=== PATIENT | male | born 1955 | race Caucasian/White ===

== ENCOUNTER 2016-06-26 20:33 | Emergency (ER) | payer BC ==
[~2016-06-26 20:33] MED LIST: ASPI-232 PO; AUG0.05L6 TOP; CARV25TA2 PO; CITA20TA9 PO; ENOX60IN SQ; FENO48TA9 PO; GLC500 PO; INSDGI SC; NITR0.4S UT; NSNN50; NVLGI SC; OMEG12006 PO; OMEP20CA9 PO; RANI300T2 PO; ROSU20TA PO; VALS320T PO; WARF-284 PO
[2016-06-26 20:35] VITALS: TEMP 36.5; Ht 177.8 cm
[2016-06-26] MEDS ORDERED: PERCOCET HOME PACK PO ONE (21:30)
[2016-06-26] MEDS ORDERED: HYDROmorphone INJ 2 MG/ML SYR/VIAL IM ONE (21:30)
--- NOTE | 2016-06-26 21:34 | EMERGENCY ROOM VISIT NOTE ---
History Report prepared by Patience: Martin Randolph Under the Supervision of: Dr. Robbie Prater D.O. First contact with patient: 21:15 Chief Complaint: BACK PAIN Stated Complaint: POST OP BACK SURGERY 06-21,SEVERE PAIN History of Present Illness The patient is a 61 year old male who presents to the Emergency Room with complaints of worsening severe back pain for the past five days. The patient's states that the patient got lumbar fusion surgery of the L2-L5 vertebrae. The states that the patient's pain is worse than the day after the surgery. The states that the patient has been following his treatment plans , and has been doing everything that he is supposed to be doing. The patient states that pain radiates into his hips and lower back. The states that the patient has been taking oxycodone and Vicodin, and they have not helped the pain. The says that the patient called his surgeon, and they told him to come to the ED for pain relief. Source of History: patient, spouse/significant other Onset: five days ago Position: back (lower) Symptom Intensity: severe Timing: worsening Note: Associated symptoms: hip and groin pain Review of Systems See HPI for pertinent positives & negatives. A total of 10 systems reviewed and were otherwise negative. Past Medical & Surgical Medical Problems: (1) Diabetes (2) Heart disease (3) HTN (hypertension) Surgical Problems: (1) Hx of cholecystectomy (2) Previous back surgery Family History Diabetes mellitus Heart disease Hypertension Social History Smoking Status: Current Every Day Smoker Alcohol Use: none Drug Use: none Marital Status: Housing Status: lives with family Occupation Status: employed Current/Historical Medications Scheduled Aspirin (Aspir-81), 81 MG PO DAILY Carvedilol (Coreg), 25 MG PO BID Citalopram Hydrobromide (Celexa), 20 MG PO DAILY Enoxaparin (Lovenox), 60 MG SQ Q12H Fenofibrate (Tricor), 48 MG PO DAILY Insulin Aspart (Novolog), Unknown Dose SC DAILY Insulin Glargine (Lantus), 60 UNITS SC BID Metformin HCl (Metformin HCl), 1,000 MG PO BID Mometasone Furoate (Nasal) (Nasonex), 2 SPRAY NA QAM Nitroglycerin (Nitrostat), 0.4 MG UT PRN [place]-3 Fatty Acids ([place] 3), 1 CAPSULE PO BID Omeprazole (Prilosec), 20 MG PO BID Ranitidine (Zantac), 300 MG PO HS Rosuvastatin Calcium (Crestor), 20 MG PO DAILY Valsartan (Diovan), 320 MG PO DAILY Warfarin Sodium (Warfarin Sodium), 7.5 MG PO DAILY Scheduled PRN Betamethasone Dipropionate Aug (Diprolene), 1 APPLN TOP BID PRN for unkn Allergies Coded Allergies: Niacin (Verified Adverse Reaction, Unknown, sweats and joint pain, 11/10/15 ) Physical Exam Vital Signs Date Time Temp Pulse Resp B/P Pulse Ox O2 Delivery O2 Flow Rate FiO2 06/26/16 22:00 78 20 155/72 96 06/26/16 20:35 36.5 73 20 117/80 100 Room Air Physical Exam CONSTITUTIONAL/VITAL SIGNS: Reviewed / noted above. GENERAL: Non-toxic in appearance. INTEGUMENTARY: Warm, dry, and [place]. HEAD: Normocephalic. EYES: without scleral icterus or trauma. ENT/OROPHARYNX: clear and moist. LYMPHADENOPATHY/NECK: Is supple without lymphadenopathy or meningismus. RESPIRATORY: Lungs clear and equal. CARDIOVASCULAR: Regular rate and rhythm. GI/ABDOMEN: Soft and nontender. No organomegaly or pulsatile mass. No rebound or guarding. Normal bowel sounds. EXTREMITIES: Warm and well perfused. BACK: Post-surgical wound in the lumbar region with jose intact. No redness, swelling, or discharge. No CVA tenderness. NEUROLOGICAL: Intact without focal deficits. PSYCHIATRIC: normal affect. MUSCULOSKELETAL: Normally developed with good muscle tone. Medical Decision & Procedures Medications Administered Medications (Trade) Dose Ordered Sig/Juan Miguel Route Start Time Stop Time Status Last Admin Dose Admin Hydromorphone HCl (Dilaudid Inj) 2 mg ONE ONCE IM 06/26/16 21:30 06/26/16 21:31 DC 06/26/16 21:35 2 MG Oxycodone/ Acetaminophen (Percocet 5/ 325MG Home Pack) 1 homepack UD ONCE PO 06/26/16 21:30 06/26/16 21:31 DC 06/26/16 21:36 1 HOMEPACK ED Course 2114: Previous medical records were reviewed. The patient was evaluated in room A9. A complete history and physical examination was performed. 2129: Percocet 5/325mg 1 Home Pack PO, Dilaudid Inj 2mg IM 2134: On reevaluation, the patient is feeling better. I discussed the results and findings with the patient. He verbalized agreement of the treatment plan. He was discharged home. Medical Decision Differential considered includes post-surgical process, cauda equina syndrome, conus medullaris, spinal cord compression syndrome, peripheral nerve compression , fractures or subluxations, intra-abdominal pathology such as abdominal aortic aneurysm or kidney stones, muscle strain, transverse myelitis, spinal cord injury. This is a 61-year-old male who presents to the ED with a chief complaint of back pain that radiates down his right leg. The patient is 5 days postop from a lumbar fusion. He had this done at a [facility]. The patient was told to come to the ED for a shot of pain medication to give him some relief. His surgeon feels that he is behind on his medications and the Vicodin that he was prescribed may not be working as well as the oxycodone he was given while he was in the hospital. The patient denies any fevers. He denies any abdominal pains. No nausea vomiting. Exam reveals postsurgical findings of the lumbar region. There is no evidence of infection. His motor and sensory function is intact distally. His vital signs are stable and he is afebrile. The patient was given IM Dilaudid for discomfort and discharged with oxycodone home pack. He is felt to be stable for discharge. He is going to contact his doctor tomorrow for additional pain medication and follow-up. Impression Primary Impression: Lumbar pain Scribe Attestation The scribe's documentation has been prepared under my direction and personally reviewed by me in its entirety. I confirm that the note above accurately reflects all work, treatment, procedures, and medical decision making performed by me. Departure Information Dispostion Home / Self-Care Referrals Steven López M.D. (PCP) Forms HOME CARE DOCUMENTATION FORM, IMPORTANT VISIT INFORMATION Patient Instructions My [facility] Additional Instructions Contact your doctor tomorrow. Return to the nearest emergency department for any concerns.
[2016-06-26 22:00] VITALS: BP 155/72; PULSE 78; O2SAT 96
[2016-06-26] MEDS ORDERED: HYG/25 PO (22:20)
[2016-06-26] MEDS ORDERED: LNX125 PO (22:20)
[2016-06-26] MEDS ORDERED: MAGN400T6 PO (22:20)
[2016-06-26] MEDS ORDERED: LIRA18IN SC (22:20)
[2016-06-26] MEDS ORDERED: MOME1AER5 (22:20)
[2016-06-26] MEDS ORDERED: NVLG SC (22:20)
[2016-06-26] MEDS ORDERED: SALI0.657 NAE (22:20)
[2016-06-26] MEDS ORDERED: WARF10TA4 PO (22:20)
[2016-06-26] MEDS ORDERED: IPRA1AER2 INH (22:20)
[2016-06-26] MEDS ORDERED: INSDGI SC (22:20)
[2016-06-26] MEDS ORDERED: ATOR-26 PO (22:20)
[2016-06-26] MEDS ORDERED: ALPR-411 PO (22:20)
[2016-06-26] MEDS ORDERED: TRMCR515 TOP (22:20)
[2016-06-26] MEDS ORDERED: LACT12CR TOP (22:20)
[2016-07-15] MEDS ORDERED: LRS10 PO (13:44)
[2016-07-15] MEDS ORDERED: RXC5 PO (13:44)
[2016-07-15] MEDS ORDERED: DVN80 PO (13:44)
[2016-08-03] MEDS ORDERED: OXYC1TAB3 PO (16:04)
[2016-09-13] MEDS ORDERED: NICO7DIS7 TD (09:27)
[2016-09-13] MEDS ORDERED: HYG25 PO (09:28)
[2016-10-26] MEDS ORDERED: CYM/30 PO (10:12)
[2016-10-26] MEDS ORDERED: INSU100I23 SC (10:12)
[2016-11-29] MEDS ORDERED: GABA-113 PO (10:25)
[2016-11-29] MEDS ORDERED: NRN300 PEG (10:25)
== END 2016-06-26 22:06 | disposition home or self-care (01) ==
LOC: C.EDB 20:34 → C.EDA 22:06
DX: M54.5 Low back pain (principal); F17.200 Nicotine dependence, unspecified, uncomplicated; E11.9 Type 2 diabetes mellitus without complications; I51.9 Heart disease, unspecified; I10 Essential (primary) hypertension; Z79.82 Long term (current) use of aspirin; Z79.4 Long term (current) use of insulin

== ENCOUNTER 2016-06-30 11:14 | Inpatient (IN) | payer BC ==
[~2016-06-30] VITALS: Ht 180.3 cm; Wt 139.8 kg
[~2016-06-30 11:14] MED LIST changes: +ALPR-411 PO; +ATOR-26 PO; -ENOX60IN SQ; +HYG/25 PO; +IPRA1AER2 INH; +LACT12CR TOP; +LIRA18IN SC; +LNX125 PO; +MAGN400T6 PO; +MOME1AER5; -NSNN50; +NVLG SC; -NVLGI SC; -ROSU20TA PO; +SALI0.657 NAE; +TRMCR515 TOP; +WARF10TA4 PO
[2016-06-30] MEDS ORDERED: SODIUM CHLORIDE 0.9% 1000ML 1,000 ML IV STA ×2 (11:35)
--- NOTE | 2016-06-30 11:42 | EMERGENCY ROOM VISIT NOTE ---
History Report prepared by Patience: Blanca Jones Under the Supervision of: Dr. Joanna Nicole M.D. First contact with patient: 11:25 Chief Complaint: SYNCOPE Stated Complaint: SYNCOPE History of Present Illness The patient is a 61 year old male who presents to the Emergency Room via EMS with complaints of multiple syncopal episodes occurring today. The patient recently had a laminectomy in [place]. He also complains of persistent weakness and increased tiredness today. He took 2 Vicodin today as prescribed. He had about 5 witnessed syncopal episodes today. Each episode lasted for about 5 seconds. He currently complains of a headache, nausea, and back pain. He had severe dizziness when he tried standing up. He also reports a loss of appetite. He has been having watery diarrhea intermittently for the past few days. He denies chest pain, shortness of breath, vomiting, dark/bloody stool, or any other complaints. The patient has a history of diabetes, cardiac stent placement , and A-Fib. Source of History: patient Onset: today Position: other (global) Quality: other (syncopal episodes) Timing: other (about 5 episodes) Associated Symptoms: + back pain, + diarrhea, + headache, + nausea, No SOB, No chest pain, No vomiting Review of Systems See HPI for pertinent positives & negatives. A total of 10 systems reviewed and were otherwise negative. Past Medical & Surgical Medical Problems: (1) LISSETH (acute kidney injury) (2) CAD (coronary artery disease) (3) COPD (chronic obstructive pulmonary disease) (4) Depression (5) Diabetes mellitus type II, uncontrolled (6) Dyslipidemia (7) GERD (gastroesophageal reflux disease) (8) HTN (hypertension) (9) ZULEIKA on CPAP (10) PAF (paroxysmal atrial fibrillation) (11) Tobacco abuse Surgical Problems: (1) Hx of cholecystectomy (2) Previous back surgery (3) Stented coronary artery Family History Diabetes mellitus Heart disease Hypertension Social History Smoking Status: Current Every Day Smoker Alcohol Use: none Drug Use: none Marital Status: Housing Status: lives with family Occupation Status: employed Current/Historical Medications Scheduled Aspirin (Aspir-81), 81 MG PO DAILY Atorvastatin (Lipitor), 80 MG PO DAILY Carvedilol (Coreg), 25 MG PO BID Chlorthalidone (Hygroton), 12.5 MG PO DAILY Citalopram Hydrobromide (Celexa), 20 MG PO HS Digoxin (Digoxin), 0.125 MCG PO DAILY Fenofibrate (Tricor), 48 MG PO DAILY Insulin Aspart (Novolog), 24 UNITS SC TIDM Insulin Glargine (Lantus), 60 UNITS SC BID Ipratropium-Albuterol (Combivent Respimat), 1 PUFFS INH QID Liraglutide (Victoza), 1.8 MG SC DAILY Magnesium Oxide (Mag-Ox), 400 MG PO DAILY Metformin HCl (Metformin HCl), 1,000 MG PO BID Nitroglycerin (Nitrostat), 0.4 MG UT PRN [place]-3 Fatty Acids ([place] 3), 1 CAPSULE PO BID Omeprazole (Prilosec), 20 MG PO BID Ranitidine (Zantac), 300 MG PO HS Valsartan (Diovan), 320 MG PO DAILY Warfarin Sod (Jantoven), 10 MG PO WK Warfarin Sodium (Warfarin Sodium), 7.5 MG PO [id number] Miscellaneous Medications Mometasone Furoate (Inhalation (Asmanex Hfa) Allergies Coded Allergies: Niacin (Verified Adverse Reaction, Unknown, sweats and joint pain, 06/30/16) Physical Exam Vital Signs Date Time Temp Pulse Resp B/P Pulse Ox O2 Delivery O2 Flow Rate FiO2 06/30/16 12:43 77 18 98/75 98 Room Air 06/30/16 12:18 75 16 117/75 96 Room Air 06/30/16 11:46 79 06/30/16 11:35 94 16 79/42 94 Room Air 06/30/16 11:33 95 Room Air 06/30/16 11:27 81 16 94/50 91 Room Air 06/30/16 11:25 36.4 75 16 84/50 95 Room Air 06/30/16 11:21 74 16 66/56 Physical Exam Vital signs reviewed. General: Well-appearing, noted to be markedly hypotensive. HEENT: No scleral icterus, pale conjunctiva, PERRLA, neck supple. Atraumatic. Mucous membranes are dry. Cardiovascular: Regular rate and rhythm, no extra sounds. Pulmonary: Clear to auscultation bilaterally, normal work of breathing. Abdomen: Obese, soft, nontender, nondistended, positive bowel sounds. Rectal: Guaiac negative. Musculoskeletal: Atraumatic, no peripheral edema. Neurologic: Patient awake alert and oriented x 3, full strength in all 4 extremities. Cranial nerves 2 through 12 grossly intact. Skin: Warm, dry, no rash Medical Decision & Procedures ER Provider Diagnostic Interpretation: X-ray results as stated below per interpretation by me and the radiologist: CHEST ONE VIEW PORTABLE CLINICAL HISTORY: syncope dyspnea COMPARISON STUDY: 11/07/2015 FINDINGS: Mild stable cardiomegaly. Lungs are clear. Diaphragms smooth. IMPRESSION: Mild stable cardia megaly. Otherwise negative study Electronically signed by: Satya Mcfarland M.D. 06/30/2016 1:09 PM Dictated Date/Time: 06/30/2016 1:[address] results as stated below per my review and radiologist interpretation: HEAD CT NONCONTRAST CT DOSE: 1441.90 mGycm HISTORY: syncope, coumadin CHI TECHNIQUE: Multiaxial CT images of the head were performed without the use of intravenous contrast. Automated exposure control was utilized for this study. Comparison: None. Findings: The paranasal sinuses and mastoid air cells are clear. The calvarium and skull base are intact. The ventricles and sulci are within normal limits. There is no mass, hematoma, midline shift, or acute infarct. Impression: No acute intracranial abnormality. Electronically signed by: Hua Oreilly M.D. 06/30/2016 12:27 PM Dictated Date/Time: 06/30/2016 12:24 PM Laboratory Results Test 06/30/16 11:25 06/30/16 11:47 06/30/16 11:49 Immature Granulocyte % (Auto) 0.8 % White Blood Count 8.81 K/uL (4.8-10.8) Red Blood Count 3.97 M/uL (4.7-6.1) Hemoglobin 13.0 g/dL (14.0-18.0) Hematocrit 36.9 % (42-52) Mean Corpuscular Volume 92.9 fL (80-100) Mean Corpuscular Hemoglobin 32.7 pg (25-34) Mean Corpuscular Hemoglobin Concent 35.2 g/dl (32-36) Platelet Count 370 K/uL (130-400) Mean Platelet Volume 9.2 fL (7.4-10.4) Neutrophils (%) (Auto) 59.0 % Lymphocytes (%) (Auto) 24.5 % Monocytes (%) (Auto) 8.5 % Eosinophils (%) (Auto) 6.7 % Basophils (%) (Auto) 0.5 % Neutrophils # (Auto) 5.20 K/uL (1.4-6.5) Lymphocytes # (Auto) 2.16 K/uL (1.2-3.4) Monocytes # (Auto) 0.75 K/uL (0.11-0.59) Eosinophils # (Auto) 0.59 K/uL (0-0.5) Basophils # (Auto) 0.04 K/uL (0-0.2) Immature Granulocyte # (Auto) 0.07 K/uL (0.00-0.02) Activated Partial Thromboplast Time 35.9 SECONDS (21.0-31.0) Partial Thromboplastin Ratio 1.4 Total Bilirubin 0.6 mg/dl (0.2-1) Direct Bilirubin 0.2 mg/dl (0-0.2) Aspartate Amino Transf (AST/SGOT) 37 U/L (15-37) Alanine Aminotransferase (ALT/SGPT) 78 U/L (12-78) Alkaline Phosphatase 82 U/L (45-117) Total Creatine Kinase 218 U/L (39-308) Total Protein 6.8 gm/dl (6.4-8.2) Albumin 3.2 gm/dl (3.4-5.0) Lipase 100 U/L (73-393) Digoxin Level 0.7 ng/ml (0.8-2.0) Bedside Troponin I 0.000 ng/ml (0-0.045) Bedside Hemoglobin 11.6 g/dl (14.0-18.0) Bedside Hematocrit 34 % (42-52) Bedside Sodium 137 mEq/L (135-144) Bedside Potassium 3.6 mEq/L (3.3-5.0) Bedside Chloride 98 mEq/L (101-112) Bedside Total CO2 22 mEq/l (24-31) Bedside Blood Urea Nitrogen 44 mg/dl (7-18) Bedside Creatinine 3.1 mg/dl (0.6-1.3) Bedside Glucose (other) 143 mg/dl (70-99) Bedside Ionized Calcium (Randi) 1.00 mmol/l (1.12-1.32) Medications Administered Medications (Trade) Dose Ordered Sig/Juan Miguel Route Start Time Stop Time Status Last Admin Dose Admin Sodium Chloride (Nss 1000ml) 1,000 ml @ 999 mls/hr Q1H1M STAT IV 06/30/16 11:35 06/30/16 12:35 DC 06/30/16 11:35 999 MLS/HR ECG Indication: syncope Rate (beats per minute): 73 Rhythm: atrial fibrillation Findings: T-wave inversion (inferior and lateral ), other (Prolonged QTC 486) Comparison ECG Date: June 08, 2016 Change: Rate has decreased by by 45 beats per minute but otherwise no change when compared to June 08, 2016. ED Course 1125: Past medical records reviewed. The patient was evaluated in room C02B. A complete history and physical examination was performed. 1135: Sodium Chloride 1000 ml @ 200 mls/hr IV, Sodium Chloride 1000 ml @ 999 mls /hr IV 1243: Upon reevaluation, the patient is resting comfortably. I discussed laboratory and radiographic results with him. He verbalized agreement of the treatment plan. I spoke with KELSY Lan of the [facility] Service. The patient will be evaluated for further management and care. Medical Decision Differential diagnosis: Cardiac arrhythmia, dehydration, medication effect, renal failure, ACS, PE This patient was evaluated and appeared to be in no significant distress. IV access was obtained and laboratory work was drawn. The patient was placed on the dressmaker or tailor and found to be markedly hypotensive. He is in a rate controlled atrial fibrillation. EKG reveals T-wave inversions. There is no significant change from previous EKG with the exception that the rate has improved. The patient was aggressively hydrated with normal saline solution for his hypotension into the 60s. Patient did have some improvement. Laboratory work reveals a markedly elevated creatinine. This is likely secondary to a dehydration. The patient's case was discussed with the hospitalist service will evaluate the patient for admission and further management. He and his are aware of the plan and agree. Consults Time Called: 1241 Consulting Physician: [facility] Returned Call: 1245 I spoke with KELSY Lan of the [facility] Service. Impression Primary Impression: Acute renal failure Additional Impressions: Dehydration Syncope Scribe Attestation The scribe's documentation has been prepared under my direction and personally reviewed by me in its entirety. I confirm that the note above accurately reflects all work, treatment, procedures, and medical decision making performed by me. Departure Information Dispostion Being Evaluated By Hospitalist Referrals Steven López M.D. (PCP) Patient Instructions My [facility] Problem Qualifiers Primary Impression: Acute renal failure Acute renal failure type: unspecified Qualified Codes: N17.9 - Acute kidney failure, unspecified Additional Impressions: Syncope Encounter type: initial encounter
[2016-06-30 11:56] LABS: BASO % 0.5 %; BASO ABS # 0.04 K/uL (0-0.2); COMPLETE YES; EOS % 6.7 %; HEMATOCRIT 36.9 % (42-52); IG% 0.8 %; LYMPH % 24.5 %; LYMPH ABS # 2.16 K/uL (1.2-3.4); MEAN CELL VOLUME 92.9 fL (80-100); MEAN CORPUSCULAR HEMOGLOBIN 32.7 pg (25-34); MEAN CORPUSCULAR HGB CONC 35.2 g/dl (32-36); MEAN PLATELET VOLUME 9.2 fL (7.4-10.4); MONO % 8.5 %; PLATELET COUNT 370 K/uL (130-400); RED BLOOD COUNT 3.97 M/uL (4.7-6.1); WHITE BLOOD COUNT 8.81 K/uL (4.8-10.8)
[2016-06-30 12:02] LABS: ISTAT CREATININE 3.1 mg/dl (0.6-1.3); ISTAT HEMOGLOBIN 11.6 g/dl (14.0-18.0)
[2016-06-30 12:07] LABS: INR 2.7 (0.9-1.1); PARTIAL THROMBOPLASTIN RATIO 1.4; PROTHROMBIN TIME (PATIENT) 29.9 SECONDS (9.0-12.0)
[2016-06-30 12:18] LABS: BUN/CREATININE RATIO 16.5 (10-20); CALCIUM 8.3 mg/dl (8.5-10.1); CREATININE 3.2 mg/dl (0.60-1.40); MAGNESIUM 1.9 mg/dl (1.8-2.4); POTASSIUM 3.5 mmol/L (3.5-5.1)
--- NOTE | 2016-06-30 12:29 | DIAGNOSTIC IMAGING REPORT ---
HEAD CT NONCONTRAST CT DOSE: 1441.90 mGycm HISTORY: syncope, coumadin CHI TECHNIQUE: Multiaxial CT images of the head were performed without the use of intravenous contrast. Automated exposure control was utilized for this study. Comparison: None. Findings: The paranasal sinuses and mastoid air cells are clear. The calvarium and skull base are intact. The ventricles and sulci are within normal limits. There is no mass, hematoma, midline shift, or acute infarct. Impression: No acute intracranial abnormality. Electronically signed by: Hua Oreilly M.D. 06/30/2016 12:27 PM Dictated Date/Time: 06/30/2016 12:24 PM
--- NOTE | 2016-06-30 13:12 | DIAGNOSTIC IMAGING REPORT ---
CHEST ONE VIEW PORTABLE CLINICAL HISTORY: syncope dyspnea COMPARISON STUDY: 11/07/2015 FINDINGS: Mild stable cardiomegaly. Lungs are clear. Diaphragms smooth. IMPRESSION: Mild stable cardia megaly. Otherwise negative study Electronically signed by: Satya Mcfarland M.D. 06/30/2016 1:09 PM Dictated Date/Time: 06/30/2016 1:09 PM
[2016-06-30] MEDS ORDERED: ONDANSETRON INJ 2 MG/ML 2 ML VIAL IV PRN (14:15)
[2016-06-30] MEDS ORDERED: NITROGLYCERIN 0.4 MG SL PER TAB CHARGE SL PRN (14:15)
[2016-06-30] MEDS ORDERED: GLUCOSE 40% GEL 15 GM TUBE PO PRN (14:15)
[2016-06-30] MEDS ORDERED: GLUCOSE 10 TABS/TUBE PO PRN (14:15)
[2016-06-30] MEDS ORDERED: GLUCAGON FOR INJ 1 MG VIAL SQ PRN (14:15)
[2016-06-30] MEDS ORDERED: DEXTROSE 50% 50 ML SYR IV PRN (14:15)
[2016-06-30] MEDS ORDERED: PHARMACY GLYCEMIC MGMT CONSULT PRN (15:00)
--- NOTE | 2016-06-30 15:43 | Pharmacy Progress Note ---
Glycemic Control Intl Consult Date of Service Jun 30, 2016. Scope Glycemic Pharmacist consulted by Marbin Cantrell on 06/30/16 for glycemic control and to write orders per [facility] inpatient glycemic control protocol Objective Weight (Kilograms): 130.000 Accuchecks BSG (last 24hrs): Test 06/30/16 11:25 06/30/16 11:49 Random Glucose 147 mg/dl (70-99) Bedside Glucose 157 mg/dl (70-99) Laboratory Data (last 24hrs) Test 06/30/16 11:25 06/30/16 11:49 Anion Gap 11.0 mmol/L 21.0 mmol/L BUN/Creatinine Ratio 16.5 Blood Urea Nitrogen 53 mg/dl Creatinine 3.20 mg/dl Potassium Level 3.5 mmol/L Sodium Level 136 mmol/L White Blood Count 8.81 K/uL Red Blood Count 3.97 M/uL Hemoglobin 13.0 g/dL Hematocrit 36.9 % Mean Corpuscular Volume 92.9 fL Mean Corpuscular Hemoglobin 32.7 pg Mean Corpuscular Hemoglobin Concent 35.2 g/dl Platelet Count 370 K/uL Mean Platelet Volume 9.2 fL Neutrophils (%) (Auto) 59.0 % Lymphocytes (%) (Auto) 24.5 % Monocytes (%) (Auto) 8.5 % Eosinophils (%) (Auto) 6.7 % Basophils (%) (Auto) 0.5 % Neutrophils # (Auto) 5.20 K/uL Lymphocytes # (Auto) 2.16 K/uL Monocytes # (Auto) 0.75 K/uL Eosinophils # (Auto) 0.59 K/uL Basophils # (Auto) 0.04 K/uL Recent Pertinent Medications Outpatient Anti-diabetic Regimen: * Metformin 500mg BIDM, Victoza 1.8mg SQ daily, Novolog 24 units TIDM, Lantus 60 units BID * A1c is outdated. Will order updated A1c to be drawn with tomorrow's AM labs. Risk Factors for Insulin Resistance: * IVF: NS at 125 ml/hr * Recent Surgery: Back surgery in [place] on 06/21. * Diet: AHA/DM2 Assessment & Plan ASSESSMENT: * ADA & AACE recommend a goal blood sugar range 140-180 mg/dl for the majority of critically ill & non-critically ill patients. However, more stringent targets may be selected in individual cases. * 61 yo male admitted with c/o syncope. Pt recently had back surgery ( laminectomy) on 06/21/16 in [place]. * The pt is on a complicated and extensive DM regimen as an outpatient. There is no updated A1c on file to evaluate current control of BSGs. * Pt is maintained on oral antidiabetic agents (Metformin) as an outpatient plus GLP-1 inhibitor (Victoza) * These agents are not recommended for inpatient use d/t drug interactions, changing PO intake, and difficulty titrating for acute hyper/hypoglycemia. ADA recommends re-initiating outpatient agents 1-2 days prior to discharge if/when appropriate if they were held on admission. * Victoza is non-formulary. Will reinitiate as an outpatient. * Will construct an insulin regimen considering home insulin doses as well as weight based dosing. Mr. Angela is on significant insulin doses at home. Inpatient insulin needs often differ compared to home regimens. Decreased PO intake can contribute to diminished insulin needs. * Additionally, pt reporting syncopal episodes. Do not want to provoke hypoglycemia which could exacerbate this issue. PLAN FOR INPATIENT GLYCEMIC CONTROL: * Start Lantus BID per scale * For BSG below 110 mg/dl: 15 units * For BSG 110 mg/dl and above: 35 units * Novolog ACHS * Set correction factor to 20 mg/dl/unit * Set carb ratio to 1 unit per 8 grams CHO consumed * Set goal range to Low 120 mg/dL - High 160 mg/dL * Please note that the plan above was derived based on current level of insulin resistance and hospital stress. These recommendations are appropriate for inpatient admission only. Plan of care upon discharge will need to be reassessed to avoid potential outpatient hypo/hyperglycemia. Thank you.
[2016-06-30 16:09] VITALS: BP 127/82; PULSE 84; TEMP 36.2; O2SAT 96; Ht 180.3 cm; Wt 139.8 kg
[2016-06-30] MEDS: SODIUM CHLORIDE 0.9% 1000ML 1,000 ML IV SCH (16:40)
[2016-06-30] MEDS: WARFARIN SOD 7.5 MG TAB PO SCH (16:40)
--- NOTE | 2016-06-30 16:50 | History and Physical ---
History & Physical Date & Time of Service: Jun 30, 2016 at 14:34 Chief Complaint: Syncope Primary Care Physician: Steven López M.D. History of Present Illness Source: patient This is a 61 y/o male with PMHx of Insulin Dependent DM 2, PAF on Coumadin, CAD s/p stent placement, ZULEIKA on CPAP, COPD with ongoing tobacco use, HTN, Dyslipidemia and other problems as outlined below who presents to the ED c/o multiple episodes of syncope prior to arrival. Pt reports that he had back surgery in [place] 1 week ago (06/21). He was discharged home with Vicodin 7.5mg and was instructed to take 1-2 tabs PO q 4hrs PRN. Initially patient states he was only taking the Vicodin if he needed it and his pain was fairly well-controlled however after about 3 days his pain got progressively worse. He states the pain is 10/10 bilat hip pain and not at his incision site. He was seen in the ED 4 days ago for his worsening back pain, given a dose of Dilaudid and discharged home. Patient spoke with his surgeon in [place] a few days ago and they felt that his pain was normal post-op pain and instructed him to continue the Vicodin. Patient has now been taking the Vicodin scheduled every 4 hours. For the past couple days he has had generalized weakness/fatigue, no appetite, mild nausea and severe lightheadedness/dizziness with sitting and standing. This morning patient sat up in bed and experienced a syncopal episode. states he was unresponsive for 5 seconds. She called EMS and patient had 3 more episodes after EMS arrived. Patient did take 2 Vicodin today. His blood glucose was recorded at 150 by EMS. There was no seizure-like activity. Pt currently reports feeling very tired. Pt denies fever/chills, diaphoresis, chest pain, palpitations, SOB, wheezing, abd pain, vomiting, hematochezia, melena, diarrhea, constipation, bladder issues, LE edema or calf pain. In the ED, patient is hypotensive on arrival which has improved with fluids. HgB 13.0. creat 3.2. INR 2.7. Head CT negative. EKG: rate controlled Afib. Pt is currently stable and will be admitted for further evaluation and treatment. Past Medical/Surgical History Medical Problems: (1) CAD (coronary artery disease) Status: Chronic (2) COPD (chronic obstructive pulmonary disease) Status: Chronic (3) Depression Status: Chronic (4) Diabetes mellitus type II, uncontrolled Status: Chronic (5) Dyslipidemia Status: Chronic (6) GERD (gastroesophageal reflux disease) Status: Chronic (7) HTN (hypertension) Status: Chronic (8) ZULEIKA on CPAP Status: Chronic (9) PAF (paroxysmal atrial fibrillation) Status: Chronic (10) Tobacco abuse Status: Chronic Surgical Problems: (1) Hx of cholecystectomy Status: Resolved (2) Previous back surgery Status: Resolved (3) Stented coronary artery Permanent Comment: stents to RCA and LAD Status: Resolved Family History Diabetes mellitus Heart disease Hypertension Social History Smoking Status: Current Every Day Smoker (1/2 ppd x 42 years) Alcohol Use: occasionally (once monthly) Drug Use: none Marital Status: Occupational Status: employed Immunizations History of Influenza Vaccine: No History of Tetanus Vaccine?: Yes History of Pneumococcal: Yes History of Hepatitis B Vaccine: No Multi-Drug Resistant Organisms History of MDRO: Yes Type of MDRO: MRSA Allergies Coded Allergies: Niacin (Verified Adverse Reaction, Unknown, sweats and joint pain, 06/30/16) Home Medications Scheduled Aspirin (Aspir-81), 81 MG PO DAILY Atorvastatin (Lipitor), 80 MG PO DAILY Carvedilol (Coreg), 25 MG PO BID Chlorthalidone (Hygroton), 12.5 MG PO DAILY Citalopram Hydrobromide (Celexa), 20 MG PO HS Digoxin (Digoxin), 0.125 MCG PO DAILY Fenofibrate (Tricor), 48 MG PO DAILY Insulin Aspart (Novolog), 24 UNITS SC TIDM Insulin Glargine (Lantus), 60 UNITS SC BID Ipratropium-Albuterol (Combivent Respimat), 1 PUFFS INH QID Liraglutide (Victoza), 1.8 MG SC DAILY Magnesium Oxide (Mag-Ox), 400 MG PO DAILY Metformin HCl (Metformin HCl), 1,000 MG PO BID Nitroglycerin (Nitrostat), 0.4 MG UT PRN [place]-3 Fatty Acids ([place] 3), 1 CAPSULE PO BID Omeprazole (Prilosec), 20 MG PO BID Ranitidine (Zantac), 300 MG PO HS Valsartan (Diovan), 320 MG PO DAILY Warfarin Sod (Jantoven), 10 MG PO WK Warfarin Sodium (Warfarin Sodium), 7.5 MG PO [id number] Miscellaneous Medications Mometasone Furoate (Inhalation (Asmanex Hfa) Review of Systems Constitutional: + fatigue, No chills, No fever, No sweats, No weakness Eyes: No worsening of vision ENT: No hearing loss Respiratory: No cough, No shortness of breath Cardiovascular: No chest pain, No claudication, No edema Abdomen: + nausea, No GI bleeding, No constipation, No diarrhea, No pain, No vomiting Musculoskeletal: + joint pain (bilat hip pain), No calf pain, No swelling Genitourinary - Male: No dysuria, No hematuria Neurologic: No weakness Psychiatric: No depression symptoms Endocrine: + fatigue Hematologic / Lymphatic: No abnormal bleeding/bruising Integumentary: No new/changing skin lesions Physical Exam Vital Signs Date Time Temp Pulse Resp B/P Pulse Ox O2 Delivery O2 Flow Rate FiO2 06/30/16 12:43 77 18 98/75 98 Room Air 06/30/16 12:18 75 16 117/75 96 Room Air 06/30/16 11:46 79 06/30/16 11:35 94 16 79/42 94 Room Air 06/30/16 11:33 95 Room Air 06/30/16 11:27 81 16 94/50 91 Room Air 06/30/16 11:25 36.4 75 16 84/50 95 Room Air 06/30/16 11:21 74 16 66/56 General Appearance: WD/WN, no apparent distress, + obese, + pertinent finding ( Pt is laying in bed with at bedside ) Head: normocephalic, atraumatic Eyes: normal inspection ENT: hearing grossly normal Neck: supple Respiratory/Chest: chest non-tender, lungs clear, normal breath sounds, no respiratory distress Cardiovascular: no edema, no murmur, + irregularly irregular Abdomen/GI: normal bowel sounds, non tender, soft Back: + pertinent finding (vertical surgical scar with sutures in place noted to lumbar spine; mild erythema; no drainage noted) Extremities/Musculoskelatal: normal inspection, no calf tenderness, no pedal edema Neurologic/Psych: alert, normal mood/affect, oriented x 3 Skin: normal color, warm/dry Diagnostics Laboratory Results Results Past 24 Hours Test 06/30/16 11:25 06/30/16 11:49 Range/Units White Blood Count 8.81 4.8-10.8 K/uL Red Blood Count 3.97 4.7-6.1 M/uL Hemoglobin 13.0 14.0-18.0 g/dL Hematocrit 36.9 42-52 % Mean Corpuscular Volume 92.9 80-100 fL Mean Corpuscular Hemoglobin 32.7 25-34 pg Mean Corpuscular Hemoglobin Concent 35.2 32-36 g/dl Platelet Count 370 130-400 K/uL Mean Platelet Volume 9.2 7.4-10.4 fL Neutrophils (%) (Auto) 59.0 % Lymphocytes (%) (Auto) 24.5 % Monocytes (%) (Auto) 8.5 % Eosinophils (%) (Auto) 6.7 % Basophils (%) (Auto) 0.5 % Neutrophils # (Auto) 5.20 1.4-6.5 K/uL Lymphocytes # (Auto) 2.16 1.2-3.4 K/uL Monocytes # (Auto) 0.75 0.11-0.59 K/uL Eosinophils # (Auto) 0.59 0-0.5 K/uL Basophils # (Auto) 0.04 0-0.2 K/uL RDW Standard Deviation 45.6 36.4-46.3 fL RDW Coefficient of Variation 13.4 11.5-14.5 % Immature Granulocyte % (Auto) 0.8 % Immature Granulocyte # (Auto) 0.07 0.00-0.02 K/uL Prothrombin Time 29.9 9.0-12.0 SECONDS Prothromb Time International Ratio 2.7 0.9-1.1 Activated Partial Thromboplast Time 35.9 21.0-31.0 SECONDS Partial Thromboplastin Ratio 1.4 Sodium Level 136 136-145 mmol/L Potassium Level 3.5 3.5-5.1 mmol/L Chloride Level 100 98-107 mmol/L Carbon Dioxide Level 25 21-32 mmol/L Anion Gap 11.0 21.0 16-25 mmol/L Blood Urea Nitrogen 53 7-18 mg/dl Creatinine 3.20 0.60-1.40 mg/dl Est Creatinine Clear Calc Drug Dose 33.7 ml/min Estimated GFR () 23.1 Estimated GFR (Non- 20.0 BUN/Creatinine Ratio 16.5 10-20 Random Glucose 147 70-99 mg/dl Calcium Level 8.3 8.5-10.1 mg/dl Magnesium Level 1.9 1.8-2.4 mg/dl Total Bilirubin 0.6 0.2-1 mg/dl Direct Bilirubin 0.2 0-0.2 mg/dl Aspartate Amino Transf (AST/SGOT) 37 15-37 U/L Alanine Aminotransferase (ALT/SGPT) 78 12-78 U/L Alkaline Phosphatase 82 45-117 U/L Total Creatine Kinase 218 39-308 U/L Creatine Kinase MB 4.4 0.5-3.6 ng/ml Creatine Kinase MB Ratio 2.0 0-3.0 Total Protein 6.8 6.4-8.2 gm/dl Albumin 3.2 3.4-5.0 gm/dl Lipase 100 73-393 U/L Digoxin Level 0.7 0.8-2.0 ng/ml Bedside Hemoglobin 11.6 14.0-18.0 g/dl Bedside Hematocrit 34 42-52 % Bedside Sodium 137 135-144 mEq/L Bedside Potassium 3.6 3.3-5.0 mEq/L Bedside Chloride 98 101-112 mEq/L Bedside Total CO2 22 24-31 mEq/l Bedside Blood Urea Nitrogen 44 7-18 mg/dl Bedside Creatinine 3.1 0.6-1.3 mg/dl Bedside Glucose 157 70-99 mg/dl Bedside Glucose (other) 143 70-99 mg/dl Bedside Ionized Calcium (Randi) 1.00 1.12-1.32 mmol/l Diagnostic Radiology CXR IMPRESSION: Mild stable cardiomegaly. Otherwise negative study CT HEAD IMPRESSION: No acute intracranial abnormality. EKG EKG: Afib at 73 bpm with T wave inversion in anterolateral leads; no change when compared to EKG from 06/08/16 Impression Assessment and Plan SYNCOPE; LIKELY MULTIFACTORIAL pt presented with multiple episodes of syncope -admit to telemetry -likely multifactorial due to narcotic pain meds, orthostatic hypotension, pain and possible low blood glucose -pt was hypotensive (60s/50s) on arrival; improved after IVF in the ED; currently 114/70 -CT head is negative -EKG: rate controlled Afib with no acute ischemic change -Initial troponin neg; obtain serial Nathaniel -echo 06/14 EF 65-69% with abnormal diastolic function -carotid US 06/14 <50% stenosis bilat -hold narcotic pain medication -cont gentle IVF -consult neuro, Dr. Foote-appreciate input -monitor HYPOTENSION -60s/50s improved to 114/70 with IVF in ED; h/o HTN on 3 antihypertensive agents -likely secondary to pain medication and dehydration 2* decreased PO intake -hold losartan and chlorthalidone -will continue carvedilol -gentle IV hydration -monitor BILAT HIP PAIN S/P LUMBAR LAMINECTOMY -lumbar laminectomy 06/21 in [place] -obtain bilat hip xray for further evaluation -hold narcotic pain medication -start scheduled Tylenol and Tramadol for pain -PT/OT evals LISSETH -creatinine currently 3.2 (bl=1.0-1.2); likely elevated due to decreased PO intake and diuretics -check urine sodium and creatinine -hold valsartan and chlorthalidone -monitor with prp daily and avoid nephrotoxic agents when able INSULIN-DEPENDENT DM 2 -last A1C 8.7; repeat in AM -hold Metformin, Victoza, Lantus and NovoLog -start Lantus 30 units BID with ISS -monitor BSG AC HS -consult pharmacy for glycemic control CAD -s/p stents to RCA and LAD -nuclear stress test 06/16/16 negative for inducible ischemia -cont ASA, BB and statin -pt currently denies acute anginal sxs PAF -s/p failed ablation -EKG: rate controlled Afib -cont Coumadin, carvedilol and digoxin -monitor INR daily ZULEIKA ON CPAP -initial setup for CPAP HS COPD WITH ONGOING TOBACCO USE -no evidence of acute exacerbation -cont inhalers -pt counseled regarding importance of smoking cessation DYSLIPIDEMIA -cont statin and fenofibrate DVT PROPHYLAXIS -cont Coumadin CODE STATUS -FULL CODE status DISPO Pt seen in collaboration with Dr. Badillo. Please see her addendum for further details. Thanks! -Of note: patient will be followed by Dr. Hauser starting tomorrow AM I have seen and examined the patient and discussed the case with the provider above. I agree with the assessment and plan. Mr. Angela likely had this syncopal event related to a combination of multiple causes including post-op pain that was uncontrolled along with deconditioning, he was on high dose narcotics that he is not used to, he was having fluctuations in his blood sugars and is on not only insulin but also Victoza and metformin putting him at elevated risk for hypoglycemia, dehydration related to poor PO intake and diuretic use. LISSETH on labwork supports the dehydration hypothesis and urine studies are pending. Orthostatic hypotension in triage with improvement in symptoms of lightheadedness (present all morning pre-and post-syncope) with IVF supports this as well. Agree with holding diuretic and ACEI at this time. Preop workup was extensive to include carotid u/s, TTE and stress test. He is asymptomatic, but with chronic EKG changes and known h/o CAD with stent will trend cardiac enzymes. Pt not thought to be in ACS at this time. Agree with IVF hydration and repeat PRP in am. Amirah Badillo, DO Hospitalist Level of Care Telemetry Resuscitation Status FULL RESUSCITATION VTE Prophylaxis VTE Risk Assessment Done? Y/N: Yes Risk Level: High Given or contraindicated: Warfarin (Coumadin)
--- NOTE | 2016-06-30 17:23 | CONSULTATION REPORT ---
DATE OF CONSULTATION: 06/30/2016 REFERRING PHYSICIAN: Dr. Hauser. SUBJECTIVE: Armen is 61 years old, patient of Dr. Steven López and was brought to the Emergency Room today via EMS for multiple syncopal events. The patient had a laminectomy several days ago at [place] and has had generalized weakness and tiredness ever since along with some anorexia. He has been taking low doses of Vicodin and has had lightheaded episodes when standing. He thinks his fluid intake has been less since his appetite has been pretty far down. He had 5 episodes today of about 5 seconds duration syncope during which he apparently felt lightheaded and then passed out and afterwards had a headache, nausea and some back pain. Apparently there was some question of dysarthria of speech and he has had persistent lightheadedness and near syncope when standing up. He has also been having some watery diarrhea intermittently for the last few days, but denied any chest pain, shortness of breath, vomiting, hematemesis or other complaints. He does have a history of diabetes, cardiac stent placement and a periodic atrial fibrillation. He also has some hypertension, has had a cholecystectomy, prior back surgery and a recent laminectomy. MEDICATIONS LIST: Includes aspirin, carvedilol, chlorthalidone, Celexa, digoxin, fenofibrate, insulin, ipratropium, lactic acid, Victoza, magnesium oxide, metformin, nitroglycerin, [place]-3 fatty acids, omeprazole, ranitidine, triamcinolone, valsartan, warfarin. ALLERGIES: He denies any significant drug allergies. FAMILY HISTORY: Positive for heart disease, diabetes and hypertension. PHYSICAL EXAMINATION: VITAL SIGNS: On exam today in the Emergency Room, his blood pressure was 79/42 and the highest recorded pressure was 94/50. Pulse was 81, respirations were 16. GENERAL: He appeared a little pale. HEAD, EYES, EARS, NOSE AND THROAT: Was normal. He was moderately over nourished. LUNGS: Clear. HEART: Had a regular rhythm. No carotid bruits were heard. There was no peripheral edema. NEUROLOGIC: Now after receiving several liters of IV fluids, he is awake, alert, oriented in 3 spheres with clear speech. Normal extraocular movements, normal visual so, normal facial motility and strength. Normal facial sensation. He moves all extremities well. I did not sit him up to see if he could walk. Reflexes are a little hypoactive, but present. Toes are downgoing. No Asuncion's signs are seen. Strength testing is grossly intact. Sensation is normal to gross testing. IMAGING: A CT scan of the head shows no evidence for an infarction. LABORATORY STUDIES: Show a normal white count with a slightly low hemoglobin. Chemistry screen is unremarkable with the exception of BUN of 53, creatinine of 3.2. Random glucose is 147. Magnesium levels are normal. CPK is 218. Coagulation studies reveal an INR of 2.7. DIAGNOSIS: This is clearly hypotension-induced syncope and lightheadedness. I suppose a question has been raised about seizures and stroke, but I see no reason at least question of latter, his INR is therapeutic. There is nothing on CAT scan. His exam is nonfocal. I am going to check an EEG just to close the loop and I will interpret it tomorrow. Dr. Redmond will be on, I am going to ask her to drop by to see if anything has transpired, but after that point assuming the EEG is normal I do not think neurology has much more to offer here. ETHAN
[2016-06-30] MEDS: INSULIN ASPART 100 UNITS/ML 3 ML PEN SC SCH ×2 (17:40→21:50)
[2016-06-30 19:35] VITALS: BP 102/42; PULSE 86; TEMP 36.4; O2SAT 95
[2016-06-30 20:00] VITALS: O2SAT 95
--- NOTE | 2016-06-30 20:55 | DIAGNOSTIC IMAGING REPORT ---
PELVIS AND BILATERAL HIPS 5 VIEWS CLINICAL HISTORY: bilat hip pain COMPARISON STUDY: No previous studies for comparison. FINDINGS: There are postsurgical changes within the lumbar spine. There is a multilevel laminectomy with posterior pedicle screw fusion. No acute fractures are visualized. The joint spaces appear symmetric. There are no erosive or destructive changes. Incidental note is made of vascular calcifications. The joint spaces appear relatively well preserved for age. IMPRESSION: Minimal degenerative changes within the hips. No evidence of fracture. No destructive or erosive changes are visualized Electronically signed by: Valerio Fitch M.D. 06/30/2016 8:53 PM Dictated Date/Time: 06/30/2016 8:52 PM
[2016-06-30] MEDS ORDERED: INSULIN GLARGINE PER UNIT 30 UNITS in SYRINGE 0 ML SC SCH (21:00)
[2016-06-30] MEDS: TRAMADOL HCL 50 MG TAB PO SCH (21:38)
[2016-06-30] MEDS: RANITIDINE HCL 150 MG TAB PO SCH (21:40)
[2016-06-30] MEDS: PANTOprazole SOD 40 MG TAB PO SCH (21:41)
[2016-06-30] MEDS: CITALOPRAM 20 MG TAB PO SCH (21:41)
[2016-06-30] MEDS: CARVEDILOL 25 MG TAB PO SCH (21:42)
[2016-06-30] MEDS: IPRATROPIUM BROMIDE/ALBUTEROL respimat INH INH SCH (21:43)
[2016-06-30] MEDS: INSULIN GLARGINE SOLOSTAR 100 UNITS/ML 3 ML PEN SC SCH (21:50)
[2016-06-30] MEDS ORDERED: ACETAMINOPHEN 500 MG TAB PO SCH (22:00)
[2016-06-30] MEDS: ACETAMINOPHEN 500 MG TAB PO SCH (22:16)
[2016-06-30 23:16] VITALS: PULSE 77; O2SAT 94
[2016-06-30 23:45] VITALS: BP 114/70; PULSE 84; TEMP 36.1; O2SAT 96
[2016-07-01] VITALS (12 sets, daily range): BP systolic 96–142; BP diastolic 54–79; PULSE 71–92; TEMP 36.1–36.5; O2SAT 90–97
[2016-07-01] MEDS ORDERED: NURSING VERBAL MED ORDER ONE (01:15)
[2016-07-01] MEDS ORDERED: MoRPHine SULFATE 2 MG/ML CARP IV STA (01:33)
[2016-07-01] MEDS: SODIUM CHLORIDE 0.9% 1000ML 1,000 ML IV SCH (04:43)
[2016-07-01 06:19] LABS: HEMATOCRIT 33.5 % (42-52); MEAN CELL VOLUME 92.3 fL (80-100); MEAN CORPUSCULAR HEMOGLOBIN 33.1 pg (25-34); MEAN CORPUSCULAR HGB CONC 35.8 g/dl (32-36); MEAN PLATELET VOLUME 8.7 fL (7.4-10.4); PLATELET COUNT 315 K/uL (130-400); RED BLOOD COUNT 3.63 M/uL (4.7-6.1); WHITE BLOOD COUNT 8.77 K/uL (4.8-10.8)
[2016-07-01] MEDS: ACETAMINOPHEN 500 MG TAB PO SCH ×3 (06:19→21:09)
[2016-07-01] MEDS: TRAMADOL HCL 50 MG TAB PO SCH ×3 (06:20→21:09)
[2016-07-01 06:31] LABS: INR 3.4 (0.9-1.1); PROTHROMBIN TIME (PATIENT) 38.8 SECONDS (9.0-12.0)
[2016-07-01 06:43] LABS: ESTIMATED AVERAGE GLUCOSE 177 mg/dl; HA1C FLAG Normal (Normal)
[2016-07-01 06:47] LABS: URINE APPEARANCE CLEAR (CLEAR); URINE BILIRUBIN NEG (NEG); URINE COLOR YELLOW; URINE NITRITE NEG (NEG); URINE PH 5.5 (4.5-7.5); URINE SPECIFIC GRAVITY 1.018 (1.000-1.030); UROBILINOGEN NEG (NEG); ZZUR CULT IF INDIC CLEAN CATCH NO
[2016-07-01 06:59] LABS: CALCIUM 8.2 mg/dl (8.5-10.1); POTASSIUM 3.7 mmol/L (3.5-5.1)
[2016-07-01 07:06] LABS: MANUAL MICROSCOPIC REQUIRED? NO; REVIEW REQ? NO
[2016-07-01] MEDS: ATORVASTATIN 40 MG TAB PO SCH (07:53)
[2016-07-01] MEDS: MAGNESIUM OXIDE 400 MG TAB PO SCH (07:53)
[2016-07-01] MEDS: IPRATROPIUM BROMIDE/ALBUTEROL respimat INH INH SCH ×4 (07:53→21:08)
[2016-07-01] MEDS: PANTOprazole SOD 40 MG TAB PO SCH ×2 (07:54→21:10)
[2016-07-01] MEDS: FENOFIBRATE 48 MG TAB PO SCH (07:54)
[2016-07-01] MEDS: CARVEDILOL 25 MG TAB PO SCH ×2 (07:54→21:11)
[2016-07-01] MEDS: ASPIRIN 81 MG ECTAB PO SCH (07:54)
[2016-07-01] MEDS: INSULIN ASPART 100 UNITS/ML 3 ML PEN SC SCH ×4 (07:57→21:13)
[2016-07-01] MEDS: INSULIN GLARGINE SOLOSTAR 100 UNITS/ML 3 ML PEN SC SCH ×3 (07:58→21:14)
--- NOTE | 2016-07-01 09:34 | Pharmacy Progress Note ---
Glycemic Control: Progress Nt Date of Service Jul 01, 2016. Scope Glycemic Pharmacist consulted by Betty Cantrell PA-C on 06/30/16 for glycemic control and to write orders per [facility] inpatient glycemic control protocol. Objective Accuchecks BSG (last 24hrs): Test 06/30/16 11:25 06/30/16 11:49 06/30/16 16:11 06/30/16 20:04 Random Glucose 147 mg/dl (70-99) Bedside Glucose 157 mg/dl (70-99) 143 mg/dl (70-99) 146 mg/dl (70-99) Test 07/01/16 05:54 07/01/16 07:03 Random Glucose 112 mg/dl (70-99) Bedside Glucose 126 mg/dl (70-99) Laboratory Data (last 24hrs) Test 06/30/16 11:25 06/30/16 11:49 07/01/16 05:54 Anion Gap 11.0 mmol/L 21.0 mmol/L 8.0 mmol/L BUN/Creatinine Ratio 16.5 24.0 Blood Urea Nitrogen 53 mg/dl 48 mg/dl Creatinine 3.20 mg/dl 2.00 mg/dl Potassium Level 3.5 mmol/L 3.7 mmol/L Sodium Level 136 mmol/L 140 mmol/L White Blood Count 8.81 K/uL 8.77 K/uL Red Blood Count 3.97 M/uL Hemoglobin 13.0 g/dL Hematocrit 36.9 % Mean Corpuscular Volume 92.9 fL Mean Corpuscular Hemoglobin 32.7 pg Mean Corpuscular Hemoglobin Concent 35.2 g/dl Platelet Count 370 K/uL Mean Platelet Volume 9.2 fL Neutrophils (%) (Auto) 59.0 % Lymphocytes (%) (Auto) 24.5 % Monocytes (%) (Auto) 8.5 % Eosinophils (%) (Auto) 6.7 % Basophils (%) (Auto) 0.5 % Neutrophils # (Auto) 5.20 K/uL Lymphocytes # (Auto) 2.16 K/uL Monocytes # (Auto) 0.75 K/uL Eosinophils # (Auto) 0.59 K/uL Basophils # (Auto) 0.04 K/uL Hemoglobin A1c 7.8 % HbA1c: Test 07/01/16 05:54 Hemoglobin A1c 7.8 % (4.5-5.6) H Recent Pertinent Medications Outpatient Anti-diabetic Regimen: * Metformin 500mg BIDM, Victoza 1.8mg SQ daily, Novolog 24 units TIDM, Lantus 60 units BID Risk Factors for Insulin Resistance: * IVF: NS at 80 ml/hr * Recent Surgery: Back surgery in [place] on 06/21. * Diet: AHA/DM2 Assessment & Plan ASSESSMENT: 06/30/16 * 61 yo male admitted with c/o syncope. Pt recently had back surgery ( laminectomy) on 06/21/16 in [place]. * The pt is on a complicated and extensive DM regimen as an outpatient. * There is no updated A1c on file to evaluate current control of BSGs. * Pt is maintained on oral antidiabetic agents (Metformin) as an outpatient plus GLP-1 inhibitor (Victoza) * These agents are not recommended for inpatient use d/t drug interactions, changing PO intake, and difficulty titrating for acute hyper/hypoglycemia. ADA recommends re-initiating outpatient agents 1-2 days prior to discharge if/when appropriate if they were held on admission. * Victoza is non-formulary. Will reinitiate as an outpatient. * Will construct an insulin regimen considering home insulin doses as well as weight based dosing. Mr. Angela is on significant insulin doses at home. Inpatient insulin needs often differ compared to home regimens. Decreased PO intake can contribute to diminished insulin needs. * Additionally, pt reporting syncopal episodes. Do not want to provoke hypoglycemia which could exacerbate this issue. * ADA & AACE recommend a goal blood sugar range 140-180 mg/dl for the majority of critically ill & non-critically ill patients. However, more stringent targets may be selected in individual cases. 07/01/16 * A1c 7.8% obtained with labs this AM indicative of good glycemic control ( marked improvement from 2013) * BSGs ranged 146-157 mg/dL with initiation of insulin yesterday * Fasting BSG 126 mg/dL * Continue current regimen as I have no evidence to make any changes at this time PLAN FOR INPATIENT GLYCEMIC CONTROL: * Holding outpatient Metformin and Victoza * Basal insulin with LANTUS 30 units SQ BID, give HALF DOSE (15 units) if BSG < 110 mg/L * Correctional Insulin with NOVOLOG per scale ACHS or Q6hrs while NPO * Goal Range: Low 120 mg/dL - High 160 mg/dL * Correction Factor: 20 mg/dL/unit * Nutritional / Prandial insulin per carb ratio of 1 unit per 8 grams CHO consumed * A1c added to D/C instructions * Please note that the plan above was derived based on current level of insulin resistance and hospital stress. These recommendations are appropriate for inpatient admission only. Plan of care upon discharge will need to be reassessed to avoid potential outpatient hypo/hyperglycemia. Thank you.
--- NOTE | 2016-07-01 12:55 | ELECTROENCEPHALOGRAPH REPORT ---
CLINICAL DIAGNOSIS: Syncope. ELECTROENCEPHALOGRAM DIAGNOSIS: Essentially normal during wakefulness. DESCRIPTION OF TRACING: This EEG was done as a bedside recording and is of excellent technical quality with a few muscle movement artifacts captured by simultaneous video analysis of the patient's movement behavior. Photic stimulation was performed. Hyperventilation was done. Drowsiness and light sleep were not recorded. Under these conditions, there is evidence for normal appearing background rhythm in the alpha range of up to 10 Hz of maximum frequency and 30 microvolts of maximum amplitude. This is maximum posterior head regions bilaterally symmetrical. Polymorphic mid frequency theta activity is seen over all head regions without clear focal or regional predominance. Anterior head region maximum bilaterally symmetrical low voltage fast activity in the beta range is present. Photic stimulation provokes a modest driving response at most flash frequencies without a photomyogenic or photoparoxysmal component. At no time during the waking tracing is there evidence for potentially epileptogenic activity in the form of polyspike or spike wave bursts, focal sharp waves or focal spikes. INTERPRETATION: This EEG is essentially normal during wakefulness without evidence for focal or generalized encephalopathy and without evidence for potentially epileptogenic activity.
--- NOTE | 2016-07-01 13:18 | Neurology Progress Notes ---
Neurology Progress Note Date of Service Jul 01, 2016. Charissa Meyer is a 61 year old male who has a PMH DM 2 on insulin, afib on coumadin, CAD s/p stent placement, sleep apnea on CPAP and COPD with current tobacco use, HTN, DL. He was seen in the ED after multiple episodes of syncope. He had back surgery in [place] on 06/21 and was discharged on vicodin 7.5 mg prn. He was doing well until 3 days after surgery he started having hip and groin pain and was seen in the ED. At that time he was given a dose of dilaudid and discharged. he did contact the surgeon in [place] and he felt this was normal post operative pain. He had generalized weakness and took 2 vicodin he got up in the morning and had a 5 second syncope episode. EMS was called and he had 3 month episodes in the ambulance with no incontinence or biting his tongue. There was no seizure like activity with any of the events. He admits he has not been eating or drinking and he feels he was dehydrated. today he states he is feeling tired but he feels much better than he did when he came in. His back is not hurting but his is still having the hip and groin pain. denies CP, SOB, abdominal pain, N, V, vision changes, bowel or bladder issues. Objective Date Time Temp Pulse Resp B/P Pulse Ox O2 Delivery O2 Flow Rate FiO2 07/01/16 12:00 96 Room Air CPAP 07/01/16 11:34 36.4 71 20 96/54 90 Room Air 07/01/16 08:06 36.4 91 20 123/75 07/01/16 08:00 96 Room Air CPAP 07/01/16 04:00 96 Room Air 07/01/16 04:00 96 Room Air CPAP 07/01/16 02:50 36.2 92 16 103/55 91 Room Air 77 07/01/16 00:01 96 Room Air 06/30/16 23:45 36.1 84 18 114/70 96 Room Air 06/30/16 23:16 77 94 06/30/16 20:00 95 Room Air 06/30/16 19:35 36.4 86 17 102/42 95 Room Air 06/30/16 16:09 36.2 84 24 127/82 96 Room Air 06/30/16 15:30 76 16 114/70 96 06/30/16 15:00 76 15 114/70 96 Room Air Last 24 Hours Test 06/30/16 16:11 06/30/16 17:30 06/30/16 17:43 06/30/16 20:04 Bedside Glucose 143 mg/dl 146 mg/dl Creatine Kinase MB Ratio Creatine Kinase MB 5.2 ng/ml Troponin I < 0.015 ng/ml Test 06/30/16 23:24 07/01/16 00:00 07/01/16 05:54 07/01/16 07:03 Creatine Kinase MB 4.1 ng/ml Creatine Kinase MB Ratio Troponin I < 0.015 ng/ml Urine Color YELLOW Urine Appearance CLEAR Urine pH 5.5 Urine Specific [place] 1.018 Urine Protein NEG Urine Glucose (UA) NEG Urine Ketones NEG Urine Occult Blood NEG Urine Nitrite NEG Urine Bilirubin NEG Urine Urobilinogen NEG Urine Leukocyte Esterase NEG Urine Random Creatinine 180.0 mg/dl Urine Random Sodium 41 mEq/L White Blood Count 8.77 K/uL Red Blood Count 3.63 M/uL Hemoglobin 12.0 g/dL Hematocrit 33.5 % Mean Corpuscular Volume 92.3 fL Mean Corpuscular Hemoglobin 33.1 pg Mean Corpuscular Hemoglobin Concent 35.8 g/dl RDW Standard Deviation 44.9 fL RDW Coefficient of Variation 13.4 % Platelet Count 315 K/uL Mean Platelet Volume 8.7 fL Prothrombin Time 38.8 SECONDS Prothromb Time International Ratio 3.4 Sodium Level 140 mmol/L Potassium Level 3.7 mmol/L Chloride Level 104 mmol/L Carbon Dioxide Level 28 mmol/L Anion Gap 8.0 mmol/L Blood Urea Nitrogen 48 mg/dl Creatinine 2.00 mg/dl Est Creatinine Clear Calc Drug Dose 56.4 ml/min Estimated GFR () 40.8 Estimated GFR (Non- 35.2 BUN/Creatinine Ratio 24.0 Random Glucose 112 mg/dl Estimated Average Glucose 177 mg/dl Hemoglobin A1c 7.8 % Calcium Level 8.2 mg/dl Ionized Calcium 1.06 mmol/l Magnesium Level 2.0 mg/dl Hepatitis C Antibody Screen NEG Bedside Glucose 126 mg/dl Test 07/01/16 10:33 Bedside Glucose 178 mg/dl Imaging: : This EEG is essentially normal during wakefulness without evidence for focal or generalized encephalopathy and without evidence for potentially epileptogenic activity. Exam: Physical Exam: Constitutional: , appearance nourished, healthy and normal Ears, Nose, Mouth and Throat: mucous membranes moist, no injection and skin normal, eyes normal Cardiovascular: irregular Respiratory: clear to auscultation (CTA) and no rales, rhonchi or wheeze Musculoskeletal: no peripheral edema and good distal pulses Skin:lower back mid line incision with mild erythema sutures in place Eyes: extraocular muscles intact (EOMI) and pupils equal, round and reactive to light (PERRL) NEUROLOGIC EXAMINATION: Mental status: Alert and interactive Oriented to full date and location Oriented to person Speech fluent with no evidence of aphasia Cranial Nerves smile eye brow raise symmetric Sensory: no deficit to light touch Coordination: finger to nose without bi pass or tremor Gait/Stance: Posture lying in bed moves easily in bed 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 ACHS SC 06/30/16 16:00 07/30/16 15:59 07/01/16 12:10 8 UNITS Glucose (Glucose 40% Gel) 15-30 GRAMS 15 GRAMS... UD PRN PO 06/30/16 14:15 07/30/16 14:14 Glucose (Glucose Chew Tab) 4-8 Tablets 4 Tabl... UD PRN PO 06/30/16 14:15 07/30/16 14:14 Dextrose (Dextrose 50% 50ML Syringe) 25-50ML OF 50% DW IV FOR... UD PRN IV 06/30/16 14:15 07/30/16 14:14 Glucagon (Glucagon Inj) 1 mg UD PRN SQ 06/30/16 14:15 07/30/16 14:14 Tramadol HCl (Ultram Tab) 50 mg Q8H PO 06/30/16 22:00 07/03/16 21:59 07/01/16 06:20 50 MG Miscellaneous Information (Consult Glycemic Management Pharmacy) 1 ea UD PRN N/A 06/30/16 15:00 07/30/16 14:59 Aspirin (Ecotrin Tab) 81 mg DAILY PO 07/01/16 09:00 07/31/16 08:59 07/01/16 07:54 81 MG Atorvastatin Calcium (Lipitor Tab) 80 mg DAILY PO 07/01/16 09:00 07/31/16 08:59 07/01/16 07:53 80 MG Carvedilol (Coreg Tab) 25 mg BID PO 06/30/16 21:00 07/30/16 20:59 07/01/16 07:54 25 MG Citalopram Hydrobromide (celeXA TAB) 20 mg HS PO 06/30/16 21:00 07/30/16 20:59 06/30/16 21:41 20 MG Digoxin (Lanoxin Tab) 0.125 mg DAILY@1600 PO 07/01/16 16:00 07/31/16 15:59 Fenofibrate (Tricor Tab) 48 mg DAILY PO 07/01/16 09:00 07/31/16 08:59 07/01/16 07:54 48 MG Albuterol/ Ipratropium (Combivent Respimat Inh) 1 puffs QID INH 06/30/16 21:00 07/30/16 20:59 07/01/16 12:10 1 PUFFS Magnesium Oxide (Mag-Ox Tab) 400 mg DAILY PO 07/01/16 09:00 07/31/16 08:59 07/01/16 07:53 400 MG Warfarin Sodium (Coumadin Tab) 7.5 mg SuTuWeThFrSa@1600 PO 06/30/16 16:30 07/30/16 16:29 06/30/16 16:40 7.5 MG Pantoprazole Sodium (Protonix Tab) 40 mg BID PO 06/30/16 21:00 07/30/16 20:59 07/01/16 07:54 40 MG Ranitidine HCl (zANTac TAB) 300 mg HS PO 06/30/16 21:00 07/30/16 20:59 06/30/16 21:40 300 MG Warfarin Sodium (Coumadin Tab) 10 mg Mo@1600 PO 07/04/16 16:00 08/03/16 15:59 Acetaminophen (Tylenol Tab) 1,000 mg Q8 PO 06/30/16 22:00 07/30/16 21:59 07/01/16 06:19 1,000 MG Insulin Glargine (Lantus Solostar Pen) see protocol text BID SC 06/30/16 21:00 07/30/16 20:59 07/01/16 07:58 30 UNIT Impression 61 year old male s/p syncope episode -resolved with IV fluids Plan 1. EEG with no epileptic form waves 2. no confusion or incontinence or biting tongue not likely seizure activity 3. CT with no evidence of bleed 4. INR - 3.4 therapeutic 5. patient does live alone but has neighbors and family near by and his home is on one floor 6. follow up with surgeon as scheduled 7. fall precautions when discharged to home 8. unless symptoms return or change no need for follow up with neurology 9. renal function improving likely discharge tomorrow I have seen and discussed above patient with Dr Madelin Redmond, neurology Pt seen and examined, spell appears syncopal. will sign off. JEFERSON Redmond MD
--- NOTE | 2016-07-01 15:17 | Progress Note ---
Internal Med Progress Note Date of Service: Jul 01, 2016. Provider Documentation: SUBJECTIVE: The patient was seen and examined No more episodes Feels a lot better following admission OBJECTIVE: Vital Signs-as noted below Exam: General-no distress at rest Eyes-normal ENT-normal Neck-supple Lungs-clear to ausucltate bilaterally Heart-Regular,no murmur Abdomen-Benign,no masses Extremities-No edema Neuro-AAOx3 Lab data as noted below. ASSESSMENT & PLAN: SYNCOPE:Secondary to Orthostatic Hypotension Complicated by Dehydration and use of Narcotics -CT head is negative -EKG: rate controlled Afib with no acute ischemic change -echo 06/14 EF 65-69% with abnormal diastolic function -carotid US 06/14 <50% stenosis bilat -Appreciate Neurology input -no neurological symptoms -clinically much better -EEG-negative LISSETH -secondary to dehydration -check urine sodium and creatinine -hold valsartan and chlorthalidone -creatinine is improving HYPOTENSION -60s/50s improved to 114/70 with IVF in ED; h/o HTN on 3 antihypertensive agents -likely secondary to pain medication and dehydration 2* decreased PO intake -hold losartan and chlorthalidone -will continue carvedilol -IV fluid and monitor PRP -will need to restart BP medications on improvement BILAT HIP PAIN S/P LUMBAR LAMINECTOMY -lumbar laminectomy 06/21 in [place] -Narcotic pain medications as nedded -PT/OT evaluation before discharge INSULIN-DEPENDENT DM 2 -last A1C 8.7; repeat in AM -hold Metformin, Victoza, Lantus and NovoLog -On SSI CAD -s/p stents to RCA and LAD -nuclear stress test 06/16/16 negative for inducible ischemia -no acuet symptoms PAF -s/p failed ablation -EKG: rate controlled Afib -cont Coumadin, carvedilol and digoxin -monitor INR daily ZULEIKA ON CPAP -initial setup for CPAP HS COPD WITH ONGOING TOBACCO USE -no evidence of acute exacerbation DYSLIPIDEMIA -cont statin and fenofibrate DVT PROPHYLAXIS -cont Coumadin CODE STATUS -FULL CODE status DISPO Likely discharge tomorrow Vital Signs: Date Time Temp Pulse Resp B/P Pulse Ox O2 Delivery O2 Flow Rate FiO2 07/01/16 12:00 96 Room Air CPAP 07/01/16 11:34 36.4 71 20 96/54 90 Room Air 07/01/16 08:06 36.4 91 20 123/75 4/7/17 08:00 96 Room Air CPAP 07/01/16 04:00 96 Room Air 07/01/16 04:00 96 Room Air CPAP 07/01/16 02:50 36.2 92 16 103/55 91 Room Air 77 07/01/16 00:01 96 Room Air 06/30/16 23:45 36.1 84 18 114/70 96 Room Air 06/30/16 23:16 77 94 06/30/16 20:00 95 Room Air 06/30/16 19:35 36.4 86 17 102/42 95 Room Air 06/30/16 16:09 36.2 84 24 127/82 96 Room Air 06/30/16 15:30 76 16 114/70 96 Lab Results: Results Past 24 Hours Test 06/30/16 16:11 06/30/16 17:30 06/30/16 17:43 06/30/16 20:04 Range/Units Bedside Glucose 143 146 70-99 mg/dl Creatine Kinase MB Ratio 0-3.0 Creatine Kinase MB 5.2 0.5-3.6 ng/ml Troponin I < 0.015 0-0.045 ng/ml Test 06/30/16 23:24 07/01/16 00:00 07/01/16 05:54 07/01/16 07:03 Range/Units Creatine Kinase MB 4.1 0.5-3.6 ng/ml Creatine Kinase MB Ratio 0-3.0 Troponin I < 0.015 0-0.045 ng/ml Urine Color YELLOW Urine Appearance CLEAR CLEAR Urine pH 5.5 4.5-7.5 Urine Specific [place] 1.018 1.000-1.030 Urine Protein NEG NEG Urine Glucose (UA) NEG NEG Urine Ketones NEG NEG Urine Occult Blood NEG NEG Urine Nitrite NEG NEG Urine Bilirubin NEG NEG Urine Urobilinogen NEG NEG Urine Leukocyte Esterase NEG NEG Urine Random Creatinine 180.0 mg/dl Urine Random Sodium 41 mEq/L White Blood Count 8.77 4.8-10.8 K/uL Red Blood Count 3.63 4.7-6.1 M/uL Hemoglobin 12.0 14.0-18.0 g/dL Hematocrit 33.5 42-52 % Mean Corpuscular Volume 92.3 80-100 fL Mean Corpuscular Hemoglobin 33.1 25-34 pg Mean Corpuscular Hemoglobin Concent 35.8 32-36 g/dl RDW Standard Deviation 44.9 36.4-46.3 fL RDW Coefficient of Variation 13.4 11.5-14.5 % Platelet Count 315 130-400 K/uL Mean Platelet Volume 8.7 7.4-10.4 fL Prothrombin Time 38.8 9.0-12.0 SECONDS Prothromb Time International Ratio 3.4 0.9-1.1 Sodium Level 140 136-145 mmol/L Potassium Level 3.7 3.5-5.1 mmol/L Chloride Level 104 98-107 mmol/L Carbon Dioxide Level 28 21-32 mmol/L Anion Gap 8.0 3-11 mmol/L Blood Urea Nitrogen 48 7-18 mg/dl Creatinine 2.00 0.60-1.40 mg/dl Est Creatinine Clear Calc Drug Dose 56.4 ml/min Estimated GFR () 40.8 Estimated GFR (Non- 35.2 BUN/Creatinine Ratio 24.0 10-20 Random Glucose 112 70-99 mg/dl Estimated Average Glucose 177 mg/dl Hemoglobin A1c 7.8 4.5-5.6 % Calcium Level 8.2 8.5-10.1 mg/dl Ionized Calcium 1.06 1.12-1.32 mmol/l Magnesium Level 2.0 1.8-2.4 mg/dl Hepatitis C Antibody Screen NEG NEG Bedside Glucose 126 70-99 mg/dl Test 07/01/16 10:33 Range/Units Bedside Glucose 178 70-99 mg/dl
[2016-07-01] MEDS ORDERED: DIGOXIN 0.125 MG TAB PO SCH (16:00)
[2016-07-01] MEDS: WARFARIN SOD 7.5 MG TAB PO SCH (17:01)
[2016-07-01] MEDS: RANITIDINE HCL 150 MG TAB PO SCH (21:10)
[2016-07-01] MEDS: CITALOPRAM 20 MG TAB PO SCH (21:10)
[2016-07-02] VITALS (9 sets, daily range): BP systolic 119–149; BP diastolic 66–103; PULSE 68–101; TEMP 36.3–37.5; O2SAT 90–97
[2016-07-02] MEDS ORDERED: NURSING VERBAL MED ORDER ONE (05:00)
[2016-07-02] MEDS ORDERED: MoRPHine SULFATE 2 MG/ML CARP IV STA (05:11)
[2016-07-02] MEDS: TRAMADOL HCL 50 MG TAB PO SCH ×2 (05:58→13:45)
[2016-07-02] MEDS: ACETAMINOPHEN 500 MG TAB PO SCH ×2 (05:58→13:45)
[2016-07-02 07:53] LABS: INR 2.5 (0.9-1.1); PROTHROMBIN TIME (PATIENT) 28.2 SECONDS (9.0-12.0)
[2016-07-02] MEDS: PANTOprazole SOD 40 MG TAB PO SCH (08:42)
[2016-07-02] MEDS: CARVEDILOL 25 MG TAB PO SCH (08:42)
[2016-07-02] MEDS: MAGNESIUM OXIDE 400 MG TAB PO SCH (08:42)
[2016-07-02] MEDS: ATORVASTATIN 40 MG TAB PO SCH (08:43)
[2016-07-02] MEDS: IPRATROPIUM BROMIDE/ALBUTEROL respimat INH INH SCH ×2 (08:43→13:45)
[2016-07-02] MEDS: ASPIRIN 81 MG ECTAB PO SCH (08:43)
[2016-07-02] MEDS: FENOFIBRATE 48 MG TAB PO SCH (08:43)
[2016-07-02] MEDS: INSULIN ASPART 100 UNITS/ML 3 ML PEN SC SCH ×2 (08:48→12:08)
[2016-07-02] MEDS: INSULIN GLARGINE SOLOSTAR 100 UNITS/ML 3 ML PEN SC SCH (08:49)
[2016-07-02 09:52] LABS: BUN/CREATININE RATIO 22.6 (10-20); CALCIUM 8.9 mg/dl (8.5-10.1); POTASSIUM 3.4 mmol/L (3.5-5.1)
--- NOTE | 2016-07-02 11:01 | Progress Note ---
Internal Med Progress Note Date of Service: Jul 02, 2016. Provider Documentation: SUBJECTIVE: The patient was seen and examined No more episodes Feels a lot better following admission Denies any symptoms except some back pain Ambulating well OBJECTIVE: Vital Signs-as noted below Exam: General-no distress at rest Eyes-normal ENT-normal Neck-supple Lungs-clear to ausucltate bilaterally Heart-Regular,no murmur Abdomen-Benign,no masses Extremities-No edema Neuro-AAOx3 Lab data as noted below. ASSESSMENT & PLAN: SYNCOPE:Secondary to Orthostatic Hypotension Complicated by Dehydration and use of Narcotics -CT head is negative -EKG: rate controlled Afib with no acute ischemic change -echo 06/14 EF 65-69% with abnormal diastolic function -carotid US 06/14 <50% stenosis bilat -Appreciate Neurology input -no neurological symptoms -clinically much better -EEG-negative -Stable to be discharged LISSETH -secondary to dehydration -check urine sodium and creatinine -hold valsartan and chlorthalidone -creatinine is improving-resolved HYPOTENSION -60s/50s improved to 114/70 with IVF in ED; h/o HTN on 3 antihypertensive agents -likely secondary to pain medication and dehydration 2* decreased PO intake -hold losartan and chlorthalidone -will continue carvedilol -IV fluid and monitor PRP -will need to restart BP medications on improvement -No more episodes -Restart usual medications BILAT HIP PAIN S/P LUMBAR LAMINECTOMY -lumbar laminectomy 06/21 in [place] -Narcotic pain medications as nedded -PT/OT evaluation before discharge -Discharge home -continue prior instructions INSULIN-DEPENDENT DM 2 -last A1C 8.7; repeat in AM -hold Metformin, Victoza, Lantus and NovoLog -On SSI CAD -s/p stents to RCA and LAD -nuclear stress test 06/16/16 negative for inducible ischemia -no acute symptoms PAF -s/p failed ablation -EKG: rate controlled Afib -cont Coumadin, carvedilol and digoxin -monitor INR daily ZULEIKA ON CPAP -initial setup for CPAP HS COPD WITH ONGOING TOBACCO USE -no evidence of acute exacerbation DYSLIPIDEMIA -cont statin and fenofibrate DVT PROPHYLAXIS -cont Coumadin CODE STATUS -FULL CODE status DISPO Discharge home today Vital Signs: Date Time Temp Pulse Resp B/P Pulse Ox O2 Delivery O2 Flow Rate FiO2 07/02/16 08:00 96 Room Air CPAP 07/02/16 07:41 37.5 101 20 149/103 97 Room Air 07/02/16 04:37 96 Room Air CPAP 07/02/16 04:00 36.8 84 20 132/71 93 CPAP 07/02/16 00:34 96 Room Air CPAP 07/02/16 00:00 36.6 68 20 125/66 93 CPAP 07/01/16 22:57 86 96 07/01/16 20:03 96 Room Air CPAP 07/01/16 19:35 36.5 83 20 117/79 97 Room Air 07/01/16 17:02 90 07/01/16 16:32 96 Room Air CPAP 07/01/16 15:39 36.1 80 18 142/69 97 Room Air 07/01/16 12:00 96 Room Air CPAP 07/01/16 11:34 36.4 71 20 96/54 90 Room Air Lab Results: Results Past 24 Hours Test 07/01/16 15:50 07/01/16 19:56 07/02/16 06:29 07/02/16 06:46 Range/Units Bedside Glucose 155 167 148 70-99 mg/dl Prothrombin Time 28.2 9.0-12.0 SECONDS Prothromb Time International Ratio 2.5 0.9-1.1 Sodium Level 139 136-145 mmol/L Potassium Level 3.4 3.5-5.1 mmol/L Chloride Level 104 98-107 mmol/L Carbon Dioxide Level 28 21-32 mmol/L Anion Gap 7.0 3-11 mmol/L Blood Urea Nitrogen 23 7-18 mg/dl Creatinine 1.00 0.60-1.40 mg/dl Est Creatinine Clear Calc Drug Dose 112.3 ml/min Estimated GFR () 94.4 Estimated GFR (Non- 81.4 BUN/Creatinine Ratio 22.6 10-20 Random Glucose 136 70-99 mg/dl Calcium Level 8.9 8.5-10.1 mg/dl
[2016-07-02] MEDS ORDERED: POTASSIUM CHLORIDE 10 MEQ TABCR PO ONE (11:15)
--- NOTE | 2016-07-02 13:16 | Discharge Instructions ---
Discharge Instructions Date of Service Jul 02, 2016. Admission Reason for Admission: Joao, Syncope Discharge Discharge Diagnosis / Problem: Syncope due to Orthostatic Hypotension,Acute Renal failure-normalized Discharge Goals Goal(s): Prevent Disease Progression Activity Recommendations Activity Limitations: resume your previous activity . Instructions / Follow-Up Instructions / Follow-Up Will call with appointment.Please keep regular appointment with the [facility] Current Hospital Diet Patient's current hospital diet: Diabetes Type 2 Diet, AHA Diet (Heart Healthy) Discharge Diet Recommended Diet: Diabetes Type 2 Diet Pending Studies Studies pending at discharge: no Laboratory Results Hemoglobin A1c Test 07/01/16 05:54 Range/Units Estimated Average Glucose 177 mg/dl Hemoglobin A1c 7.8 H 4.5-5.6 % Medical Emergencies . Who to Call and When: Medical Emergencies: If at any time you feel your situation is an emergency, please call 911 immediately. . Non-Emergent Contact Non-Emergency issues call your: Primary Care Provider . Past History Medical & Surgical History: (1) Dehydration (2) Acute renal failure (3) Syncope (4) Diabetes mellitus type II, uncontrolled (5) CAD (coronary artery disease) (6) PAF (paroxysmal atrial fibrillation) (7) Previous back surgery (8) Hx of cholecystectomy (9) Stented coronary artery . "Provider Documentation" section prepared by Bradford Hauser. VTE Core Measure Inpt VTE Proph given/why not?: Warfarin (Coumadin)
--- NOTE | 2016-07-02 17:47 | Discharge Summary ---
Discharge Summary Date of Service Jul 02, 2016. Discharge Summary Admission Date: Jun 30, 2016 at 14:16 Discharge Date: Jul 02, 2016 Discharge Disposition: Home Principal Diagnosis: Syncope due to Orthostatic Hypotension,Acute Renal failure-normalized Secondary Diagnoses/Problems: Please see H&P and Hospital Progress note Consultations: Neurology Medication Reconciliation Continued Medications: Aspirin (Aspir-81) 81 Mg Tab 81 MG PO DAILY Atorvastatin (Lipitor) 80 Mg Tab 80 MG PO DAILY, TAB Carvedilol (Coreg) 25 Mg Tab 25 MG PO BID, TAB Chlorthalidone (Hygroton) 25 Mg Tab 12.5 MG PO DAILY Citalopram Hydrobromide (Celexa) 20 Mg Tab 20 MG PO HS Digoxin (Digoxin) 0.125 Mg Tab 0.125 MCG PO DAILY Fenofibrate (Tricor) 48 Mg Tab 48 MG PO DAILY, TAB Insulin Aspart (Novolog) 100 Units/Ml Inj 24 UNITS SC TIDM Insulin Glargine (Lantus) 100 Unit/Ml Inj 60 UNITS SC BID Ipratropium-Albuterol (Combivent Respimat) 1 Aer Aer 1 PUFFS INH QID Liraglutide (Victoza) 18 Mg/3 Ml Inj 1.8 MG SC DAILY Magnesium Oxide (Mag-Ox) 400 Mg Tab 400 MG PO DAILY, TAB Metformin HCl (Metformin HCl) 500 Mg Tab 1000 MG PO BID Mometasone Furoate (Inhalation (Asmanex Hfa) 200 Mcg/Act Aer Nitroglycerin (Nitrostat) 0.4 Mg Sub 0.4 MG UT PRN, BTL [place]-3 Fatty Acids ([place] 3) 1 Cap Cap 1 CAPSULE PO BID Omeprazole (Prilosec) 20 Mg Cap 20 MG PO BID, CAP Ranitidine (Zantac) 300 Mg Tab 300 MG PO HS, TAB Valsartan (Diovan) 320 Mg Tab 320 MG PO DAILY, TAB Warfarin Sod (Jantoven) 10 Mg Tab 10 MG PO WK MONDAY Warfarin Sodium (Warfarin Sodium) 7.5 Mg Tab 7.5 MG PO 6XWK EVERYDAY EXCEPT MONDAY Admission Information HPI (per Admitting provider): This is a 61 y/o male with PMHx of Insulin Dependent DM 2, PAF on Coumadin, CAD s/p stent placement, ZULEIKA on CPAP, COPD with ongoing tobacco use, HTN, Dyslipidemia and other problems as outlined below who presents to the ED c/o multiple episodes of syncope prior to arrival. Pt reports that he had back surgery in [place] 1 week ago (06/21). He was discharged home with Vicodin 7.5mg and was instructed to take 1-2 tabs PO q 4hrs PRN. Initially patient states he was only taking the Vicodin if he needed it and his pain was fairly well-controlled however after about 3 days his pain got progressively worse. He states the pain is 10/10 bilat hip pain and not at his incision site. He was seen in the ED 4 days ago for his worsening back pain, given a dose of Dilaudid and discharged home. Patient spoke with his surgeon in [place] a few days ago and they felt that his pain was normal post-op pain and instructed him to continue the Vicodin. Patient has now been taking the Vicodin scheduled every 4 hours. For the past couple days he has had generalized weakness/fatigue, no appetite, mild nausea and severe lightheadedness/dizziness with sitting and standing. This morning patient sat up in bed and experienced a syncopal episode. states he was unresponsive for 5 seconds. She called EMS and patient had 3 more episodes after EMS arrived. Patient did take 2 Vicodin today. His blood glucose was recorded at 150 by EMS. There was no seizure-like activity. Pt currently reports feeling very tired. Pt denies fever/chills, diaphoresis, chest pain, palpitations, SOB, wheezing, abd pain, vomiting, hematochezia, melena, diarrhea, constipation, bladder issues, LE edema or calf pain. In the ED, patient is hypotensive on arrival which has improved with fluids. HgB 13.0. creat 3.2. INR 2.7. Head CT negative. EKG: rate controlled Afib. Pt is currently stable and will be admitted for further evaluation and treatment. Past Medical/Surgical History Medical Problems: (1) CAD (coronary artery disease) Status: Chronic (2) COPD (chronic obstructive pulmonary disease) Status: Chronic (3) Depression Status: Chronic (4) Diabetes mellitus type II, uncontrolled Status: Chronic (5) Dyslipidemia Status: Chronic (6) GERD (gastroesophageal reflux disease) Status: Chronic (7) HTN (hypertension) Status: Chronic (8) ZULEIKA on CPAP Status: Chronic (9) PAF (paroxysmal atrial fibrillation) Status: Chronic (10) Tobacco abuse Status: Chronic Surgical Problems: (1) Hx of cholecystectomy Status: Resolved (2) Previous back surgery Status: Resolved (3) Stented coronary artery Permanent Comment: stents to RCA and LAD Status: Resolved Family History Diabetes mellitus Heart disease Hypertension Social History Smoking Status: Current Every Day Smoker (1/2 ppd x 42 years) Alcohol Use: occasionally (once monthly) Drug Use: none Marital Status: Occupational Status: employed Immunizations History of Influenza Vaccine: No History of Tetanus Vaccine?: Yes History of Pneumococcal: Yes History of Hepatitis B Vaccine: No Multi-Drug Resistant Organisms History of MDRO: Yes Type of MDRO: MRSA Allergies Coded Allergies: Niacin (Verified Adverse Reaction, Unknown, sweats and joint pain, 06/30/16) Home Medications Scheduled Aspirin (Aspir-81), 81 MG PO DAILY Atorvastatin (Lipitor), 80 MG PO DAILY Carvedilol (Coreg), 25 MG PO BID Chlorthalidone (Hygroton), 12.5 MG PO DAILY Citalopram Hydrobromide (Celexa), 20 MG PO HS Digoxin (Digoxin), 0.125 MCG PO DAILY Fenofibrate (Tricor), 48 MG PO DAILY Insulin Aspart (Novolog), 24 UNITS SC TIDM Insulin Glargine (Lantus), 60 UNITS SC BID Ipratropium-Albuterol (Combivent Respimat), 1 PUFFS INH QID Liraglutide (Victoza), 1.8 MG SC DAILY Magnesium Oxide (Mag-Ox), 400 MG PO DAILY Metformin HCl (Metformin HCl), 1,000 MG PO BID Nitroglycerin (Nitrostat), 0.4 MG UT PRN [place]-3 Fatty Acids ([place] 3), 1 CAPSULE PO BID Omeprazole (Prilosec), 20 MG PO BID Ranitidine (Zantac), 300 MG PO HS Valsartan (Diovan), 320 MG PO DAILY Warfarin Sod (Jantoven), 10 MG PO WK Warfarin Sodium (Warfarin Sodium), 7.5 MG PO 6XWK Miscellaneous Medications Mometasone Furoate (Inhalation (Asmanex Hfa) Review of Systems Constitutional: + fatigue, No chills, No fever, No sweats, No weakness Eyes: No worsening of vision ENT: No hearing loss Respiratory: No cough, No shortness of breath Cardiovascular: No chest pain, No claudication, No edema Abdomen: + nausea, No GI bleeding, No constipation, No diarrhea, No pain, No vomiting Musculoskeletal: + joint pain (bilat hip pain), No calf pain, No swelling Genitourinary - Male: No dysuria, No hematuria Neurologic: No weakness Psychiatric: No depression symptoms Endocrine: + fatigue Hematologic / Lymphatic: No abnormal bleeding/bruising Integumentary: No new/changing skin lesions Physical Ex - H&P Physical Exam Vital Signs Date Time Temp Pulse Resp B/P Pulse Ox O2 Delivery O2 Flow Rate FiO2 06/30/16 12:43 77 18 98/75 98 Room Air 06/30/16 12:18 75 16 117/75 96 Room Air 06/30/16 11:46 79 06/30/16 11:35 94 16 79/42 94 Room Air 06/30/16 11:33 95 Room Air 06/30/16 11:27 81 16 94/50 91 Room Air 06/30/16 11:25 36.4 75 16 84/50 95 Room Air 06/30/16 11:21 74 16 66/56 General Appearance: WD/WN, no apparent distress, + obese, + pertinent finding ( Pt is laying in bed with at bedside ) Head: normocephalic, atraumatic Eyes: normal inspection ENT: hearing grossly normal Neck: supple Respiratory/Chest: chest non-tender, lungs clear, normal breath sounds, no respiratory distress Cardiovascular: no edema, no murmur, + irregularly irregular Abdomen/GI: normal bowel sounds, non tender, soft Back: + pertinent finding (vertical surgical scar with sutures in place noted to lumbar spine; mild erythema; no drainage noted) Extremities/Musculoskelatal: normal inspection, no calf tenderness, no pedal edema Neurologic/Psych: alert, normal mood/affect, oriented x 3 Skin: normal color, warm/dry Diagnostics - H&P Diagnostics Laboratory Results Results Past 24 Hours Test 06/30/16 11:25 06/30/16 11:49 Range/Units White Blood Count 8.81 4.8-10.8 K/uL Red Blood Count 3.97 4.7-6.1 M/uL Hemoglobin 13.0 14.0-18.0 g/dL Hematocrit 36.9 42-52 % Mean Corpuscular Volume 92.9 80-100 fL Mean Corpuscular Hemoglobin 32.7 25-34 pg Mean Corpuscular Hemoglobin Concent 35.2 32-36 g/dl Platelet Count 370 130-400 K/uL Mean Platelet Volume 9.2 7.4-10.4 fL Neutrophils (%) (Auto) 59.0 % Lymphocytes (%) (Auto) 24.5 % Monocytes (%) (Auto) 8.5 % Eosinophils (%) (Auto) 6.7 % Basophils (%) (Auto) 0.5 % Neutrophils # (Auto) 5.20 1.4-6.5 K/uL Lymphocytes # (Auto) 2.16 1.2-3.4 K/uL Monocytes # (Auto) 0.75 0.11-0.59 K/uL Eosinophils # (Auto) 0.59 0-0.5 K/uL Basophils # (Auto) 0.04 0-0.2 K/uL RDW Standard Deviation 45.6 36.4-46.3 fL RDW Coefficient of Variation 13.4 11.5-14.5 % Immature Granulocyte % (Auto) 0.8 % Immature Granulocyte # (Auto) 0.07 0.00-0.02 K/uL Prothrombin Time 29.9 9.0-12.0 SECONDS Prothromb Time International Ratio 2.7 0.9-1.1 Activated Partial Thromboplast Time 35.9 21.0-31.0 SECONDS Partial Thromboplastin Ratio 1.4 Sodium Level 136 136-145 mmol/L Potassium Level 3.5 3.5-5.1 mmol/L Chloride Level 100 98-107 mmol/L Carbon Dioxide Level 25 21-32 mmol/L Anion Gap 11.0 21.0 16-25 mmol/L Blood Urea Nitrogen 53 7-18 mg/dl Creatinine 3.20 0.60-1.40 mg/dl Est Creatinine Clear Calc Drug Dose 33.7 ml/min Estimated GFR () 23.1 Estimated GFR (Non- 20.0 BUN/Creatinine Ratio 16.5 10-20 Random Glucose 147 70-99 mg/dl Calcium Level 8.3 8.5-10.1 mg/dl Magnesium Level 1.9 1.8-2.4 mg/dl Total Bilirubin 0.6 0.2-1 mg/dl Direct Bilirubin 0.2 0-0.2 mg/dl Aspartate Amino Transf (AST/SGOT) 37 15-37 U/L Alanine Aminotransferase (ALT/SGPT) 78 12-78 U/L Alkaline Phosphatase 82 45-117 U/L Total Creatine Kinase 218 39-308 U/L Creatine Kinase MB 4.4 0.5-3.6 ng/ml Creatine Kinase MB Ratio 2.0 0-3.0 Total Protein 6.8 6.4-8.2 gm/dl Albumin 3.2 3.4-5.0 gm/dl Lipase 100 73-393 U/L Digoxin Level 0.7 0.8-2.0 ng/ml Bedside Hemoglobin 11.6 14.0-18.0 g/dl Bedside Hematocrit 34 42-52 % Bedside Sodium 137 135-144 mEq/L Bedside Potassium 3.6 3.3-5.0 mEq/L Bedside Chloride 98 101-112 mEq/L Bedside Total CO2 22 24-31 mEq/l Bedside Blood Urea Nitrogen 44 7-18 mg/dl Bedside Creatinine 3.1 0.6-1.3 mg/dl Bedside Glucose 157 70-99 mg/dl Bedside Glucose (other) 143 70-99 mg/dl Bedside Ionized Calcium (Randi) 1.00 1.12-1.32 mmol/l Diagnostic Radiology CXR IMPRESSION: Mild stable cardiomegaly. Otherwise negative study CT HEAD IMPRESSION: No acute intracranial abnormality. EKG EKG: Afib at 73 bpm with T wave inversion in anterolateral leads; no change when compared to EKG from 06/08/16 Impression - H&P Impression Assessment and Plan SYNCOPE; LIKELY MULTIFACTORIAL pt presented with multiple episodes of syncope -admit to telemetry -likely multifactorial due to narcotic pain meds, orthostatic hypotension, pain and possible low blood glucose -pt was hypotensive (60s/50s) on arrival; improved after IVF in the ED; currently 114/70 -CT head is negative -EKG: rate controlled Afib with no acute ischemic change -Initial troponin neg; obtain serial Nathaniel -echo 06/14 EF 65-69% with abnormal diastolic function -carotid US 06/14 <50% stenosis bilat -hold narcotic pain medication -cont gentle IVF -consult neuro, Dr. Foote-appreciate input -monitor HYPOTENSION -60s/50s improved to 114/70 with IVF in ED; h/o HTN on 3 antihypertensive agents -likely secondary to pain medication and dehydration 2* decreased PO intake -hold losartan and chlorthalidone -will continue carvedilol -gentle IV hydration -monitor BILAT HIP PAIN S/P LUMBAR LAMINECTOMY -lumbar laminectomy 06/21 in [place] -obtain bilat hip xray for further evaluation -hold narcotic pain medication -start scheduled Tylenol and Tramadol for pain -PT/OT evals LISSETH -creatinine currently 3.2 (bl=1.0-1.2); likely elevated due to decreased PO intake and diuretics -check urine sodium and creatinine -hold valsartan and chlorthalidone -monitor with prp daily and avoid nephrotoxic agents when able INSULIN-DEPENDENT DM 2 -last A1C 8.7; repeat in AM -hold Metformin, Victoza, Lantus and NovoLog -start Lantus 30 units BID with ISS -monitor BSG AC HS -consult pharmacy for glycemic control CAD -s/p stents to RCA and LAD -nuclear stress test 06/16/16 negative for inducible ischemia -cont ASA, BB and statin -pt currently denies acute anginal sxs PAF -s/p failed ablation -EKG: rate controlled Afib -cont Coumadin, carvedilol and digoxin -monitor INR daily ZULEIKA ON CPAP -initial setup for CPAP HS COPD WITH ONGOING TOBACCO USE -no evidence of acute exacerbation -cont inhalers -pt counseled regarding importance of smoking cessation DYSLIPIDEMIA -cont statin and fenofibrate DVT PROPHYLAXIS -cont Coumadin CODE STATUS -FULL CODE status DISPO Pt seen in collaboration with Dr. Badillo. Please see her addendum for further details. Thanks! -Of note: patient will be followed by Dr. Hauser starting tomorrow AM I have seen and examined the patient and discussed the case with the provider above. I agree with the assessment and plan. Mr. Angela likely had this syncopal event related to a combination of multiple causes including post-op pain that was uncontrolled along with deconditioning, he was on high dose narcotics that he is not used to, he was having fluctuations in his blood sugars and is on not only insulin but also Victoza and metformin putting him at elevated risk for hypoglycemia, dehydration related to poor PO intake and diuretic use. LISSETH on labwork supports the dehydration hypothesis and urine studies are pending. Orthostatic hypotension in triage with improvement in symptoms of lightheadedness (present all morning pre-and post-syncope) with IVF supports this as well. Agree with holding diuretic and ACEI at this time. Preop workup was extensive to include carotid u/s, TTE and stress test. He is asymptomatic, but with chronic EKG changes and known h/o CAD with stent will trend cardiac enzymes. Pt not thought to be in ACS at this time. Agree with IVF hydration and repeat PRP in am. Amirah Badillo, DO Hospitalist Level of Care Telemetry Resuscitation Status FULL RESUSCITATION VTE Prophylaxis VTE Risk Assessment Done? Y/N: Yes Risk Level: High Given or contraindicated: Warfarin (Coumadin) Physical Exam (per Admitting): General Appearance: WD/WN, no apparent distress, + obese, + pertinent finding (Pt is laying in bed with at bedside ) Head: normocephalic, atraumatic Eyes: normal inspection ENT: hearing grossly normal Neck: supple Respiratory/Chest: chest non-tender, lungs clear, normal breath sounds, no respiratory distress Cardiovascular: no edema, no murmur, + irregularly irregular Abdomen/GI: normal bowel sounds, non tender, soft Back: + pertinent finding (vertical surgical scar with sutures in place noted to lumbar spine; mild erythema; no drainage noted) Extremities/Musculoskelatal: normal inspection, no calf tenderness, no pedal edema Neurologic/Psych: alert, normal mood/affect, oriented x 3 Skin: normal color, warm/dry Hospital Course SYNCOPE:Secondary to Orthostatic Hypotension Complicated by Dehydration and use of Narcotics -CT head is negative -EKG: rate controlled Afib with no acute ischemic change -echo 06/14 EF 65-69% with abnormal diastolic function -carotid US 06/14 <50% stenosis bilat -Appreciate Neurology input -no neurological symptoms -clinically much better -EEG-negative -Stable to be discharged LISSETH -secondary to dehydration -check urine sodium and creatinine -hold valsartan and chlorthalidone -creatinine is improving-resolved HYPOTENSION -60s/50s improved to 114/70 with IVF in ED; h/o HTN on 3 antihypertensive agents -likely secondary to pain medication and dehydration 2* decreased PO intake -hold losartan and chlorthalidone -will continue carvedilol -IV fluid and monitor PRP -will need to restart BP medications on improvement -No more episodes -Restart usual medications BILAT HIP PAIN S/P LUMBAR LAMINECTOMY -lumbar laminectomy 06/21 in [place] -Narcotic pain medications as nedded -PT/OT evaluation before discharge -Discharge home -continue prior instructions INSULIN-DEPENDENT DM 2 -last A1C 8.7; repeat in AM -hold Metformin, Victoza, Lantus and NovoLog -On SSI CAD -s/p stents to RCA and LAD -nuclear stress test 06/16/16 negative for inducible ischemia -no acute symptoms PAF -s/p failed ablation -EKG: rate controlled Afib -cont Coumadin, carvedilol and digoxin -monitor INR daily ZULEIKA ON CPAP -initial setup for CPAP HS COPD WITH ONGOING TOBACCO USE -no evidence of acute exacerbation DYSLIPIDEMIA -cont statin and fenofibrate DVT PROPHYLAXIS -cont Coumadin CODE STATUS -FULL CODE status DISPO Discharge home today Total time spent on discharge = 35 minutes This includes examination of the patient, discharge planning, medication reconciliation, and communication with other providers. Discharge Instructions Date of Service Jul 02, 2016. Admission Reason for Admission: Lisseth, Syncope Discharge Discharge Diagnosis / Problem: Syncope due to Orthostatic Hypotension,Acute Renal failure-normalized Discharge Goals Goal(s): Prevent Disease Progression Activity Recommendations Activity Limitations: resume your previous activity . Instructions / Follow-Up Instructions / Follow-Up Will call with appointment.Please keep regular appointment with the [facility] Current Hospital Diet Patient's current hospital diet: Diabetes Type 2 Diet, AHA Diet (Heart Healthy) Discharge Diet Recommended Diet: Diabetes Type 2 Diet Pending Studies Studies pending at discharge: no Laboratory Results Hemoglobin A1c Test 07/01/16 05:54 Range/Units Estimated Average Glucose 177 mg/dl Hemoglobin A1c 7.8 H 4.5-5.6 % Medical Emergencies . Who to Call and When: Medical Emergencies: If at any time you feel your situation is an emergency, please call 911 immediately. . Non-Emergent Contact Non-Emergency issues call your: Primary Care Provider . Past History Medical & Surgical History: (1) Dehydration (2) Acute renal failure (3) Syncope (4) Diabetes mellitus type II, uncontrolled (5) CAD (coronary artery disease) (6) PAF (paroxysmal atrial fibrillation) (7) Previous back surgery (8) Hx of cholecystectomy (9) Stented coronary artery . "Provider Documentation" section prepared by Bradford Hauser. VTE Core Measure Inpt VTE Proph given/why not?: Warfarin (Coumadin) <Electronically signed by Bradford Hauser M.D.> Additional Copies To Steven López M.D.
[2016-07-04] MEDS ORDERED: WARFARIN SOD 10 MG TAB PO SCH (16:00)
[2016-08-03] MEDS ORDERED: OXYC1TAB3 PO (16:04)
[2016-10-26] MEDS ORDERED: CYM/30 PO (10:12)
[2016-10-26] MEDS ORDERED: INSU100I23 SC (10:12)
[2016-11-29] MEDS ORDERED: GABA-113 PO (10:25)
[2016-11-29] MEDS ORDERED: NRN300 PEG (10:25)
== END 2016-07-02 13:55 | disposition home or self-care (01) | DRG 312 ==
LOC: ENRESERVDT → ENRESERVTM → EDBD 11:14 → C.EDC 11:15 → C.2E 14:16
PROVIDERS: ADMIT Hospitalist; ATTEND Internal Medicine
DX: I95.1 Orthostatic hypotension (principal); N17.9 Acute kidney failure, unspecified; I48.0 Paroxysmal atrial fibrillation; I25.10 Atherosclerotic heart disease of native coronary artery without angina pectoris; J44.9 Chronic obstructive pulmonary disease, unspecified; F17.210 Nicotine dependence, cigarettes, uncomplicated; E86.0 Dehydration; E78.5 Hyperlipidemia, unspecified; G47.33 Obstructive sleep apnea (adult) (pediatric); E11.9 Type 2 diabetes mellitus without complications; I10 Essential (primary) hypertension; K21.9 Gastro-esophageal reflux disease without esophagitis; T40.605A Adverse effect of unspecified narcotics, initial encounter; M25.552 Pain in left hip; M25.551 Pain in right hip; F32.9 Major depressive disorder, single episode, unspecified; Z79.82 Long term (current) use of aspirin; Z95.5 Presence of coronary angioplasty implant and graft; Z98.1 Arthrodesis status; Z99.81 Dependence on supplemental oxygen; Z79.899 Other long term (current) drug therapy; Z79.84 Long term (current) use of oral hypoglycemic drugs; Z79.4 Long term (current) use of insulin; Z79.01 Long term (current) use of anticoagulants; Z79.51 Long term (current) use of inhaled steroids

== ENCOUNTER 2016-07-11 11:55 | Inpatient (IN) | payer BC ==
[~2016-07-11] VITALS: Ht 180.3 cm; Wt 139.6 kg
[~2016-07-11 11:55] MED LIST changes: -ALPR-411 PO; -AUG0.05L6 TOP; -LACT12CR TOP; -SALI0.657 NAE; -TRMCR515 TOP
[2016-07-11] MEDS ORDERED: SODIUM CHLORIDE 0.9% 1000ML 1,000 ML IV ONE ×2 (12:15→14:00)
[2016-07-11 12:33] LABS: HEMATOCRIT 35.7 % (42-52); MEAN CELL VOLUME 94.7 fL (80-100); MEAN CORPUSCULAR HEMOGLOBIN 33.7 pg (25-34); MEAN CORPUSCULAR HGB CONC 35.6 g/dl (32-36); MEAN PLATELET VOLUME 8.8 fL (7.4-10.4); PLATELET COUNT 346 K/uL (130-400); RED BLOOD COUNT 3.77 M/uL (4.7-6.1); WHITE BLOOD COUNT 6.99 K/uL (4.8-10.8)
--- NOTE | 2016-07-11 12:33 | EMERGENCY ROOM VISIT NOTE ---
History Report prepared by Patience: Olga Barragan Under the Supervision of: Dr. Chris Tavarez M.D. First contact with patient: 12:06 Stated Complaint: DIZZY, HEADACHE History of Present Illness The patient is a 61 year old male who presents to the Emergency Room via ambulance with complaints of worsening lightheadedness over the past couple of weeks. The patient states that any time he tries to stand up, he feels like he is going to pass out. This past weekend, he had a syncopal episode. He has had some left knee and left foot pain since then. En route to the emergency room, the patient was hypotensive. He states that his blood pressure has been fairly low since he has a lumbar fusion in [place] on June 21 of this year. Prior to the surgery, he did not have a history of hypotension. The patient was in the emergency room on June 26 for back pain and was hospitalized on June 30 after having multiple syncopal episodes. The patient has followed with Dr. López, his PCP, since his surgery. He is supposedly being worked up for his low blood pressure. The patient followed with his surgeon last and had a syncopal episode while he was having x-rays. Otherwise, his surgeon felt that the patient and his surgery site was looking well. Currently, the patient complains of back pain. He is on Oxycodone and diazepam for his back pain and most recently took a dose this morning. He takes 1-2 tablets of each medication every 6-8 hours. His daughter notes that he has not been eating or drinking well , although the patient states he has been keeping up with fluids. His daughter states that he has been acting drowsy and "out of it" since yesterday. He has been falling in and out of sleep. The patient does not have a history of anemia. Denies headache or other complaints. Source of History: patient, family (daughter) Onset: a couple weeks ago Position: other (global) Quality: other (lightheadedness) Timing: other (persistent) Modifying Factors (Worsening): exertion Associated Symptoms: + back pain, No headache Review of Systems All systems have been listed, reviewed, and are negative other than those previously mentioned. Please see Additional Medical History Sheet. Past Medical & Surgical Medical Problems: (1) LISSETH (acute kidney injury) (2) CAD (coronary artery disease) (3) COPD (chronic obstructive pulmonary disease) (4) Depression (5) Diabetes mellitus type II, uncontrolled (6) Dyslipidemia (7) GERD (gastroesophageal reflux disease) (8) HTN (hypertension) (9) ZULEIKA on CPAP (10) PAF (paroxysmal atrial fibrillation) (11) Tobacco abuse Surgical Problems: (1) Hx of cholecystectomy (2) Previous back surgery (3) Stented coronary artery Family History Diabetes mellitus Heart disease Hypertension Social History Smoking Status: Current Every Day Smoker Alcohol Use: none Drug Use: none Marital Status: Housing Status: lives with family Occupation Status: employed Current/Historical Medications Scheduled Aspirin (Aspir-81), 81 MG PO DAILY Atorvastatin (Lipitor), 80 MG PO DAILY Carvedilol (Coreg), 25 MG PO BID Chlorthalidone (Hygroton), 12.5 MG PO DAILY Citalopram Hydrobromide (Celexa), 20 MG PO HS Diazepam (Diazepam), 5 MG PO Q8H Digoxin (Digoxin), 0.125 MCG PO DAILY Fenofibrate (Tricor), 48 MG PO DAILY Insulin Aspart (Novolog), 24 UNITS SC TIDM Insulin Glargine (Lantus), 60 UNITS SC BID Ipratropium-Albuterol (Combivent Respimat), 1 PUFFS INH DAILY Liraglutide (Victoza), 1.8 MG SC DAILY Magnesium Oxide (Mag-Ox), 400 MG PO DAILY Metformin HCl (Metformin HCl), 1,000 MG PO BID Nitroglycerin (Nitrostat), 0.4 MG UT PRN [place]-3 Fatty Acids ([place] 3), 1 CAPSULE PO BID Omeprazole (Prilosec), 20 MG PO BID Ranitidine (Zantac), 300 MG PO HS Valsartan (Diovan), 320 MG PO DAILY Warfarin Sod (Jantoven), 10 MG PO WK Warfarin Sodium (Warfarin Sodium), 7.5 MG PO 6XWK Scheduled PRN Oxycodone Hcl (Oxycodone Hcl), 7.5 MG PO Q6H PRN for Pain Miscellaneous Medications Mometasone Furoate (Inhalation (Asmanex Hfa) Allergies Coded Allergies: Niacin (Verified Adverse Reaction, Unknown, sweats and joint pain, 07/11/16 ) Physical Exam Vital Signs Date Time Temp Pulse Resp B/P Pulse Ox O2 Delivery O2 Flow Rate FiO2 07/11/16 14:36 81 18 97/51 95 Room Air 07/11/16 14:35 79 144/68 84 79/52 07/11/16 13:53 84 20 103/80 97 Nasal Cannula 2.0 07/11/16 13:09 78 18 129/70 97 Nasal Cannula 2.0 07/11/16 12:56 79 18 92/53 96 Nasal Cannula 2.0 07/11/16 12:19 81 07/11/16 12:18 85 18 106/66 95 Nasal Cannula 2.0 07/11/16 12:17 96 Nasal Cannula 2.0 07/11/16 12:16 95 Room Air 07/11/16 12:10 36.7 84 18 81/51 97 Room Air 89/51 Physical Exam GENERAL: Patient awake but groggy, oriented x 3. Patient follows commands. Patient does not appear toxic. Patient is well-nourished but appears slightly pale and dry. SKIN: No erythema, cyanosis. Some plaques on left lower back. HEENT: Normal head, pupils equal, reactive to light and accommodation. LUNGS: Some wheezes in all so to auscultation. No rales, no rhonchi. HEART: Irregularly irregular. No murmurs. ABDOMEN: Obese, soft, nontender. BACK: Healing incision over the lumbar spine. No signs of hematoma or seroma. EXTREMITIES: No signs of trauma. No pedal or pretibial edema. No calf or thigh tenderness. Slight tenderness in the left knee but has full range of motion. NEUROLOGIC: Cranial nerves II-XII within normal limits. No gross motor sensory function deficits. Medical Decision & Procedures ER Provider Diagnostic Interpretation: Radiology results as stated below per my review and radiologist interpretation: SINGLE VIEW CHEST CLINICAL HISTORY: Dizziness. Lightheaded. FINDINGS: 2 AP, portable, upright chest radiographs are compared to study dated 06/30/2016 and correlated with chest CT dated 01/06/2015. The examination is degraded by portable technique, large body habitus, and patient rotation. The heart is mildly enlarged. The pulmonary vasculature is noncongested. Bibasilar atelectasis is observed. No airspace consolidation or large pleural effusion is identified. No pneumothorax is seen. The bony thorax is grossly intact. IMPRESSION: Mild cardiac enlargement with no acute cardiopulmonary abnormality. Electronically signed by: Garland Rodarte M.D. 07/11/2016 1:06 PM Dictated Date/Time: 07/11/2016 1:04 PM Laboratory Results 07/11/16 12:00 07/11/16 12:00 Test 07/11/16 12:00 07/11/16 14:18 Red Blood Count 3.77 M/uL (4.7-6.1) Mean Corpuscular Volume 94.7 fL (80-100) Mean Corpuscular Hemoglobin 33.7 pg (25-34) Mean Corpuscular Hemoglobin Concent 35.6 g/dl (32-36) RDW Standard Deviation 47.3 fL (36.4-46.3) RDW Coefficient of Variation 13.7 % (11.5-14.5) Mean Platelet Volume 8.8 fL (7.4-10.4) Prothrombin Time 55.7 SECONDS (9.0-12.0) Prothromb Time International Ratio 4.9 (0.9-1.1) Activated Partial Thromboplast Time 43.7 SECONDS (21.0-31.0) Partial Thromboplastin Ratio 1.7 Anion Gap 8.0 mmol/L (3-11) Est Creatinine Clear Calc Drug Dose 59.7 ml/min Estimated GFR () 43.4 Estimated GFR (Non- 37.5 BUN/Creatinine Ratio 20.1 (10-20) Calcium Level 8.8 mg/dl (8.5-10.1) Total Bilirubin 0.4 mg/dl (0.2-1) Aspartate Amino Transf (AST/SGOT) 26 U/L (15-37) Alanine Aminotransferase (ALT/SGPT) 38 U/L (12-78) Alkaline Phosphatase 89 U/L (45-117) Troponin I < 0.015 ng/ml (0-0.045) Total Protein 6.8 gm/dl (6.4-8.2) Albumin 3.3 gm/dl (3.4-5.0) Globulin 3.5 gm/dl (2.5-4.0) Albumin/Globulin Ratio 0.9 (0.9-2) Urine Color YELLOW Urine Appearance CLEAR (CLEAR) Urine pH 5.5 (4.5-7.5) Urine Specific [place] 1.023 (1.000-1.030) Urine Protein NEG (NEG) Urine Glucose (UA) TRACE (NEG) Urine Ketones TRACE (NEG) Urine Occult Blood NEG (NEG) Urine Nitrite NEG (NEG) Urine Bilirubin NEG (NEG) Urine Urobilinogen NEG (NEG) Urine Leukocyte Esterase NEG (NEG) Laboratory results as stated above per my review. Medications Administered Medications (Trade) Dose Ordered Sig/Juan Miguel Route Start Time Stop Time Status Last Admin Dose Admin Sodium Chloride 1,000 ml @ 1,000 mls/hr Q1H ONCE IV 07/11/16 12:15 07/11/16 13:14 DC 07/11/16 12:28 1,000 MLS/HR Sodium Chloride (Nss 1000ml) 1,000 ml @ 1,000 mls/hr Q1H ONCE IV 07/11/16 14:00 07/11/16 14:59 07/11/16 13:53 1,000 MLS/HR ECG Indication: other (lightheadedness) Rate (beats per minute): 79 Rhythm: atrial fibrillation Findings: nonspecific-ST abn, ST depression (Lateral, anterior) Comparison ECG Date: 06/30/16 Change: no significant change ED Course 1208: Past medical records reviewed. The patient was evaluated in room A2. A complete history and physical examination was performed. 1215: Ordered NSS 1000 ml @ 1000 mls/hr IV. 1400: Ordered NSS 1000 ml @ 1000 mls/hr IV. 1424: I reassessed the patient. He was starting to wake up. Medical Decision Nurses notes reviewed. Medical history sheet reviewed. Differential diagnosis includes but is not limited to: hypotension, dehydration, renal failure, metabolic disorder, medication reaction, anemia. Patient was recently in our hospital with similar symptoms felt to be related to dehydration. The patient is also somewhat lethargic which I believe is related to his increased dose of narcotic and addition of diazepam. The patient was given IV fluids here with improvement of his blood pressure. The patient remains somewhat lethargic. Blood work and imaging were evaluated. I discussed care with the patient, his friend and daughter. Despite some improvement in his blood pressure the patient remained orthostatic and was dizzy when he sat up. We could not have the patient stand up because he was so symptomatic. I discussed care with the hospitalist. The patient will require further evaluation in the hospital with more IV hydration. I believe his hypertension is all due to dehydration plus pain medication in conjunction with diazepam. The patient's INR is also elevated. Consults Time Called: 1448 Consulting Physician: Gerard Balderrama MD Returned Call: [phone] Will evaluate patient in ED Impression Primary Impression: Hypotension Additional Impressions: Dehydration Medication reaction Scribe Attestation The scribe's documentation has been prepared under my direction and personally reviewed by me in its entirety. I confirm that the note above accurately reflects all work, treatment, procedures, and medical decision making performed by me. Departure Information Referrals Steven López M.D. (PCP) Problem Qualifiers
[2016-07-11 12:48] LABS: INR 4.9 (0.9-1.1); PARTIAL THROMBOPLASTIN RATIO 1.7; PROTHROMBIN TIME (PATIENT) 55.7 SECONDS (9.0-12.0)
[2016-07-11 12:50] LABS: ALT/SGPT 38 U/L (12-78); AST/SGOT 26 U/L (15-37); BLOOD UREA NITROGEN 38 mg/dl (7-18); BUN/CREATININE RATIO 20.1 (10-20); CALCIUM 8.8 mg/dl (8.5-10.1); CARBON DIOXIDE 28 mmol/L (21-32); CHLORIDE 106 mmol/L (98-107); GLUCOSE 126 mg/dl (70-99); POTASSIUM 3.6 mmol/L (3.5-5.1); SODIUM 142 mmol/L (136-145)
[2016-07-11 12:55] LABS: ALB/GLOB RATIO 0.9 (0.9-2); ALKALINE PHOSPHATASE 89 U/L (45-117)
[2016-07-11] MEDS ORDERED: RXCS PO (13:04)
[2016-07-11] MEDS ORDERED: VLM5CL PO (13:06)
--- NOTE | 2016-07-11 13:08 | DIAGNOSTIC IMAGING REPORT ---
SINGLE VIEW CHEST CLINICAL HISTORY: Dizziness. Lightheaded. FINDINGS: 2 AP, portable, upright chest radiographs are compared to study dated 06/30/2016 and correlated with chest CT dated 01/06/2015. The examination is degraded by portable technique, large body habitus, and patient rotation. The heart is mildly enlarged. The pulmonary vasculature is noncongested. Bibasilar atelectasis is observed. No airspace consolidation or large pleural effusion is identified. No pneumothorax is seen. The bony thorax is grossly intact. IMPRESSION: Mild cardiac enlargement with no acute cardiopulmonary abnormality. Electronically signed by: Garland Rodarte M.D. 07/11/2016 1:06 PM Dictated Date/Time: 07/11/2016 1:04 PM
[2016-07-11] MEDS ORDERED: OXY/15 PO (13:11)
[2016-07-11 14:39] LABS: MANUAL MICROSCOPIC REQUIRED? NO; REVIEW REQ? NO; URINE APPEARANCE CLEAR (CLEAR); URINE BILIRUBIN NEG (NEG); URINE COLOR YELLOW; URINE NITRITE NEG (NEG); URINE PH 5.5 (4.5-7.5); URINE SPECIFIC GRAVITY 1.023 (1.000-1.030); UROBILINOGEN NEG (NEG); ZZUR CULT IF INDIC CLEAN CATCH NO
--- NOTE | 2016-07-11 15:41 | History and Physical ---
History & Physical Date & Time of Service: Jul 11, 2016 at 15:41 . Chief Complaint: weak, lightheaded . Primary Care Physician: Steven López MD . History of Present Illness Source: patient, family, clinic records, hospital records 61 [address]O male followed by Dr[address] López. History of ischemic heart disease, chronic AF, hypertension, sleep apnea, DM, and other problems as noted. Chronic low back pain. Lumbar surgery performed in [place] a few weeks ago. Experiencing severe postop back pain. Taking oxycodone and diazepam for pain control. Has been very somnolent. PO intake has been poor. Has lost 30 lbs since his surgery. Hospitalized 06/30/16 - 07/02/16 with syncope, dehydration, acute kidney injury. Symptoms improved with dehydration. Discharged to home. Progressive weakness since returning home. Had a syncopal episode 2 days prior to admission without associated cardiac or neuro symptoms. Came to ED today because of worsening weakness and lightheadedness. . Past Medical/Surgical History Chronic and Resolved Medical Problems: (1) CAD (coronary artery disease) Status: Chronic (2) COPD (chronic obstructive pulmonary disease) Status: Chronic (3) Depression Status: Chronic (4) Diabetes mellitus type II, uncontrolled Status: Chronic (5) Dyslipidemia Status: Chronic (6) GERD (gastroesophageal reflux disease) Status: Chronic (7) HTN (hypertension) Status: Chronic (8) ZULEIKA on CPAP Status: Chronic (9) PAF (paroxysmal atrial fibrillation) Status: Chronic (10) Tobacco abuse Status: Chronic Surgical Problems: (1) Hx of cholecystectomy (2) Previous back surgery (3) Stented coronary artery Permanent Comment: stents to RCA and LAD . Family History Diabetes mellitus Heart disease Hypertension Social History Smoking Status: Current Every Day Smoker Alcohol Use: none Drug Use: none Marital Status: Occupational Status: employed Immunizations History of Influenza Vaccine: Yes History of Tetanus Vaccine?: Yes History of Pneumococcal: Yes History of Hepatitis B Vaccine: No Multi-Drug Resistant Organisms History of MDRO: Yes Type of MDRO: MRSA Allergies Coded Allergies: Niacin (Verified Adverse Reaction, Unknown, sweats and joint pain, 07/11/16 ) Home Medications Scheduled Aspirin (Aspir-81), 81 MG PO DAILY Atorvastatin (Lipitor), 80 MG PO DAILY Carvedilol (Coreg), 25 MG PO BID Chlorthalidone (Hygroton), 12.5 MG PO DAILY Citalopram Hydrobromide (Celexa), 20 MG PO HS Diazepam (Diazepam), 5 MG PO Q8H Digoxin (Digoxin), 0.125 MCG PO DAILY Fenofibrate (Tricor), 48 MG PO DAILY Insulin Aspart (Novolog), 24 UNITS SC TIDM Insulin Glargine (Lantus), 60 UNITS SC BID Liraglutide (Victoza), 1.8 MG SC DAILY Magnesium Oxide (Mag-Ox), 400 MG PO DAILY Metformin HCl (Metformin HCl), 1,000 MG PO BID Nitroglycerin (Nitrostat), 0.4 MG UT PRN [place]-3 Fatty Acids ([place] 3), 1 CAPSULE PO BID Omeprazole (Prilosec), 20 MG PO BID Ranitidine (Zantac), 300 MG PO HS Valsartan (Diovan), 320 MG PO DAILY Warfarin Sod (Jantoven), 10 MG PO WK Warfarin Sodium (Warfarin Sodium), 7.5 MG PO 6XWK Scheduled PRN Oxycodone/Acetaminophen 7.5MG/325MG (Oxycodone/Acetaminophen 7.5MG/325MG), 1 TAB PO TID PRN for Pain Review of Systems Constitutional: + weight loss, No chills, No fever Eyes: No diplopia, No worsening of vision ENT: No nasal symptoms, No sore throat Respiratory: + dyspnea on exertion (chronic), No cough (mild, nonproductive) Cardiovascular: + edema, + palpitations (occasional), No chest pain Abdomen: No GI bleeding, No diarrhea, No nausea, No pain, No vomiting Musculoskeletal: + joint pain (back, left knee) Genitourinary - Male: No dysuria, No hematuria Neurologic: + problem reported (mild headaches), + weakness Endocrine: + fatigue, No excessive thirst, No excessive urination Hematologic / Lymphatic: + abnormal bleeding/bruising (bruises easily) Integumentary: + itch, + new/changing skin lesions, + rash Physical Exam Vital Signs Date Time Temp Pulse Resp B/P Pulse Ox O2 Delivery O2 Flow Rate FiO2 07/11/16 15:32 77 18 104/58 94 Room Air 07/11/16 15:16 80 18 98/55 94 Room Air 07/11/16 14:36 81 18 97/51 95 Room Air 07/11/16 14:35 79 144/68 84 79/52 07/11/16 13:53 84 20 103/80 97 Nasal Cannula 2.0 07/11/16 13:09 78 18 129/70 97 Nasal Cannula 2.0 07/11/16 12:56 79 18 92/53 96 Nasal Cannula 2.0 07/11/16 12:19 81 07/11/16 12:18 85 18 106/66 95 Nasal Cannula 2.0 07/11/16 12:17 96 Nasal Cannula 2.0 07/11/16 12:16 95 Room Air 07/11/16 12:10 36.7 84 18 81/51 97 Room Air 89/51 General Appearance: WD/WN, no apparent distress, + obese Head: normocephalic, atraumatic Eyes: normal inspection, PERRL, EOMI, sclerae normal ENT: hearing grossly normal, + pertinent finding (edentulous; upper dentures; oral mucosa dry) Neck: supple, no adenopathy, thyroid normal, no JVD, trachea midline Respiratory/Chest: lungs clear, normal breath sounds, no respiratory distress, no accessory muscle use Cardiovascular: no gallop, no murmur, + irregularly irregular, + pertinent finding (no JVD; 1+ pretibial edema) Abdomen/GI: normal bowel sounds, non tender, soft, no organomegaly Back: + pertinent finding (lumbar incision without erythema or drainage) Extremities/Musculoskelatal: + pertinent finding (1+ pretibial edema; chronic venous stasis changes; no calf tenderness) Neurologic/Psych: + pertinent finding (somnolent, dozing off during interview) Skin: warm/dry Lymphatic: + pertinent finding (no cervical adenopathy) Diagnostics Laboratory Results Results Past 24 Hours Test 07/11/16 12:00 07/11/16 14:18 Range/Units White Blood Count 6.99 4.8-10.8 K/uL Red Blood Count 3.77 4.7-6.1 M/uL Hemoglobin 12.7 14.0-18.0 g/dL Hematocrit 35.7 42-52 % Mean Corpuscular Volume 94.7 80-100 fL Mean Corpuscular Hemoglobin 33.7 25-34 pg Mean Corpuscular Hemoglobin Concent 35.6 32-36 g/dl RDW Standard Deviation 47.3 36.4-46.3 fL RDW Coefficient of Variation 13.7 11.5-14.5 % Platelet Count 346 130-400 K/uL Mean Platelet Volume 8.8 7.4-10.4 fL Prothrombin Time 55.7 9.0-12.0 SECONDS Prothromb Time International Ratio 4.9 0.9-1.1 Activated Partial Thromboplast Time 43.7 21.0-31.0 SECONDS Partial Thromboplastin Ratio 1.7 Sodium Level 142 136-145 mmol/L Potassium Level 3.6 3.5-5.1 mmol/L Chloride Level 106 98-107 mmol/L Carbon Dioxide Level 28 21-32 mmol/L Anion Gap 8.0 3-11 mmol/L Blood Urea Nitrogen 38 7-18 mg/dl Creatinine 1.90 0.60-1.40 mg/dl Est Creatinine Clear Calc Drug Dose 59.7 ml/min Estimated GFR () 43.4 Estimated GFR (Non- 37.5 BUN/Creatinine Ratio 20.1 10-20 Random Glucose 126 70-99 mg/dl Calcium Level 8.8 8.5-10.1 mg/dl Total Bilirubin 0.4 0.2-1 mg/dl Aspartate Amino Transf (AST/SGOT) 26 15-37 U/L Alanine Aminotransferase (ALT/SGPT) 38 12-78 U/L Alkaline Phosphatase 89 45-117 U/L Troponin I < 0.015 0-0.045 ng/ml Total Protein 6.8 6.4-8.2 gm/dl Albumin 3.3 3.4-5.0 gm/dl Globulin 3.5 2.5-4.0 gm/dl Albumin/Globulin Ratio 0.9 0.9-2 Urine Color YELLOW Urine Appearance CLEAR CLEAR Urine pH 5.5 4.5-7.5 Urine Specific [place] 1.023 1.000-1.030 Urine Protein NEG NEG Urine Glucose (UA) TRACE NEG Urine Ketones TRACE NEG Urine Occult Blood NEG NEG Urine Nitrite NEG NEG Urine Bilirubin NEG NEG Urine Urobilinogen NEG NEG Urine Leukocyte Esterase NEG NEG Diagnostic Radiology SINGLE VIEW CHEST CLINICAL HISTORY: Dizziness. Lightheaded. FINDINGS: 2 AP, portable, upright chest radiographs are compared to study dated 06/30/2016 and correlated with chest CT dated 01/06/2015. The examination is degraded by portable technique, large body habitus, and patient rotation. The heart is mildly enlarged. The pulmonary vasculature is noncongested. Bibasilar atelectasis is observed. No airspace consolidation or large pleural effusion is identified. No pneumothorax is seen. The bony thorax is grossly intact. IMPRESSION: Mild cardiac enlargement with no acute cardiopulmonary abnormality. Electronically signed by: Garland Rodarte M.D. 07/11/2016 1:06 PM Dictated Date/Time: 07/11/2016 1:04 PM EKG EKG performed at 12:03 reviewed and demonstrated AF at 80 / minute, possible age -indeterminate inferior infarct, possible age-indeterminate anterior infarct, anterorlateral ST depression and T-wave changes, inferior T-wave changes. Compared to tracing on 06/30/16, no significant changes. . Impression Assessment and Plan SYNCOPE / ORTHOSTATIC HYPOTENSION Syncope at home. Ongoing weakness / orthostasis in ED after IV fluids. Syncope most likely due to orthostatic hypotension due to volume depletion. Continue IV fluids. Monitor for arrhythmias. ACUTE KIDNEY INJURY Serum creatinine 1.9 compared to baseline of 1.0. LISSETH probably secondary to volume depletion. Hold chlorthalidone. IV fluids. Follow. BACK PAIN Chronic lumbar pain. Status post recent lumbar decompression / fusion in [place]. Ongoing pain postoperatively. Ongoing pain, but somnolent, with oxycodone and diazepam. [place] Prescription Drug Monitoring database reviewed. Check x-rays lumbar spine. Try tramadol. Only use oxycodone for severe pain. Stop diazepam because of excess sedation. Consult Pain Management. PT eval once orthostasis improved. CORONARY ARTERY DISEASE Denies anginal symptoms. Continue aspirin, carvedilol, statin. CHRONIC ATRIAL FIB Rate controlled. Continue carvedilol and digoxin. Check dig level. Continue warfarin. INR elevated- probably due to decrease oral intake. Follow INR and titrate. SLEEP APNEA Continue CPAP. HYPERTENSION Hold chlorthalidone due to orthostasis and LISSETH. Continue carvedilol. Decrease valsartan to 160 mg daily until hemodynamics and orthostatic symptoms improve. GERD Continue PPI + ranitidine. DM TYPE 2 Blood sugars fluctuating at home. Check Hgb A1C. Lantus + NovoLog per protocol. VTE PROPHYLAXIS Continue warfarin. RESUSCITATION STATUS Discussed with patient. He has a living will. He would like resuscitation attempted in the event of a cardiopulmonary arrest if there is a reasonable chance of a meaningful recovery, but does not want prolonged extraordinary measures if prognosis is poor. Therefore, code status = "Level 1" (full resuscitation). DISPOSITION Admit to Telemetry Unit. Discharge disposition to be determined- may benefit from inpatient rehab. Family Medicine follow-up with Dr. López. . VTE Prophylaxis VTE Risk Assessment Done? Y/N: Yes Risk Level: Moderate Given or contraindicated: Warfarin (Coumadin)
[2016-07-11] MEDS ORDERED: ACETAMINOPHEN 325 MG TAB PO PRN (15:45)
[2016-07-11 16:26] VITALS: BP 115/65; PULSE 85; TEMP 36.7; O2SAT 94; Ht 180.3 cm; Wt 139.6 kg
[2016-07-11] MEDS ORDERED: IV FLUIDS COMPLETED PRN (16:30)
[2016-07-11] MEDS ORDERED: LIRA18IN INJ (16:31)
[2016-07-11] MEDS ORDERED: OXYC7.5T66 PO (16:41)
[2016-07-11] MEDS ORDERED: ACETAMINOPHEN 500 MG TAB PO PRN (16:45)
[2016-07-11] MEDS ORDERED: NITROGLYCERIN 0.4 MG SL PER TAB CHARGE UT SCH (16:45)
[2016-07-11] MEDS ORDERED: TRAMADOL HCL 50 MG TAB PO PRN (16:45)
[2016-07-11] MEDS ORDERED: GLUCOSE 40% GEL 15 GM TUBE PO PRN (17:00)
[2016-07-11] MEDS ORDERED: GLUCAGON FOR INJ 1 MG VIAL SQ PRN (17:00)
[2016-07-11] MEDS ORDERED: DEXTROSE 50% 50 ML SYR IV PRN (17:00)
[2016-07-11] MEDS ORDERED: GLUCOSE 10 TABS/TUBE PO PRN (17:00)
[2016-07-11] MEDS: LACTATED RINGER'S 1000ML 1,000 ML IV SCH ×2 (17:43→23:19)
[2016-07-11] MEDS ORDERED: INSULIN ASPART 100 UNITS/ML 3 ML PEN SC SCH (18:00)
[2016-07-11] MEDS: INSULIN ASPART 100 UNITS/ML 3 ML PEN SC SCH ×2 (18:23→20:26)
[2016-07-11 19:18] VITALS: BP 113/61; PULSE 84; TEMP 36.4; O2SAT 91
[2016-07-11 20:00] VITALS: O2SAT 91
[2016-07-11] MEDS: INSULIN GLARGINE SC SCH (20:26)
[2016-07-11] MEDS: CITALOPRAM 20 MG TAB PO SCH (20:27)
[2016-07-11] MEDS: PANTOprazole SOD 40 MG TAB PO SCH (20:28)
[2016-07-11] MEDS: CARVEDILOL 25 MG TAB PO SCH (20:28)
[2016-07-11] MEDS: RANITIDINE HCL 150 MG TAB PO SCH (20:29)
[2016-07-11 22:23] VITALS: PULSE 103; O2SAT 93
[2016-07-11 23:05] VITALS: BP 140/88; PULSE 84; TEMP 36.4; O2SAT 98
[2016-07-11 23:59] VITALS: O2SAT 98
[2016-07-12] VITALS (10 sets, daily range): BP systolic 129–178; BP diastolic 68–105; PULSE 88–94; TEMP 36.5–36.9; O2SAT 93–98
[2016-07-12] MEDS: OXYCODONE HCL IR 5 MG TAB (IMMEDIATE RELEASE) PO PRN ×3 (02:11→16:48)
[2016-07-12] MEDS: LACTATED RINGER'S 1000ML 1,000 ML IV SCH ×3 (05:31→20:07)
[2016-07-12 06:08] LABS: INR 4.7 (0.9-1.1); PROTHROMBIN TIME (PATIENT) 53.9 SECONDS (9.0-12.0)
[2016-07-12 06:23] LABS: BUN/CREATININE RATIO 23.2 (10-20); CALCIUM 8.5 mg/dl (8.5-10.1); POTASSIUM 3.7 mmol/L (3.5-5.1)
--- NOTE | 2016-07-12 08:02 | DIAGNOSTIC IMAGING REPORT ---
LEFT KNEE 3 VIEWS HISTORY: Left knee pain COMPARISON: None. FINDINGS: There is no fracture or dislocation. Small knee effusion. Mild vascular calcifications. Mild tricompartmental osteoarthritis demonstrated by cartilage space narrowing and marginal osteophytes. No radiopaque foreign bodies. IMPRESSION: 1. No fractures. 2. Small knee effusion. 3. Mild tricompartmental osteoarthritis. Electronically signed by: Hua Oreilly M.D. 07/12/2016 8:00 AM Dictated Date/Time: 07/12/2016 7:59 AM
--- NOTE | 2016-07-12 08:03 | DIAGNOSTIC IMAGING REPORT ---
LUMBAR SPINE 2 OR 3 VIEWS CLINICAL HISTORY: postop back pain pain COMPARISON STUDY: None FINDINGS: Findings residual of posterior laminectomy and fusion from L2 through S1 moderate degenerative disc changes noted throughout. Alignment is anatomic. IMPRESSION: Extensive postoperative changes of the lumbar spine consistent with laminectomy and fusion from L2 through S1. Alignment is anatomic. Moderate degenerative disc changes throughout. Electronically signed by: Satya Mcfarland M.D. 07/12/2016 8:00 AM Dictated Date/Time: 07/12/2016 7:59 AM
[2016-07-12 08:11] LABS: ESTIMATED AVERAGE GLUCOSE 163 mg/dl; HA1C FLAG Normal (Normal)
[2016-07-12] MEDS: MAGNESIUM OXIDE 400 MG TAB PO SCH (08:18)
[2016-07-12] MEDS: FENOFIBRATE 48 MG TAB PO SCH (08:18)
[2016-07-12] MEDS: VALSARTAN 80 MG TAB PO SCH (08:18)
[2016-07-12] MEDS: ATORVASTATIN 40 MG TAB PO SCH (08:18)
[2016-07-12] MEDS: CARVEDILOL 25 MG TAB PO SCH ×2 (08:19→20:00)
[2016-07-12] MEDS: PANTOprazole SOD 40 MG TAB PO SCH ×2 (08:19→20:00)
[2016-07-12] MEDS: ASPIRIN 81 MG ECTAB PO SCH (08:20)
[2016-07-12] MEDS: INSULIN ASPART 100 UNITS/ML 3 ML PEN SC SCH ×4 (08:22→20:01)
[2016-07-12] MEDS: INSULIN GLARGINE SC SCH ×2 (08:25→20:04)
--- NOTE | 2016-07-12 11:51 | CONSULTATION REPORT ---
DATE OF CONSULTATION: 07/12/2016 DATE OF CONSULTATION: 07/12/2016. Plan of care discussed with Dr. Teixeira. CHIEF COMPLAINT: Low back pain 3 weeks status post laminectomy and fusion. HISTORY OF PRESENT ILLNESS: Mr. Angela is a 61-year-old white male who was admitted secondary to weakness and lightheadedness complaints with reported syncopal episodes. The patient also has ongoing complaints of low back pain which are chronic in duration. He underwent lumbar spine surgery with a laminectomy and fusion performed approximately 3 weeks ago in the [facility]. He indicates he has increase in the axial low back pain since the time of the surgical intervention. He indicates the pain is predominantly axial with minimal radiation into the gluteal and hip locations. He denies true radicular pattern to his pain. His pain is similar in location and characteristic as it was prior to the surgery with slight increase in severity. The patient was utilizing oxycodone in the outpatient setting with minimal relief. His symptoms are exacerbated with movement such as positional change, standing and ambulating. He denies any bowel or bladder incontinence. He denies fevers, chills or sweats. The patient did have a fall related to syncopal episode immediately prior to admission. X-ray studies completed at this time failed to reveal hardware abnormality. He denies discharge from the incisional site. He continues to struggle with weakness and lightheadedness complaints. He has no further constitutional complaints at this time. PAST MEDICAL HISTORY: 1. CAD. 2. COPD. 3. Depressive disorder. 4. Diabetes mellitus -- type 2. 5. Dyslipidemia. 6. GERD. 7. Hypertension. 8. Obstructive sleep apnea on CPAP. 9. Paroxysmal atrial fibrillation. 10. Tobacco abuse. 11. Chronic anticoagulation therapy with Coumadin. PAST SURGICAL HISTORY: 1. Cholecystectomy. 2. Lumbar spine surgery in May 2016. 3. Coronary stent placement RCA and LAD. SOCIAL HISTORY: The patient is , currently residing with his spouse. The patient smokes 1 pack daily of chronic duration. He denies alcohol or illicit drug use. FAMILY HISTORY: 1. Diabetes mellitus. 2. CAD. 3. Hypertension. ALLERGIES: NIACIN. CURRENT MEDICATIONS: Reviewed in the EMR -- refer for current list. REVIEW OF SYSTEMS: The patient denies complaints related to cardiac, pulmonary, GI, , endocrine, neurologic, hepatic, renal, ENT, dermatologic, musculoskeletal other than described above in the HPI. PHYSICAL EXAMINATION: VITAL SIGNS: Temperature 36.8 degrees Celsius, pulse 94, respirations 20, BP 129/69, pulse oximetry 95 on room air. GENERAL: Mr. Angela was actually standing upon entering the room accompanied by occupational therapy. He was examined in the sitting position. Speech and thought process was appropriate. His mood and affect was appropriate. His cognition was intact. BACK AND SPINE: Complete loss of lumbar lordosis. He has a midline surgical incision. The incision is poorly approximated in the superior aspect with an approximate 1 cm by approximated 0.5-1 cm depth wound appreciated upon visual inspection. He has no active discharge. He appears to have some generalized edema in the right paravertebral location associated with the incisional site which is nontender to direct palpation. There is no fluctuance appreciated. He is generally tender over the lumbosacral region to palpation which is nonfocal. He has limited range of motion in all planes with increased discomfort complaint. LOWER EXTREMITIES: SLR increases axial low back pain without a radicular component bilaterally. Strength testing was 4+/5 throughout with increased low back pain complaint during resisted motions. Around the incisional site there is no obvious erythema. The patient has 1+ and pretibial edema in the ankle and pretibial location. Sensation was reportedly intact without notable deficits to sharp and dull. NEUROLOGIC: Cranial nerves grossly intact. Ambulatory function was not witnessed. IMAGING: Lumbar spine x-ray dated 07/12/2016 revealed extensive postoperative changes of the lumbar spine consistent with a laminectomy and fusion from L2 through S1. Alignment is anatomic. Moderate degenerative disc changes throughout. ASSESSMENT: 1. Chronic low back pain 3 weeks status post L2 through S1 laminectomy and fusion performed at [place], [place]. 2. History of syncope/orthostatic hypotension with reported fall. 3. Coronary artery disease. 4. Atrial fibrillation on chronic anticoagulation therapy with Coumadin. 5. Hypertension. TREATMENT AND RECOMMENDATIONS: 1. Will add Baclofen 10 mg b.i.d. 2. The patient may continue with OxyIR 5 mg q. 6 hours to assess efficacy. We discussed appropriate utilization as well as use prior to occupational/ physical therapy interventions. 3. Will request MRI of the lumbar spine with and without contrast in the postsurgical setting with increased axial low back pain complaints status post a fall and some apparent edema in the right paravertebral location associated with the incisional site. 4. Further treatment recommendations will be made pending review of the imaging study and utilization pattern of oxycodone over the next 24 hours. 5. Will continue to follow during hospitalization. Thank you for the consultation. ETHAN
--- NOTE | 2016-07-12 12:47 | Progress Note ---
Internal Med Progress Note Date of Service: Jul 12, 2016. Provider Documentation: SUBJECTIVE: The patient was seen and examined Admitted with syncope-no more episodes Generally weak Minimal back pain OBJECTIVE: Vital Signs-as noted below Exam: General-no distress at rest Eyes-normal ENT-normal Neck-supple Lungs-clear to ausucltate bilaterally Heart-Regular,no murmur Abdomen-benign,no masses,bowel sound present Extremities-No edema Neuro-AAOx3 Lab data as noted below. ASSESSMENT & PLAN: Recurrent Syncope Likely secondary to orthostatic Hypotension Recent admission with the same symptoms with negative extensive W/U and Neuro evaluation Ongoing weakness / orthostasis in ED after IV fluids. No Arrhythmia Check Orthostasis ACUTE KIDNEY INJURY Serum creatinine 1.9 compared to baseline of 1.0. LISSETH probably secondary to volume depletion. Hold chlorthalidone. IV fluids. Renal function is normalized BACK PAIN Chronic lumbar pain. Status post recent lumbar decompression / fusion in [place].:Evaluated by his Orthopedic surgeon on last Monday Ongoing pain postoperatively. Ongoing pain, but somnolent, with oxycodone and diazepam. [place] Prescription Drug Monitoring database reviewed. Pain therapy input appreciated MRI of the Lumbar spine ordered CORONARY ARTERY DISEASE Denies anginal symptoms. Continue aspirin, carvedilol, statin. CHRONIC ATRIAL FIB Rate controlled. Continue carvedilol and digoxin. Dig Level -pending Continue warfarin. INR elevated- probably due to decrease oral intake. Follow INR and titrate. SLEEP APNEA Continue CPAP. HYPERTENSION Hold chlorthalidone due to orthostasis and LISSETH. Continue carvedilol. Decrease valsartan to 160 mg daily until hemodynamics and orthostatic symptoms improve. GERD Continue PPI + ranitidine. DM TYPE 2 Blood sugars fluctuating at home. Check Hgb A1C. Lantus + NovoLog per protocol. VTE PROPHYLAXIS Continue warfarin. RESUSCITATION STATUS Full DISPOSITION Admit to Telemetry Unit. Discharge disposition to be determined- may benefit from inpatient rehab. Family Medicine follow-up with Dr. López. PT/OT -likely to need short term rehab Vital Signs: Date Time Temp Pulse Resp B/P Pulse Ox O2 Delivery O2 Flow Rate FiO2 07/12/16 07:52 36.8 94 20 129/69 95 07/12/16 04:00 98 Nasal Cannula 2.0 CPAP 07/12/16 03:25 36.5 90 18 136/68 94 CPAP 2.0 07/11/16 23:59 98 Nasal Cannula 2.0 CPAP 07/11/16 23:05 36.4 84 18 140/88 98 2.0 07/11/16 22:23 103 93 2.0 07/11/16 20:00 91 Room Air 07/11/16 19:18 36.4 84 16 113/61 91 Room Air 07/11/16 16:26 36.7 85 16 115/65 94 Room Air 07/11/16 16:22 85 16 115/65 94 Room Air 07/11/16 15:47 65 18 102/62 95 Room Air 07/11/16 15:32 77 18 104/58 94 Room Air 07/11/16 15:16 80 18 98/55 94 Room Air 07/11/16 14:36 81 18 97/51 95 Room Air 07/11/16 14:35 79 144/68 84 79/52 07/11/16 13:53 84 20 103/80 97 Nasal Cannula 2.0 07/11/16 13:09 78 18 129/70 97 Nasal Cannula 2.0 07/11/16 12:56 79 18 92/53 96 Nasal Cannula 2.0 Lab Results: Results Past 24 Hours Test 07/11/16 14:18 07/11/16 20:23 07/12/16 05:30 07/12/16 06:43 Range/Units Urine Color YELLOW Urine Appearance CLEAR CLEAR Urine pH 5.5 4.5-7.5 Urine Specific [place] 1.023 1.000-1.030 Urine Protein NEG NEG Urine Glucose (UA) TRACE NEG Urine Ketones TRACE NEG Urine Occult Blood NEG NEG Urine Nitrite NEG NEG Urine Bilirubin NEG NEG Urine Urobilinogen NEG NEG Urine Leukocyte Esterase NEG NEG Bedside Glucose 93 107 70-99 mg/dl Prothrombin Time 53.9 9.0-12.0 SECONDS Prothromb Time International Ratio 4.7 0.9-1.1 Sodium Level 140 136-145 mmol/L Potassium Level 3.7 3.5-5.1 mmol/L Chloride Level 105 98-107 mmol/L Carbon Dioxide Level 28 21-32 mmol/L Anion Gap 7.0 3-11 mmol/L Blood Urea Nitrogen 23 7-18 mg/dl Creatinine 1.00 0.60-1.40 mg/dl Est Creatinine Clear Calc Drug Dose 113.7 ml/min Estimated GFR () 94.4 Estimated GFR (Non- 81.4 BUN/Creatinine Ratio 23.2 10-20 Random Glucose 109 70-99 mg/dl Estimated Average Glucose 163 mg/dl Hemoglobin A1c 7.3 4.5-5.6 % Calcium Level 8.5 8.5-10.1 mg/dl Test 07/12/16 11:31 07/12/16 12:11 Range/Units Bedside Glucose 159 70-99 mg/dl
[2016-07-12] MEDS ORDERED: LORAZEPAM 2 MG/ML 1 ML VIAL IV SCH (15:00)
[2016-07-12] MEDS ORDERED: DIGOXIN 0.125 MG TAB PO SCH (16:00)
[2016-07-12] MEDS ORDERED: GADAVIST IV PRN (16:00)
--- NOTE | 2016-07-12 16:28 | DIAGNOSTIC IMAGING REPORT ---
MRI LUMBAR SPINE COMBINATION CLINICAL HISTORY: Back pain status post laminectomy and fusion. TECHNIQUE: Sagittal and axial T1, T2 and STIR images were obtained. Imaging was performed before and after the administration of 14 cc of intravenous Gadavist COMPARISON STUDY: Conventional radiographic study dated 07/12/2016 OBSERVATIONS: The vertebral bodies and posterior elements appear intact. There is no abnormal bony signal present to suggest a marrow replacement process. There are postsurgical changes of an L2-S1 spinal fusion. There is artifact from the metallic rods and pedicle screws.. L1-2: No disc protrusions or extrusions. No evidence of spinal canal or neural foraminal compromise. L2-3: There is a circumferential disc bulge. There is a posterior laminectomy defect. There is fluid lateral to the right facet joint likely postsurgical. L3-4: There are postlaminectomy changes present. There is a posterior and right posterior lateral fluid collection likely postsurgical. L4-5: There are postlaminectomy changes. There is a posterior fluid collection likely postsurgical. L5-S1: There are postlaminectomy changes. There is a posterior fluid collection likely postsurgical The conus medullaris and cauda equina appear normal. There are no pathologically enhancing masses. IMPRESSION: 1. Difficult study to interpret secondary to artifact from posterior spinal fusion 3. Large posterior fluid collection abutting the thecal sac and surrounding the right facet joints. This is likely postsurgical. It is not possible on the basis of this study to determine whether this is infected 3. Posterior superficial fluid collection, also likely postsurgical Electronically signed by: Valerio Fitch M.D. 07/12/2016 4:26 PM Dictated Date/Time: 07/12/2016 4:19 PM
[2016-07-12] MEDS: DIGOXIN 0.125 MG TAB PO SCH (16:49)
[2016-07-12] MEDS: WARFARIN SOD 5 MG TAB PO SCH (16:50)
[2016-07-12] MEDS: CITALOPRAM 20 MG TAB PO SCH (19:59)
[2016-07-12] MEDS: BACLOFEN 10 MG TAB PO SCH (20:00)
[2016-07-12] MEDS: RANITIDINE HCL 150 MG TAB PO SCH (20:01)
[2016-07-13] VITALS (11 sets, daily range): BP systolic 109–178; BP diastolic 68–101; PULSE 84–96; TEMP 36.3–37.1; O2SAT 91–98
[2016-07-13] MEDS: LACTATED RINGER'S 1000ML 1,000 ML IV SCH ×4 (01:55→22:20)
[2016-07-13] MEDS: INSULIN ASPART 100 UNITS/ML 3 ML PEN SC SCH ×4 (07:00→21:00)
[2016-07-13] MEDS: MAGNESIUM OXIDE 400 MG TAB PO SCH (07:23)
[2016-07-13] MEDS: ATORVASTATIN 40 MG TAB PO SCH (07:23)
[2016-07-13] MEDS: ASPIRIN 81 MG ECTAB PO SCH (07:23)
[2016-07-13] MEDS: CARVEDILOL 25 MG TAB PO SCH ×2 (07:24→20:55)
[2016-07-13] MEDS: BACLOFEN 10 MG TAB PO SCH (07:25)
[2016-07-13] MEDS: PANTOprazole SOD 40 MG TAB PO SCH ×2 (07:25→20:54)
[2016-07-13] MEDS: VALSARTAN 80 MG TAB PO SCH (07:25)
[2016-07-13] MEDS: FENOFIBRATE 48 MG TAB PO SCH (07:25)
--- NOTE | 2016-07-13 08:25 | Pain Management Progress Note ---
Pain Management Progress Note Date of Service Jul 13, 2016. Objective Vital Signs: Last Vital Signs Documentation Date Time Temp Pulse Resp B/P Pulse Ox O2 Delivery O2 Flow Rate FiO2 07/13/16 04:00 98 Room Air 07/13/16 03:27 36.6 96 22 143/84 07/12/16 22:05 2.0 Imaging: IMPRESSION: 1. Difficult study to interpret secondary to artifact from posterior spinal fusion 3. Large posterior fluid collection abutting the thecal sac and surrounding the right facet joints. This is likely postsurgical. It is not possible on the basis of this study to determine whether this is infected 3. Posterior superficial fluid collection, also likely postsurgical Electronically signed by: Valerio Fitch M.D. 07/12/2016 4:26 PM Laboratory (Last CBC): 07/11/16 12:00 Assessment 1. [] 2. [] 3. [] 4. [] 5. [] Recommendations 1. [] 2. [] 3. [] 4. [] 5. [] Dragon Voice Recognition This chart was completed in part utilizing [employer] Voice Recognition Software. Random word insertions, pronoun errors, and incomplete sentences are an occasional consequence of this system due to software limitations and ambient noise. Any questions or concerns about the content, text or information contained within the body of this dictation should be directly addressed to the provider for clarification.
[2016-07-13] MEDS: INSULIN GLARGINE SC SCH ×2 (08:33→21:01)
--- NOTE | 2016-07-13 08:34 | Pain Management Consultation ---
Pain Management Consultation Date of Consultation Jul 13, 2016. Reason for Consultation Assistance with pain management. History Armen Angela is a 61 -year-old male who is admitted to [facility] with complaints of []. He recently underwent [] at [] Pain is located in [] and radiates to []. Symptoms are characterized as []. Symptoms have been present for []. Activities that exacerbate patient's symptoms include []. Activities that alleviate patient's symptoms include []. Symptoms are rated as []/10 on visual analog scale when severe and []/10 when minimal. Current treatments include []. Previous treatments include diazepam 5 mg and oxycodone 7.5/325 mg with [] efficacy. Previous evaluations include []. Reports [] neurological symptoms associated with the symptoms consisting of []. [] denies any bowel bladder incontinence, saddle anesthesia, numbness, weakness or any other neurological symptoms. Comorbid medical conditions include []. Social / Work History Alcohol Use: none Marital Status: Occupation: employed Allergies Coded Allergies: Niacin (Verified Adverse Reaction, Unknown, sweats and joint pain, 07/11/16 ) Medications Current Inpatient Medications Medications (Trade) Dose Ordered Sig/Juan Miguel Route Start Time Stop Time Status Last Admin Dose Admin Acetaminophen (Tylenol Tab) 650 mg Q4H PRN PO 07/11/16 15:45 08/10/16 15:44 Miscellaneous (Iv Fluids Completed) 1 ea PRN PRN N/A 07/11/16 16:30 07/11/17 16:29 Aspirin (Ecotrin Tab) 81 mg DAILY PO 07/12/16 09:00 08/11/16 08:59 07/12/16 08:20 81 MG Atorvastatin Calcium (Lipitor Tab) 80 mg DAILY PO 07/12/16 09:00 08/11/16 08:59 07/12/16 08:18 80 MG Carvedilol (Coreg Tab) 25 mg BID PO 07/11/16 21:00 08/10/16 20:59 07/12/16 20:00 25 MG Citalopram Hydrobromide (celeXA TAB) 20 mg HS PO 07/11/16 21:00 08/10/16 20:59 07/12/16 19:59 20 MG Fenofibrate (Tricor Tab) 48 mg DAILY PO 07/12/16 09:00 08/11/16 08:59 07/12/16 08:18 48 MG Insulin Glargine (Lantus Vial) 60 unit BID SC 07/11/16 21:00 08/10/16 20:59 07/12/16 20:04 60 UNIT Magnesium Oxide (Mag-Ox Tab) 400 mg DAILY PO 07/12/16 09:00 08/11/16 08:59 07/12/16 08:18 400 MG Nitroglycerin (Nitrostat Tab) 0.4 mg PRN UT 07/11/16 16:45 08/10/16 16:44 Pantoprazole Sodium (Protonix Tab) 40 mg BID PO 07/11/16 21:00 08/10/16 20:59 07/12/16 20:00 40 MG Ranitidine HCl (zANTac TAB) 300 mg HS PO 07/11/16 21:00 08/10/16 20:59 07/12/16 20:01 300 MG Tramadol HCl (Ultram Tab) 50 mg Q6H PRN PO 07/11/16 16:45 08/10/16 16:44 Oxycodone HCl (Roxicodone Immediate Rel Tab) 5 mg Q6H PRN PO 07/11/16 16:45 07/25/16 16:44 07/12/16 16:48 5 MG Acetaminophen 1000 mg 1,000 mg Q6H PRN PO 07/11/16 16:45 08/10/16 16:44 Lactated Ringer's (Lr 1000ml) 1,000 ml @ 150 mls/hr Q6H40M IV 07/11/16 17:00 08/10/16 16:59 07/13/16 01:55 150 MLS/HR Glucose (Glucose 40% Gel) 15-30 GRAMS 15 GRAMS... UD PRN PO 07/11/16 17:00 08/10/16 16:59 Glucose (Glucose Chew Tab) 4-8 Tablets 4 Tabl... UD PRN PO 07/11/16 17:00 08/10/16 16:59 Dextrose (Dextrose 50% 50ML Syringe) 25-50ML OF 50% DW IV FOR... UD PRN IV 07/11/16 17:00 08/10/16 16:59 Glucagon (Glucagon Inj) 1 mg UD PRN SQ 07/11/16 17:00 08/10/16 16:59 Insulin Aspart (novoLOG ASPART) ACHS SC 07/11/16 18:04 08/10/16 18:03 07/12/16 16:54 6 UNITS Valsartan (Diovan Tab) 160 mg QAM PO 07/12/16 09:00 08/11/16 08:59 07/12/16 08:18 160 MG Warfarin Sodium (Coumadin Tab) 5 mg DAILY@16 PO 07/12/16 16:00 08/11/16 15:59 07/12/16 16:50 5 MG Baclofen (Lioresal Tab) 10 mg BID PO 07/12/16 21:00 08/11/16 20:59 07/12/16 20:00 10 MG Digoxin (Lanoxin Tab) 0.125 mg DAILY@1600 PO 07/12/16 16:00 08/11/16 15:59 07/12/16 16:49 0.125 MG Gadobutrol (Gadavist) 14 mmol UD PRN IV 07/12/16 16:00 07/16/16 15:59 Physical Exam Height & Weight: Height 5 feet, 11.00 inches. Weight 139.700 (Kilograms) 307 (Pounds) Last Vital Signs Documentation Date Time Temp Pulse Resp B/P Pulse Ox O2 Delivery O2 Flow Rate FiO2 07/13/16 04:00 98 Room Air 07/13/16 03:27 36.6 96 22 143/84 07/12/16 22:05 2.0 Laboratory / Imaging Results Laboratory Results (Last CBC): 07/11/16 12:00 Imaging: MRI form current admission: IMPRESSION: 1. Difficult study to interpret secondary to artifact from posterior spinal fusion 3. Large posterior fluid collection abutting the thecal sac and surrounding the right facet joints. This is likely postsurgical. It is not possible on the basis of this study to determine whether this is infected 3. Posterior superficial fluid collection, also likely postsurgical Electronically signed by: Valerio Fitch M.D. 07/12/2016 4:26 PM Lumbar spine x-ray: IMPRESSION: Extensive postoperative changes of the lumbar spine consistent with laminectomy and fusion from L2 through S1. Alignment is anatomic. Moderate degenerative disc changes throughout. [place] Drug Monitoring Program Search Results: no issues identified Opioid Risk Assessment Risk assessment performed Assessment 1. [] 2. [] 3. [] 4. [] 5. [] Recommendations 1. Recommend continued evaluation for any other etiology for post operative lumbar spine pain including early discitis. Will defer the work-up to the hospitalist team. 2. [] 3. [] 4. [] 5. [] Dragon Voice Recognition This chart was completed in part utilizing [employer] Voice Recognition Software. Random word insertions, pronoun errors, and incomplete sentences are an occasional consequence of this system due to software limitations and ambient noise. Any questions or concerns about the content, text or information contained within the body of this dictation should be directly addressed to the provider for clarification.
--- NOTE | 2016-07-13 10:50 | Pain Management Progress Note ---
Pain Management Progress Note Date of Service Jul 13, 2016. Subjective Mr. Armen Angela reports improved pain relief today. He reports minimal back pain and has been sitting upright in bed with "tolerable" pain. Nursing staff reports patient appears to be more sedated this morning and "less motivated" to be active attribute his sedation to the lorazepam he received yesterday for his MRI. Denies any sapsme. This morning he reports that overall his radicular pain is improved significantly after the surgery. He experiences left leg "giving out" since the surgery. Denies any bowel and bladder changes, new sensory/motor changes as well as fever, chills or constitutional symptoms. He has been exposed to opioids in the past and has undergone 3 previous spine surgeries. Reports no side effects to his current analgesic regimen. Objective Vital Signs: Last Vital Signs Documentation Date Time Temp Pulse Resp B/P Pulse Ox O2 Delivery O2 Flow Rate FiO2 07/13/16 08:20 37.1 86 18 160/96 91 Room Air 119/101 132/81 07/12/16 22:05 2.0 Physical Exam: Mr. Angela appears groggy but responds appropriately. He is oriented to time, place and person, He is sitting at the edge of the bed without pain or discomfort. He appears morbidly obese. Inspection of the lumbar spine demonstrates a healing surgical scar without drainage or redness. Superior edge of the wound is open by approximately 1 cm. Ther is loss of lumbar lordosis with limited ROM. There is minimal pain to palpation in the paraspinous muscles. Neurologically, He has negative SLR. He has intact sensation and motor strength. No pathologic reflexes noted. Imaging: MRI: IMPRESSION: 1. Difficult study to interpret secondary to artifact from posterior spinal fusion 3. Large posterior fluid collection abutting the thecal sac and surrounding the right facet joints. This is likely postsurgical. It is not possible on the basis of this study to determine whether this is infected 3. Posterior superficial fluid collection, also likely postsurgical Electronically signed by: Valerio Fitch M.D. 07/12/2016 4:26 PM Laboratory (Last CBC): 07/11/16 12:00 [place] Drug Monitoring Program Search Results: patient reviewed within database, no issues identified Assessment 1. Status post lumbar spine surgery for lumbar post laminectomy syndrome with improved radicular symptoms. 2. Persistent lumbar spine pain with MRI demonstrating fluid collection. 3. Near syncope and cognitive dysfunction. Possibly related to multiple medications including diazepam, lorazepam, as well as baclofen. Recommendations 1. Recommend continuing oxycodone for pain as prescribed. 2. Recommend discontinuing baclofen as a scheduled medication and use it on prn basis only. Reduced dose and increase the frequency of use. 3. Recommend discontinuation of tramadol. 4. Recommend continued evaluation to rule out infectious etiology for persistent back pain or formation of an abscess at the fluid collection site seen on the MRI. We will defer this evaluation to the primary hospitalist team. [employer] Voice Recognition This chart was completed in part utilizing [employer] Voice Recognition Software. Random word insertions, pronoun errors, and incomplete sentences are an occasional consequence of this system due to software limitations and ambient noise. Any questions or concerns about the content, text or information contained within the body of this dictation should be directly addressed to the provider for clarification.
--- NOTE | 2016-07-13 11:18 | Progress Note ---
Internal Med Progress Note Date of Service: Jul 13, 2016. Provider Documentation: SUBJECTIVE: The patient was seen and examined Admitted with syncope-no more episodes Generally weak and lethargic Minimal to no back pain OBJECTIVE: Vital Signs-as noted below Exam: General-no distress at rest Eyes-normal ENT-normal Neck-supple Lungs-clear to ausucltate bilaterally Heart-Regular,no murmur Abdomen-benign,no masses,bowel sound present Extremities-No edema Neuro-AAOx3 Generally weak and lethargic Lab data as noted below. ASSESSMENT & PLAN: Recurrent Syncope Likely secondary to orthostatic Hypotension complicated by use of narcotics , Benzo and Antispasmodics Recent admission with the same symptoms with negative extensive W/U and Neuro evaluation Ongoing weakness / orthostasis in ED after IV fluids. No Arrhythmia Check Orthostasis-has orthostasis Take precaution to avoid fall ACUTE KIDNEY INJURY Serum creatinine 1.9 compared to baseline of 1.0. LISSETH probably secondary to volume depletion. Hold chlorthalidone. IV fluids. Renal function is normalized BACK PAIN Chronic lumbar pain. Status post recent lumbar decompression / fusion in [place].:Evaluated by his Orthopedic surgeon on last Monday Ongoing pain postoperatively. Ongoing pain, but somnolent, with oxycodone and diazepam. [place] Prescription Drug Monitoring database reviewed. Pain therapy input appreciated MRI of the Lumbar spine ordered-has postsurgical fluid collection CORONARY ARTERY DISEASE Denies anginal symptoms. Continue aspirin, carvedilol, statin. CHRONIC ATRIAL FIB Rate controlled. Continue carvedilol and digoxin. Dig Level -pending Continue warfarin. INR elevated- probably due to decrease oral intake. Follow INR and titrate. SLEEP APNEA Continue CPAP. HYPERTENSION Hold chlorthalidone due to orthostasis and LISSETH. Continue carvedilol. Decrease valsartan to 160 mg daily until hemodynamics and orthostatic symptoms improve. GERD Continue PPI + ranitidine. DM TYPE 2 Blood sugars fluctuating at home. Check Hgb A1C. Lantus + NovoLog per protocol. VTE PROPHYLAXIS Continue warfarin. RESUSCITATION STATUS Full DISPOSITION Admit to Telemetry Unit. Discharge disposition to be determined- may benefit from inpatient rehab. Family Medicine follow-up with Dr. López. PT/OT -likely to need short term rehab Vital Signs: Date Time Temp Pulse Resp B/P Pulse Ox O2 Delivery O2 Flow Rate FiO2 07/13/16 08:20 37.1 86 18 160/96 91 Room Air 119/101 132/81 07/13/16 04:00 98 Room Air 07/13/16 03:27 36.6 96 22 143/84 92 Room Air 07/13/16 00:15 36.7 85 18 178/80 91 Room Air 07/13/16 00:01 98 Room Air 07/12/16 22:05 94 94 2.0 07/12/16 20:09 36.9 93 18 176/95 93 Room Air 178/105 156/97 07/12/16 20:00 98 Room Air 07/12/16 16:49 88 07/12/16 16:00 98 Room Air CPAP 07/12/16 15:16 36.7 88 20 173/72 93 Room Air 07/12/16 12:00 98 Room Air CPAP Lab Results: Results Past 24 Hours Test 07/12/16 11:31 07/12/16 12:11 07/12/16 13:14 07/12/16 16:49 Range/Units Bedside Glucose 159 198 144 70-99 mg/dl Digoxin Level 0.5 0.8-2.0 ng/ml Test 07/12/16 19:54 07/13/16 06:54 Range/Units Bedside Glucose 129 110 70-99 mg/dl
[2016-07-13] MEDS: DIGOXIN 0.125 MG TAB PO SCH (18:08)
[2016-07-13] MEDS: WARFARIN SOD 5 MG TAB PO SCH (19:03)
[2016-07-13] MEDS: OXYCODONE HCL IR 5 MG TAB (IMMEDIATE RELEASE) PO PRN (20:53)
[2016-07-13] MEDS: RANITIDINE HCL 150 MG TAB PO SCH (20:54)
[2016-07-13] MEDS: CITALOPRAM 20 MG TAB PO SCH (20:55)
[2016-07-14] MEDS: LACTATED RINGER'S 1000ML 1,000 ML IV SCH ×3 (01:06→15:26)
[2016-07-14 04:02] VITALS: BP 155/86; PULSE 83; TEMP 37.3; O2SAT 92
[2016-07-14 06:13] LABS: INR 2.5 (0.9-1.1); PROTHROMBIN TIME (PATIENT) 27.3 SECONDS (9.0-12.0)
[2016-07-14] MEDS: OXYCODONE HCL IR 5 MG TAB (IMMEDIATE RELEASE) PO PRN ×2 (06:29→15:24)
[2016-07-14] MEDS: ASPIRIN 81 MG ECTAB PO SCH (07:56)
[2016-07-14] MEDS: ATORVASTATIN 40 MG TAB PO SCH (07:56)
[2016-07-14] MEDS: BACLOFEN 10 MG TAB PO PRN (07:57)
[2016-07-14] MEDS: MAGNESIUM OXIDE 400 MG TAB PO SCH (07:58)
[2016-07-14] MEDS: FENOFIBRATE 48 MG TAB PO SCH (07:59)
[2016-07-14] MEDS: VALSARTAN 80 MG TAB PO SCH (07:59)
[2016-07-14] MEDS: PANTOprazole SOD 40 MG TAB PO SCH ×2 (08:01→21:18)
[2016-07-14] MEDS: CARVEDILOL 25 MG TAB PO SCH ×2 (08:01→21:17)
[2016-07-14] MEDS: INSULIN GLARGINE SC SCH ×2 (08:07→21:25)
[2016-07-14] MEDS: INSULIN ASPART 100 UNITS/ML 3 ML PEN SC SCH ×4 (08:07→21:22)
[2016-07-14 08:18] VITALS: BP_SYST 135; BP_SYST 160; BP_SYST 162; BP_DIAS 87; BP_DIAS 93; BP_DIAS 96; PULSE 105; PULSE 82; TEMP 36.6; O2SAT 93
--- NOTE | 2016-07-14 12:04 | Progress Note ---
Internal Med Progress Note Date of Service: Jul 14, 2016. Provider Documentation: SUBJECTIVE: The patient was seen and examined Admitted with syncope-no more episodes Remains Generally weak and lethargic Minimal pain at rest OBJECTIVE: Vital Signs-as noted below Exam: General-no distress at rest Eyes-normal ENT-normal Neck-supple Lungs-clear to ausucltate bilaterally Heart-Regular,no murmur Abdomen-benign,no masses,bowel sound present Extremities-No edema Neuro-AAOx3 Generally weak and lethargic Lab data as noted below. ASSESSMENT & PLAN: Recurrent Syncope Likely secondary to orthostatic Hypotension complicated by use of narcotics , Benzo and Antispasmodics Recent admission with the same symptoms with negative extensive W/U and Neuro evaluation Ongoing weakness / orthostasis in ED after IV fluids. No Arrhythmia Check Orthostasis-has orthostasis Take precaution to avoid fall Will need Rehab ACUTE KIDNEY INJURY Serum creatinine 1.9 compared to baseline of 1.0. LISSETH probably secondary to volume depletion. Hold chlorthalidone. IV fluids. Renal function is normalized BACK PAIN Chronic lumbar pain. Status post recent lumbar decompression / fusion in [place].:Evaluated by his Orthopedic surgeon on last Monday Ongoing pain postoperatively. Ongoing pain, but somnolent, with oxycodone and diazepam. [place] Prescription Drug Monitoring [place] reviewed. Pain therapy input appreciated MRI of the Lumbar spine ordered-has postsurgical fluid collection CORONARY ARTERY DISEASE Denies anginal symptoms. Continue aspirin, carvedilol, statin. CHRONIC ATRIAL FIB Rate controlled. Continue carvedilol and digoxin. Dig Level -0.5 Follow INR and titrate INR 2.5 today . SLEEP APNEA Continue CPAP. HYPERTENSION Hold chlorthalidone due to orthostasis and LISSETH. Continue carvedilol. Decrease valsartan to 160 mg daily until hemodynamics and orthostatic symptoms improve. GERD Continue PPI + ranitidine. DM TYPE 2 Blood sugars fluctuating at home. Check Hgb A1C. Lantus + NovoLog per protocol. VTE PROPHYLAXIS Continue warfarin. RESUSCITATION STATUS Full DISPOSITION Admit to Telemetry Unit. Discharge disposition to be determined- may benefit from inpatient rehab. Family Medicine follow-up with Dr. López. PT/OT -likely to need short term rehab Will need to go to Rehab Vital Signs: Date Time Temp Pulse Resp B/P Pulse Ox O2 Delivery O2 Flow Rate FiO2 07/14/16 08:18 36.6 82 22 162/93 93 Room Air 105 135/96 160/87 07/14/16 07:40 Room Air CPAP 07/14/16 04:02 37.3 83 18 155/86 92 Room Air 07/14/16 04:00 CPAP 07/13/16 23:59 37.1 84 18 129/68 96 BiPAP 07/13/16 23:59 BiPAP 07/13/16 22:37 86 93 2.0 07/13/16 20:00 CPAP 07/13/16 19:58 BiPAP 07/13/16 19:30 36.6 95 20 134/89 92 Room Air 136/94 128/84 07/13/16 18:08 89 07/13/16 16:37 37.0 86 18 153/83 94 Room Air 07/13/16 16:15 Room Air CPAP 07/13/16 12:17 36.7 94 22 163/94 93 Room Air 07/13/16 12:00 Room Air CPAP Lab Results: Results Past 24 Hours Test 07/13/16 16:03 07/13/16 20:15 07/14/16 05:39 07/14/16 06:52 Range/Units Bedside Glucose 120 171 97 70-99 mg/dl Prothrombin Time 27.3 9.0-12.0 SECONDS Prothromb Time International Ratio 2.5 0.9-1.1 Test 07/14/16 11:08 Range/Units Bedside Glucose 130 70-99 mg/dl
[2016-07-14 12:14] VITALS: BP 148/145; PULSE 81; TEMP 36.4; O2SAT 12
[2016-07-14 13:15] LABS: HEMATOCRIT 32.8 % (42-52); MEAN CORPUSCULAR HEMOGLOBIN 32.4 pg (25-34); MEAN CORPUSCULAR HGB CONC 34.5 g/dl (32-36); MEAN PLATELET VOLUME 8.3 fL (7.4-10.4); PLATELET COUNT 253 K/uL (130-400); RED BLOOD COUNT 3.49 M/uL (4.7-6.1); WHITE BLOOD COUNT 7.71 K/uL (4.8-10.8)
[2016-07-14 13:57] LABS: CALCIUM 9.4 mg/dl (8.5-10.1)
[2016-07-14 14:06] LABS: CREATININE 0.98 mg/dl (0.60-1.40); MAGNESIUM 1.4 mg/dl (1.8-2.4); POTASSIUM 3.3 mmol/L (3.5-5.1)
[2016-07-14 15:12] VITALS: BP 161/98; PULSE 94; TEMP 36.6; O2SAT 92
[2016-07-14] MEDS: WARFARIN SOD 5 MG TAB PO SCH (16:00)
[2016-07-14] MEDS: DIGOXIN 0.125 MG TAB PO SCH (16:00)
[2016-07-14 19:46] VITALS: BP_SYST 133; BP_SYST 162; BP_SYST 169; BP_DIAS 110; BP_DIAS 77; BP_DIAS 91; PULSE 100; PULSE 81; PULSE 99; TEMP 36.6; O2SAT 92
[2016-07-14] MEDS ORDERED: NURSING VERBAL MED ORDER ONE (20:30)
[2016-07-14] MEDS: CITALOPRAM 20 MG TAB PO SCH (21:18)
[2016-07-14] MEDS: RANITIDINE HCL 150 MG TAB PO SCH (21:18)
[2016-07-14 23:51] VITALS: BP 150/86; PULSE 78; TEMP 37.3; O2SAT 94
[2016-07-15] MEDS: OXYCODONE HCL IR 5 MG TAB (IMMEDIATE RELEASE) PO PRN ×2 (00:40→09:26)
[2016-07-15] MEDS: BACLOFEN 10 MG TAB PO PRN ×2 (02:53→08:49)
[2016-07-15 04:10] VITALS: BP 158/72; PULSE 85; TEMP 36.7; O2SAT 92
[2016-07-15 06:05] LABS: INR 2.6 (0.9-1.1); PROTHROMBIN TIME (PATIENT) 28.9 SECONDS (9.0-12.0)
[2016-07-15] MEDS: ASPIRIN 81 MG ECTAB PO SCH (07:37)
[2016-07-15] MEDS: PANTOprazole SOD 40 MG TAB PO SCH (07:37)
[2016-07-15] MEDS: ATORVASTATIN 40 MG TAB PO SCH (07:37)
[2016-07-15] MEDS: MAGNESIUM OXIDE 400 MG TAB PO SCH (07:38)
[2016-07-15] MEDS: FENOFIBRATE 48 MG TAB PO SCH (07:38)
[2016-07-15] MEDS: VALSARTAN 80 MG TAB PO SCH (07:39)
[2016-07-15] MEDS: CARVEDILOL 25 MG TAB PO SCH (07:39)
[2016-07-15] MEDS: INSULIN ASPART 100 UNITS/ML 3 ML PEN SC SCH ×2 (07:51→12:12)
[2016-07-15 08:14] VITALS: BP_SYST 134; BP_SYST 137; BP_SYST 142; BP_DIAS 101; BP_DIAS 97; PULSE 101; PULSE 91; PULSE 92; TEMP 36.7; O2SAT 92
[2016-07-15] MEDS: INSULIN GLARGINE SC SCH (08:50)
[2016-07-15] MEDS ORDERED: POTASSIUM CHLORIDE 20 MEQ TABCR PO ONE (09:30)
--- NOTE | 2016-07-15 11:40 | Progress Note ---
Internal Med Progress Note Date of Service: Jul 15, 2016. Provider Documentation: SUBJECTIVE: The patient was seen and examined Admitted with syncope-no more episodes Remains Generally weak and lethargic Continues to have back pain Awaiting Ortho Evaluation OBJECTIVE: Vital Signs-as noted below Exam: General-no distress at rest Eyes-normal ENT-normal Neck-supple Lungs-clear to ausucltate bilaterally Heart-Regular,no murmur Abdomen-benign,no masses,bowel sound present Extremities-No edema Minimal localized tenderness along the surgery site Neuro-AAOx3 Generally weak and lethargic Lab data as noted below. ASSESSMENT & PLAN: Recurrent Syncope Likely secondary to orthostatic Hypotension complicated by use of narcotics , Benzo and Antispasmodics Recent admission with the same symptoms with negative extensive W/U and Neuro evaluation Ongoing weakness / orthostasis in ED after IV fluids. No Arrhythmia Check Orthostasis-has orthostasis Take precaution to avoid fall Accepted at Rehab ACUTE KIDNEY INJURY Serum creatinine 1.9 compared to baseline of 1.0. LISSETH probably secondary to volume depletion. Hold chlorthalidone. IV fluids. Renal function is normalized BACK PAIN-ongoing Chronic lumbar pain. Status post recent lumbar decompression / fusion in [place]Evaluated by his Orthopedic surgeon on last Monday Ongoing pain postoperatively. Ongoing pain, but somnolent, with oxycodone and diazepam. [place] Prescription Drug Monitoring database reviewed. Pain therapy input appreciated MRI of the Lumbar spine ordered-has postsurgical fluid collection Ortho Consulted -awaiting input and recommendation In cleared can go to [facility] today CORONARY ARTERY DISEASE Denies anginal symptoms. Continue aspirin, carvedilol, statin. CHRONIC ATRIAL FIB Rate controlled. Continue carvedilol and digoxin. Dig Level -0.5 Follow INR and titrate INR 2.5 today-therapeutic . SLEEP APNEA Continue CPAP. HYPERTENSION Hold chlorthalidone due to orthostasis and LISSETH. Continue carvedilol. Decrease valsartan to 160 mg daily until hemodynamics and orthostatic symptoms improve. GERD Continue PPI + ranitidine. DM TYPE 2 Blood sugars fluctuating at home. Check Hgb A1C. Lantus + NovoLog per protocol. VTE PROPHYLAXIS Continue warfarin. RESUSCITATION STATUS Full DISPOSITION Admit to Telemetry Unit. Discharge disposition to be determined- may benefit from inpatient rehab. Family Medicine follow-up with Dr. López. PT/OT -likely to need short term rehab Will need to go to Rehab-likely discharge today Vital Signs: Date Time Temp Pulse Resp B/P Pulse Ox O2 Delivery O2 Flow Rate FiO2 07/15/16 08:14 36.7 91 22 142/97 92 Room Air 92 137/101 101 134/97 07/15/16 07:40 Room Air CPAP 07/15/16 04:10 36.7 85 18 158/72 92 Room Air 07/15/16 04:00 Room Air 07/15/16 00:00 Room Air 07/14/16 23:51 37.3 78 18 150/86 94 Room Air 07/14/16 20:00 CPAP 07/14/16 19:46 36.6 81 19 162/110 92 Room Air 99 169/91 100 133/77 07/14/16 16:00 Room Air 07/14/16 16:00 94 07/14/16 15:12 36.6 94 20 161/98 92 Room Air 07/14/16 12:14 36.4 81 20 148/145 12 Room Air 07/14/16 12:00 Room Air CPAP Lab Results: Results Past 24 Hours Test 07/14/16 13:03 07/14/16 16:13 07/14/16 20:25 07/15/16 05:30 Range/Units White Blood Count 7.71 4.8-10.8 K/uL Red Blood Count 3.49 4.7-6.1 M/uL Hemoglobin 11.3 14.0-18.0 g/dL Hematocrit 32.8 42-52 % Mean Corpuscular Volume 94.0 80-100 fL Mean Corpuscular Hemoglobin 32.4 25-34 pg Mean Corpuscular Hemoglobin Concent 34.5 32-36 g/dl RDW Standard Deviation 45.5 36.4-46.3 fL RDW Coefficient of Variation 13.2 11.5-14.5 % Platelet Count 253 130-400 K/uL Mean Platelet Volume 8.3 7.4-10.4 fL Sodium Level 139 136-145 mmol/L Potassium Level 3.3 3.5-5.1 mmol/L Chloride Level 102 98-107 mmol/L Carbon Dioxide Level 28 21-32 mmol/L Anion Gap 9.0 3-11 mmol/L Blood Urea Nitrogen 10 7-18 mg/dl Creatinine 0.98 0.60-1.40 mg/dl Est Creatinine Clear Calc Drug Dose 114.9 ml/min Estimated GFR () 96.7 Estimated GFR (Non- 83.5 BUN/Creatinine Ratio 10.0 10-20 Random Glucose 164 70-99 mg/dl Calcium Level 9.4 8.5-10.1 mg/dl Magnesium Level 1.4 1.8-2.4 mg/dl Bedside Glucose 132 180 70-99 mg/dl Prothrombin Time 28.9 9.0-12.0 SECONDS Prothromb Time International Ratio 2.6 0.9-1.1 Test 07/15/16 06:43 Range/Units Bedside Glucose 97 70-99 mg/dl
[2016-07-15 12:06] VITALS: BP 106/79; PULSE 101; TEMP 36.7; O2SAT 92
--- NOTE | 2016-07-15 12:49 | CONSULTATION REPORT ---
DATE OF CONSULTATION: 07/15/2016 ORTHOPEDIC SPINE CONSULTATION CHIEF COMPLAINT: Syncope during admission and secondarily lower back pain. HISTORY OF PRESENT ILLNESS: Mr. Angela is a pleasant 61-year-old male who has had a history of ongoing issues with his back. Over the past 20 years, he has had over 4 back surgeries. His most recent being July 22. This was done in [place] by Dr. Nunn. He had done well after the surgery had a drain placed and was removed prior to discharge. His first week, he did okay, then he started having increase in pain during the second week. He started taking more of his pain medications; he is on a combination of oxycodone, benzodiazepines and baclofen. He had a syncopal episode which brought him to the hospital. He was evaluated and had x-rays and an MRI done of his back. He now feels much better, at this point, he still has some back soreness but nothing radiating down the legs. He is able to stand and walk on his own at this point. We were asked to see the patient due to findings noted on his MRI. He did have his post-op visit with the surgeon and everything looked good about a week ago. He denies any current numbness, tingling or paresthesias. Denies any fevers or chills. PAST MEDICAL AND SURGICAL HISTORY: Significant for coronary artery disease, COPD, depression, diabetes, dyslipidemia, GERD, hypertension, obstructive sleep apnea, paroxysmal atrial fibrillation, tobacco use. He has had previous cholecystectomy, 4 back surgeries and stents placed in the coronary arteries. FAMILY HISTORY: Significant for diabetes, heart disease and hypertension. SOCIAL HISTORY: The patient is an everyday smoker. Denies alcohol or illicit drug use. He is and is employed. ALLERGIES: HE HAS ALLERGIES TO NIACIN. MEDICATIONS: Aspirin, Lipitor, Coreg, Hygro[place], Celexa, diazepam, digoxin, Tricor, NovoLog, Lantus, Victoza, magnesium oxide, metformin, Nitrostat, Prilosec, Zantac, Diovan and Coumadin. REVIEW OF SYSTEMS: Gone over in detail with the patient is negative except for what is in the HPI. PHYSICAL EXAMINATION: VITAL SIGNS: He has been afebrile, T-max was 37.3, pulse ranges from 85-101, pressure is 158/72 and is 92% on room air. ABDOMEN: Soft and nontender. EXTREMITIES: Calves are supple and nontender. There are brawny edema changes in his lower extremities. His incision is healing nicely with no erythema or drainage. There are 2 or 3 areas in the superior portion of this incision have some scabbing. He is nontender to palpation in this area. Lower extremity motor exam reveals no focal atrophy. Strength and sensation both intact. GENERAL: Gait was not observed patient is alert and oriented and speaks easily during conversation and does not appear to be in any distress. RADIOGRAPHIC IMAGES: MRI of the lumbar spine is available for review. This reveals hardware in place from L2 to sacrum. From L4 down towards the tailbone, there is a dorsal collection of fluid, likely a seroma. It does not compress the thecal sac. There is also some tissue in the subcutaneous region as well. There is no evidence of fracture, hardware failure or ongoing neurologic compression. Also plain views of the lumbar spine were performed revealing hardware intact from L2 to sacrum, the hardware is in appropriate position. There is no evidence of hardware failure. There is fusion material in the lateral gutters. ASSESSMENT: The patient has a postoperative seroma, noncompressive and no shoaib evidence of infection. PLAN: At this point, does not appear that he is infected, this appears to be a typical postoperative seroma and given his history of 4 back surgeries, is likely present due to one of the scar tissue that was present prior to the case. His pain levels are coming down, if it was infected expect his pain levels to be increasing and expect more in the way of radicular complaints. I believe at this point, continued observation is warranted. There is no need to aspirate this area or to wash it out at this point as his pain is improving. However, if he starts becoming more febrile or showing any signs of infection, sepsis or radicular complaints that would be considered. We will continue his medical management of pain and he will follow up with his regular surgeon on their schedule.
[2016-07-15] MEDS ORDERED: RXC5 PO (13:44)
[2016-07-15] MEDS ORDERED: DVN80 PO (13:44)
[2016-07-15] MEDS ORDERED: LRS10 PO (13:44)
--- NOTE | 2016-07-15 13:47 | Discharge Instructions ---
Discharge Instructions Date of Service Jul 15, 2016. Admission Reason for Admission: Atrial Fibrillation, Syncope Discharge Discharge Diagnosis / Problem: Recurrent Syncope,Back pain s/p Lumbar back surgery Discharge Goals Goal(s): Prevent Disease Progression Activity Recommendations Activity Level: Assistance Required Therapies: Physical Therapy, Occupational Therapy . Additional Information Patient informed of condition: Yes Advance Directives: No DNR: No Level of Care: Skilled Communicable Disease: No Prognosis: Stable Tyson Catheter: No Instructions / Follow-Up Instructions / Follow-Up Please make an appointment with your PCP in 1 week.Keep follow up with Coagulation clinic Current Hospital Diet Patient's current hospital diet: Diabetes Type 2 Diet, AHA Diet (Heart Healthy) Discharge Diet Recommended Diet: AHA Diet (Heart Healthy), Diabetes Type 2 Diet Pending Studies Studies pending at discharge: no Laboratory Results Hemoglobin A1c Test 07/12/16 05:30 Range/Units Estimated Average Glucose 163 mg/dl Hemoglobin A1c 7.3 H 4.5-5.6 % Medical Emergencies . Who to Call and When: Medical Emergencies: If at any time you feel your situation is an emergency, please call 911 immediately. . Non-Emergent Contact Non-Emergency issues call your: Primary Care Provider . Past History Medical & Surgical History: (1) LISSETH (acute kidney injury) (2) HTN (hypertension) (3) COPD (chronic obstructive pulmonary disease) (4) Hypotension (5) Medication reaction (6) ZULEIKA on CPAP (7) PAF (paroxysmal atrial fibrillation) (8) Syncopal episodes . "Provider Documentation" section prepared by Bradford Hauser. . Core Measure Problem Core Measures: None
[2016-07-15 13:54] VITALS: BP 106/79; PULSE 101; TEMP 36.7; O2SAT 92
--- NOTE | 2016-07-15 15:57 | Discharge Summary ---
Discharge Summary Date of Service Jul 15, 2016. Discharge Summary Admission Date: Jul 11, 2016 at 16:00 Discharge Date: Jul 15, 2016 Discharge Disposition: longterm facility Principal Diagnosis: Recurrent Syncope,Back pain s/p Lumbar back surgery Secondary Diagnoses/Problems: Please see H&P and Hospital Progress note Consultations: Pain therapist and Ortho Medication Reconciliation New Medications: Baclofen (Baclofen) 10 Mg Tab 5 MG PO TID PRN for spasms for 30 Days, #45 TAB Oxycodone HCl (Oxycodone HCl) 5 Mg Tab 5 MG PO Q6H PRN for pain 9-10/10 for 10 Days, #40 TAB Valsartan (Diovan) 80 Mg Tab 160 MG PO QAM for 30 Days, #60 TAB Continued Medications: Aspirin (Aspir-81) 81 Mg Tab 81 MG PO DAILY Atorvastatin (Lipitor) 80 Mg Tab 80 MG PO DAILY, TAB Carvedilol (Coreg) 25 Mg Tab 25 MG PO BID, TAB Citalopram Hydrobromide (Celexa) 20 Mg Tab 20 MG PO HS Digoxin (Digoxin) 0.125 Mg Tab 0.125 MG PO DAILY Fenofibrate (Tricor) 48 Mg Tab 48 MG PO DAILY, TAB Insulin Aspart (Novolog) 100 Units/Ml Inj 24 UNITS SC TIDM Insulin Glargine (Lantus) 100 Unit/Ml Inj 60 UNITS SC BID Liraglutide (Victoza) 18 Mg/3 Ml Inj 1.8 MG SC DAILY Magnesium Oxide (Mag-Ox) 400 Mg Tab 400 MG PO DAILY, TAB Metformin HCl (Metformin HCl) 500 Mg Tab 1000 MG PO BID Nitroglycerin (Nitrostat) 0.4 Mg Sub 0.4 MG UT PRN, BTL Pratts-3 Fatty Acids (Pratts 3) 1 Cap Cap 1 CAPSULE PO BID Omeprazole (Prilosec) 20 Mg Cap 20 MG PO BID, CAP Ranitidine (Zantac) 300 Mg Tab 300 MG PO HS, TAB Warfarin Sod (Jantoven) 10 Mg Tab 10 MG PO WK MONDAY Warfarin Sodium (Warfarin Sodium) 7.5 Mg Tab 7.5 MG PO 6XWK EVERYDAY EXCEPT MONDAY Discontinued Medications: Chlorthalidone (Hygroton) 25 Mg Tab 12.5 MG PO DAILY Diazepam (Diazepam) 5 Mg Tab 5 MG PO Q8H, #60 Oxycodone/Acetaminophen 7.5MG/325MG (Oxycodone/Acetaminophen 7.5MG/325MG) 1 Tab Tab 1 TAB PO TID PRN for Pain, TAB Valsartan (Diovan) 320 Mg Tab 320 MG PO DAILY, TAB Admission Information HPI (per Admitting provider): 61 YO male followed by Dr. López. History of ischemic heart disease, chronic AF, hypertension, sleep apnea, DM, and other problems as noted. Chronic low back pain. Lumbar surgery performed in [place] a few weeks ago. Experiencing severe postop back pain. Taking oxycodone and diazepam for pain control. Has been very somnolent. PO intake has been poor. Has lost 30 lbs since his surgery. Hospitalized 06/30/16 - 07/02/16 with syncope, dehydration, acute kidney injury. Symptoms improved with dehydration. Discharged to home. Progressive weakness since returning home. Had a syncopal episode 2 days prior to admission without associated cardiac or neuro symptoms. Came to ED today because of worsening weakness and lightheadedness. Past Medical/Surgical History Chronic and Resolved Medical Problems: (1) CAD (coronary artery disease) Status: Chronic (2) COPD (chronic obstructive pulmonary disease) Status: Chronic (3) Depression Status: Chronic (4) Diabetes mellitus type II, uncontrolled Status: Chronic (5) Dyslipidemia Status: Chronic (6) GERD (gastroesophageal reflux disease) Status: Chronic (7) HTN (hypertension) Status: Chronic (8) ZULEIKA on CPAP Status: Chronic (9) PAF (paroxysmal atrial fibrillation) Status: Chronic (10) Tobacco abuse Status: Chronic Surgical Problems: (1) Hx of cholecystectomy (2) Previous back surgery (3) Stented coronary artery Permanent Comment: stents to RCA and LAD . Family History Diabetes mellitus Heart disease Hypertension Social History Smoking Status: Current Every Day Smoker Alcohol Use: none Drug Use: none Marital Status: Occupational Status: employed Immunizations History of Influenza Vaccine: Yes History of Tetanus Vaccine?: Yes History of Pneumococcal: Yes History of Hepatitis B Vaccine: No Multi-Drug Resistant Organisms History of MDRO: Yes Type of MDRO: MRSA Allergies Coded Allergies: Niacin (Verified Adverse Reaction, Unknown, sweats and joint pain, 07/11/16 ) Home Medications Scheduled Aspirin (Aspir-81), 81 MG PO DAILY Atorvastatin (Lipitor), 80 MG PO DAILY Carvedilol (Coreg), 25 MG PO BID Chlorthalidone (Hygroton), 12.5 MG PO DAILY Citalopram Hydrobromide (Celexa), 20 MG PO HS Diazepam (Diazepam), 5 MG PO Q8H Digoxin (Digoxin), 0.125 MCG PO DAILY Fenofibrate (Tricor), 48 MG PO DAILY Insulin Aspart (Novolog), 24 UNITS SC TIDM Insulin Glargine (Lantus), 60 UNITS SC BID Liraglutide (Victoza), 1.8 MG SC DAILY Magnesium Oxide (Mag-Ox), 400 MG PO DAILY Metformin HCl (Metformin HCl), 1,000 MG PO BID Nitroglycerin (Nitrostat), 0.4 MG UT PRN Pratts-3 Fatty Acids (Pratts 3), 1 CAPSULE PO BID Omeprazole (Prilosec), 20 MG PO BID Ranitidine (Zantac), 300 MG PO HS Valsartan (Diovan), 320 MG PO DAILY Warfarin Sod (Jantoven), 10 MG PO WK Warfarin Sodium (Warfarin Sodium), 7.5 MG PO 6XWK Scheduled PRN Oxycodone/Acetaminophen 7.5MG/325MG (Oxycodone/Acetaminophen 7.5MG/325MG), 1 TAB PO TID PRN for Pain Review of Systems Constitutional: + weight loss, No chills, No fever Eyes: No diplopia, No worsening of vision ENT: No nasal symptoms, No sore throat Respiratory: + dyspnea on exertion (chronic), No cough (mild, nonproductive) Cardiovascular: + edema, + palpitations (occasional), No chest pain Abdomen: No GI bleeding, No diarrhea, No nausea, No pain, No vomiting Musculoskeletal: + joint pain (back, left knee) Genitourinary - Male: No dysuria, No hematuria Neurologic: + problem reported (mild headaches), + weakness Endocrine: + fatigue, No excessive thirst, No excessive urination Hematologic / Lymphatic: + abnormal bleeding/bruising (bruises easily) Integumentary: + itch, + new/changing skin lesions, + rash Physical Ex - H&P Physical Exam Vital Signs Date Time Temp Pulse Resp B/P Pulse Ox O2 Delivery O2 Flow Rate FiO2 07/11/16 15:32 77 18 104/58 94 Room Air 07/11/16 15:16 80 18 98/55 94 Room Air 07/11/16 14:36 81 18 97/51 95 Room Air 07/11/16 14:35 79 144/68 84 79/52 07/11/16 13:53 84 20 103/80 97 Nasal Cannula 2.0 07/11/16 13:09 78 18 129/70 97 Nasal Cannula 2.0 07/11/16 12:56 79 18 92/53 96 Nasal Cannula 2.0 07/11/16 12:19 81 07/11/16 12:18 85 18 106/66 95 Nasal Cannula 2.0 07/11/16 12:17 96 Nasal Cannula 2.0 07/11/16 12:16 95 Room Air 07/11/16 12:10 36.7 84 18 81/51 97 Room Air 89/51 General Appearance: WD/WN, no apparent distress, + obese Head: normocephalic, atraumatic Eyes: normal inspection, PERRL, EOMI, sclerae normal ENT: hearing grossly normal, + pertinent finding (edentulous; upper dentures; oral mucosa dry) Neck: supple, no adenopathy, thyroid normal, no JVD, trachea midline Respiratory/Chest: lungs clear, normal breath sounds, no respiratory distress, no accessory muscle use Cardiovascular: no gallop, no murmur, + irregularly irregular, + pertinent finding (no JVD; 1+ pretibial edema) Abdomen/GI: normal bowel sounds, non tender, soft, no organomegaly Back: + pertinent finding (lumbar incision without erythema or drainage) Extremities/Musculoskelatal: + pertinent finding (1+ pretibial edema; chronic venous stasis changes; no calf tenderness) Neurologic/Psych: + pertinent finding (somnolent, dozing off during interview) Skin: warm/dry Lymphatic: + pertinent finding (no cervical adenopathy) Diagnostics - H&P Diagnostics Laboratory Results Results Past 24 Hours Test 07/11/16 12:00 07/11/16 14:18 Range/Units White Blood Count 6.99 4.8-10.8 K/uL Red Blood Count 3.77 4.7-6.1 M/uL Hemoglobin 12.7 14.0-18.0 g/dL Hematocrit 35.7 42-52 % Mean Corpuscular Volume 94.7 80-100 fL Mean Corpuscular Hemoglobin 33.7 25-34 pg Mean Corpuscular Hemoglobin Concent 35.6 32-36 g/dl RDW Standard Deviation 47.3 36.4-46.3 fL RDW Coefficient of Variation 13.7 11.5-14.5 % Platelet Count 346 130-400 K/uL Mean Platelet Volume 8.8 7.4-10.4 fL Prothrombin Time 55.7 9.0-12.0 SECONDS Prothromb Time International Ratio 4.9 0.9-1.1 Activated Partial Thromboplast Time 43.7 21.0-31.0 SECONDS Partial Thromboplastin Ratio 1.7 Sodium Level 142 136-145 mmol/L Potassium Level 3.6 3.5-5.1 mmol/L Chloride Level 106 98-107 mmol/L Carbon Dioxide Level 28 21-32 mmol/L Anion Gap 8.0 3-11 mmol/L Blood Urea Nitrogen 38 7-18 mg/dl Creatinine 1.90 0.60-1.40 mg/dl Est Creatinine Clear Calc Drug Dose 59.7 ml/min Estimated GFR () 43.4 Estimated GFR (Non- 37.5 BUN/Creatinine Ratio 20.1 10-20 Random Glucose 126 70-99 mg/dl Calcium Level 8.8 8.5-10.1 mg/dl Total Bilirubin 0.4 0.2-1 mg/dl Aspartate Amino Transf (AST/SGOT) 26 15-37 U/L Alanine Aminotransferase (ALT/SGPT) 38 12-78 U/L Alkaline Phosphatase 89 45-117 U/L Troponin I < 0.015 0-0.045 ng/ml Total Protein 6.8 6.4-8.2 gm/dl Albumin 3.3 3.4-5.0 gm/dl Globulin 3.5 2.5-4.0 gm/dl Albumin/Globulin Ratio 0.9 0.9-2 Urine Color YELLOW Urine Appearance CLEAR CLEAR Urine pH 5.5 4.5-7.5 Urine Specific [place] 1.023 1.000-1.030 Urine Protein NEG NEG Urine Glucose (UA) TRACE NEG Urine Ketones TRACE NEG Urine Occult Blood NEG NEG Urine Nitrite NEG NEG Urine Bilirubin NEG NEG Urine Urobilinogen NEG NEG Urine Leukocyte Esterase NEG NEG Diagnostic Radiology SINGLE VIEW CHEST CLINICAL HISTORY: Dizziness. Lightheaded. FINDINGS: 2 AP, portable, upright chest radiographs are compared to study dated 06/30/2016 and correlated with chest CT dated 01/06/2015. The examination is degraded by portable technique, large body habitus, and patient rotation. The heart is mildly enlarged. The pulmonary vasculature is noncongested. Bibasilar atelectasis is observed. No airspace consolidation or large pleural effusion is identified. No pneumothorax is seen. The bony thorax is grossly intact. IMPRESSION: Mild cardiac enlargement with no acute cardiopulmonary abnormality. Electronically signed by: Garland Rodarte M.D. 07/11/2016 1:06 PM Dictated Date/Time: 07/11/2016 1:04 PM EKG EKG performed at 12:03 reviewed and demonstrated AF at 80 / minute, possible age -indeterminate inferior infarct, possible age-indeterminate anterior infarct, anterorlateral ST depression and T-wave changes, inferior T-wave changes. Compared to tracing on 06/30/16, no significant changes. . Impression - H&P Impression Assessment and Plan SYNCOPE / ORTHOSTATIC HYPOTENSION Syncope at home. Ongoing weakness / orthostasis in ED after IV fluids. Syncope most likely due to orthostatic hypotension due to volume depletion. Continue IV fluids. Monitor for arrhythmias. ACUTE KIDNEY INJURY Serum creatinine 1.9 compared to baseline of 1.0. LISSETH probably secondary to volume depletion. Hold chlorthalidone. IV fluids. Follow. BACK PAIN Chronic lumbar pain. Status post recent lumbar decompression / fusion in [place]. Ongoing pain postoperatively. Ongoing pain, but somnolent, with oxycodone and diazepam. [place] Prescription Drug Monitoring database reviewed. Check x-rays lumbar spine. Try tramadol. Only use oxycodone for severe pain. Stop diazepam because of excess sedation. Consult Pain Management. PT eval once orthostasis improved. CORONARY ARTERY DISEASE Denies anginal symptoms. Continue aspirin, carvedilol, statin. CHRONIC ATRIAL FIB Rate controlled. Continue carvedilol and digoxin. Check dig level. Continue warfarin. INR elevated- probably due to decrease oral intake. Follow INR and titrate. SLEEP APNEA Continue CPAP. HYPERTENSION Hold chlorthalidone due to orthostasis and LISSETH. Continue carvedilol. Decrease valsartan to 160 mg daily until hemodynamics and orthostatic symptoms improve. GERD Continue PPI + ranitidine. DM TYPE 2 Blood sugars fluctuating at home. Check Hgb A1C. Lantus + NovoLog per protocol. VTE PROPHYLAXIS Continue warfarin. RESUSCITATION STATUS Discussed with patient. He has a living will. He would like resuscitation attempted in the event of a cardiopulmonary arrest if there is a reasonable chance of a meaningful recovery, but does not want prolonged extraordinary measures if prognosis is poor. Therefore, code status = "Level 1" (full resuscitation). DISPOSITION Admit to Telemetry Unit. Discharge disposition to be determined- may benefit from inpatient rehab. Family Medicine follow-up with Dr. López. . VTE Prophylaxis VTE Risk Assessment Done? Y/N: Yes Risk Level: Moderate Given or contraindicated: Warfarin (Coumadin) . Physical Exam (per Admitting): General Appearance: WD/WN, no apparent distress, + obese Head: normocephalic, atraumatic Eyes: normal inspection, PERRL, EOMI, sclerae normal ENT: hearing grossly normal, + pertinent finding (edentulous; upper dentures ; oral mucosa dry) Neck: supple, no adenopathy, thyroid normal, no JVD, trachea midline Respiratory/Chest: lungs clear, normal breath sounds, no respiratory distress, no accessory muscle use Cardiovascular: no gallop, no murmur, + irregularly irregular, + pertinent finding (no JVD; 1+ pretibial edema) Abdomen/GI: normal bowel sounds, non tender, soft, no organomegaly Back: + pertinent finding (lumbar incision without erythema or drainage) Extremities/Musculoskelatal: + pertinent finding (1+ pretibial edema; chronic venous stasis changes; no calf tenderness) Neurologic/Psych: + pertinent finding (somnolent, dozing off during interview) Skin: warm/dry Lymphatic: + pertinent finding (no cervical adenopathy) Hospital Course Recurrent Syncope Likely secondary to orthostatic Hypotension complicated by use of narcotics , Benzo and Antispasmodics Recent admission with the same symptoms with negative extensive W/U and Neuro evaluation Ongoing weakness / orthostasis in ED after IV fluids. No Arrhythmia Check Orthostasis-has orthostasis Take precaution to avoid fall Accepted at Rehab ACUTE KIDNEY INJURY Serum creatinine 1.9 compared to baseline of 1.0. LISSETH probably secondary to volume depletion. Hold chlorthalidone. IV fluids. Renal function is normalized BACK PAIN-ongoing Chronic lumbar pain. Status post recent lumbar decompression / fusion in [place].:Evaluated by his Orthopedic surgeon on last Monday Ongoing pain postoperatively. Ongoing pain, but somnolent, with oxycodone and diazepam. [place] Prescription Drug Monitoring database reviewed. Pain therapy input appreciated MRI of the Lumbar spine ordered-has postsurgical fluid collection Ortho Consulted -awaiting input and recommendation In cleared can go to [facility] today CORONARY ARTERY DISEASE Denies anginal symptoms. Continue aspirin, carvedilol, statin. CHRONIC ATRIAL FIB Rate controlled. Continue carvedilol and digoxin. Dig Level -0.5 Follow INR and titrate INR 2.5 today-therapeutic . SLEEP APNEA Continue CPAP. HYPERTENSION Hold chlorthalidone due to orthostasis and LISSETH. Continue carvedilol. Decrease valsartan to 160 mg daily until hemodynamics and orthostatic symptoms improve. GERD Continue PPI + ranitidine. DM TYPE 2 Blood sugars fluctuating at home. Check Hgb A1C. Lantus + NovoLog per protocol. VTE PROPHYLAXIS Continue warfarin. RESUSCITATION STATUS Full DISPOSITION Admit to Telemetry Unit. Discharge disposition to be determined- may benefit from inpatient rehab. Family Medicine follow-up with Dr. López. PT/OT -likely to need short term rehab Will need to go to Rehab-likely discharge today Total time spent on discharge = 40 minutes This includes examination of the patient, discharge planning, medication reconciliation, and communication with other providers. Discharge Instructions Date of Service Jul 15, 2016. Admission Reason for Admission: Atrial Fibrillation, Syncope Discharge Discharge Diagnosis / Problem: Recurrent Syncope,Back pain s/p Lumbar back surgery Discharge Goals Goal(s): Prevent Disease Progression Activity Recommendations Activity Level: Assistance Required Therapies: Physical Therapy, Occupational Therapy . Additional Information Patient informed of condition: Yes Advance Directives: No DNR: No Level of Care: Skilled Communicable Disease: No Prognosis: Stable Tyson Catheter: No Instructions / Follow-Up Instructions / Follow-Up Please make an appointment with your PCP in 1 week.Keep follow up with Coagulation clinic Current Hospital Diet Patient's current hospital diet: Diabetes Type 2 Diet, AHA Diet (Heart Healthy) Discharge Diet Recommended Diet: AHA Diet (Heart Healthy), Diabetes Type 2 Diet Pending Studies Studies pending at discharge: no Laboratory Results Hemoglobin A1c Test 07/12/16 05:30 Range/Units Estimated Average Glucose 163 mg/dl Hemoglobin A1c 7.3 H 4.5-5.6 % Medical Emergencies . Who to Call and When: Medical Emergencies: If at any time you feel your situation is an emergency, please call 911 immediately. . Non-Emergent Contact Non-Emergency issues call your: Primary Care Provider . Past History Medical & Surgical History: (1) LISSETH (acute kidney injury) (2) HTN (hypertension) (3) COPD (chronic obstructive pulmonary disease) (4) Hypotension (5) Medication reaction (6) ZULEIKA on CPAP (7) PAF (paroxysmal atrial fibrillation) (8) Syncopal episodes . "Provider Documentation" section prepared by Bradford Hauser. . Core Measure Problem Core Measures: None <Electronically signed by Bradford Hauser M.D.> Additional Copies To Steven López M.D.
[2016-08-03] MEDS ORDERED: OXYC1TAB3 PO (16:04)
[2016-10-26] MEDS ORDERED: INSU100I23 SC (10:12)
[2016-10-26] MEDS ORDERED: CYM/30 PO (10:12)
[2016-11-29] MEDS ORDERED: NRN300 PEG (10:25)
[2016-11-29] MEDS ORDERED: GABA-113 PO (10:25)
== END 2016-07-15 15:04 | DRG 683 ==
LOC: ENRESERVDT → ENRESERVTM → EDBD 11:55 → C.EDA 12:01 → C.2E 16:00
PROVIDERS: ADMIT Hospitalist; ATTEND Internal Medicine
DX: N17.9 Acute kidney failure, unspecified (principal); Z68.41 Body mass index [BMI] 40.0-44.9, adult; I95.1 Orthostatic hypotension; I25.10 Atherosclerotic heart disease of native coronary artery without angina pectoris; G47.33 Obstructive sleep apnea (adult) (pediatric); E11.9 Type 2 diabetes mellitus without complications; G89.29 Other chronic pain; J44.9 Chronic obstructive pulmonary disease, unspecified; K21.9 Gastro-esophageal reflux disease without esophagitis; E78.5 Hyperlipidemia, unspecified; F32.9 Major depressive disorder, single episode, unspecified; I48.0 Paroxysmal atrial fibrillation; F17.210 Nicotine dependence, cigarettes, uncomplicated; Z90.49 Acquired absence of other specified parts of digestive tract; Z95.5 Presence of coronary angioplasty implant and graft; Z82.49 Family history of ischemic heart disease and other diseases of the circulatory system; Z83.3 Family history of diabetes mellitus; Z87.19 Personal history of other diseases of the digestive system; Z79.82 Long term (current) use of aspirin; Z79.899 Other long term (current) drug therapy; Z79.01 Long term (current) use of anticoagulants; Z98.1 Arthrodesis status; I10 Essential (primary) hypertension; Z79.4 Long term (current) use of insulin; M96.1 Postlaminectomy syndrome, not elsewhere classified; E66.01 Morbid (severe) obesity due to excess calories

== ENCOUNTER 2016-08-01 13:45 | Inpatient (IN) | payer BC ==
[~2016-08-01] VITALS: Ht 180.3 cm; Wt 134.7 kg
[~2016-08-01 13:45] MED LIST changes: +DVN80 PO; -HYG/25 PO; -IPRA1AER2 INH; +LRS10 PO; -MOME1AER5; +RXC5 PO; -VALS320T PO
[2016-08-01] MEDS ORDERED: VALS320T PO (14:05)
[2016-08-01] MEDS ORDERED: TRMCR130WC TOP (14:05)
[2016-08-01] MEDS ORDERED: IPRA1AER2 INH (14:05)
[2016-08-01] MEDS ORDERED: OXYC1TAB3 PO (14:05)
[2016-08-01] MEDS ORDERED: HYG/25 PO (14:05)
[2016-08-01] MEDS ORDERED: ALPR-411 PO (14:05)
[2016-08-01 14:22] LABS: BASO % 0.8 %; BASO ABS # 0.07 K/uL (0-0.2); COMPLETE YES; EOS % 3.9 %; HEMATOCRIT 39.9 % (42-52); IG% 0.2 %; LYMPH % 24.7 %; LYMPH ABS # 2.18 K/uL (1.2-3.4); MEAN CELL VOLUME 96.6 fL (80-100); MEAN CORPUSCULAR HEMOGLOBIN 32.9 pg (25-34); MEAN CORPUSCULAR HGB CONC 34.1 g/dl (32-36); MEAN PLATELET VOLUME 9.3 fL (7.4-10.4); MONO % 5.3 %; NEUT % 65.1 %; PLATELET COUNT 347 K/uL (130-400); RED BLOOD COUNT 4.13 M/uL (4.7-6.1); WHITE BLOOD COUNT 8.82 K/uL (4.8-10.8)
--- NOTE | 2016-08-01 14:26 | EMERGENCY ROOM VISIT NOTE ---
History Report prepared by Patience: Aamir Buckley Under the Supervision of: Dr. Joanna Nicole M.D. First contact with patient: 14:12 Chief Complaint: SYNCOPE (NEAR SYNCOPE) Stated Complaint: SYNCOPE Nursing Triage Summary: pt went to pcp for checkup afterback surgery 1 month ago. had syncopal episode at office. pt reports he felt lightheaded and dizzy priort o and asked for w/c before chair came pt lower self to ground. pt was reported to pale and diaphoetic at time pt has pmhx of diabetes and afib History of Present Illness The patient is a 61 year old male who presents to the Emergency Room with complaints of a sudden syncopal episode beginning just prior to arrival. He currently rates his discomfort as a 6/10 in severity. The patient states he went to his PCP's office for blood work this morning, and as he walked in the door that he began to feel dizzy and lightheaded. He notes he passed out this morning at the office, and someone helped catch him before he fell to the floor. The patient denies hitting his head during the fall. He states he recently had back surgery five weeks ago, in which, he has been using a cane. The patient was noted to be pale and diaphoretic at the time of the episode. He states he has been experiencing dizzy spells over the past five weeks, in which , his blood pressure has been low. The patient notes he was brought to the ED twice by ambulance, and was discharged to [facility]. He states he was doing well without dizzy spells, while he was at [facility]. The patient notes he was discharged 8 days ago from [facility]. He states he takes his Oxycodone as needed. The patient denies chest pain, shortness of breath, and pain with deep breaths. Source of History: patient Onset: just prior to arrival Position: other (global) Symptom Intensity: 6/10 Quality: other (syncope) Timing: other (sudden) Associated Symptoms: + diaphoresis (resolved), No SOB, No chest pain Note: Associated symptoms: intermittent dizziness, intermittent lightheadedness, resolved paleness. Review of Systems See HPI for pertinent positives & negatives. A total of 10 systems reviewed and were otherwise negative. Past Medical & Surgical Medical Problems: (1) LISSETH (acute kidney injury) (2) Atrial fibrillation (3) CAD (coronary artery disease) (4) COPD (chronic obstructive pulmonary disease) (5) Depression (6) Diabetes mellitus type II, uncontrolled (7) Dyslipidemia (8) GERD (gastroesophageal reflux disease) (9) HTN (hypertension) (10) ZULEIKA on CPAP (11) PAF (paroxysmal atrial fibrillation) (12) Syncopal episodes (13) Syncope (14) Tobacco abuse Surgical Problems: (1) Hx of cholecystectomy (2) Previous back surgery (3) Stented coronary artery Family History Diabetes mellitus Heart disease Hypertension Social History Smoking Status: Current Every Day Smoker Alcohol Use: none Drug Use: none Marital Status: Housing Status: lives with family Occupation Status: employed Current/Historical Medications Scheduled Aspirin (Aspir-81), 81 MG PO DAILY Atorvastatin (Lipitor), 80 MG PO DAILY Carvedilol (Coreg), 25 MG PO BID Citalopram Hydrobromide (Celexa), 20 MG PO HS Digoxin (Digoxin), 0.125 MG PO DAILY Fenofibrate (Tricor), 48 MG PO DAILY Insulin Aspart (Novolog), 24 UNITS SC TIDM Insulin Glargine (Lantus), 60 UNITS SC BID Ipratropium-Albuterol (Combivent Respimat), 1 PUFFS INH QID Liraglutide (Victoza), 1.8 MG SC DAILY Magnesium Oxide (Mag-Ox), 400 MG PO DAILY Metformin HCl (Metformin HCl), 1,000 MG PO BID Nitroglycerin (Nitrostat), 0.4 MG UT PRN [place]-3 Fatty Acids ([place] 3), 1 CAPSULE PO BID Omeprazole (Prilosec), 20 MG PO BID Ranitidine (Zantac), 300 MG PO HS Triamcinolone Acet (Aristocort 0.1%), 1 APPLN TOP BID Valsartan (Diovan), 320 MG PO DAILY Warfarin Sodium (Coumadin), 7.5 MG PO DAILY Scheduled PRN Alprazolam (Xanax), 0.5 MG PO TID PRN for Anxiety Oxycodone Ir (Roxicodone Ir), 5 MG PO Q6H PRN for Severe Pain Allergies Coded Allergies: Niacin (Verified Adverse Reaction, Unknown, sweats and joint pain, 07/11/16 ) Physical Exam Vital Signs Date Time Temp Pulse Resp B/P Pulse Ox O2 Delivery O2 Flow Rate FiO2 08/01/16 19:30 108 18 137/85 94 Room Air 08/01/16 18:44 97 16 137/94 08/01/16 17:30 73 18 107/68 93 Room Air 08/01/16 16:59 79 14 87/75 97 Room Air 08/01/16 16:00 82 16 115/67 93 Room Air 08/01/16 14:57 101 18 70/46 93 Room Air 101/73 08/01/16 14:28 87 80/63 08/01/16 14:01 95 Room Air 08/01/16 14:01 36.8 89 16 113/49 95 Room Air 08/01/16 13:52 104 Physical Exam Vital signs reviewed. General: Well-appearing male, in no significant distress. HEENT: No scleral icterus, PERRLA, neck supple. Atraumatic. Cardiovascular: Regular rate and rhythm, no extra sounds. Pulmonary: Clear to auscultation bilaterally, normal work of breathing. Abdomen: Obese. Soft, nontender, nondistended, positive bowel sounds. Musculoskeletal: Pain with sitting up. Atraumatic, no peripheral edema. Neurologic: Patient awake alert and oriented x 3, full strength in all 4 extremities. Cranial nerves 2 through 12 grossly intact. Skin: Warm, dry, no rash Medical Decision & Procedures ER Provider Diagnostic Interpretation: X-ray results as stated below per interpretation by me and the radiologist: CHEST ONE VIEW PORTABLE CLINICAL HISTORY: syncope COMPARISON STUDY: 07/11/2016 FINDINGS: The cardiac and mediastinal contours are normal. There is no evidence of focal pulmonary consolidation. There is no evidence of failure. No pleural effusions are visualized.[ Differential attenuation of the hemithoraces, likely relates to technical factors. IMPRESSION: 1. Slight differential attenuation hemithoraces, a finding likely related to technical factors. 2. No evidence of failure. No evidence of focal pulmonary consolidation Electronically signed by: Valerio Fitch M.D. 08/01/2016 2:29 PM Laboratory Results Test 08/01/16 13:25 Activated Partial Thromboplast Time 36.8 SECONDS (21.0-31.0) Partial Thromboplastin Ratio 1.4 Magnesium Level 1.9 mg/dl (1.8-2.4) Total Bilirubin 0.5 mg/dl (0.2-1) Direct Bilirubin 0.2 mg/dl (0-0.2) Aspartate Amino Transf (AST/SGOT) 30 U/L (15-37) Alanine Aminotransferase (ALT/SGPT) 45 U/L (12-78) Alkaline Phosphatase 90 U/L (45-117) Total Creatine Kinase 78 U/L (39-308) Creatine Kinase MB 1.6 ng/ml (0.5-3.6) Creatine Kinase MB Ratio 2.1 (0-3.0) Troponin I < 0.015 ng/ml (0-0.045) Total Protein 7.5 gm/dl (6.4-8.2) Albumin 3.6 gm/dl (3.4-5.0) Laboratory results per my review. Medications Administered Medications (Trade) Dose Ordered Sig/Juan Miguel Route Start Time Stop Time Status Last Admin Dose Admin Sodium Chloride 500 ml @ 999 mls/hr Q31M STAT IV 08/01/16 14:58 08/01/16 15:28 DC 08/01/16 15:25 999 MLS/HR Sodium Chloride 1,000 ml @ 150 mls/hr Q6H40M STAT IV 08/01/16 14:58 08/01/16 20:16 DC 08/01/16 15:25 150 MLS/HR Sodium Chloride (Nss 1000ml) 1,000 ml @ 80 mls/hr [id number] IV 08/01/16 19:15 08/03/16 18:18 DC 08/03/16 12:16 80 MLS/HR ECG Indication: syncope Rate (beats per minute): 96 Rhythm: atrial fibrillation Findings: nonspecific-ST abn, no ectopy ED Course 1412: Past medical records reviewed. The patient was evaluated in room A3. A complete history and physical examination was performed. 1458: Ordered Sodium Chloride 1,000 ml @ 150 mls/hr IV, Sodium Chloride 500 ml @ 999 mls/hr IV. 1830: I spoke to Usama Patel (Hospitalist) about the patient's case, and she will follow the patient for further evaluation. Medical Decision Differential diagnosis: Etiologies such as benign positional vertigo, dehydration, hypovolemia, anemia, tumor, infection, hypoglycemia, electrolyte abnormalities, cardiac sources, intracerebral event, toxicologic, neurologic, as well as others were entertained. This patient was evaluated and appeared to be in no significant distress. IV access was obtained and laboratory work was drawn. EKG reveals no evidence of acute ischemic change. Patient was hydrated with normal saline solution. Laboratory work reveals no acute abnormalities. Vital signs have remained stable. Patient was advised to confirm his dosing with his psychiatrist this week. He will follow-up for outpatient evaluation of blood pressure and further management. The patient was informed of the findings and agrees. He is currently awaiting transport. Patient was discharged with 30 tablets of 5/ 325%. Consults Time Called: 1710 Consulting Physician: Usama Patel (Hospitalist) Returned Call: 1830 I spoke to Usama Patel (Hospitalist) about the patient's case, and she will follow the patient for further evaluation. Impression Primary Impression: Hypotension Additional Impressions: Dehydration Acute renal insufficiency Scribe Attestation The scribe's documentation has been prepared under my direction and personally reviewed by me in its entirety. I confirm that the note above accurately reflects all work, treatment, procedures, and medical decision making performed by me. Departure Information Dispostion Being Evaluated By Hospitalist (Usama Patel (Hospitalist)) Prescriptions Oxycodone Ir (Roxicodone Ir) 5 Mg Tab 5 MG PO Q6H Y for Severe Pain for 5 Days, #20 TAB Prov: Lnydon Rinaldi MD 08/03/16 Referrals Malachi Zamorano C., D.OSven (PCP) Problem Qualifiers
[2016-08-01 14:31] LABS: ALT/SGPT 45 U/L (12-78); AST/SGOT 30 U/L (15-37); BLOOD UREA NITROGEN 37 mg/dl (7-18); BUN/CREATININE RATIO 19.3 (10-20); CALCIUM 9.5 mg/dl (8.5-10.1); CARBON DIOXIDE 28 mmol/L (21-32); CHLORIDE 103 mmol/L (98-107); GLUCOSE 148 mg/dl (70-99); MAGNESIUM 1.9 mg/dl (1.8-2.4); POTASSIUM 3.8 mmol/L (3.5-5.1); SODIUM 140 mmol/L (136-145)
--- NOTE | 2016-08-01 14:31 | DIAGNOSTIC IMAGING REPORT ---
CHEST ONE VIEW PORTABLE CLINICAL HISTORY: syncope COMPARISON STUDY: 07/11/2016 FINDINGS: The cardiac and mediastinal contours are normal. There is no evidence of focal pulmonary consolidation. There is no evidence of failure. No pleural effusions are visualized.[ Differential attenuation of the hemithoraces, likely relates to technical factors. IMPRESSION: 1. Slight differential attenuation hemithoraces, a finding likely related to technical factors. 2. No evidence of failure. No evidence of focal pulmonary consolidation Electronically signed by: Valerio Fitch M.D. 08/01/2016 2:29 PM Dictated Date/Time: 08/01/2016 2:28 PM
[2016-08-01 14:35] LABS: INR 2.8 (0.9-1.1); PARTIAL THROMBOPLASTIN RATIO 1.4; PROTHROMBIN TIME (PATIENT) 31.6 SECONDS (9.0-12.0)
[2016-08-01 14:36] LABS: ALKALINE PHOSPHATASE 90 U/L (45-117); CKMB/CK RATIO 2.1 (0-3.0)
[2016-08-01] MEDS ORDERED: SODIUM CHLORIDE 0.9% 1000ML 1,000 ML IV STA (14:58)
[2016-08-01] MEDS ORDERED: SODIUM CHLORIDE 0.9% 500ML 500 ML IV STA (14:58)
[2016-08-01] MEDS ORDERED: ONDANSETRON INJ 2 MG/ML 2 ML VIAL IV PRN (19:15)
[2016-08-01] MEDS ORDERED: NITROGLYCERIN 0.4 MG SL PER TAB CHARGE SL PRN (19:15)
[2016-08-01] MEDS ORDERED: ACETAMINOPHEN 325 MG TAB PO PRN (19:15)
[2016-08-01] MEDS ORDERED: WARF7.5T PO (19:18)
[2016-08-01] MEDS ORDERED: OXYCODONE HCL IR 5 MG TAB (IMMEDIATE RELEASE) PO PRN (19:30)
[2016-08-01] MEDS ORDERED: ALPRAZOLAM 0.5 MG TAB PO PRN (19:30)
--- NOTE | 2016-08-01 19:53 | Progress Note ---
Progress Note Date of Service August 01, 2016. Progress Note Patient was seen and evaluated with THAD Hernández. Patient was sent from PCP office for syncope. Patient was in hospital on 07/02, for similar reason- Syncope / LISSETH. Has been on multiple medications- oxycodone, baclofen (readjustments were done by pain mx during past 2 admissions ) Recent lumbar back surgery on 06/26/16. In ED, noted to have low BP, orthostats+ve , but responded to IVF. EXAM: Vitals- BP stable now 100s, Gen- Obese, AAOX3, no distress Neck- No JVD Lungs- AEBE, no wheezing, rhonchi, rales Heart- S1, S2 normal Abd- soft non tender, non distended, BS present Labs reviewed A/P: SYNCOPE- Secondary to Orthostatic hypotension Has had it in the past as well- during his last admission 07/15, 07/02. Had evaluation done for syncope- negative -On coreg BID, Chlorthalidone 12.5 mg, Valsartan at home -Will hold these medications- may require adjustment if continues to be orthostatic -Ordered thigh high TEDs to help with ortho static hypotension -IVF LISSETH Baseline 1.1, now 1.9 Likely secondary to volume depletion, inadequate fluid intake -IV Fluids. Hold Valsartan -Monitor HX OF RECENT LUMBAR SURGERY On multiple meds- Alprazolam, Oxycodone, Baclofen which he takes on a daily basis -During last admission adjustments were done to his pain regimen- Baclofen was changed to PRN from scheduled, Tramadol was discontinued -MRI was done to rule out post op infection during last admission- per ortho note- it was likely a post op seroma and not abscess, so no indication for any intervention unless develops signs of infection DISPOSITION Observation under med surg
[2016-08-01 20:05] VITALS: BP 107/69; PULSE 90; TEMP 36.5; Ht 180.3 cm; Wt 134.7 kg
[2016-08-01] MEDS ORDERED: PHARMACY GLYCEMIC MGMT CONSULT PRN (20:17)
--- NOTE | 2016-08-01 20:18 | History and Physical ---
History & Physical Date & Time of Service: August 01, 2016 at 19:37 Chief Complaint: Syncope Primary Care Physician: Malachi Zamorano C.,PatricaO. History of Present Illness Source: patient This is a 61 y/o female with PMHx of recent back surgery, CAD, Insulin- Dependent DM 2, PAF on Coumadin, HTN, Dyslipidemia and other problems as outlined below who presents to the ED c/o near syncopal episode that occurred prior to arrival. Pt was recently admitted to [facility] with syncope and LISSETH. Syncope was thought to be related to pain medications as well as dehydration. Pt received IVF, oxycodone was continued, Baclofen was changed from scheduled to PRN and tramadol was discontinued. Per patient, he has been doing well since discharge. He was feeling okay when he arrived at his PCP office this afternoon. When he stood up to walk to the exam room he developed lightheaded/ dizziness and tunnel vision. Office staff slowly lowered him to the ground. He denies LOC or hitting his head. BP was noted to be 80s/50s at that time and patient was transported to the ED for further evaluation. Pt has been taking oxycodone and baclofen PRN since a back surgery 4 weeks ago. He reports that he typically takes oxycodone and baclofen twice daily. Pt denies fever/chills, diaphoresis, chest pain, palpitations, SOB, abd pain, N/V, bowel or bladder issues, LE edema, calf pain, lightheadedness/dizziness. In the ED, pt is hypotensive. electrolytes WNL. Creat 1.9. Pt received IVF in the ED and continues to have significant hypotension. Pt will be admitted for further evaluation and treatment. Past Medical/Surgical History Medical Problems: (1) CAD (coronary artery disease) Status: Chronic (2) COPD (chronic obstructive pulmonary disease) Status: Chronic (3) Depression Status: Chronic (4) Diabetes mellitus type II, uncontrolled Status: Chronic (5) Dyslipidemia Status: Chronic (6) GERD (gastroesophageal reflux disease) Status: Chronic (7) HTN (hypertension) Status: Chronic (8) ZULEIKA on CPAP Status: Chronic (9) PAF (paroxysmal atrial fibrillation) Status: Chronic (10) Tobacco abuse Status: Chronic Surgical Problems: (1) Hx of cholecystectomy Status: Resolved (2) Previous back surgery Status: Resolved (3) Stented coronary artery Permanent Comment: stents to RCA and LAD Status: Resolved Family History Diabetes mellitus Heart disease Hypertension Social History Smoking Status: Current Every Day Smoker (1 ppd x 38 years) Alcohol Use: none Drug Use: none Marital Status: Housing status: lives with family Occupational Status: employed Immunizations History of Influenza Vaccine: Yes History of Tetanus Vaccine?: Yes History of Pneumococcal: Yes History of Hepatitis B Vaccine: No Multi-Drug Resistant Organisms History of MDRO: Yes Type of MDRO: MRSA Allergies Coded Allergies: Niacin (Verified Adverse Reaction, Unknown, sweats and joint pain, 07/11/16 ) Home Medications Scheduled Aspirin (Aspir-81), 81 MG PO DAILY Atorvastatin (Lipitor), 80 MG PO DAILY Carvedilol (Coreg), 25 MG PO BID Chlorthalidone (Hygroton), 12.5 MG PO DAILY Citalopram Hydrobromide (Celexa), 20 MG PO HS Digoxin (Digoxin), 0.125 MG PO DAILY Fenofibrate (Tricor), 48 MG PO DAILY Insulin Aspart (Novolog), 24 UNITS SC TIDM Insulin Glargine (Lantus), 60 UNITS SC BID Ipratropium-Albuterol (Combivent Respimat), 1 PUFFS INH QID Liraglutide (Victoza), 1.8 MG SC DAILY Magnesium Oxide (Mag-Ox), 400 MG PO DAILY Metformin HCl (Metformin HCl), 1,000 MG PO BID Nitroglycerin (Nitrostat), 0.4 MG UT PRN [place]-3 Fatty Acids ([place] 3), 1 CAPSULE PO BID Omeprazole (Prilosec), 20 MG PO BID Ranitidine (Zantac), 300 MG PO HS Triamcinolone Acet (Aristocort 0.1%), 1 APPLN TOP BID Valsartan (Diovan), 320 MG PO DAILY Warfarin Sodium (Coumadin), 7.5 MG PO DAILY Scheduled PRN Alprazolam (Xanax), 0.5 MG PO TID PRN for Anxiety Oxycodone Ir (Roxicodone Ir), 5-10 MG PO Q4H PRN for Severe Pain Review of Systems Constitutional: No chills, No fatigue, No fever, No sweats, No weakness Eyes: No worsening of vision ENT: No hearing loss Respiratory: No cough, No shortness of breath Cardiovascular: No chest pain, No claudication, No edema Abdomen: No constipation, No diarrhea, No nausea, No pain, No vomiting Musculoskeletal: No calf pain, No swelling Genitourinary - Male: No dysuria Neurologic: + problem reported (near syncope), No weakness Psychiatric: No depression symptoms Endocrine: No fatigue Hematologic / Lymphatic: No abnormal bleeding/bruising Integumentary: No new/changing skin lesions Physical Exam Vital Signs Date Time Temp Pulse Resp B/P Pulse Ox O2 Delivery O2 Flow Rate FiO2 08/01/16 18:44 97 16 137/94 08/01/16 17:30 73 18 107/68 93 Room Air 08/01/16 16:59 79 14 87/75 97 Room Air 08/01/16 16:00 82 16 115/67 93 Room Air 08/01/16 14:57 101 18 70/46 93 Room Air 101/73 08/01/16 14:28 87 80/63 08/01/16 14:01 95 Room Air 08/01/16 14:01 36.8 89 16 113/49 95 Room Air 08/01/16 13:52 104 General Appearance: WD/WN, no apparent distress, + obese, + pertinent finding ( Pt is laying in bed with daughter at bedside) Head: normocephalic, atraumatic Eyes: normal inspection, PERRL, EOMI ENT: hearing grossly normal Neck: supple Respiratory/Chest: chest non-tender, lungs clear, normal breath sounds, no respiratory distress Cardiovascular: regular rate, rhythm, no edema, no murmur Abdomen/GI: normal bowel sounds, non tender, soft Back: normal inspection Extremities/Musculoskelatal: normal inspection, no calf tenderness, no pedal edema 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, no motor/sensory deficits, alert, normal reflexes, oriented x 3 Skin: normal color, warm/dry Diagnostics Laboratory Results Results Past 24 Hours Test 08/01/16 13:25 Range/Units White Blood Count 8.82 4.8-10.8 K/uL Red Blood Count 4.13 4.7-6.1 M/uL Hemoglobin 13.6 14.0-18.0 g/dL Hematocrit 39.9 42-52 % Mean Corpuscular Volume 96.6 80-100 fL Mean Corpuscular Hemoglobin 32.9 25-34 pg Mean Corpuscular Hemoglobin Concent 34.1 32-36 g/dl Platelet Count 347 130-400 K/uL Mean Platelet Volume 9.3 7.4-10.4 fL Neutrophils (%) (Auto) 65.1 % Lymphocytes (%) (Auto) 24.7 % Monocytes (%) (Auto) 5.3 % Eosinophils (%) (Auto) 3.9 % Basophils (%) (Auto) 0.8 % Neutrophils # (Auto) 5.74 1.4-6.5 K/uL Lymphocytes # (Auto) 2.18 1.2-3.4 K/uL Monocytes # (Auto) 0.47 0.11-0.59 K/uL Eosinophils # (Auto) 0.34 0-0.5 K/uL Basophils # (Auto) 0.07 0-0.2 K/uL RDW Standard Deviation 48.5 36.4-46.3 fL RDW Coefficient of Variation 13.8 11.5-14.5 % Immature Granulocyte % (Auto) 0.2 % Immature Granulocyte # (Auto) 0.02 0.00-0.02 K/uL Prothrombin Time 31.6 9.0-12.0 SECONDS Prothromb Time International Ratio 2.8 0.9-1.1 Activated Partial Thromboplast Time 36.8 21.0-31.0 SECONDS Partial Thromboplastin Ratio 1.4 Sodium Level 140 136-145 mmol/L Potassium Level 3.8 3.5-5.1 mmol/L Chloride Level 103 98-107 mmol/L Carbon Dioxide Level 28 21-32 mmol/L Anion Gap 9.0 3-11 mmol/L Blood Urea Nitrogen 37 7-18 mg/dl Creatinine 1.90 0.60-1.40 mg/dl Est Creatinine Clear Calc Drug Dose 56.8 ml/min Estimated GFR () 43.4 Estimated GFR (Non- 37.5 BUN/Creatinine Ratio 19.3 10-20 Random Glucose 148 70-99 mg/dl Calcium Level 9.5 8.5-10.1 mg/dl Magnesium Level 1.9 1.8-2.4 mg/dl Total Bilirubin 0.5 0.2-1 mg/dl Direct Bilirubin 0.2 0-0.2 mg/dl Aspartate Amino Transf (AST/SGOT) 30 15-37 U/L Alanine Aminotransferase (ALT/SGPT) 45 12-78 U/L Alkaline Phosphatase 90 45-117 U/L Total Creatine Kinase 78 39-308 U/L Creatine Kinase MB 1.6 0.5-3.6 ng/ml Creatine Kinase MB Ratio 2.1 0-3.0 Troponin I < 0.015 0-0.045 ng/ml Total Protein 7.5 6.4-8.2 gm/dl Albumin 3.6 3.4-5.0 gm/dl Diagnostic Radiology CXR IMPRESSION: 1. Slight differential attenuation hemithoraces, a finding likely related to technical factors. 2. No evidence of failure. No evidence of focal pulmonary consolidation EKG EKG: Afib at 96 bpm with T wave to lateral leads; no significant change is noted when compared to EKG from 07/11/16 Impression Assessment and Plan SYNCOPE SECONDARY TO ORTHOSTATIC HYPOTENSION pt presented with near syncopal episode with standing today; multiple recent admissions for syncope-thought to be orthostatic/medication related -admit observation status to telemetry -likely secondary to orthostatic hypotension from dehydration/volume depletion -hold chlorthalidone and Valsartan; may require adjustment if continues to be orthostatic -thigh high TEDs to help with orthostatic hypotension -IVF -monitor LISSETH -creatinine 1.9 (bl=1.1); likely due to volume depletion; poor PO intake -hold valsartan and chlorthalidone -cont IVF -monitor with daily prp and avoid nephrotoxic agents when able HX OF RECENT LUMBAR SURGERY On multiple meds- Alprazolam, Oxycodone, Baclofen which he takes on a daily basis -During last admission tramadol was discontinued and baclofen was changed from scheduled to PRN -MRI was done to rule out post op infection during last admission- per ortho note- it was likely a post op seroma and not abscess, so no indication for any intervention unless develops signs of infection CORONARY ARTERY DISEASE -cont ASA, BB and statin -pt currently denies anginal sxs CHRONIC ATRIAL FIB -EKG: rate controlled Afib -continue Coumadin, carvedilol and digoxin. -check dig level -monitor INR DM 2 -recent A1C 7.3 -hold PO medications -consult pharmacy for glycemic mgmt ZULEIKA ON CPAP HS -cont CPAP HS HTN -hypotensive in ED -hold chlorthalidone and losartan due to orthostasis and LISSETH -cont carvedilol -monitor GERD -cont PPI and ranitidine DVT PROPHYLAXIS -cont Coumadin CODE STATUS -FULL CODE status per discussion with patient upon admission DISPO -Observation status until further workup is complete. Pt seen in collaboration with Dr. Cisneros. Please see her addendum for further details. Thanks! VTE Prophylaxis VTE Risk Assessment Done? Y/N: Yes Risk Level: Moderate
[2016-08-01 20:51] LABS: URINE APPEARANCE CLEAR (CLEAR); URINE BILIRUBIN NEG (NEG); URINE COLOR YELLOW; URINE NITRITE NEG (NEG); URINE SPECIFIC GRAVITY 1.014 (1.000-1.030); UROBILINOGEN NEG (NEG); ZZUR CULT IF INDIC CLEAN CATCH NO
[2016-08-01 21:01] LABS: MANUAL MICROSCOPIC REQUIRED? NO; REVIEW REQ? NO
[2016-08-01] MEDS ORDERED: GLUCAGON FOR INJ 1 MG VIAL SQ PRN (21:15)
[2016-08-01] MEDS ORDERED: GLUCOSE 10 TABS/TUBE PO PRN (21:15)
[2016-08-01] MEDS ORDERED: DEXTROSE 50% 50 ML SYR IV PRN (21:15)
[2016-08-01] MEDS ORDERED: GLUCOSE 40% GEL 15 GM TUBE PO PRN (21:15)
--- NOTE | 2016-08-01 21:52 | Pharmacy Progress Note ---
Glycemic Control Intl Consult Date of Service August 01, 2016. Scope Glycemic Pharmacist consulted by Marbin Cantrell on 08/01/16 for glycemic control and to write orders per [facility] inpatient glycemic control protocol Objective Weight (Kilograms): 133.300 Accuchecks BSG (last 24hrs): Test 08/01/16 13:25 08/01/16 19:30 08/01/16 19:54 08/01/16 20:37 Random Glucose 148 mg/dl (70-99) Bedside Glucose 74 mg/dl (70-99) 102 mg/dl (70-99) 151 mg/dl (70-99) Laboratory Data (last 24hrs) Test 08/01/16 13:25 Anion Gap 9.0 mmol/L BUN/Creatinine Ratio 19.3 Blood Urea Nitrogen 37 mg/dl Creatinine 1.90 mg/dl Potassium Level 3.8 mmol/L Sodium Level 140 mmol/L White Blood Count 8.82 K/uL Red Blood Count 4.13 M/uL Hemoglobin 13.6 g/dL Hematocrit 39.9 % Mean Corpuscular Volume 96.6 fL Mean Corpuscular Hemoglobin 32.9 pg Mean Corpuscular Hemoglobin Concent 34.1 g/dl Platelet Count 347 K/uL Mean Platelet Volume 9.3 fL Neutrophils (%) (Auto) 65.1 % Lymphocytes (%) (Auto) 24.7 % Monocytes (%) (Auto) 5.3 % Eosinophils (%) (Auto) 3.9 % Basophils (%) (Auto) 0.8 % Neutrophils # (Auto) 5.74 K/uL Lymphocytes # (Auto) 2.18 K/uL Monocytes # (Auto) 0.47 K/uL Eosinophils # (Auto) 0.34 K/uL Basophils # (Auto) 0.07 K/uL HbA1c Item Value Date Time Hemoglobin A1c 7.3 % H 07/12/16 0530 Recent Pertinent Medications Outpatient Anti-diabetic Regimen: * Lantus 60 units SC BID * Novolog 24 units SC TIDM * Victoza 1.8mg SC daily * Metformin 1000mg BID * A1c = 7.3 % (07/12/16) Risk Factors for Insulin Resistance: * IVF: NS @ 80 mL/hr * Recent Surgery: Laminectomy on 06/21/16 * Diet: AHA/DM2 Assessment & Plan ASSESSMENT: * ADA & AACE recommend a goal blood sugar range 140-180 mg/dl for the majority of critically ill & non-critically ill patients. However, more stringent targets may be selected in individual cases. * Patient was sent to ED from PCP office today for near syncope, likely secondary to orthostatic hypotension. He also presents with LISSETH (sCr = 1.9 mg/ dL, baseline is ~1). He is admitted for further evaluation. * Recent HbA1c was 7.3%, however, this is possibly not accurate due to patient' s anemia possibly from his recent surgery. He appears to be very resistant to insulin as he is apparently receiving ~192 units/day of insulin. He is ordered a regular diet, but had poor PO intake recently and also had BG reading of 74 earlier this afternoon. Therefore, will significantly reduce his Lantus dose tonight by ~70%. Re-evaluate tomorrow, likely will need higher doses. * According to data from admission last month, patient did well with CF of 20 and CR of 8. Will loosen this in light of BG 74 from earlier. Check BG at 0200 in case patient has hyperglycemia secondary to Lantus dose reduction and loosened Novolog scale. PLAN FOR INPATIENT GLYCEMIC CONTROL: * Holding outpatient oral diabetes medications * Basal insulin with LANTUS 20 units SQ BID * Give Lantus 10 units if BG <140 mg/dL * Correctional Insulin with NOVOLOG / REGULAR per scale ACHS or Q6hrs while NPO * Goal Range: Low 120 mg/dL - High 160 mg/dL * Correction Factor: 30 mg/dL/unit * Nutritional / Prandial insulin per carb ratio of 1 unit per 10 grams CHO consumed * Please note that the plan above was derived based on current level of insulin resistance and hospital stress. These recommendations are appropriate for inpatient admission only. Plan of care upon discharge will need to be reassessed to avoid potential outpatient hypo/hyperglycemia. Thank you.
[2016-08-01] MEDS: CITALOPRAM 20 MG TAB PO SCH (22:04)
[2016-08-01] MEDS: SODIUM CHLORIDE 0.9% 1000ML 1,000 ML IV SCH (22:05)
[2016-08-01] MEDS: TRIAMCINOLONE ACET 0.1% CR 15 GM TUBE EXT SCH (22:05)
[2016-08-01] MEDS: CARVEDILOL 25 MG TAB PO SCH (22:06)
[2016-08-01] MEDS: RANITIDINE HCL 150 MG TAB PO SCH (22:07)
[2016-08-01] MEDS: PANTOprazole SOD 40 MG TAB PO SCH (22:07)
[2016-08-01] MEDS: INSULIN GLARGINE SOLOSTAR 100 UNITS/ML 3 ML PEN SC SCH (22:13)
[2016-08-01] MEDS: IPRATROPIUM BROMIDE/ALBUTEROL respimat INH INH SCH (22:14)
[2016-08-01 23:01] VITALS: PULSE 96; O2SAT 96
[2016-08-01 23:09] VITALS: BP 125/81; PULSE 86; TEMP 37; O2SAT 97
[2016-08-01 23:59] VITALS: O2SAT 97
[2016-08-02] VITALS (12 sets, daily range): BP systolic 95–171; BP diastolic 60–121; PULSE 71–96; TEMP 36.3–36.9; O2SAT 93–97
[2016-08-02] MEDS ORDERED: INSULIN ASPART 100 UNITS/ML 3 ML PEN SC ONE (02:00)
[2016-08-02 06:21] LABS: HEMATOCRIT 37.6 % (42-52); MEAN CELL VOLUME 97.2 fL (80-100); MEAN CORPUSCULAR HEMOGLOBIN 32.6 pg (25-34); MEAN CORPUSCULAR HGB CONC 33.5 g/dl (32-36); MEAN PLATELET VOLUME 8.9 fL (7.4-10.4); PLATELET COUNT 309 K/uL (130-400); RED BLOOD COUNT 3.87 M/uL (4.7-6.1); WHITE BLOOD COUNT 7.64 K/uL (4.8-10.8)
[2016-08-02 06:39] LABS: INR 2.6 (0.9-1.1); PROTHROMBIN TIME (PATIENT) 29.3 SECONDS (9.0-12.0)
[2016-08-02 06:53] LABS: BUN/CREATININE RATIO 25.3 (10-20); CALCIUM 9.3 mg/dl (8.5-10.1); CREATININE 1.3 mg/dl (0.60-1.40); POTASSIUM 4.1 mmol/L (3.5-5.1)
[2016-08-02] MEDS: TRIAMCINOLONE ACET 0.1% CR 15 GM TUBE EXT SCH ×2 (07:56→20:44)
[2016-08-02] MEDS: IPRATROPIUM BROMIDE/ALBUTEROL respimat INH INH SCH ×4 (07:56→20:44)
[2016-08-02] MEDS: ATORVASTATIN 40 MG TAB PO SCH (07:57)
[2016-08-02] MEDS: CARVEDILOL 25 MG TAB PO SCH ×2 (07:57→20:46)
[2016-08-02] MEDS: FENOFIBRATE 48 MG TAB PO SCH (07:58)
[2016-08-02] MEDS: MAGNESIUM OXIDE 400 MG TAB PO SCH (07:58)
[2016-08-02] MEDS: PANTOprazole SOD 40 MG TAB PO SCH ×2 (07:58→20:45)
[2016-08-02] MEDS: ASPIRIN 81 MG ECTAB PO SCH (07:58)
[2016-08-02] MEDS: INSULIN ASPART 100 UNITS/ML 3 ML PEN SC SCH ×4 (09:20→20:42)
[2016-08-02] MEDS: INSULIN GLARGINE SOLOSTAR 100 UNITS/ML 3 ML PEN SC SCH ×2 (09:21→20:50)
[2016-08-02] MEDS: SODIUM CHLORIDE 0.9% 1000ML 1,000 ML IV SCH ×2 (12:37→23:06)
--- NOTE | 2016-08-02 12:57 | Pharmacy Progress Note ---
Glycemic Control: Progress Nt Date of Service August 02, 2016. Scope Glycemic Pharmacist consulted by Marbin Wagner on 08/01/16 for glycemic control and to write orders per [facility] inpatient glycemic control protocol. Objective Accuchecks BSG (last 24hrs): Test 08/01/16 13:25 08/01/16 18:48 08/01/16 19:08 08/01/16 19:30 Random Glucose 148 mg/dl (70-99) Bedside Glucose 67 mg/dl (70-99) 71 mg/dl (70-99) 74 mg/dl (70-99) Test 08/01/16 19:54 08/01/16 20:37 08/02/16 02:08 08/02/16 05:50 Bedside Glucose 102 mg/dl (70-99) 151 mg/dl (70-99) 132 mg/dl (70-99) Random Glucose 121 mg/dl (70-99) Test 08/02/16 06:49 Bedside Glucose 130 mg/dl (70-99) Laboratory Data (last 24hrs) Test 08/01/16 13:25 08/02/16 05:50 Anion Gap 9.0 mmol/L 7.0 mmol/L BUN/Creatinine Ratio 19.3 25.3 Blood Urea Nitrogen 37 mg/dl 33 mg/dl Creatinine 1.90 mg/dl 1.30 mg/dl Potassium Level 3.8 mmol/L 4.1 mmol/L Sodium Level 140 mmol/L 142 mmol/L White Blood Count 8.82 K/uL 7.64 K/uL Red Blood Count 4.13 M/uL Hemoglobin 13.6 g/dL Hematocrit 39.9 % Mean Corpuscular Volume 96.6 fL Mean Corpuscular Hemoglobin 32.9 pg Mean Corpuscular Hemoglobin Concent 34.1 g/dl Platelet Count 347 K/uL Mean Platelet Volume 9.3 fL Neutrophils (%) (Auto) 65.1 % Lymphocytes (%) (Auto) 24.7 % Monocytes (%) (Auto) 5.3 % Eosinophils (%) (Auto) 3.9 % Basophils (%) (Auto) 0.8 % Neutrophils # (Auto) 5.74 K/uL Lymphocytes # (Auto) 2.18 K/uL Monocytes # (Auto) 0.47 K/uL Eosinophils # (Auto) 0.34 K/uL Basophils # (Auto) 0.07 K/uL Recent Pertinent Medications Outpatient Anti-diabetic Regimen: * Lantus 60 units BID, Novolog 24 units TIDM, Victoza 1.8 mg/d, Metformin 1gm BID * A1c = 7.3 % on 07/12/16 Risk Factors for Insulin Resistance: * IVF: NS + 80 ml/hr * Diet: DM2/AHA Assessment & Plan ASSESSMENT: * ADA & AACE recommend a goal blood sugar range 140-180 mg/dl for the majority of critically ill & non-critically ill patients. However, more stringent targets may be selected in individual cases. Initial: * Patient was sent to ED from PCP office today for near syncope, likely secondary to orthostatic hypotension. He also presents with LISSETH (sCr = 1.9 mg/ dL, baseline is ~1). He is admitted for further evaluation. * Recent HbA1c was 7.3%, however, this is possibly not accurate due to patient' s anemia possibly from his recent surgery. He appears to be very resistant to insulin as he is apparently receiving ~192 units/day of insulin. He is ordered a regular diet, but had poor PO intake recently and also had BG reading of 74 earlier this afternoon. Therefore, will significantly reduce his Lantus dose tonight by ~70%. Re-evaluate tomorrow, likely will need higher doses. * According to data from admission last month, patient did well with CF of 20 and CR of 8. Will loosen this in light of BG 74 from earlier. Check BG at 0200 in case patient has hyperglycemia secondary to Lantus dose reduction and loosened Novolog scale. 08/02/16: * SCr has improved today from 1.9 to 1.3 today. B/l = ~1.1. * Insulin sensitivity is heightened in kidney dysfunction. Insulin requirements may increase now in response to improved kidney function. * However, BSG control has been ideal the past 24 hours ranging 121 - 151 mg/ dl. * No changes will be made today to DM regimen. May need to adjust insulin dosing tomorrow. Pt has required more insulin in past admission. PLAN FOR INPATIENT GLYCEMIC CONTROL: * Continue Lantus SQ BID per BSG scale * BSG below 110 mg/dl: 10 units * BSG above 110 mg/dl: 20 units * Novolog ACHS * Continue correction factor 30 mg/dl/unit * Continue carb ratio 1 unit per 10 grams CHO consumed * Continue goal range Low 120 mg/dL - High 160 mg/dL RECOMMENDATIONS FOR DISCHARGE: * A1c = 7.3% * Resume outpatient DM regimen upon discharge. * Please note that the plan above was derived based on current level of insulin resistance and hospital stress. These recommendations are appropriate for inpatient admission only. Plan of care upon discharge will need to be reassessed to avoid potential outpatient hypo/hyperglycemia. Thank you.
[2016-08-02] MEDS: WARFARIN SOD 7.5 MG TAB PO SCH (16:45)
[2016-08-02] MEDS: DIGOXIN 0.125 MG TAB PO SCH (16:46)
--- NOTE | 2016-08-02 18:55 | Progress Note ---
Medicine Progress Note Date & Time of Visit: August 02, 2016 at 11:58. Subjective patient seen resting in bed, comfortable states he feels improved compared to yesterday no dizziness when sitting upright in bed this morning denies chest pain, dizziness, palpitations, dyspnea no fever/chills no other symptoms Objective Last 8 Hrs Date Time Temp Pulse Resp B/P Pulse Ox O2 Delivery O2 Flow Rate FiO2 08/02/16 09:30 105/69 103/63 95/60 08/02/16 08:00 Room Air 08/02/16 07:45 36.7 88 20 138/106 97 BiPAP 157/87 08/02/16 07:44 71 95 5.0 08/02/16 04:00 Room Air 6.0 CPAP Physical Exam: General- oriented x 3, not in distress, speaks in sentences with no effort Head- atraumatic Eyes- EOMI, anicteric ENT- oropharynx clear Neck- supple, no JVD, no adenopathy, no thyromegaly no bruits appreciated Lungs- clear to auscultation b/l Heart-irregularly irregular rhythm; no murmur, normal rate Abdomen- normal bowel sounds, soft, nontender, no masses Extremities- no pretibial edema, no calf tenderness; peripheral pulses intact Neuro- alert, oriented x 3; no gross focal deficits Skin- warm & dry Laboratory Results: Last 24 Hours Test 08/01/16 13:25 08/01/16 18:48 08/01/16 19:08 08/01/16 19:30 White Blood Count 8.82 K/uL Red Blood Count 4.13 M/uL Hemoglobin 13.6 g/dL Hematocrit 39.9 % Mean Corpuscular Volume 96.6 fL Mean Corpuscular Hemoglobin 32.9 pg Mean Corpuscular Hemoglobin Concent 34.1 g/dl Platelet Count 347 K/uL Mean Platelet Volume 9.3 fL Neutrophils (%) (Auto) 65.1 % Lymphocytes (%) (Auto) 24.7 % Monocytes (%) (Auto) 5.3 % Eosinophils (%) (Auto) 3.9 % Basophils (%) (Auto) 0.8 % Neutrophils # (Auto) 5.74 K/uL Lymphocytes # (Auto) 2.18 K/uL Monocytes # (Auto) 0.47 K/uL Eosinophils # (Auto) 0.34 K/uL Basophils # (Auto) 0.07 K/uL RDW Standard Deviation 48.5 fL RDW Coefficient of Variation 13.8 % Immature Granulocyte % (Auto) 0.2 % Immature Granulocyte # (Auto) 0.02 K/uL Prothrombin Time 31.6 SECONDS Prothromb Time International Ratio 2.8 Activated Partial Thromboplast Time 36.8 SECONDS Partial Thromboplastin Ratio 1.4 Sodium Level 140 mmol/L Potassium Level 3.8 mmol/L Chloride Level 103 mmol/L Carbon Dioxide Level 28 mmol/L Anion Gap 9.0 mmol/L Blood Urea Nitrogen 37 mg/dl Creatinine 1.90 mg/dl Est Creatinine Clear Calc Drug Dose 56.8 ml/min Estimated GFR () 43.4 Estimated GFR (Non- 37.5 BUN/Creatinine Ratio 19.3 Random Glucose 148 mg/dl Calcium Level 9.5 mg/dl Magnesium Level 1.9 mg/dl Total Bilirubin 0.5 mg/dl Direct Bilirubin 0.2 mg/dl Aspartate Amino Transf (AST/SGOT) 30 U/L Alanine Aminotransferase (ALT/SGPT) 45 U/L Alkaline Phosphatase 90 U/L Total Creatine Kinase 78 U/L Creatine Kinase MB 1.6 ng/ml Creatine Kinase MB Ratio 2.1 Troponin I < 0.015 ng/ml Total Protein 7.5 gm/dl Albumin 3.6 gm/dl Bedside Glucose 67 mg/dl 71 mg/dl 74 mg/dl Test 08/01/16 19:54 08/01/16 20:37 08/01/16 20:45 08/02/16 02:08 Bedside Glucose 102 mg/dl 151 mg/dl 132 mg/dl Urine Color YELLOW Urine Appearance CLEAR Urine pH 6.0 Urine Specific [place] 1.014 Urine Protein NEG Urine Glucose (UA) NEG Urine Ketones NEG Urine Occult Blood NEG Urine Nitrite NEG Urine Bilirubin NEG Urine Urobilinogen NEG Urine Leukocyte Esterase NEG Test 08/02/16 05:50 08/02/16 06:49 White Blood Count 7.64 K/uL Red Blood Count 3.87 M/uL Hemoglobin 12.6 g/dL Hematocrit 37.6 % Mean Corpuscular Volume 97.2 fL Mean Corpuscular Hemoglobin 32.6 pg Mean Corpuscular Hemoglobin Concent 33.5 g/dl RDW Standard Deviation 49.3 fL RDW Coefficient of Variation 13.9 % Platelet Count 309 K/uL Mean Platelet Volume 8.9 fL Prothrombin Time 29.3 SECONDS Prothromb Time International Ratio 2.6 Sodium Level 142 mmol/L Potassium Level 4.1 mmol/L Chloride Level 107 mmol/L Carbon Dioxide Level 28 mmol/L Anion Gap 7.0 mmol/L Blood Urea Nitrogen 33 mg/dl Creatinine 1.30 mg/dl Est Creatinine Clear Calc Drug Dose 83.8 ml/min Estimated GFR () 68.7 Estimated GFR (Non- 59.3 BUN/Creatinine Ratio 25.3 Random Glucose 121 mg/dl Calcium Level 9.3 mg/dl Bedside Glucose 130 mg/dl Assessment & Plan 61 year old male with history of CAD, A fib on coumadin, DM, HTN, ZULEIKA presenting with hypotension. ORTHOSTATIC HYPOTENSION pt presented with near syncopal episode with standing; multiple recent admissions for syncope-thought to be orthostatic/medication related -likely secondary to orthostatic hypotension from dehydration/volume depletion HOLD chlorthalidone and Valsartan, gentle IV fluids monitor BP LISSETH -creatinine 1.9 (bl=1.1); likely due to volume depletion; poor PO intake -HOLD valsartan and chlorthalidone - crea improved to 1.3 continue gentle IV fluids HX OF RECENT LUMBAR SURGERY On multiple meds- Alprazolam, Oxycodone, Baclofen which he takes on a daily basis -During last admission tramadol was discontinued and baclofen was changed from scheduled to PRN - no report of back pain CORONARY ARTERY DISEASE -cont ASA, BB and statin - no cardiac symptoms CHRONIC ATRIAL FIB -EKG: rate controlled Afib - INR 2.6 -continue Coumadin, carvedilol and digoxin. DM 2 -recent A1C 7.3 -hold PO medications -consult pharmacy for glycemic mgmt ZULEIKA ON CPAP HS -cont CPAP HS HTN on Carvedilol hold Valsartan, Chlorthalidone GERD -cont PPI and ranitidine DVT PROPHYLAXIS -cont Coumadin CODE STATUS -FULL CODE DISPOSITION pending Current Inpatient Medications: Current Inpatient Medications Medications (Trade) Dose Ordered Sig/Juan Miguel Route Start Time Stop Time Status Last Admin Dose Admin Sodium Chloride (Nss 1000ml) 1,000 ml @ 80 mls/hr [id number] IV 08/01/16 19:15 08/31/16 19:14 08/01/16 22:05 80 MLS/HR Acetaminophen (Tylenol Tab) 650 mg Q4H PRN PO 08/01/16 19:15 08/31/16 19:14 Ondansetron HCl (Zofran Inj) 4 mg Q6H PRN IV 08/01/16 19:15 08/31/16 19:14 Nitroglycerin (Nitrostat Tab) 0.4 mg UD PRN SL 08/01/16 19:15 08/31/16 19:14 Alprazolam (Xanax Tab) 0.5 mg TID PRN PO 08/01/16 19:30 08/31/16 19:29 Aspirin (Ecotrin Tab) 81 mg DAILY PO 08/02/16 09:00 09/01/16 08:59 08/02/16 07:58 81 MG Atorvastatin Calcium (Lipitor Tab) 80 mg DAILY PO 08/02/16 09:00 09/01/16 08:59 08/02/16 07:57 80 MG Carvedilol (Coreg Tab) 25 mg BID PO 08/01/16 21:00 08/31/16 20:59 08/02/16 07:57 25 MG Citalopram Hydrobromide (celeXA TAB) 20 mg HS PO 08/01/16 21:00 08/31/16 20:59 08/01/16 22:04 20 MG Digoxin (Lanoxin Tab) 0.125 mg DAILY@1600 PO 08/02/16 16:00 09/01/16 15:59 Fenofibrate (Tricor Tab) 48 mg DAILY PO 08/02/16 09:00 09/01/16 08:59 08/02/16 07:58 48 MG Albuterol/ Ipratropium (Combivent Respimat Inh) 1 puffs QID INH 08/01/16 21:00 08/31/16 20:59 08/02/16 07:56 1 PUFFS Magnesium Oxide (Mag-Ox Tab) 400 mg DAILY PO 08/02/16 09:00 09/01/16 08:59 08/02/16 07:58 400 MG Oxycodone HCl (Roxicodone Immediate Rel Tab) 5 mg Q4H PRN PO 08/01/16 19:30 08/15/16 19:29 Triamcinolone Acetonide (Kenalog 0.1% Cream) 1 appln BID EXT 08/01/16 21:00 08/31/16 20:59 08/02/16 07:56 1 APPLN Warfarin Sodium (Coumadin Tab) 7.5 mg DAILY@1600 PO 08/02/16 16:00 09/01/16 15:59 Pantoprazole Sodium (Protonix Tab) 40 mg BID PO 08/01/16 21:00 08/31/16 20:59 08/02/16 07:58 40 MG Ranitidine HCl (zANTac TAB) 300 mg HS PO 08/01/16 21:00 08/31/16 20:59 08/01/16 22:07 300 MG Miscellaneous Information (Consult Glycemic Management Pharmacy) 1 ea UD PRN N/A 08/01/16 20:17 08/31/16 20:16 Insulin Glargine (Lantus Solostar Pen) SEE PROTOCOL BID SC 08/01/16 21:30 08/31/16 20:59 08/02/16 09:21 10 UNIT Insulin Aspart (novoLOG ASPART) SLIDING SCALE ACHS SC 08/02/16 07:00 09/01/16 06:59 08/02/16 09:20 4 UNITS Glucose (Glucose 40% Gel) 15-30 GRAMS 15 GRAMS... UD PRN PO 08/01/16 21:15 08/31/16 21:14 Glucose (Glucose Chew Tab) 4-8 Tablets 4 Tabl... UD PRN PO 08/01/16 21:15 08/31/16 21:14 Dextrose (Dextrose 50% 50ML Syringe) 25-50ML OF 50% DW IV FOR... UD PRN IV 08/01/16 21:15 08/31/16 21:14 Glucagon (Glucagon Inj) 1 mg UD PRN SQ 08/01/16 21:15 08/31/16 21:14
[2016-08-02] MEDS: CITALOPRAM 20 MG TAB PO SCH (20:45)
[2016-08-02] MEDS: RANITIDINE HCL 150 MG TAB PO SCH (21:34)
[2016-08-03 03:54] VITALS: BP 131/85; PULSE 88; TEMP 36.6; O2SAT 95
[2016-08-03 06:27] LABS: BASO % 0.8 %; BASO ABS # 0.06 K/uL (0-0.2); COMPLETE YES; EOS % 4.1 %; HEMATOCRIT 38.5 % (42-52); IG% 0.3 %; LYMPH % 34.3 %; LYMPH ABS # 2.53 K/uL (1.2-3.4); MEAN CELL VOLUME 95.3 fL (80-100); MEAN CORPUSCULAR HEMOGLOBIN 32.4 pg (25-34); MEAN PLATELET VOLUME 8.7 fL (7.4-10.4); MONO % 7.3 %; NEUT % 53.2 %; PLATELET COUNT 293 K/uL (130-400); RED BLOOD COUNT 4.04 M/uL (4.7-6.1); WHITE BLOOD COUNT 7.38 K/uL (4.8-10.8)
[2016-08-03 06:35] LABS: INR 2.1 (0.9-1.1); PROTHROMBIN TIME (PATIENT) 22.9 SECONDS (9.0-12.0)
[2016-08-03 07:09] LABS: BUN/CREATININE RATIO 20.7 (10-20); CALCIUM 9.5 mg/dl (8.5-10.1); CREATININE 1.2 mg/dl (0.60-1.40)
[2016-08-03 07:23] VITALS: BP 138/88; PULSE 98; TEMP 36.7; O2SAT 92
[2016-08-03] MEDS: FENOFIBRATE 48 MG TAB PO SCH (07:26)
[2016-08-03] MEDS: PANTOprazole SOD 40 MG TAB PO SCH (07:26)
[2016-08-03] MEDS: TRIAMCINOLONE ACET 0.1% CR 15 GM TUBE EXT SCH (07:26)
[2016-08-03] MEDS: ATORVASTATIN 40 MG TAB PO SCH (07:26)
[2016-08-03] MEDS: ASPIRIN 81 MG ECTAB PO SCH (07:26)
[2016-08-03] MEDS: MAGNESIUM OXIDE 400 MG TAB PO SCH (07:26)
[2016-08-03] MEDS: CARVEDILOL 25 MG TAB PO SCH (07:28)
[2016-08-03] MEDS: IPRATROPIUM BROMIDE/ALBUTEROL respimat INH INH SCH ×3 (07:29→17:23)
[2016-08-03] MEDS: INSULIN ASPART 100 UNITS/ML 3 ML PEN SC SCH ×3 (08:29→17:22)
[2016-08-03] MEDS: INSULIN GLARGINE SOLOSTAR 100 UNITS/ML 3 ML PEN SC SCH (08:30)
[2016-08-03 10:57] VITALS: BP 157/93; PULSE 94; TEMP 36.5; O2SAT 92
[2016-08-03] MEDS: SODIUM CHLORIDE 0.9% 1000ML 1,000 ML IV SCH (12:16)
--- NOTE | 2016-08-03 13:48 | Pharmacy Progress Note ---
Glycemic: Assessment & Plan Date of Service August 03, 2016. Assessment & Plan Outpatient Anti-diabetic Regimen: * Lantus 60 units BID, Novolog 24 units TIDM, Victoza 1.8 mg/d, Metformin 1gm BID * A1c = 7.3 % on 07/12/16 ASSESSMENT: * ADA & AACE recommend a goal blood sugar range 140-180 mg/dl for the majority of critically ill & non-critically ill patients. However, more stringent targets may be selected in individual cases. 08/03/16: * SCr continues to improve (1.9 --> 1.2 mg/dL). * BSGs have been acceptable, but would like to see tighter control in a 61yo patient with a reasonable A1c. * Patient received 46 units of insulin yesterday with BSGs ranging from 121-192 mg/dL (fasting BSG 149 mg/dL this am). * Will increase Lantus dose slightly and tighten correctional/prandial parameters for better control. 08/02/16 * SCr has improved today from 1.9 to 1.3 today. B/l = ~1.1. * Insulin sensitivity is heightened in kidney dysfunction. Insulin requirements may increase now in response to improved kidney function. * However, BSG control has been ideal the past 24 hours ranging 121 - 151 mg/ dl. * No changes will be made today to DM regimen. May need to adjust insulin dosing tomorrow. Pt has required more insulin in past admission. 08/01/16 * Patient was sent to ED from PCP office today for near syncope, likely secondary to orthostatic hypotension. He also presents with LISSETH (sCr = 1.9 mg/ dL, baseline is ~1). He is admitted for further evaluation. * Recent HbA1c was 7.3%, however, this is possibly not accurate due to patient' s anemia possibly from his recent surgery. He appears to be very resistant to insulin as he is apparently receiving ~192 units/day of insulin. He is ordered a regular diet, but had poor PO intake recently and also had BG reading of 74 earlier this afternoon. Therefore, will significantly reduce his Lantus dose tonight by ~70%. Re-evaluate tomorrow, likely will need higher doses. * According to data from admission last month, patient did well with CF of 20 and CR of 8. Will loosen this in light of BG 74 from earlier. Check BG at 0200 in case patient has hyperglycemia secondary to Lantus dose reduction and loosened Novolog scale. PLAN FOR INPATIENT GLYCEMIC CONTROL: * Increase Lantus to 25 units SQ BID * Novolog ACHS * Change correction factor to 25 mg/dl/unit * Change carb ratio to 1 unit per 8 grams CHO consumed * Continue goal range Low 120 mg/dL - High 160 mg/dL RECOMMENDATIONS FOR DISCHARGE: * A1c = 7.3% * Resume outpatient DM regimen upon discharge. * Please note that the plan above was derived based on current level of insulin resistance and hospital stress. These recommendations are appropriate for inpatient admission only. Plan of care upon discharge will need to be reassessed to avoid potential outpatient hypo/hyperglycemia. Thank you.
[2016-08-03] MEDS ORDERED: VALSARTAN 80 MG TAB PO ONE (14:00)
--- NOTE | 2016-08-03 16:00 | Progress Note ---
Medicine Progress Note Date & Time of Visit: August 03, 2016 at 15:52. Subjective patient seen resting in bed, family at bedside comfortable, in good spirits states he feels fine overall today ambulating with no problems denies dizziness, dyspnea, chest pain, palpitations, nausea, abdominal pain has mild back pain- which is chronic no other symptoms states he is ready and would like to be discharged today Objective Last 8 Hrs Date Time Temp Pulse Resp B/P Pulse Ox O2 Delivery O2 Flow Rate FiO2 08/03/16 12:00 Room Air 08/03/16 10:57 36.5 94 20 157/93 92 Room Air 08/03/16 08:00 Room Air Physical Exam: General- oriented x 3, not in distress, speaks in sentences with no effort Eyes- anicteric Neck- supple, no JVD Lungs- clear breath sounds bilaterally Heart-irregularly irregular rhythm; no murmur, normal rate Abdomen- normal bowel sounds, soft, nontender, no masses Extremities- no pretibial edema, no calf tenderness Neuro- alert, oriented x 3; no gross focal deficits Skin- warm & dry Laboratory Results: Last 24 Hours Test 08/02/16 16:18 08/02/16 20:41 08/03/16 06:10 08/03/16 06:44 Bedside Glucose 154 mg/dl 146 mg/dl 149 mg/dl White Blood Count 7.38 K/uL Red Blood Count 4.04 M/uL Hemoglobin 13.1 g/dL Hematocrit 38.5 % Mean Corpuscular Volume 95.3 fL Mean Corpuscular Hemoglobin 32.4 pg Mean Corpuscular Hemoglobin Concent 34.0 g/dl Platelet Count 293 K/uL Mean Platelet Volume 8.7 fL Neutrophils (%) (Auto) 53.2 % Lymphocytes (%) (Auto) 34.3 % Monocytes (%) (Auto) 7.3 % Eosinophils (%) (Auto) 4.1 % Basophils (%) (Auto) 0.8 % Neutrophils # (Auto) 3.93 K/uL Lymphocytes # (Auto) 2.53 K/uL Monocytes # (Auto) 0.54 K/uL Eosinophils # (Auto) 0.30 K/uL Basophils # (Auto) 0.06 K/uL RDW Standard Deviation 47.1 fL RDW Coefficient of Variation 13.5 % Immature Granulocyte % (Auto) 0.3 % Immature Granulocyte # (Auto) 0.02 K/uL Prothrombin Time 22.9 SECONDS Prothromb Time International Ratio 2.1 Sodium Level 138 mmol/L Potassium Level 4.0 mmol/L Chloride Level 104 mmol/L Carbon Dioxide Level 27 mmol/L Anion Gap 7.0 mmol/L Blood Urea Nitrogen 25 mg/dl Creatinine 1.20 mg/dl Est Creatinine Clear Calc Drug Dose 91.7 ml/min Estimated GFR () 75.7 Estimated GFR (Non- 65.3 BUN/Creatinine Ratio 20.7 Random Glucose 147 mg/dl Calcium Level 9.5 mg/dl Test 08/03/16 11:09 Bedside Glucose 180 mg/dl Assessment & Plan 61 year old male with history of CAD, A fib on coumadin, DM, HTN, ZULEIKA presenting with hypotension. ORTHOSTATIC HYPOTENSION - pt presented with near syncopal episode with standing -likely secondary to orthostatic hypotension from dehydration/volume depletion as patient also had elevated creatinine/acute renal failure HELD chlorthalidone and Valsartan, given gentle IV fluids - orthostatic hypotension resolved patient asymptomatic, ambulating with no problems - HOLD Chlorthalidone for now advised to wear compression stockings, avoid using narcotics for pain, ambulate carefully, avoid getting up and walking too quickly monitor BP as outpatient ACUTE RENAL FAILURE - creatinine 1.9 (baseline=1.1); likely due to volume depletion; poor PO intake - HELD valsartan and chlorthalidone given IV fluids - crea improved to 1.2 - monitor renal function as outpatient HX OF RECENT LUMBAR SURGERY On multiple meds- Alprazolam, Oxycodone, Baclofen which he takes on a daily basis -During last admission tramadol was discontinued and baclofen was changed from scheduled to PRN - back pain under control, advised to avoid narcotics as much as possible ff up with ortho as scheduled CORONARY ARTERY DISEASE -cont ASA, BB and statin - no cardiac symptoms CHRONIC ATRIAL FIB -EKG: rate controlled Afib -continue Coumadin, carvedilol and digoxin. DM 2 -recent A1C 7.3 - resume oral medication ZULEIKA ON CPAP HS -cont CPAP HS HYPERTENSION HOLD chlorthalidone continue Valsartan and Carvedilol monitor BP as outpatient GERD -cont PPI and ranitidine DVT PROPHYLAXIS -cont Coumadin CODE STATUS -FULL CODE DISPOSITION d/c home with home health services today ff up with PCP in 1 week Current Inpatient Medications: Current Inpatient Medications Medications (Trade) Dose Ordered Sig/Juan Miguel Route Start Time Stop Time Status Last Admin Dose Admin Sodium Chloride (Nss 1000ml) 1,000 ml @ 80 mls/hr [id number] IV 08/01/16 19:15 08/31/16 19:14 08/03/16 12:16 80 MLS/HR Acetaminophen (Tylenol Tab) 650 mg Q4H PRN PO 08/01/16 19:15 08/31/16 19:14 Ondansetron HCl (Zofran Inj) 4 mg Q6H PRN IV 08/01/16 19:15 08/31/16 19:14 Nitroglycerin (Nitrostat Tab) 0.4 mg UD PRN SL 08/01/16 19:15 08/31/16 19:14 Alprazolam (Xanax Tab) 0.5 mg TID PRN PO 08/01/16 19:30 08/31/16 19:29 Aspirin (Ecotrin Tab) 81 mg DAILY PO 08/02/16 09:00 09/01/16 08:59 08/03/16 07:26 81 MG Atorvastatin Calcium (Lipitor Tab) 80 mg DAILY PO 08/02/16 09:00 09/01/16 08:59 08/03/16 07:26 80 MG Carvedilol (Coreg Tab) 25 mg BID PO 08/01/16 21:00 08/31/16 20:59 08/03/16 07:28 25 MG Citalopram Hydrobromide (celeXA TAB) 20 mg HS PO 08/01/16 21:00 08/31/16 20:59 08/02/16 20:45 20 MG Digoxin (Lanoxin Tab) 0.125 mg DAILY@1600 PO 08/02/16 16:00 09/01/16 15:59 08/02/16 16:46 0.125 MG Fenofibrate (Tricor Tab) 48 mg DAILY PO 08/02/16 09:00 09/01/16 08:59 08/03/16 07:26 48 MG Albuterol/ Ipratropium (Combivent Respimat Inh) 1 puffs QID INH 08/01/16 21:00 08/31/16 20:59 08/03/16 12:16 1 PUFFS Magnesium Oxide (Mag-Ox Tab) 400 mg DAILY PO 08/02/16 09:00 09/01/16 08:59 08/03/16 07:26 400 MG Oxycodone HCl (Roxicodone Immediate Rel Tab) 5 mg Q4H PRN PO 08/01/16 19:30 08/15/16 19:29 Triamcinolone Acetonide (Kenalog 0.1% Cream) 1 appln BID EXT 08/01/16 21:00 08/31/16 20:59 08/03/16 07:26 1 APPLN Warfarin Sodium (Coumadin Tab) 7.5 mg DAILY@1600 PO 08/02/16 16:00 09/01/16 15:59 08/02/16 16:45 7.5 MG Pantoprazole Sodium (Protonix Tab) 40 mg BID PO 08/01/16 21:00 08/31/16 20:59 08/03/16 07:26 40 MG Ranitidine HCl (zANTac TAB) 300 mg HS PO 08/01/16 21:00 08/31/16 20:59 08/02/16 21:34 300 MG Miscellaneous Information (Consult Glycemic Management Pharmacy) 1 ea UD PRN N/A 08/01/16 20:17 08/31/16 20:16 Insulin Aspart (novoLOG ASPART) SLIDING SCALE ACHS SC 08/02/16 07:00 09/01/16 06:59 08/03/16 12:15 5 UNITS Glucose (Glucose 40% Gel) 15-30 GRAMS 15 GRAMS... UD PRN PO 08/01/16 21:15 08/31/16 21:14 Glucose (Glucose Chew Tab) 4-8 Tablets 4 Tabl... UD PRN PO 08/01/16 21:15 08/31/16 21:14 Dextrose (Dextrose 50% 50ML Syringe) 25-50ML OF 50% DW IV FOR... UD PRN IV 08/01/16 21:15 08/31/16 21:14 Glucagon (Glucagon Inj) 1 mg UD PRN SQ 08/01/16 21:15 08/31/16 21:14 Insulin Glargine (Lantus Solostar Pen) 25 unit BID SC 08/03/16 21:00 09/02/16 20:59 Valsartan (Diovan Tab) 320 mg DAILY PO 08/04/16 09:00 09/03/16 08:59
[2016-08-03] MEDS ORDERED: OXYC1TAB3 PO (16:04)
--- NOTE | 2016-08-03 16:14 | Discharge Instructions ---
Discharge Instructions Date of Service August 03, 2016. Admission Reason for Admission: Acute Kidney Injury, Syncope Discharge Discharge Diagnosis / Problem: LOW BLOOD PRESSURE, DEHYDRATION Discharge Goals Goal(s): Diagnostic testing, Therapeutic intervention Activity Recommendations Activity Limitations: as noted below (NO HEAVY EXERTION UNTIL RE-EVALUATED BY PRIMARY CARE PHYSICIAN) Lifting Limitations: until after follow-up appointment Exercise/Sports Limitations: until after follow-up appointment . Instructions / Follow-Up Instructions / Follow-Up PLEASE STOP TAKING CHLORTHALIDONE TO AVOID LOW BLOOD PRESSURE. FURTHER INSTRUCTIONS TO BE GIVEN BY YOUR PRIMARY CARE PHYSICIAN. ENSURE ADEQUATE DAILY FLUID INTAKE. ALWAYS WEAR COMPRESSION STOCKINGS. ALWAYS BE CAREFUL WITH AMBULATION. AVOID GETTING UP FROM BED OR THE CHAIR TOO QUICKLY. AVOID TAKING ROXICODONE IF POSSIBLE. FOLLOW UP WITH DR. ANGEL (ASSOCIATE OF DR. MELENDEZ) ON FRIDAY AUGUST 05, 2016 AT 10:45AM. Current Hospital Diet Patient's current hospital diet: Diabetes Type 2 Diet, AHA Diet (Heart Healthy) Discharge Diet Recommended Diet: AHA Diet (Heart Healthy), Diabetes Type 2 Diet Pending Studies Studies pending at discharge: no Laboratory Results Hemoglobin A1c Test 07/12/16 05:30 Range/Units Estimated Average Glucose 163 mg/dl Hemoglobin A1c 7.3 H 4.5-5.6 % Medical Emergencies . Who to Call and When: Medical Emergencies: If at any time you feel your situation is an emergency, please call 911 immediately. . Non-Emergent Contact Non-Emergency issues call your: Primary Care Provider Call Non-Emergent contact if: you have a fever, your pain is not controlled, you have any medication questions . Past History Medical & Surgical History: (1) Atrial fibrillation (2) Syncopal episodes (3) Dehydration (4) Acute renal insufficiency (5) Hypotension (6) Diabetes mellitus type II, uncontrolled (7) CAD (coronary artery disease) (8) LISSETH (acute kidney injury) (9) PAF (paroxysmal atrial fibrillation) (10) ZULEIKA on CPAP (11) Depression (12) GERD (gastroesophageal reflux disease) (13) HTN (hypertension) (14) Dyslipidemia (15) COPD (chronic obstructive pulmonary disease) (16) Tobacco abuse (17) Previous back surgery (18) Hx of cholecystectomy (19) Stented coronary artery . "Provider Documentation" section prepared by Lyndon Rinaldi. . VTE Core Measure Inpt VTE Proph given/why not?: Warfarin (Coumadin) [place] Drug Monitoring Program Search Results: patient reviewed within database
--- NOTE | 2016-08-03 16:24 | Discharge Summary ---
Discharge Summary Date of Service August 03, 2016. Discharge Summary Admission Date: August 01, 2016 at 19:55 Discharge Date: August 03, 2016 Discharge Disposition: Home with services Principal Diagnosis: ORTHOSTATIC HYPOTENSION Secondary Diagnoses/Problems: Please refer to hospital course below. Pending Studies/Follow-Up: Please monitor BP (re: Chlorthalidone discontinued); Please refer to hospital course below for further recommendations. Medication Reconciliation Changed Medications: Oxycodone Ir (Roxicodone Ir) 5 Mg Tab 5 MG PO Q6H PRN for Severe Pain for 5 Days, #20 TAB (Changed from: 5-10 MG; Q4H) Continued Medications: Alprazolam (Xanax) 0.5 Mg Tab 0.5 MG PO TID PRN for Anxiety, TAB Aspirin (Aspir-81) 81 Mg Tab 81 MG PO DAILY Atorvastatin (Lipitor) 80 Mg Tab 80 MG PO DAILY, TAB Carvedilol (Coreg) 25 Mg Tab 25 MG PO BID, TAB Citalopram Hydrobromide (Celexa) 20 Mg Tab 20 MG PO HS Digoxin (Digoxin) 0.125 Mg Tab 0.125 MG PO DAILY Fenofibrate (Tricor) 48 Mg Tab 48 MG PO DAILY, TAB Insulin Aspart (Novolog) 100 Units/Ml Inj 24 UNITS SC TIDM PLUS CF 1:25 OVER 150 Insulin Glargine (Lantus) 100 Unit/Ml Inj 60 UNITS SC BID Ipratropium-Albuterol (Combivent Respimat) 1 Aer Aer 1 PUFFS INH QID, INH Liraglutide (Victoza) 18 Mg/3 Ml Inj 1.8 MG SC DAILY Magnesium Oxide (Mag-Ox) 400 Mg Tab 400 MG PO DAILY, TAB Metformin HCl (Metformin HCl) 500 Mg Tab 1000 MG PO BID Nitroglycerin (Nitrostat) 0.4 Mg Sub 0.4 MG UT PRN, BTL [place]-3 Fatty Acids ([place] 3) 1 Cap Cap 1 CAPSULE PO BID Omeprazole (Prilosec) 20 Mg Cap 20 MG PO BID, CAP Ranitidine (Zantac) 300 Mg Tab 300 MG PO HS, TAB Triamcinolone Acet (Aristocort 0.1%) 90 Appln/30 Gm Cr 1 APPLN TOP BID Valsartan (Diovan) 320 Mg Tab 320 MG PO DAILY, TAB Warfarin Sodium (Coumadin) 7.5 Mg Tab 7.5 MG PO DAILY, TAB Discontinued Medications: Chlorthalidone (Hygroton) 25 Mg Tab 12.5 MG PO DAILY, TAB 1/2 TABLET DOSE Admission Information HPI (per Admitting provider): This is a 61 y/o female with PMHx of recent back surgery, CAD, Insulin- Dependent DM 2, PAF on Coumadin, HTN, Dyslipidemia and other problems as outlined below who presents to the ED c/o near syncopal episode that occurred prior to arrival. Pt was recently admitted to [facility] with syncope and LISSETH. Syncope was thought to be related to pain medications as well as dehydration. Pt received IVF, oxycodone was continued, Baclofen was changed from scheduled to PRN and tramadol was discontinued. Per patient, he has been doing well since discharge. He was feeling okay when he arrived at his PCP office this afternoon. When he stood up to walk to the exam room he developed lightheaded/ dizziness and tunnel vision. Office staff slowly lowered him to the ground. He denies LOC or hitting his head. BP was noted to be 80s/50s at that time and patient was transported to the ED for further evaluation. Pt has been taking oxycodone and baclofen PRN since a back surgery 4 weeks ago. He reports that he typically takes oxycodone and baclofen twice daily. Pt denies fever/chills, diaphoresis, chest pain, palpitations, SOB, abd pain, N/V, bowel or bladder issues, LE edema, calf pain, lightheadedness/dizziness. In the ED, pt is hypotensive. electrolytes WNL. Creat 1.9. Pt received IVF in the ED and continues to have significant hypotension. Pt will be admitted for further evaluation and treatment. Physical Exam (per Admitting): General Appearance: WD/WN, no apparent distress, + obese, + pertinent finding (Pt is laying in bed with daughter at bedside) Head: normocephalic, atraumatic Eyes: normal inspection, PERRL, EOMI ENT: hearing grossly normal Neck: supple Respiratory/Chest: chest non-tender, lungs clear, normal breath sounds, no respiratory distress Cardiovascular: regular rate, rhythm, no edema, no murmur Abdomen/GI: normal bowel sounds, non tender, soft Back: normal inspection Extremities/Musculoskelatal: normal inspection, no calf tenderness, no pedal edema Neurologic/Psych: optometry assistant II-XII nml as tested, no motor/sensory deficits, alert , normal reflexes, oriented x 3 Skin: normal color, warm/dry Hospital Course 61 year old male with history of CAD, A fib on coumadin, DM, HTN, ZULEIKA presenting with hypotension. ORTHOSTATIC HYPOTENSION - pt presented with near syncopal episode with standing, noted to be hypotensive -likely from dehydration/volume depletion as patient was on Chlorthalidone, with poor oral intake; also had elevated creatinine/acute renal failure HELD chlorthalidone and Valsartan, given gentle IV fluids - orthostatic hypotension resolved patient asymptomatic, ambulating with no problems - HOLD Chlorthalidone for now advised to wear compression stockings, avoid using narcotics for pain, ambulate carefully, avoid getting up and walking too quickly monitor BP as outpatient ACUTE RENAL FAILURE - creatinine 1.9 (baseline=1.1); likely due to volume depletion; poor PO intake - HELD valsartan and chlorthalidone given IV fluids - crea improved to 1.2 - monitor renal function as outpatient HX OF RECENT LUMBAR SURGERY On multiple meds- Alprazolam, Oxycodone, Baclofen which he takes on a daily basis -During last admission tramadol was discontinued and baclofen was changed from scheduled to PRN - back pain under control, advised to avoid narcotics as much as possible, patient verbalized agreement ff up with ortho as scheduled CORONARY ARTERY DISEASE -cont ASA, BB and statin - no cardiac symptoms CHRONIC ATRIAL FIB -EKG: rate controlled Afib -continue Coumadin, carvedilol and digoxin. DM 2 -recent A1C 7.3 - resume oral medication ZULEIKA ON CPAP HS -cont CPAP HS HYPERTENSION HOLD chlorthalidone continue Valsartan and Carvedilol monitor BP as outpatient GERD -cont PPI and ranitidine DVT PROPHYLAXIS -cont Coumadin CODE STATUS -FULL CODE DISPOSITION d/c home with home health services today ff up with PCP in 1 week Total time spent on discharge = 35 minutes This includes examination of the patient, discharge planning, medication reconciliation, and communication with other providers. Discharge Instructions Discharge Instructions Date of Service August 03, 2016. Admission Reason for Admission: Acute Kidney Injury, Syncope Discharge Discharge Diagnosis / Problem: LOW BLOOD PRESSURE, DEHYDRATION Discharge Goals Goal(s): Diagnostic testing, Therapeutic intervention Activity Recommendations Activity Limitations: as noted below (NO HEAVY EXERTION UNTIL RE-EVALUATED BY PRIMARY CARE PHYSICIAN) Lifting Limitations: until after follow-up appointment Exercise/Sports Limitations: until after follow-up appointment . Instructions / Follow-Up Instructions / Follow-Up PLEASE STOP TAKING CHLORTHALIDONE TO AVOID LOW BLOOD PRESSURE. FURTHER INSTRUCTIONS TO BE GIVEN BY YOUR PRIMARY CARE PHYSICIAN. ENSURE ADEQUATE DAILY FLUID INTAKE. ALWAYS WEAR COMPRESSION STOCKINGS. ALWAYS BE CAREFUL WITH AMBULATION. AVOID GETTING UP FROM BED OR THE CHAIR TOO QUICKLY. AVOID TAKING ROXICODONE IF POSSIBLE. FOLLOW UP WITH DR. ANGEL (ASSOCIATE OF DR. MELENDEZ) ON FRIDAY AUGUST 05, 2016 AT 10:45AM. Current Hospital Diet Patient's current hospital diet: Diabetes Type 2 Diet, AHA Diet (Heart Healthy) Discharge Diet Recommended Diet: AHA Diet (Heart Healthy), Diabetes Type 2 Diet Pending Studies Studies pending at discharge: no Laboratory Results Hemoglobin A1c Test 07/12/16 05:30 Range/Units Estimated Average Glucose 163 mg/dl Hemoglobin A1c 7.3 H 4.5-5.6 % Medical Emergencies . Who to Call and When: Medical Emergencies: If at any time you feel your situation is an emergency, please call 911 immediately. . Non-Emergent Contact Non-Emergency issues call your: Primary Care Provider Call Non-Emergent contact if: you have a fever, your pain is not controlled, you have any medication questions . Past History Medical & Surgical History: (1) Atrial fibrillation (2) Syncopal episodes (3) Dehydration (4) Acute renal insufficiency (5) Hypotension (6) Diabetes mellitus type II, uncontrolled (7) CAD (coronary artery disease) (8) LISSETH (acute kidney injury) (9) PAF (paroxysmal atrial fibrillation) (10) ZULEIKA on CPAP (11) Depression (12) GERD (gastroesophageal reflux disease) (13) HTN (hypertension) (14) Dyslipidemia (15) COPD (chronic obstructive pulmonary disease) (16) Tobacco abuse (17) Previous back surgery (18) Hx of cholecystectomy (19) Stented coronary artery . "Provider Documentation" section prepared by Lyndon Rinaldi. . VTE Core Measure Inpt VTE Proph given/why not?: Warfarin (Coumadin) [place] Drug [place] Search Results: patient reviewed within database
[2016-08-03] MEDS: WARFARIN SOD 7.5 MG TAB PO SCH (17:15)
[2016-08-03] MEDS: DIGOXIN 0.125 MG TAB PO SCH (17:19)
[2016-08-03 17:29] VITALS: BP 157/93; PULSE 82; TEMP 36.5; O2SAT 92
[2016-08-03] MEDS ORDERED: INSULIN GLARGINE SOLOSTAR 100 UNITS/ML 3 ML PEN SC SCH (21:00)
[2016-08-04] MEDS ORDERED: VALSARTAN 80 MG TAB PO SCH (09:00)
[2016-09-13] MEDS ORDERED: NICO7DIS7 TD (09:27)
[2016-09-13] MEDS ORDERED: HYG25 PO (09:28)
[2016-10-26] MEDS ORDERED: INSU100I23 SC (10:12)
[2016-10-26] MEDS ORDERED: CYM/30 PO (10:12)
[2016-11-29] MEDS ORDERED: NRN300 PEG (10:25)
[2016-11-29] MEDS ORDERED: GABA-113 PO (10:25)
== END 2016-08-03 18:16 | disposition home health service (06) | DRG 312 ==
LOC: ENRESERVTM → ENRESERVDT → EDBD 13:45 → C.EDA 13:46 → EDBEDREQ 19:39 → C.2T 19:55
PROVIDERS: ADMIT Internal Medicine; ATTEND Internal Medicine
DX: I95.1 Orthostatic hypotension (principal); N17.9 Acute kidney failure, unspecified; I48.91 Unspecified atrial fibrillation; I25.10 Atherosclerotic heart disease of native coronary artery without angina pectoris; F32.9 Major depressive disorder, single episode, unspecified; J44.9 Chronic obstructive pulmonary disease, unspecified; E78.5 Hyperlipidemia, unspecified; E11.9 Type 2 diabetes mellitus without complications; K21.9 Gastro-esophageal reflux disease without esophagitis; G47.33 Obstructive sleep apnea (adult) (pediatric); F17.200 Nicotine dependence, unspecified, uncomplicated; Z95.5 Presence of coronary angioplasty implant and graft; E86.0 Dehydration; Z79.4 Long term (current) use of insulin; Z79.01 Long term (current) use of anticoagulants; I10 Essential (primary) hypertension; Z86.14 Personal history of Methicillin resistant Staphylococcus aureus infection; Z98.890 Other specified postprocedural states

== ENCOUNTER 2016-09-09 18:06 | Observation (INO) | payer BC ==
[~2016-09-09] VITALS: Ht 180.3 cm; Wt 130.5 kg
[~2016-09-09 18:06] MED LIST changes: +ALPR-411 PO; -DVN80 PO; +IPRA1AER2 INH; -LRS10 PO; +OXYC1TAB3 PO; -RXC5 PO; +TRMCR130WC TOP; +VALS320T PO; -WARF-284 PO; -WARF10TA4 PO; +WARF7.5T PO
[2016-09-09] MEDS ORDERED: NALOXONE HCL 0.4 MG/1 ML VIAL/CARP ONE (18:32)
[2016-09-09] MEDS ORDERED: OXYC7.5T65 PO (18:53)
[2016-09-09] MEDS ORDERED: VLM5CL PO (18:53)
[2016-09-09] MEDS ORDERED: WARF-246 PO (19:09)
[2016-09-09 19:14] LABS: BASO % 0.5 %; BASO ABS # 0.05 K/uL (0-0.2); COMPLETE YES; EOS % 2.5 %; IG% 0.4 %; LYMPH % 20.5 %; LYMPH ABS # 2.19 K/uL (1.2-3.4); MEAN CELL VOLUME 93.3 fL (80-100); MEAN CORPUSCULAR HEMOGLOBIN 31.9 pg (25-34); MEAN CORPUSCULAR HGB CONC 34.2 g/dl (32-36); MEAN PLATELET VOLUME 9.5 fL (7.4-10.4); MONO % 8.8 %; NEUT % 67.3 %; PLATELET COUNT 313 K/uL (130-400); RED BLOOD COUNT 4.61 M/uL (4.7-6.1)
[2016-09-09 19:20] LABS: VEN BLD GAS O2 SATURATION < 60.0 %; VEN BLOOD GAS BASE EXCESS -1.4 mmol/L; VENOUS BLOOD GAS PCO2 51 mmHg (38.0-50.0); VENOUS BLOOD GAS PO2 28 mmHg
[2016-09-09 19:32] LABS: PROTHROMBIN TIME (PATIENT) 57.1 SECONDS (9.0-12.0)
--- NOTE | 2016-09-09 19:40 | DIAGNOSTIC IMAGING REPORT ---
CHEST ONE VIEW PORTABLE HISTORY: Sepsis COMPARISON: Chest 08/01/2016. FINDINGS: Motion artifact. No definite pneumothorax. No pleural effusions. The heart remains mildly enlarged. There is mild pulmonary vascular congestion without overt edema. Hazy appearance the left lung base is likely due to overlapping soft tissue. IMPRESSION: Motion artifact. Stable cardiomegaly. Mild pulmonary vascular congestion without overt edema. Electronically signed by: Hua Oreilly M.D. 09/09/2016 7:39 PM Dictated Date/Time: 09/09/2016 7:38 PM
[2016-09-09 19:42] LABS: ALT/SGPT 25 U/L (12-78); AST/SGOT 23 U/L (15-37); BLOOD UREA NITROGEN 13 mg/dl (7-18); BUN/CREATININE RATIO 13.2 (10-20); CARBON DIOXIDE 25 mmol/L (21-32); CHLORIDE 106 mmol/L (98-107); CREATININE 0.98 mg/dl (0.60-1.40); GLUCOSE 66 mg/dl (70-99); MAGNESIUM 1.9 mg/dl (1.8-2.4); POTASSIUM 3.3 mmol/L (3.5-5.1); SODIUM 139 mmol/L (136-145)
[2016-09-09 19:45] LABS: ALB/GLOB RATIO 0.9 (0.9-2); ALKALINE PHOSPHATASE 88 U/L (45-117); C-REACTIVE PROTEIN 2.11 mg/dl (0-0.29); CKMB/CK RATIO 1.5 (0-3.0); PHOSPHORUS 3.9 mg/dl (2.5-4.9)
[2016-09-09 19:49] LABS: ACETAMINOPHEN < 2 ug/ml (10-30)
--- NOTE | 2016-09-09 19:55 | DIAGNOSTIC IMAGING REPORT ---
HEAD CT NONCONTRAST CT DOSE: 3757.35 mGy.cm HISTORY: Altered mental status. TECHNIQUE: Multiaxial CT images of the head were performed without the use of intravenous contrast. Automated exposure control was utilized for this study. Comparison: Head CT 06/30/2016. Findings: The paranasal sinuses and mastoid air cells are clear. The calvarium and skull base are intact. The ventricles and sulci are within normal limits. There is no mass, hematoma, midline shift, or acute infarct. Impression: No acute intracranial abnormality. Electronically signed by: Hua Oreilly M.D. 09/09/2016 7:54 PM Dictated Date/Time: 09/09/2016 7:49 PM
[2016-09-09 20:12] LABS: URINE APPEARANCE CLEAR (CLEAR); URINE BILIRUBIN NEG (NEG); URINE COLOR YELLOW; URINE NITRITE NEG (NEG); URINE SPECIFIC GRAVITY 1.016 (1.000-1.030); UROBILINOGEN NEG (NEG); ZZURINE CULT IF INDIC CATH NO
[2016-09-09 20:15] LABS: MANUAL MICROSCOPIC REQUIRED? NO; REVIEW REQ? NO
[2016-09-09 20:35] LABS: BENZODIAZEPINE, URINE POS (NEG); COCAINE,URINE NEG (NEG); PHENCYCLIDINE, URINE NEG (NEG)
--- NOTE | 2016-09-09 21:08 | EMERGENCY ROOM VISIT NOTE ---
History Report prepared by Patience: Archana Bukrs Under the Supervision of: Dr. Armen Wise D.O. 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 The patient was acting normally this morning. At 1600, his girlfriend came home to find him clammy and unresponsive. He was complaining of pain and was altered according to her. She was unsuccessful in getting him into the car to come to the ED so she called EMS. He was given dextrose en route. He had lumbar spine fusion surgery 2.5 months ago and has been complaining of worsening pain not only in his back, but in his arms and legs. He is on oxycodone and diazepam. He has a history of diabetes, atrial fibrillation, sleep apnea, and hypertension. There are 82 pills missing from his oxycodone prescription bottle which was filled 2 weeks ago. His girlfriend reports that he says he has been taking his medications correctly. The patient denies putting his medications in other places. His last dose of insulin was this morning. The patient reports leg pain and back pain. He denies chest pain. 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 Review of Systems See HPI for pertinent positives & negatives. A total of 10 systems reviewed and were otherwise negative. Past Medical & Surgical Medical Problems: (1) LISSETH (acute kidney injury) (2) Atrial fibrillation (3) CAD (coronary artery disease) (4) COPD (chronic obstructive pulmonary disease) (5) Depression (6) Diabetes mellitus type II, uncontrolled (7) Dyslipidemia (8) Encephalopathy (9) GERD (gastroesophageal reflux disease) (10) HTN (hypertension) (11) ZULEIKA on CPAP (12) PAF (paroxysmal atrial fibrillation) (13) Syncopal episodes (14) Syncope (15) Tobacco abuse Surgical Problems: (1) Hx of cholecystectomy (2) Previous back surgery (3) Stented coronary artery Family History Diabetes mellitus Heart disease Hypertension Social History Smoking Status: Current Every Day Smoker Alcohol Use: none Drug Use: none Marital Status: Housing Status: lives with family Occupation Status: employed Current/Historical Medications Scheduled Aspirin (Aspir-81), 81 MG PO DAILY Atorvastatin (Lipitor), 80 MG PO DAILY Carvedilol (Coreg), 25 MG PO BID Citalopram Hydrobromide (Celexa), 20 MG PO HS Digoxin (Digoxin), 0.125 MG PO DAILY Fenofibrate (Tricor), 48 MG PO DAILY Insulin Aspart (Novolog), 24 UNITS SC TIDM Insulin Glargine (Lantus), 60 UNITS SC BID Ipratropium-Albuterol (Combivent Respimat), 1 PUFFS INH QID Liraglutide (Victoza), 1.8 MG SC DAILY Magnesium Oxide (Mag-Ox), 400 MG PO DAILY Metformin HCl (Metformin HCl), 1,000 MG PO BID Nitroglycerin (Nitrostat), 0.4 MG UT PRN [place]-3 Fatty Acids ([place] 3), 1 CAPSULE PO BID Omeprazole (Prilosec), 20 MG PO BID Ranitidine (Zantac), 300 MG PO HS Triamcinolone Acet (Aristocort 0.1%), 1 APPLN TOP BID Valsartan (Diovan), 320 MG PO DAILY Warfarin Sodium (Warfarin Sodium), 5 MG PO DIRECTED Scheduled PRN Alprazolam (Xanax), 0.5 MG PO TID PRN for Anxiety Diazepam (Diazepam), 5 MG PO Q8 PRN for Muscle Spasms Oxycodone Ir (Roxicodone Ir), 5 MG PO Q6H PRN for Severe Pain Oxycodone/Acetaminophen 7.5MG/325MG (Percocet 7.5MG/325MG), 1 TAB PO Q6H PRN for Pain Allergies Coded Allergies: Niacin (Verified Adverse Reaction, Unknown, sweats and joint pain, 07/11/16 ) Physical Exam Vital Signs Date Time Temp Pulse Resp B/P (MAP) Pulse Ox O2 Delivery O2 Flow Rate FiO2 09/09/16 21:45 85 19 95 Nasal Cannula 4.0 09/09/16 21:34 107/82 09/09/16 21:15 83 16 09/09/16 21:10 84 14 96 Nasal Cannula 4.0 09/09/16 20:40 82 21 94 Nasal Cannula 4.0 09/09/16 20:35 87 21 93 Nasal Cannula 4.0 09/09/16 20:05 82 13 95 Nasal Cannula 4.0 09/09/16 20:00 83 17 96 Nasal Cannula 4.0 09/09/16 19:47 115/98 09/09/16 19:40 98 Nasal Cannula 4.0 09/09/16 19:00 79 14 97 Nasal Cannula 4.0 09/09/16 18:45 97 Nasal Cannula 4.0 09/09/16 18:28 36.3 78 95 Room Air 09/09/16 18:19 80 Physical Exam GENERAL: Patient is lethargic, slow to answer questions, snoring, but arouses to loud verbal commands EYES: The conjunctivae are clear. The pupils are round and reactive. EARS, NOSE, MOUTH AND THROAT: The nose is without any evidence of any deformity. Mucous membranes are moist tongue is midline NECK: The neck is nontender and supple. RESPIRATORY: Shallow respiration noted, diminished breath sounds noted throughout, respiratory wheezes in both upper lung so. CARDIOVASCULAR: Irregular rhythm noted to auscultation, no definite murmurs noted GASTROINTESTINAL: The abdomen is soft. Bowel sounds are present in all quadrants. Abdomen is nontender BACK: Lower lumbar tenderness to palpation, but step off appreciated MUSCULOSKELETAL/EXTREMITIES: There is no evidence of gross deformity full range of motion is noted in the hips and shoulders SKIN: There is pedal edema bilaterally, chronic venous stasis changes noted bilaterally NEUROLOGIC: Patient awakens to loud verbal commands, moves all extremities symmetrically, appears to be oriented to person, place, and situation. Medical Decision & Procedures ER Provider Diagnostic Interpretation: X-ray results as stated below per interpretation by me and the radiologist. Radiology results as stated below per my review and radiologist interpretation: CHEST ONE VIEW PORTABLE HISTORY: Sepsis COMPARISON: Chest 08/01/2016. FINDINGS: Motion artifact. No definite pneumothorax. No pleural effusions. The heart remains mildly enlarged. There is mild pulmonary vascular congestion without overt edema. Hazy appearance the left lung base is likely due to overlapping soft tissue. IMPRESSION: Motion artifact. Stable cardiomegaly. Mild pulmonary vascular congestion without overt edema. Electronically signed by: Hua Oreilly M.D. 09/09/2016 7:39 PM Dictated Date/Time: 09/09/2016 7:[address] NONCONTRAST CT DOSE: 3757.35 mGy.cm HISTORY: Altered mental status. TECHNIQUE: Multiaxial CT images of the head were performed without the use of intravenous contrast. Automated exposure control was utilized for this study. Comparison: Head CT 06/30/2016. Findings: The paranasal sinuses and mastoid air cells are clear. The calvarium and skull base are intact. The ventricles and sulci are within normal limits. There is no mass, hematoma, midline shift, or acute infarct. Impression: No acute intracranial abnormality. Electronically signed by: Hua Oreilly M.D. 09/09/2016 7:54 PM Dictated Date/Time: 09/09/2016 7:49 PM Laboratory Results 09/09/16 18:54 Red Blood Count 4.61, Mean Corpuscular Volume 93.3, Mean Corpuscular Hemoglobin 31.9, Mean Corpuscular Hemoglobin Concent 34.2, Mean Platelet Volume 9.5, Neutrophils (%) (Auto) 67.3, Lymphocytes (%) (Auto) 20.5, Monocytes (%) (Auto) 8.8, Eosinophils (%) (Auto) 2.5, Basophils (%) (Auto) 0.5, Neutrophils # (Auto) 7.21, Lymphocytes # (Auto) 2.19, Monocytes # (Auto) 0.94, Eosinophils # (Auto) 0.27, Basophils # (Auto) 0.05 09/09/16 18:54 Test 09/09/16 18:52 09/09/16 18:54 09/09/16 19:55 Bedside Lactic Acid Venous 1.05 mmol/L (0.90-1.70) White Blood Count 10.70 K/uL (4.8-10.8) Red Blood Count 4.61 M/uL (4.7-6.1) Hemoglobin 14.7 g/dL (14.0-18.0) Hematocrit 43.0 % (42-52) Mean Corpuscular Volume 93.3 fL (80-100) Mean Corpuscular Hemoglobin 31.9 pg (25-34) Mean Corpuscular Hemoglobin Concent 34.2 g/dl (32-36) Platelet Count 313 K/uL (130-400) Mean Platelet Volume 9.5 fL (7.4-10.4) Neutrophils (%) (Auto) 67.3 % Lymphocytes (%) (Auto) 20.5 % Monocytes (%) (Auto) 8.8 % Eosinophils (%) (Auto) 2.5 % Basophils (%) (Auto) 0.5 % Neutrophils # (Auto) 7.21 K/uL (1.4-6.5) Lymphocytes # (Auto) 2.19 K/uL (1.2-3.4) Monocytes # (Auto) 0.94 K/uL (0.11-0.59) Eosinophils # (Auto) 0.27 K/uL (0-0.5) Basophils # (Auto) 0.05 K/uL (0-0.2) RDW Standard Deviation 44.4 fL (36.4-46.3) RDW Coefficient of Variation 13.1 % (11.5-14.5) Immature Granulocyte % (Auto) 0.4 % Immature Granulocyte # (Auto) 0.04 K/uL (0.00-0.02) Erythrocyte Sedimentation Rate 32 mm/hr (0-14) Prothrombin Time 57.1 SECONDS (9.0-12.0) Prothromb Time International Ratio 5.0 (0.9-1.1) Activated Partial Thromboplast Time 52.8 SECONDS (21.0-31.0) Partial Thromboplastin Ratio 2.0 Venous Blood pH 7.31 (7.36-7.41) Venous Blood Partial Pressure CO2 51 mmHg (38.0-50.0) Venous Blood Partial Pressure O2 28 mmHg Venous Blood HCO3 25 mmol/L Venous Blood Oxygen Saturation < 60.0 % Venous Blood Base Excess -1.4 mmol/L Anion Gap 8.0 mmol/L (3-11) Est Creatinine Clear Calc Drug Dose 111.6 ml/min Estimated GFR () 96.7 Estimated GFR (Non- 83.5 BUN/Creatinine Ratio 13.2 (10-20) Calcium Level 9.0 mg/dl (8.5-10.1) Phosphorus Level 3.9 mg/dl (2.5-4.9) Magnesium Level 1.9 mg/dl (1.8-2.4) Total Bilirubin 0.6 mg/dl (0.2-1) Aspartate Amino Transf (AST/SGOT) 23 U/L (15-37) Alanine Aminotransferase (ALT/SGPT) 25 U/L (12-78) Alkaline Phosphatase 88 U/L (45-117) Total Creatine Kinase 114 U/L (39-308) Creatine Kinase MB 1.7 ng/ml (0.5-3.6) Creatine Kinase MB Ratio 1.5 (0-3.0) Troponin I < 0.015 ng/ml (0-0.045) C-Reactive Protein 2.11 mg/dl (0-0.29) Pro-B-Type Natriuretic Peptide 611 pg/ml (0-900) Total Protein 8.1 gm/dl (6.4-8.2) Albumin 3.9 gm/dl (3.4-5.0) Globulin 4.2 gm/dl (2.5-4.0) Albumin/Globulin Ratio 0.9 (0.9-2) Lipase 106 U/L (73-393) Thyroid Stimulating Hormone (TSH) 1.070 uIu/ml (0.300-4.500) Digoxin Level 0.4 ng/ml (0.8-2.0) Salicylates Level 4.1 mg/dl (2.8-20) Acetaminophen Level < 2 ug/ml (10-30) Ethyl Alcohol mg/dL < 3.0 mg/dl (0-3) Urine Color YELLOW Urine Appearance CLEAR (CLEAR) Urine pH 6.0 (4.5-7.5) Urine Specific [place] 1.016 (1.000-1.030) Urine Protein NEG (NEG) Urine Glucose (UA) 1+ (NEG) Urine Ketones NEG (NEG) Urine Occult Blood NEG (NEG) Urine Nitrite NEG (NEG) Urine Bilirubin NEG (NEG) Urine Urobilinogen NEG (NEG) Urine Leukocyte Esterase NEG (NEG) Urine WBC (Auto) 1-5 /hpf (0-5) Urine RBC (Auto) 5-10 /hpf (0-4) Urine Hyaline Casts (Auto) 0 /lpf (0-5) Urine Epithelial Cells (Auto) 10-20 /lpf (0-5) Urine Bacteria (Auto) NEG (NEG) Urine Opiates Screen POS (NEG) Urine Methadone, Qualitative NEG (NEG) Urine Barbiturates NEG (NEG) Urine Phencyclidine (PCP) Level NEG (NEG) Ur Amphetamine/Methamphetamine NEG (NEG) MDMA (Ecstasy) Screen NEG (NEG) Urine Benzodiazepines Screen POS (NEG) Urine Cocaine Metabolite NEG (NEG) Urine Marijuana (THC) NEG (NEG) Laboratory results per my review. Medications Administered Medications (Trade) Dose Ordered Sig/Juan Miguel Route Start Time Stop Time Status Last Admin Dose Admin Naloxone HCl (Narcan Inj) 0.4 mg STK-MED ONCE .ROUTE 09/09/16 18:32 09/09/16 18:33 DC 09/09/16 18:32 0.4 MG ECG Indication: altered mental status Rate (beats per minute): 77 Rhythm: atrial fibrillation Findings: nonspecific-ST abn (Lateral), other (low voltage throughout) Comparison ECG Date: 31-Jul-2016 Change: no significant change ED Course 1826: The patient was evaluated in room B8. A complete history and physical examination were performed. 1831: Narcan Inj 0.4 mg IV. 2047: Upon reevaluation, the patient is stable. I discussed results and treatment plan with him and his girlfriend. She verbalizes agreement and understanding. The patient will be evaluated for further management and care. 2055: I discussed the patient's case with Dr. Sun, [facility]. The patient will be evaluated for further management. Medical Decision Prior records/ancillary studies reviewed and summarized above. Nursing notes reviewed. Additional history obtained from significant other. The patient's history was concerning for altered mental status. Differential diagnosis: Etiologies such as metabolic, infection, hypoglycemia, electrolyte abnormalities , cardiac sources, intracerebral event, toxicologic, neurologic, as well as others were entertained. Medication Reconciliation: I attest that I have personally reviewed the patient' s current medications list. The patient is a 61-year-old male who presented to the emergency department for an evaluation of altered mental status. The patient is a history of diabetes and was found have hypoglycemia prior to arrival. This was corrected by the prehospital personnel the patient continued to have lethargy. The patient appeared to be very somnolent and would falsely quickly when not verbally stimulated. The patient has a history of recent lumbar spine surgery. He has had significant pain ever since his postoperative phase. A review the patient's medications shows that he's been on benzodiazepines as well as oral pain medication. He has a prescription which was filled 14 days ago with 90 pills with only a left at this time. It appears that the patient may be taking his medications inappropriately and missing his medications with other medications would cause drowsiness such as benzodiazepines. I discussed the patient's laboratory and radiographic studies with his significant other. I discussed his case with the on-call [facility] hospitalist. They've agreed to evaluate patient in the emergency apartment for further management and disposition. The patient was seen in our facility recently and had an MRI of the lumbar spine. No definite signs of infection were felt to be present by the consulting spinal surgeon. At this time the patient is too somnolent to have MRI of the lumbar spine. He may require further imaging to ensure there is nothing abnormal with his healing postoperative pain. Consults Time Called: 2049 Consulting Physician: Dr. Sun [facility] Returned Call: 2055 I discussed the patient's case with him. The patient will be evaluated for further management. Impression Primary Impression: Altered mental status Additional Impressions: Hypoglycemia Medication overdose Noncompliance with medications Post-operative pain Scribe Attestation The scribe's documentation has been prepared under my direction and personally reviewed by me in its entirety. I confirm that the note above accurately reflects all work, treatment, procedures, and medical decision making performed by me. Departure Information Dispostion Being Evaluated By Hospitalist Referrals Malachi Zamorano C.,D.O. (PCP) Patient Instructions My [facility] Problem Qualifiers Primary Impression: Altered mental status Altered mental status type: unspecified Qualified Codes: R41.82 - Altered mental status, unspecified Additional Impressions: Medication overdose Encounter type: initial encounter Injury intent: accidental or unintentional Qualified Codes: T50.901A - Poisoning by unspecified drugs, medicaments and biological substances, accidental (unintentional), initial encounter
[2016-09-09] MEDS ORDERED: OPTIRAY 320 IV PRN (22:00)
[2016-09-09] MEDS ORDERED: POTASSIUM CHLORIDE 10 MEQ TABCR PO STA (22:52)
[2016-09-09 23:00] VITALS: BP 145/95; PULSE 89; TEMP 36.6; O2SAT 96; Ht 180.3 cm; Wt 130.5 kg
[2016-09-09] MEDS ORDERED: POTASSIUM CHLORIDE INJ 20 MEQ in D5W AND NSS 1,000 ML IV SCH ×2 (23:00→23:15)
--- NOTE | 2016-09-09 23:01 | DIAGNOSTIC IMAGING REPORT ---
LUMBAR SPINE CT WITH INTRAVENOUS CONTRAST CT DOSE: 2224.87 mGy.cm HISTORY: worsening back pain ; hx surgery TECHNIQUE: Multiaxial CT images of the lumbar spine were performed and reformatted in the sagittal and coronal plane following the use of contrast. COMPARISON: Lumbar spine MRI 07/12/2016. FINDINGS: Posterior decompression fusion from L2 through S1 with lateral screws and rods. The hardware appears intact. No significant periprosthetic lucency. No fracture or subluxation within the lumbar spine. Partial fusion of the L5-S1 disc space. Mild disc space narrowing throughout the remaining bars spine. Mild levoscoliosis which could be positional. Bone graft material surrounding the pedicle screws. The sacrum appears intact. Partially visualized 1.9 cm left adrenal gland nodule. Evaluation the central canal is limited due to the CT technique. However, there is no definite central canal narrowing. The fluid collection at the laminectomy sites and subcutaneous soft tissue are again noted. Direct comparison is difficult due to the differences in technique. However, the fluid collections appear similar in size. In addition, the fluid collections are not well evaluated due to metallic artifact. IMPRESSION: 1. No acute fracture or subluxation within the lumbar spine. 2. L2-S1 posterior decompression and fusion. The hardware appears intact. 3. Suboptimal evaluation of the central canal and surrounding soft tissues due to the CT technique and extensive metallic artifact. The fluid collection described on the prior MRI at the laminectomy sites and subcutaneous soft tissues appear similar given differences in technique. It is not possible on the basis of the study to determine whether the fluid collections are infected. 4. A 1.9 cm left adrenal gland nodule. Electronically signed by: Hua Oreilly M.D. 09/09/2016 10:59 PM Dictated Date/Time: 09/09/2016 10:51 PM
[2016-09-09] MEDS ORDERED: LIDODERM (LIDOCAINE) PATCH 5% TD ONE (23:07)
[2016-09-09] MEDS ORDERED: ALPRAZOLAM 0.5 MG TAB PO PRN (23:15)
[2016-09-09] MEDS ORDERED: HYDROmorphone INJ 0.5 MG/0.5 ML SYR IV PRN (23:15)
[2016-09-09] MEDS ORDERED: DEXTROSE 50% 50 ML SYR IV PRN (23:15)
[2016-09-09] MEDS ORDERED: ACETAMINOPHEN 325 MG TAB PO PRN (23:15)
[2016-09-09] MEDS ORDERED: GLUCOSE 10 TABS/TUBE PO PRN (23:15)
[2016-09-09] MEDS ORDERED: GLUCAGON FOR INJ 1 MG VIAL SQ PRN (23:15)
[2016-09-09] MEDS ORDERED: NITROGLYCERIN 0.4 MG SL PER TAB CHARGE UT SCH (23:15)
[2016-09-09] MEDS ORDERED: GLUCOSE 40% GEL 15 GM TUBE PO PRN (23:15)
[2016-09-09] MEDS ORDERED: ALBUT/IPRATROP 3MG/0.5MG NEB 3 ML VIAL INH PRN (23:30)
[2016-09-09] MEDS ORDERED: D5NSS + 20MEQ KCL 1,000 ML IV SCH (23:45)
[2016-09-09] MEDS: INSULIN ASPART 100 UNITS/ML 3 ML PEN SC SCH (23:53)
[2016-09-10] VITALS (7 sets, daily range): BP systolic 125–153; BP diastolic 66–104; PULSE 73–99; TEMP 36.5–37; O2SAT 90–95
[2016-09-10] MEDS ORDERED: IV FLUIDS COMPLETED PRN (00:30)
[2016-09-10] MEDS: INSULIN ASPART 100 UNITS/ML 3 ML PEN SC SCH ×5 (03:58→21:35)
[2016-09-10] MEDS ORDERED: GLUCOSE 40% GEL 15 GM TUBE PO PRN (04:30)
[2016-09-10] MEDS ORDERED: GLUCAGON FOR INJ 1 MG VIAL SQ PRN (04:30)
[2016-09-10] MEDS ORDERED: GLUCOSE 10 TABS/TUBE PO PRN (04:30)
[2016-09-10] MEDS ORDERED: NSS + 20MEQ KCL 1000ML 1,000 ML IV ONE (04:30)
[2016-09-10] MEDS ORDERED: DEXTROSE 50% 50 ML SYR IV PRN (04:30)
--- NOTE | 2016-09-10 06:18 | HISTORY & PHYSICAL EXAMINATION ---
DATE OF ADMISSION: 09/09/2016 PRIMARY CARE PHYSICIAN: Dr. López. CHIEF COMPLAINT: Confusion as per records. HISTORY OF PRESENT ILLNESS: History is obtained from the patient, the patient's family and records. Patient is a fair historian despite episodic lethargy during examination. Medical history is significant for chronic back pain status post surgery on narcotics, ZULEIKA on CPAP, ongoing tobacco abuse, CAD sp stenting, HTN, AFib/aflutter on coumadin, DM2 insulin requiring, obesity, anxiety. History of MRSA. Recent confinement last month for orthostatic hypotension. As per records, patient underwent his 4th back surgery at [facility] by Dr. Zamorano last May 2016. Constant low back pain w/ radiation to the LLE since surgery. June of 2016, patient confined at [facility] for intactable back pain. An MRI at that time showed large posterior fluid collection abutting thecal sac, surrounding right facet joint, likely post-surgical. Seen by Orthopedics at that time. Impression was postop seroma, observation recommended. Patient was also seen by pain management at that time. Oxycodone for pain prescribed. Baclofen on a p.r.n. basis, tramadol to be discontinued. Patient had a followup with his surgeon last month at [place]. Patient was told that the pain should get better w/time. Patient was prescribed Percocet 7.5/325 one tab to be taken every 6 hours as needed for pain and diazepam 1 tablet every 8 hours p.r.n. for spasm two weeks ago. Patient had a followup at PCP's office a few weeks ago, unsure about medications at home. Patient achy all over the last week. Worsening back pain w/ LLE radiation/numbness. No incontinence issues. No fever, no chills. Claims that he would just take maximum of 5 tablets of Percocet in a day for pain and Diazepam maximum of about 3 tablets at night to sleep. This afternoon, patient noted to be confused, drowsy, sleeping a lot by patient' s family. Blood sugar noted to be 60s. PX given glucose by EMS. Eight tablets remaining of 90 tabs Percocet, two tablets remaining of 60 tabs Diazepam (both issued last August 26, 2016) after px family went through pill bottles. Patient cannot recall if he was taking more than what he was told. At the Emergency Room service, some improvement of mentation noted after IV Narcan, MEDICAL HISTORY: As above. SURGERIES: Back surgery, cholecystectomy. HOME MEDICATIONS: Include aspirin, Xanax, Lipitor, Coreg, Celexa, diazepam, digoxin, Tricor, Combivent, NovoLog, Lantus, metformin, Nitrostat, omega-3, Prilosec, Percocet, Zantac, Aristocort, Diovan, Coumadin, aspirin, Lipitor, Coreg, Celexa, diazepam. ALLERGIES: TO NIACIN. FAMILY HISTORY: Heart disease. PERSONAL AND SOCIAL HISTORY: half pack daily. No chronic intake of alcoholic beverages. 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 REVIEW OF SYSTEMS: As per HPI, all others ROS negative. PHYSICAL EXAMINATION: VITAL SIGNS: Blood pressure was noted to be 118/80, pulse rate 80, RR 19, temperature 36.6, sats 95 on room air, later 97 on 4 liters. GENERAL: Noted to be lethargic, in no respiratory distress, obese. SKIN: Normal color. HEENT: [place] palpebral conjunctivae. Dry mucosa. NECK: Short neck. LUNGS: Decreased effort. Occasional wheeze. HEART: irregular. ABDOMEN: Some distention, nontender. EXTREMITIES: Healed scar on the back. Some low back tenderness. Limited straight leg raise, L>R. NEUROLOGIC: No gross focality except for lethargy and back exam. LABORATORY DATA: Hemoglobin was noted to be 14.7, hematocrit 40, white cells 10.7, platelets 213. Sodium 136, potassium 3.4, chloride 106, CO2 25, crea 1, glucose 66. TSH 1.07. INR was 5. BNP was normal. trop 0 UA normal. Urine tox, opiates and benzo positive. Hemoglobin A1c from June 2016 was 7.3. EKG as per my interpretation, rate 80, AFib, Q-waves in inferior leads, PRWP, some flattening in the lateral leads. IMAGING DATA: Chest x-ray: No overt edema. CT of the head, no acute pathology. Lumbar spine CT, L2-S1 posterior hardware appears intact, similar fluid collection described in prior MRI. ASSESSMENT: 1. Encephalopathy multifactorial : possible home narcotics/sedative misuse hypoglycemia 2. worsening of chronic back pain history of surgery. No sepsis. 3. Hypertension, stable. 4. DM2, insulin requiring reasonable control as of recent HgA1c px hypoglycemic at the ER 5. Atrial fibrillation, rate controlled. INR is supratherapeutic. 6. Ongoing tobacco abuse. 7. ZULEIKA on CPAP 8. hx MRSA 9. hypokalemia 2 to poor PO intake, home insulin PLAN: Observation GMF Hold home neuro psychotropics, narcotics, sedatives for sedation, confusion. Lidoderm patch trial. Limit home narcotic prescription upon discharge given the patient misuse tendencies. Orthopedics spine consult RE : worsening back pain. followup evaluation (Patient known to Dr. Soto.) May need Pain Management reconsult Hold basal insulin for now, resume basal insulin once hypoglycemia resolved ISS BG goal 140-180 replace K PT, OT eval. DVT prophylaxis, Coumadin INR 2-3. Full code. MTDD
[2016-09-10 06:35] LABS: BASO % 0.5 %; BASO ABS # 0.05 K/uL (0-0.2); COMPLETE YES; HEMATOCRIT 36.5 % (42-52); IG% 0.2 %; LYMPH % 28.8 %; LYMPH ABS # 2.68 K/uL (1.2-3.4); MEAN CELL VOLUME 93.1 fL (80-100); MEAN CORPUSCULAR HEMOGLOBIN 31.6 pg (25-34); MEAN PLATELET VOLUME 9.3 fL (7.4-10.4); MONO % 10.2 %; NEUT % 58.3 %; PLATELET COUNT 293 K/uL (130-400); RED BLOOD COUNT 3.92 M/uL (4.7-6.1)
[2016-09-10 06:48] LABS: INR 4.4 (0.9-1.1)
[2016-09-10 07:11] LABS: BUN/CREATININE RATIO 13.1 (10-20); CALCIUM 8.4 mg/dl (8.5-10.1); CREATININE 0.82 mg/dl (0.60-1.40); POTASSIUM 3.7 mmol/L (3.5-5.1)
[2016-09-10] MEDS: PANTOprazole SOD 40 MG TAB PO SCH ×2 (08:29→20:45)
[2016-09-10] MEDS: RANITIDINE HCL 150 MG TAB PO SCH (08:29)
[2016-09-10] MEDS: CITALOPRAM 20 MG TAB PO SCH (08:30)
[2016-09-10] MEDS: NICOTINE 7 MG/24 HR TDSY TD SCH (08:30)
[2016-09-10] MEDS: CARVEDILOL 25 MG TAB PO SCH ×2 (08:30→20:45)
[2016-09-10] MEDS: ATORVASTATIN 40 MG TAB PO SCH (08:30)
[2016-09-10] MEDS: FENOFIBRATE 48 MG TAB PO SCH (08:30)
[2016-09-10] MEDS: VALSARTAN 80 MG TAB PO SCH ×2 (08:30→08:31)
[2016-09-10] MEDS: ASPIRIN 81 MG ECTAB PO SCH (08:31)
[2016-09-10] MEDS: IPRATROPIUM BROMIDE/ALBUTEROL respimat INH INH SCH ×4 (08:31→20:44)
[2016-09-10] MEDS: LIDODERM (LIDOCAINE) PATCH 5% TD SCH (08:31)
[2016-09-10] MEDS ORDERED: LANTUS PER UNIT CHARGE SQ SCH (09:00)
--- NOTE | 2016-09-10 11:25 | ORTHOPEDIC CONSULTATION ---
DATE OF CONSULTATION: 09/10/2016 CHIEF COMPLAINT: Back pain with buttock and leg pain, left greater than right. HISTORY OF PRESENT ILLNESS: This is a 61-year-old male status post multilevel lumbar decompression and fusion on June [address] [place] [address] Campos. He has been doing well, but states over the past 3-4 weeks he has noted decline in status with worsening leg pain, inability to ambulate and discomfort. He denies any precipitating trauma, fall or event. He describes his symptoms involving the lower half of the incision extending into the bilateral buttocks and down the legs. It is markedly exacerbated by sitting, standing and walking. He is somewhat comfortable lying supine. Vital signs are stable. T-max 36.9. His hematocrit is 36.5 today. Sed rate 32. INR 4.4 today. C-reactive protein not available. IMAGING: A CAT scan of the lumbar spine does demonstrate evidence of epidural fluid collection. PHYSICAL EXAMINATION: He does have reasonable strength to testing. Incision is clean, dry and intact, not significantly tender. No erythema, no drainage. He is in obvious distress, however. ASSESSMENT: Status post lumbar decompression and fusion. PLAN: At this time, I strongly suspect he has developed further expanding seroma in the lumbar spine causing thecal encroachment and subsequent leg pain. It may have been exacerbated by his uncontrolled anticoagulation. Nevertheless, an MRI will be requested. He understands and agrees. Pending these results, we may have a discussion with his surgeon in [place] for transfer and I&D. He understands and agrees with this plan.
[2016-09-10] MEDS: INSULIN GLARGINE SOLOSTAR 100 UNITS/ML 3 ML PEN SC SCH (11:52)
[2016-09-10] MEDS: OXYCODONE/ACETAMINOPHEN 5-325 TAB PO PRN ×2 (11:55→19:27)
--- NOTE | 2016-09-10 13:27 | Progress Note ---
Internal Med Progress Note Date of Service: Sep 10, 2016. Provider Documentation: SUBJECTIVE: The patient was seen and examined Complains of ongoing pain in legs Admitted with confusion likely secondary to overuse of Pain medications No urinary and or Bladder issue OBJECTIVE: Vital Signs-as noted below Exam: General-No distress at rest Eyes-normal ENT-normal Neck-Supple Lungs-Clear to ausucltate bilaterally Heart-Regular,no murmur appreciated Abdomen-Benign,no luis,bowel sound present Extremities-No edema Bilateral legs pain Elevation of the legs cause pain with radiculopathy Neuro-AAOx3 Lab data as noted below. ASSESSMENT & PLAN: Metabolic Encephalopathy Likely secondary to overuse of Narcotics and Benzodiazepines Complicated by Hypoglycemia Hold home neuro psychotropics, narcotics, sedatives for sedation, confusion. Lidoderm patch trial. Limit home narcotic prescription upon discharge given the patient misuse tendencies. Clinically better this AM Decreased the dose of Narc and Benzo Worsening of chronic back pain History of Lumbar spinal surgery. No sepsis. CT of the Spine -no increase in fluid collection Appreciate Ortho input MRI advised to evaluate it further may need Surgery Hypertension, stable. DM2, insulin requiring Reasonable control as of recent HgA1c Hypoglycemic at the ER Hold basal insulin for now, resume basal insulin once hypoglycemia resolved ISS BG goal 140-180 Atrial fibrillation, rate controlled. INR is supratherapeutic. Hold Coumadin Ongoing tobacco abuse Nicotine patch. ZULEIKA on CPAP DVT prophylaxis, Coumadin INR 2-3. Full code. Disposition Awaited Vital Signs: Date Time Temp Pulse Resp B/P (MAP) Pulse Ox O2 Delivery O2 Flow Rate FiO2 09/10/16 08:45 Room Air 09/10/16 08:28 99 153/96 (115) 09/10/16 07:14 36.9 94 20 148/104 (119) 90 Room Air 09/10/16 03:46 36.5 76 18 142/66 (91) 95 CPAP 09/10/16 00:33 82 95 5.0 09/09/16 23:00 36.6 89 20 145/95 96 Nasal Cannula 4.0 09/09/16 22:01 118/82 09/09/16 21:45 85 19 95 Nasal Cannula 4.0 09/09/16 21:34 107/82 09/09/16 21:15 83 16 09/09/16 21:10 84 14 96 Nasal Cannula 4.0 09/09/16 20:40 82 21 94 Nasal Cannula 4.0 09/09/16 20:35 87 21 93 Nasal Cannula 4.0 09/09/16 20:05 82 13 95 Nasal Cannula 4.0 09/09/16 20:00 83 17 96 Nasal Cannula 4.0 09/09/16 19:47 115/98 09/09/16 19:40 98 Nasal Cannula 4.0 09/09/16 19:00 79 14 97 Nasal Cannula 4.0 09/09/16 18:45 97 Nasal Cannula 4.0 09/09/16 18:28 36.3 78 95 Room Air 09/09/16 18:19 80 Lab Results: Results Past 24 Hours Test 09/09/16 18:18 09/09/16 18:44 09/09/16 18:52 09/09/16 18:54 Range/Units Bedside Glucose 83 75 70-99 mg/dl Bedside Lactic Acid Venous 1.05 0.90-1.70 mmol/L White Blood Count 10.70 4.8-10.8 K/uL Red Blood Count 4.61 4.7-6.1 M/uL Hemoglobin 14.7 14.0-18.0 g/dL Hematocrit 43.0 42-52 % Mean Corpuscular Volume 93.3 80-100 fL Mean Corpuscular Hemoglobin 31.9 25-34 pg Mean Corpuscular Hemoglobin Concent 34.2 32-36 g/dl Platelet Count 313 130-400 K/uL Mean Platelet Volume 9.5 7.4-10.4 fL Neutrophils (%) (Auto) 67.3 % Lymphocytes (%) (Auto) 20.5 % Monocytes (%) (Auto) 8.8 % Eosinophils (%) (Auto) 2.5 % Basophils (%) (Auto) 0.5 % Neutrophils # (Auto) 7.21 1.4-6.5 K/uL Lymphocytes # (Auto) 2.19 1.2-3.4 K/uL Monocytes # (Auto) 0.94 0.11-0.59 K/uL Eosinophils # (Auto) 0.27 0-0.5 K/uL Basophils # (Auto) 0.05 0-0.2 K/uL RDW Standard Deviation 44.4 36.4-46.3 fL RDW Coefficient of Variation 13.1 11.5-14.5 % Immature Granulocyte % (Auto) 0.4 % Immature Granulocyte # (Auto) 0.04 0.00-0.02 K/uL Erythrocyte Sedimentation Rate 32 0-14 mm/hr Prothrombin Time 57.1 9.0-12.0 SECONDS Prothromb Time International Ratio 5.0 0.9-1.1 Activated Partial Thromboplast Time 52.8 21.0-31.0 SECONDS Partial Thromboplastin Ratio 2.0 Venous Blood pH 7.31 7.36-7.41 Venous Blood Partial Pressure CO2 51 38.0-50.0 mmHg Venous Blood Partial Pressure O2 28 mmHg Venous Blood HCO3 25 mmol/L Venous Blood Oxygen Saturation < 60.0 % Venous Blood Base Excess -1.4 mmol/L Sodium Level 139 136-145 mmol/L Potassium Level 3.3 3.5-5.1 mmol/L Chloride Level 106 98-107 mmol/L Carbon Dioxide Level 25 21-32 mmol/L Anion Gap 8.0 3-11 mmol/L Blood Urea Nitrogen 13 7-18 mg/dl Creatinine 0.98 0.60-1.40 mg/dl Est Creatinine Clear Calc Drug Dose 111.6 ml/min Estimated GFR () 96.7 Estimated GFR (Non- 83.5 BUN/Creatinine Ratio 13.2 10-20 Random Glucose 66 70-99 mg/dl Calcium Level 9.0 8.5-10.1 mg/dl Phosphorus Level 3.9 2.5-4.9 mg/dl Magnesium Level 1.9 1.8-2.4 mg/dl Total Bilirubin 0.6 0.2-1 mg/dl Aspartate Amino Transf (AST/SGOT) 23 15-37 U/L Alanine Aminotransferase (ALT/SGPT) 25 12-78 U/L Alkaline Phosphatase 88 45-117 U/L Total Creatine Kinase 114 39-308 U/L Creatine Kinase MB 1.7 0.5-3.6 ng/ml Creatine Kinase MB Ratio 1.5 0-3.0 Troponin I < 0.015 0-0.045 ng/ml C-Reactive Protein 2.11 0-0.29 mg/dl Pro-B-Type Natriuretic Peptide 611 0-900 pg/ml Total Protein 8.1 6.4-8.2 gm/dl Albumin 3.9 3.4-5.0 gm/dl Globulin 4.2 2.5-4.0 gm/dl Albumin/Globulin Ratio 0.9 0.9-2 Lipase 106 73-393 U/L Thyroid Stimulating Hormone (TSH) 1.070 0.300-4.500 uIu/ml Digoxin Level 0.4 0.8-2.0 ng/ml Salicylates Level 4.1 2.8-20 mg/dl Acetaminophen Level < 2 10-30 ug/ml Ethyl Alcohol mg/dL < 3.0 0-3 mg/dl Test 09/09/16 19:55 09/09/16 20:01 09/09/16 21:07 09/09/16 23:10 Range/Units Urine Color YELLOW Urine Appearance CLEAR CLEAR Urine pH 6.0 4.5-7.5 Urine Specific [place] 1.016 1.000-1.030 Urine Protein NEG NEG Urine Glucose (UA) 1+ NEG Urine Ketones NEG NEG Urine Occult Blood NEG NEG Urine Nitrite NEG NEG Urine Bilirubin NEG NEG Urine Urobilinogen NEG NEG Urine Leukocyte Esterase NEG NEG Urine WBC (Auto) 1-5 0-5 /hpf Urine RBC (Auto) 5-10 0-4 /hpf Urine Hyaline Casts (Auto) 0 0-5 /lpf Urine Epithelial Cells (Auto) 10-20 0-5 /lpf Urine Bacteria (Auto) NEG NEG Urine Opiates Screen POS NEG Urine Methadone, Qualitative NEG NEG Urine Barbiturates NEG NEG Urine Phencyclidine (PCP) Level NEG NEG Ur Amphetamine/Methamphetamine NEG NEG MDMA (Ecstasy) Screen NEG NEG Urine Benzodiazepines Screen POS NEG Urine Cocaine Metabolite NEG NEG Urine Marijuana (THC) NEG NEG Bedside Glucose 75 77 80 70-99 mg/dl Test 09/10/16 03:54 09/10/16 06:01 09/10/16 07:21 09/10/16 11:20 Range/Units Bedside Glucose 178 117 147 70-99 mg/dl White Blood Count 9.30 4.8-10.8 K/uL Red Blood Count 3.92 4.7-6.1 M/uL Hemoglobin 12.4 14.0-18.0 g/dL Hematocrit 36.5 42-52 % Mean Corpuscular Volume 93.1 80-100 fL Mean Corpuscular Hemoglobin 31.6 25-34 pg Mean Corpuscular Hemoglobin Concent 34.0 32-36 g/dl Platelet Count 293 130-400 K/uL Mean Platelet Volume 9.3 7.4-10.4 fL Neutrophils (%) (Auto) 58.3 % Lymphocytes (%) (Auto) 28.8 % Monocytes (%) (Auto) 10.2 % Eosinophils (%) (Auto) 2.0 % Basophils (%) (Auto) 0.5 % Neutrophils # (Auto) 5.41 1.4-6.5 K/uL Lymphocytes # (Auto) 2.68 1.2-3.4 K/uL Monocytes # (Auto) 0.95 0.11-0.59 K/uL Eosinophils # (Auto) 0.19 0-0.5 K/uL Basophils # (Auto) 0.05 0-0.2 K/uL RDW Standard Deviation 44.6 36.4-46.3 fL RDW Coefficient of Variation 13.3 11.5-14.5 % Immature Granulocyte % (Auto) 0.2 % Immature Granulocyte # (Auto) 0.02 0.00-0.02 K/uL Prothrombin Time 50.0 9.0-12.0 SECONDS Prothromb Time International Ratio 4.4 0.9-1.1 Sodium Level 141 136-145 mmol/L Potassium Level 3.7 3.5-5.1 mmol/L Chloride Level 107 98-107 mmol/L Carbon Dioxide Level 27 21-32 mmol/L Anion Gap 7.0 3-11 mmol/L Blood Urea Nitrogen 11 7-18 mg/dl Creatinine 0.82 0.60-1.40 mg/dl Est Creatinine Clear Calc Drug Dose 131.9 ml/min Estimated GFR () 111.4 Estimated GFR (Non- 96.1 BUN/Creatinine Ratio 13.1 10-20 Random Glucose 136 70-99 mg/dl Calcium Level 8.4 8.5-10.1 mg/dl Hepatitis C Antibody Screen NEG NEG Microbiology Results 09/09/16 Blood Culture, Received Pending 09/09/16 Blood Culture, Received Pending
[2016-09-10] MEDS ORDERED: LORAZEPAM INJ 0.5 MG in SYRINGE 0.25 ML IV ONE (16:30)
[2016-09-10] MEDS: DIGOXIN 0.125 MG TAB PO SCH (17:13)
--- NOTE | 2016-09-10 19:33 | DIAGNOSTIC IMAGING REPORT ---
LUMBAR SPINE MRI HISTORY: Back pain back and leg pain TECHNIQUE: Multiplanar multisequence MRI of the lumbar spine was performed without the use of contrast. COMPARISON: MRI LUMBAR SPINE W/O CONTRAST CLINICAL HISTORY: back and leg pain TECHNIQUE: Sagittal and axial T1, T2 and STIR images were obtained. Imaging was performed before and after the administration of 14 cc of intravenous Gadavist COMPARISON STUDY: Conventional radiographic study dated 07/12/2016 OBSERVATIONS: The vertebral bodies and posterior elements appear intact. There is no abnormal bony signal present to suggest a marrow replacement process. There are postsurgical changes of an L2-S1 spinal fusion. There is artifact from the metallic rods and pedicle screws.. L1-2: No disc protrusions or extrusions. No evidence of spinal canal or neural foraminal compromise. L2-3: There is a circumferential disc bulge. There is a posterior laminectomy defect. There is fluid lateral to the right facet joint likely postsurgical. L3-4: There are postlaminectomy changes present. There is a posterior and right posterior lateral fluid collection likely postsurgical. L4-5: There are postlaminectomy changes. There is a posterior fluid collection likely postsurgical. L5-S1: There are postlaminectomy changes. There is a posterior fluid collection likely postsurgical The conus medullaris and cauda equina appear normal. There are no pathologically enhancing masses. IMPRESSION: 1. Difficult study to interpret secondary to artifact from posterior spinal fusion 3. Large posterior fluid collection abutting the thecal sac and surrounding the right facet joints. This is likely postsurgical. It is not possible on the basis of this study to determine whether this is infected 3. Posterior superficial fluid collection, also likely postsurgical Electronically signed by: Satya Mcfarland M.D. 09/10/2016 7:32 PM Dictated Date/Time: 09/10/2016 7:26 PM FINDINGS: For the purpose of the report the L5-S1 disc space will be located on axial image 27 of 30. Improved exam. Largest fluid collection in the right lateral aspect of the lumbar spine has diminished by approximately 75% terms of overall volume. A single air fluid collection posterior to L4-L5 is similar in terms of volume. Maximum dimensions are 4.5 x 3.5 x 2.0 cm. This is similar compared to the prior study and potentially represents a postprocedural seroma. L1-L2: No significant central canal or neural foraminal narrowing. L2-L3: Mild broad-based bulging disc. Posterior laminectomy defect which of been previously described. L3-L4: Postlaminectomy changes. L4-L5: Postlaminectomy changes again similar compared to the prior study. There are mild broad-based disc bulges L3-L4 and L4-L5 unchanged. L5-S1: Mild broad-based disc bulge. This is similar compared to the prior study. IMPRESSION: 1. Improved exam compared to the prior study. 2. The right paravertebral fluid collection produces described is diminished in volume by approximately 50-75%. 3. Residual slightly complex fluid pocket posterior to the L4-L5 level of the lumbar spine. This is unchanged and most likely represents a postprocedural seroma. 4. Broad-based bulging disc similar to the level similar compared to the prior study. 5. Stable postoperative changes unchanged from the prior study.
[2016-09-11] VITALS (7 sets, daily range): BP systolic 125–178; BP diastolic 83–108; PULSE 83–104; TEMP 36.6–37; O2SAT 92–96
[2016-09-11 06:06] LABS: INR 2.4 (0.9-1.1); PROTHROMBIN TIME (PATIENT) 26.8 SECONDS (9.0-12.0)
[2016-09-11] MEDS: CARVEDILOL 25 MG TAB PO SCH ×2 (08:16→21:06)
[2016-09-11] MEDS: OXYCODONE/ACETAMINOPHEN 5-325 TAB PO PRN ×3 (08:16→21:10)
[2016-09-11] MEDS: PANTOprazole SOD 40 MG TAB PO SCH ×2 (08:16→21:06)
[2016-09-11] MEDS: IPRATROPIUM BROMIDE/ALBUTEROL respimat INH INH SCH ×4 (08:16→21:05)
[2016-09-11] MEDS: NICOTINE 7 MG/24 HR TDSY TD SCH (08:17)
[2016-09-11] MEDS: VALSARTAN 80 MG TAB PO SCH (08:17)
[2016-09-11] MEDS: FENOFIBRATE 48 MG TAB PO SCH (08:17)
[2016-09-11] MEDS: LIDODERM (LIDOCAINE) PATCH 5% TD SCH (08:18)
[2016-09-11] MEDS: ASPIRIN 81 MG ECTAB PO SCH (08:18)
[2016-09-11] MEDS: ATORVASTATIN 40 MG TAB PO SCH (08:18)
[2016-09-11] MEDS: INSULIN ASPART 100 UNITS/ML 3 ML PEN SC SCH ×4 (08:23→21:00)
[2016-09-11] MEDS: INSULIN GLARGINE SOLOSTAR 100 UNITS/ML 3 ML PEN SC SCH (08:24)
[2016-09-11] MEDS ORDERED: CHLORTHALIDONE 25 MG TAB PO ONE (12:00)
--- NOTE | 2016-09-11 15:19 | Progress Note ---
Internal Med Progress Note Date of Service: Sep 11, 2016. Provider Documentation: SUBJECTIVE: The patient was seen and examined Complains of ongoing pain in legs Admitted with confusion likely secondary to overuse of Pain medications No urinary and or Bladder issue OOB in a chair Worsening Back pain that radiates to legs OBJECTIVE: Vital Signs-as noted below Exam: General-No distress at rest Eyes-normal ENT-normal Neck-Supple Lungs-Clear to ausucltate bilaterally Heart-Regular,no murmur appreciated Abdomen-Benign,no luis,bowel sound present Extremities-No edema Bilateral legs pain Elevation of the legs cause pain with radiculopathy Neuro-AAOx3 Lab data as noted below. ASSESSMENT & PLAN: Metabolic Encephalopathy-cleared Likely secondary to overuse of Narcotics and Benzodiazepines Complicated by Hypoglycemia Hold home neuro psychotropics, narcotics, sedatives for sedation, confusion. Lidoderm patch trial. Limit home narcotic prescription upon discharge given the patient misuse tendencies. Clinically better this AM Decreased the dose of Narc and Benzo Worsening of chronic back pain History of Lumbar spinal surgery. No sepsis. CT of the Spine -no increase in fluid collection Appreciate Ortho input MRI advised to evaluate it further-Increase in collection of the Lumbar spinal fluid Awaiting recommendation from Dr Soto Hypertension, stable. DM2, insulin requiring Reasonable control as of recent HgA1c Hypoglycemic at the ER Hold basal insulin for now, resume basal insulin once hypoglycemia resolved ISS BG goal 140-180 Atrial fibrillation, rate controlled. INR is supra therapeutic. Hold Coumadin Ongoing tobacco abuse Nicotine patch. ZULEIKA on CPAP DVT prophylaxis, Coumadin INR 2-3. Full code. Disposition Awaited Vital Signs: Date Time Temp Pulse Resp B/P (MAP) Pulse Ox O2 Delivery O2 Flow Rate FiO2 09/11/16 15:08 36.8 91 20 125/86 (99) 92 Room Air 09/11/16 11:08 104 20 143/83 (103) 09/11/16 09:37 102 94 09/11/16 08:20 Room Air 09/11/16 06:48 36.6 88 16 178/108 (131) 93 CPAP 09/11/16 00:05 Room Air 09/10/16 23:08 36.6 73 18 136/84 (101) 90 CPAP 09/10/16 22:16 89 90 5.0 09/10/16 19:30 Room Air 09/10/16 17:13 94 09/10/16 15:40 Room Air Lab Results: Results Past 24 Hours Test 09/10/16 16:51 09/10/16 21:22 09/11/16 05:26 09/11/16 07:25 Range/Units Bedside Glucose 181 171 115 70-99 mg/dl Prothrombin Time 26.8 9.0-12.0 SECONDS Prothromb Time International Ratio 2.4 0.9-1.1 Test 09/11/16 11:29 Range/Units Bedside Glucose 208 70-99 mg/dl
[2016-09-11] MEDS: DIGOXIN 0.125 MG TAB PO SCH (17:11)
[2016-09-11] MEDS: RANITIDINE HCL 150 MG TAB PO SCH (21:06)
[2016-09-11] MEDS: CITALOPRAM 20 MG TAB PO SCH (21:07)
[2016-09-12 01:43] LABS: COD UR NEGATIVE NG/ML (CUTOFF=50); HYDROCOD UR NEGATIVE NG/ML (CUTOFF=50); HYDROMOR UR NEGATIVE NG/ML (CUTOFF=50); HYDROXYETHYLFLURAZEPAM CONF NEGATIVE NG/ML (CUTOFF=50); HYDROXYMIDAZOLAM NEGATIVE NG/ML (CUTOFF=50); HYDROXYTRIAZOLAM CONF NEGATIVE NG/ML (CUTOFF=50); MORPHINE UR NEGATIVE NG/ML (CUTOFF=50); NORHYDROCODONE CONF UR NEGATIVE NG/ML (CUTOFF=50); OXYMORPH UR 2260 NG/ML (CUTOFF=50); TEMAZEPAM CONF 1300 NG/ML (CUTOFF=50)
[2016-09-12 04:39] VITALS: BP 143/92; PULSE 70; TEMP 36.9; O2SAT 95
[2016-09-12 07:27] VITALS: BP 155/104; PULSE 89; TEMP 37; O2SAT 91
[2016-09-12 07:30] LABS: INR 1.7 (0.9-1.1); PROTHROMBIN TIME (PATIENT) 19.1 SECONDS (9.0-12.0)
[2016-09-12] MEDS: PANTOprazole SOD 40 MG TAB PO SCH ×2 (08:11→20:57)
[2016-09-12] MEDS: IPRATROPIUM BROMIDE/ALBUTEROL respimat INH INH SCH ×4 (08:11→21:23)
[2016-09-12] MEDS: FENOFIBRATE 48 MG TAB PO SCH (08:11)
[2016-09-12] MEDS: LIDODERM (LIDOCAINE) PATCH 5% TD SCH (08:11)
[2016-09-12] MEDS: ATORVASTATIN 40 MG TAB PO SCH (08:11)
[2016-09-12] MEDS: CARVEDILOL 25 MG TAB PO SCH ×2 (08:12→20:58)
[2016-09-12] MEDS: VALSARTAN 80 MG TAB PO SCH (08:12)
[2016-09-12] MEDS: ASPIRIN 81 MG ECTAB PO SCH (08:12)
[2016-09-12] MEDS: CHLORTHALIDONE 25 MG TAB PO SCH (08:12)
[2016-09-12] MEDS: INSULIN GLARGINE SOLOSTAR 100 UNITS/ML 3 ML PEN SC SCH (08:14)
[2016-09-12] MEDS: INSULIN ASPART 100 UNITS/ML 3 ML PEN SC SCH ×4 (08:14→20:58)
[2016-09-12] MEDS: OXYCODONE/ACETAMINOPHEN 5-325 TAB PO PRN ×2 (08:19→19:39)
[2016-09-12] MEDS: NICOTINE 7 MG/24 HR TDSY TD SCH (08:44)
[2016-09-12 14:38] VITALS: BP 125/85; PULSE 80; TEMP 36.6; O2SAT 91
[2016-09-12 15:14] VITALS: BP 123/87; PULSE 95; O2SAT 96
--- NOTE | 2016-09-12 15:32 | Progress Note ---
Internal Med Progress Note Date of Service: Sep 12, 2016. Provider Documentation: SUBJECTIVE: The patient was seen and examined Complains of ongoing pain in legs Admitted with confusion likely secondary to overuse of Pain medications No urinary and or Bladder issue OOB in a chair Worsening Back pain that radiates to legs Ambulating reasonably by himself Ready to be discharged OBJECTIVE: Vital Signs-as noted below Exam: General-No distress at rest Eyes-normal ENT-normal Neck-Supple Lungs-Clear to ausucltate bilaterally Heart-Regular,no murmur appreciated Abdomen-Benign,no luis,bowel sound present Extremities-No edema Bilateral legs pain Elevation of the legs cause pain with radiculopathy Neuro-AAOx3 Lab data as noted below. ASSESSMENT & PLAN: Metabolic Encephalopathy-cleared Likely secondary to overuse of Narcotics and Benzodiazepines Complicated by Hypoglycemia Hold home neuro psychotropics, narcotics, sedatives for sedation, confusion. Lidoderm patch trial. Limit home narcotic prescription upon discharge given the patient misuse tendencies. Clinically better this AM Decreased the dose of Narc and Benzo motivated to decrease the use of narcotics and Benzo at home Worsening of chronic back pain History of Lumbar spinal surgery. No sepsis. CT of the Spine -no increase in fluid collection Appreciate Ortho input MRI advised to evaluate it further-decreased in collection of the Lumbar spinal fluid Discussed with Dr Soto No need to go for Surgery right away In fact the collection of fluid is better can go home as per PT Hypertension, stable. DM2, insulin requiring Reasonable control as of recent HgA1c Hypoglycemic at the ER Hold basal insulin for now, resume basal insulin once hypoglycemia resolved ISS BG goal 140-180 Atrial fibrillation, rate controlled. INR is supra therapeutic. Hold Coumadin Will resume Coumadin Ongoing tobacco abuse Nicotine patch. ZULEIKA on CPAP DVT prophylaxis, Coumadin INR 2-3. Full code. Disposition Discharge tomorrow Vital Signs: Date Time Temp Pulse Resp B/P (MAP) Pulse Ox O2 Delivery O2 Flow Rate FiO2 09/12/16 14:38 36.6 80 20 125/85 (98) 91 09/12/16 08:15 Room Air 09/12/16 07:27 37.0 89 20 155/104 (121) 91 09/12/16 04:39 36.9 70 16 143/92 (109) 95 CPAP 09/12/16 00:23 Room Air 09/11/16 23:05 83 96 2.0 09/11/16 22:33 37.0 87 20 160/88 (112) 93 Room Air 09/11/16 21:27 Room Air 09/11/16 20:56 36.6 88 20 168/106 (126) 94 Room Air 09/11/16 17:11 89 09/11/16 15:48 Room Air Lab Results: Results Past 24 Hours Test 09/11/16 16:18 09/11/16 20:40 09/12/16 07:04 09/12/16 07:39 Range/Units Bedside Glucose 168 116 152 70-99 mg/dl Prothrombin Time 19.1 9.0-12.0 SECONDS Prothromb Time International Ratio 1.7 0.9-1.1 Test 09/12/16 11:04 Range/Units Bedside Glucose 187 70-99 mg/dl
[2016-09-12] MEDS: DIGOXIN 0.125 MG TAB PO SCH (15:41)
[2016-09-12] MEDS: RANITIDINE HCL 150 MG TAB PO SCH (20:57)
[2016-09-12] MEDS: CITALOPRAM 20 MG TAB PO SCH (20:57)
[2016-09-12 22:45] VITALS: PULSE 81; O2SAT 95
[2016-09-13 00:18] VITALS: BP 150/80; PULSE 83; TEMP 37.1; O2SAT 92
[2016-09-13] MEDS: OXYCODONE/ACETAMINOPHEN 5-325 TAB PO PRN ×2 (04:23→08:26)
[2016-09-13 06:52] LABS: BASO % 0.5 %; BASO ABS # 0.05 K/uL (0-0.2); COMPLETE YES; EOS % 3.5 %; HEMATOCRIT 37.7 % (42-52); IG% 0.3 %; LYMPH % 24.7 %; LYMPH ABS # 2.36 K/uL (1.2-3.4); MEAN CELL VOLUME 91.3 fL (80-100); MEAN CORPUSCULAR HEMOGLOBIN 31.2 pg (25-34); MEAN CORPUSCULAR HGB CONC 34.2 g/dl (32-36); MEAN PLATELET VOLUME 8.7 fL (7.4-10.4); MONO % 7.5 %; NEUT % 63.5 %; PLATELET COUNT 283 K/uL (130-400); RED BLOOD COUNT 4.13 M/uL (4.7-6.1); WHITE BLOOD COUNT 9.54 K/uL (4.8-10.8)
[2016-09-13 07:01] LABS: INR 1.4 (0.9-1.1); PROTHROMBIN TIME (PATIENT) 15.1 SECONDS (9.0-12.0)
[2016-09-13 07:16] VITALS: BP 161/97; PULSE 88; TEMP 37; O2SAT 95
[2016-09-13] MEDS: CHLORTHALIDONE 25 MG TAB PO SCH (08:14)
[2016-09-13] MEDS: ATORVASTATIN 40 MG TAB PO SCH (08:14)
[2016-09-13] MEDS: ASPIRIN 81 MG ECTAB PO SCH (08:14)
[2016-09-13] MEDS: FENOFIBRATE 48 MG TAB PO SCH (08:14)
[2016-09-13] MEDS: PANTOprazole SOD 40 MG TAB PO SCH (08:14)
[2016-09-13] MEDS: CARVEDILOL 25 MG TAB PO SCH (08:15)
[2016-09-13] MEDS: IPRATROPIUM BROMIDE/ALBUTEROL respimat INH INH SCH ×2 (08:15→12:31)
[2016-09-13] MEDS: LIDODERM (LIDOCAINE) PATCH 5% TD SCH (08:16)
[2016-09-13] MEDS: NICOTINE 7 MG/24 HR TDSY TD SCH (08:16)
[2016-09-13] MEDS: INSULIN ASPART 100 UNITS/ML 3 ML PEN SC SCH ×2 (08:24→12:31)
[2016-09-13] MEDS: VALSARTAN 80 MG TAB PO SCH (08:25)
[2016-09-13] MEDS: INSULIN GLARGINE SOLOSTAR 100 UNITS/ML 3 ML PEN SC SCH (08:25)
--- NOTE | 2016-09-13 09:19 | Progress Note ---
Internal Med Progress Note Date of Service: Sep 13, 2016. Provider Documentation: SUBJECTIVE: The patient was seen and examined Complains of ongoing pain in legs Admitted with confusion likely secondary to overuse of Pain medications No urinary and or Bladder issue OOB in a chair Worsening Back pain that radiates to legs at times Ambulating reasonably by himself Ready to be discharged home today OBJECTIVE: Vital Signs-as noted below Exam: General-No distress at rest Eyes-normal ENT-normal Neck-Supple Lungs-Clear to ausucltate bilaterally Heart-Regular,no murmur appreciated Abdomen-Benign,no luis,bowel sound present Extremities-No edema Bilateral legs pain Elevation of the legs cause pain at the back Neuro-AAOx3 Lab data as noted below. ASSESSMENT & PLAN: Metabolic Encephalopathy-cleared Likely secondary to overuse of Narcotics and Benzodiazepines Complicated by Hypoglycemia Hold home neuro psychotropics, narcotics, sedatives for sedation, confusion. Lidoderm patch trial. Limit home narcotic prescription upon discharge given the patient misuse tendencies. Clinically better this AM Decreased the dose of Narc and Benzo motivated to decrease the use of narcotics and Benzo at home Will continue with current medications as he has been getting in the hospital Worsening of chronic back pain History of Lumbar spinal surgery. No sepsis. CT of the Spine -no increase in fluid collection Appreciate Ortho input MRI advised to evaluate it further-decreased in collection of the Lumbar spinal fluid Discussed with Dr Soto No need to go for Surgery right away In fact the collection of fluid is better can go home as per PT Will go home today with home Physical therapy Hypertension, stable. DM2, insulin requiring Reasonable control as of recent HgA1c Hypoglycemic at the ER Hold basal insulin for now, resume basal insulin once hypoglycemia resolved ISS BG goal 140-180 Atrial fibrillation, rate controlled. INR is supra therapeutic. Hold Coumadin Will resume Coumadin Ongoing tobacco abuse Nicotine patch. ZULEIKA on CPAP DVT prophylaxis, Coumadin INR 2-3. Full code. Disposition Discharge today Vital Signs: Date Time Temp Pulse Resp B/P (MAP) Pulse Ox O2 Delivery O2 Flow Rate FiO2 09/13/16 07:16 37.0 88 18 161/97 (118) 95 Room Air 09/13/16 00:18 37.1 83 20 150/80 (103) 92 CPAP 4.0 09/13/16 00:00 CPAP 09/12/16 22:45 81 95 4.0 09/12/16 19:50 Room Air 09/12/16 16:15 Room Air 09/12/16 15:41 92 09/12/16 15:14 95 96 09/12/16 14:38 36.6 80 20 125/85 (98) 91 Lab Results: Results Past 24 Hours Test 09/12/16 11:04 09/12/16 16:59 09/12/16 20:44 09/13/16 06:45 Range/Units Bedside Glucose 187 235 159 70-99 mg/dl White Blood Count 9.54 4.8-10.8 K/uL Red Blood Count 4.13 4.7-6.1 M/uL Hemoglobin 12.9 14.0-18.0 g/dL Hematocrit 37.7 42-52 % Mean Corpuscular Volume 91.3 80-100 fL Mean Corpuscular Hemoglobin 31.2 25-34 pg Mean Corpuscular Hemoglobin Concent 34.2 32-36 g/dl Platelet Count 283 130-400 K/uL Mean Platelet Volume 8.7 7.4-10.4 fL Neutrophils (%) (Auto) 63.5 % Lymphocytes (%) (Auto) 24.7 % Monocytes (%) (Auto) 7.5 % Eosinophils (%) (Auto) 3.5 % Basophils (%) (Auto) 0.5 % Neutrophils # (Auto) 6.05 1.4-6.5 K/uL Lymphocytes # (Auto) 2.36 1.2-3.4 K/uL Monocytes # (Auto) 0.72 0.11-0.59 K/uL Eosinophils # (Auto) 0.33 0-0.5 K/uL Basophils # (Auto) 0.05 0-0.2 K/uL RDW Standard Deviation 43.2 36.4-46.3 fL RDW Coefficient of Variation 13.0 11.5-14.5 % Immature Granulocyte % (Auto) 0.3 % Immature Granulocyte # (Auto) 0.03 0.00-0.02 K/uL Prothrombin Time 15.1 9.0-12.0 SECONDS Prothromb Time International Ratio 1.4 0.9-1.1 Test 09/13/16 07:25 Range/Units Bedside Glucose 132 70-99 mg/dl
[2016-09-13] MEDS ORDERED: NICO7DIS7 TD (09:27)
[2016-09-13] MEDS ORDERED: HYG25 PO (09:28)
--- NOTE | 2016-09-13 09:31 | Discharge Instructions ---
Discharge Instructions Date of Service Sep 13, 2016. Admission Reason for Admission: Encephalopathy Discharge Discharge Diagnosis / Problem: Metabolic Encephalopathy-resolved ,Acute on Chronic back pain Discharge Goals Goal(s): Prevent Disease Progression Activity Recommendations Activity Limitations: resume your previous activity . Instructions / Follow-Up Instructions / Follow-Up Please keep Appointment with Your PCP as scheduled.Please have Regular follow up with Coagulation clinic Current Hospital Diet Patient's current hospital diet: Diabetes Type 2 Diet, AHA Diet (Heart Healthy) Discharge Diet Recommended Diet: AHA Diet (Heart Healthy), Diabetes Type 2 Diet Pending Studies Studies pending at discharge: no Laboratory Results Hemoglobin A1c Test 07/12/16 05:30 Range/Units Estimated Average Glucose 163 mg/dl Hemoglobin A1c 7.3 H 4.5-5.6 % Medical Emergencies . Who to Call and When: Medical Emergencies: If at any time you feel your situation is an emergency, please call 911 immediately. . Non-Emergent Contact Non-Emergency issues call your: Primary Care Provider . Past History Medical & Surgical History: (1) Atrial fibrillation (2) Encephalopathy (3) Diabetes mellitus type II, uncontrolled (4) PAF (paroxysmal atrial fibrillation) (5) ZULEIKA on CPAP (6) Depression (7) HTN (hypertension) (8) Dyslipidemia (9) Previous back surgery (10) Hx of cholecystectomy (11) Stented coronary artery . "Provider Documentation" section prepared by Bradford Hauser. . VTE Core Measure Inpt VTE Proph given/why not?: Warfarin (Coumadin)
[2016-09-13 11:25] VITALS: BP 161/97; PULSE 88; TEMP 37; O2SAT 95
--- NOTE | 2016-09-15 11:23 | Discharge Summary ---
Discharge Summary Date of Service Sep 15, 2016. Discharge Summary Admission Date: Sep 09, 2016 at 21:48 Discharge Date: Sep 13, 2016 Discharge Disposition: Home with services Principal Diagnosis: Metabolic Encephalopathy-resolved ,Acute on Chronic back pain Secondary Diagnoses/Problems: Please see H&P and Hospital progress note Consultations: Ortho Medication Reconciliation New Medications: Chlorthalidone (Chlorthalidone) 25 Mg Tab 12.5 MG PO QAM for 30 Days, #15 TAB Nicotine (Nicoderm Cq 7 Mg Patch) 7 Mg/24 Hr Dis 1 PATCH TD QAM for 30 Days, #30 Continued Medications: Alprazolam (Xanax) 0.5 Mg Tab 0.5 MG PO TID PRN for Anxiety, TAB Aspirin (Aspir-81) 81 Mg Tab 81 MG PO DAILY Atorvastatin (Lipitor) 80 Mg Tab 80 MG PO DAILY, TAB Carvedilol (Coreg) 25 Mg Tab 25 MG PO BID, TAB Citalopram Hydrobromide (Celexa) 20 Mg Tab 20 MG PO HS Digoxin (Digoxin) 0.125 Mg Tab 0.125 MG PO DAILY Fenofibrate (Tricor) 48 Mg Tab 48 MG PO DAILY, TAB Insulin Aspart (Novolog) 100 Units/Ml Inj 24 UNITS SC TIDM PLUS CF 1:25 OVER 150 Insulin Glargine (Lantus) 100 Unit/Ml Inj 10 UNITS SC BID Ipratropium-Albuterol (Combivent Respimat) 1 Aer Aer 1 PUFFS INH QID, INH Liraglutide (Victoza) 18 Mg/3 Ml Inj 1.8 MG SC DAILY Magnesium Oxide (Mag-Ox) 400 Mg Tab 400 MG PO DAILY, TAB Metformin HCl (Metformin HCl) 500 Mg Tab 1000 MG PO BID Nitroglycerin (Nitrostat) 0.4 Mg Sub 0.4 MG UT PRN, BTL Norcatur-3 Fatty Acids (Norcatur 3) 1 Cap Cap 1 CAPSULE PO BID Omeprazole (Prilosec) 20 Mg Cap 20 MG PO BID, CAP Oxycodone Ir (Roxicodone Ir) 5 Mg Tab 5 MG PO Q6H PRN for Severe Pain for 5 Days, #20 TAB Ranitidine (Zantac) 300 Mg Tab 300 MG PO HS, TAB Triamcinolone Acet (Aristocort 0.1%) 90 Appln/30 Gm Cr 1 APPLN TOP BID Valsartan (Diovan) 320 Mg Tab 320 MG PO DAILY, TAB Warfarin Sodium (Warfarin Sodium) 5 Mg Tab 5 MG PO DIRECTED, #60 Discontinued Medications: Diazepam (Diazepam) 5 Mg Tab 5 MG PO Q8 PRN for Muscle Spasms, #60 Oxycodone/Acetaminophen 7.5MG/325MG (Percocet 7.5MG/325MG) Tab 1 TAB PO Q6H PRN for Pain, TAB PRN PAIN Admission Information HPI (per Admitting provider): DATE OF ADMISSION: 09/09/2016 PRIMARY CARE PHYSICIAN: Dr. López. CHIEF COMPLAINT: Confusion as per records. HISTORY OF PRESENT ILLNESS: History is obtained from the patient, the patient's family and records. Patient is a fair historian despite episodic lethargy during examination. Medical history is significant for chronic back pain status post surgery on narcotics, ZULEIKA on CPAP, ongoing tobacco abuse, CAD sp stenting, HTN, AFib/aflutter on coumadin, DM2 insulin requiring, obesity, anxiety. History of MRSA. Recent confinement last month for orthostatic hypotension. As per records, patient underwent his 4th back surgery at [facility] by Dr. Zamorano last May 2016. Constant low back pain w/ radiation to the LLE since surgery. June of 2016, patient confined at [facility] for intactable back pain. An MRI at that time showed large posterior fluid collection abutting thecal sac, surrounding right facet joint, likely post-surgical. Seen by Orthopedics at that time. Impression was postop seroma, observation recommended. Patient was also seen by pain management at that time. Oxycodone for pain prescribed. Baclofen on a p.r.n. basis, tramadol to be discontinued. Patient had a followup with his surgeon last month at [facility]. Patient was told that the pain should get better w/time. Patient was prescribed Percocet 7.5/325 one tab to be taken every 6 hours as needed for pain and diazepam 1 tablet every 8 hours p.r.n. for spasm two weeks ago. Patient had a followup at PCP's office a few weeks ago, unsure about medications at home. Patient achy all over the last week. Worsening back pain w/ LLE radiation/numbness. No incontinence issues. No fever, no chills. Claims that he would just take maximum of 5 tablets of Percocet in a day for pain and Diazepam maximum of about 3 tablets at night to sleep. This afternoon, patient noted to be confused, drowsy, sleeping a lot by patient' s family. Blood sugar noted to be 60s. PX given glucose by EMS. Eight tablets remaining of 90 tabs Percocet, two tablets remaining of 60 tabs Diazepam (both issued last August 26, 2016) after px family went through pill bottles. Patient cannot recall if he was taking more than what he was told. At the Emergency Room service, some improvement of mentation noted after IV Narcan, MEDICAL HISTORY: As above. SURGERIES: Back surgery, cholecystectomy. HOME MEDICATIONS: Include aspirin, Xanax, Lipitor, Coreg, Celexa, diazepam, digoxin, Tricor, Combivent, NovoLog, Lantus, metformin, Nitrostat, omega-3, Prilosec, Percocet, Zantac, Aristocort, Diovan, Coumadin, aspirin, Lipitor, Coreg, Celexa, diazepam. ALLERGIES: TO NIACIN. FAMILY HISTORY: Heart disease. PERSONAL AND SOCIAL HISTORY: half pack daily. No chronic intake of alcoholic beverages. 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 REVIEW OF SYSTEMS: As per HPI, all others ROS negative. PHYSICAL EXAMINATION: VITAL SIGNS: Blood pressure was noted to be 118/80, pulse rate 80, RR 19, temperature 36.6, sats 95 on room air, later 97 on 4 liters. GENERAL: Noted to be lethargic, in no respiratory distress, obese. SKIN: Normal color. HEENT: Delta palpebral conjunctivae. Dry mucosa. NECK: Short neck. LUNGS: Decreased effort. Occasional wheeze. HEART: irregular. ABDOMEN: Some distention, nontender. EXTREMITIES: Healed scar on the back. Some low back tenderness. Limited straight leg raise, L>R. NEUROLOGIC: No gross focality except for lethargy and back exam. LABORATORY DATA: Hemoglobin was noted to be 14.7, hematocrit 40, white cells 10.7, platelets 213. Sodium 136, potassium 3.4, chloride 106, CO2 25, crea 1, glucose 66. TSH 1.07. INR was 5. BNP was normal. trop 0 UA normal. Urine tox, opiates and benzo positive. Hemoglobin A1c from June 2016 was 7.3. EKG as per my interpretation, rate 80, AFib, Q-waves in inferior leads, PRWP, some flattening in the lateral leads. IMAGING DATA: Chest x-ray: No overt edema. CT of the head, no acute pathology. Lumbar spine CT, L2-S1 posterior hardware appears intact, similar fluid collection described in prior MRI. ASSESSMENT: 1. Encephalopathy multifactorial : possible home narcotics/sedative misuse hypoglycemia 2. worsening of chronic back pain history of surgery. No sepsis. 3. Hypertension, stable. 4. DM2, insulin requiring reasonable control as of recent HgA1c px hypoglycemic at the ER 5. Atrial fibrillation, rate controlled. INR is supratherapeutic. 6. Ongoing tobacco abuse. 7. ZULEIKA on CPAP 8. hx MRSA 9. hypokalemia 2 to poor PO intake, home insulin PLAN: Observation GMF Hold home neuro psychotropics, narcotics, sedatives for sedation, confusion. Lidoderm patch trial. Limit home narcotic prescription upon discharge given the patient misuse tendencies. Orthopedics spine consult RE : worsening back pain. followup evaluation (Patient known to Dr. Soto.) May need Pain Management reconsult Hold basal insulin for now, resume basal insulin once hypoglycemia resolved ISS BG goal 140-180 replace K PT, OT eval. DVT prophylaxis, Coumadin INR 2-3. Full code. Hospital Course Metabolic Encephalopathy-cleared Likely secondary to overuse of Narcotics and Benzodiazepines Complicated by Hypoglycemia Hold home neuro psychotropics, narcotics, sedatives for sedation, confusion. Lidoderm patch trial. Limit home narcotic prescription upon discharge given the patient misuse tendencies. Clinically better this AM Decreased the dose of Narc and Benzo motivated to decrease the use of narcotics and Benzo at home Will continue with current medications as he has been getting in the hospital Worsening of chronic back pain History of Lumbar spinal surgery. No sepsis. CT of the Spine -no increase in fluid collection Appreciate Ortho input MRI advised to evaluate it further-decreased in collection of the Lumbar spinal fluid Discussed with Dr Soto No need to go for Surgery right away In fact the collection of fluid is better can go home as per PT Will go home today with home Physical therapy Hypertension, stable. DM2, insulin requiring Reasonable control as of recent HgA1c Hypoglycemic at the ER Hold basal insulin for now, resume basal insulin once hypoglycemia resolved ISS BG goal 140-180 Atrial fibrillation, rate controlled. INR is supra therapeutic. Hold Coumadin Will resume Coumadin Ongoing tobacco abuse Nicotine patch. ZULEIKA on CPAP DVT prophylaxis, Coumadin INR 2-3. Full code. Disposition Discharge today Total time spent on discharge = 35 minutes This includes examination of the patient, discharge planning, medication reconciliation, and communication with other providers. Discharge Instructions Date of Service Sep 13, 2016. Admission Reason for Admission: Encephalopathy Discharge Discharge Diagnosis / Problem: Metabolic Encephalopathy-resolved ,Acute on Chronic back pain Discharge Goals Goal(s): Prevent Disease Progression Activity Recommendations Activity Limitations: resume your previous activity . Instructions / Follow-Up Instructions / Follow-Up Please keep Appointment with Your PCP as scheduled.Please have Regular follow up with Coagulation clinic Current Hospital Diet Patient's current hospital diet: Diabetes Type 2 Diet, AHA Diet (Heart Healthy) Discharge Diet Recommended Diet: AHA Diet (Heart Healthy), Diabetes Type 2 Diet Pending Studies Studies pending at discharge: no Laboratory Results Hemoglobin A1c Test 07/12/16 05:30 Range/Units Estimated Average Glucose 163 mg/dl Hemoglobin A1c 7.3 H 4.5-5.6 % Medical Emergencies . Who to Call and When: Medical Emergencies: If at any time you feel your situation is an emergency, please call 911 immediately. . Non-Emergent Contact Non-Emergency issues call your: Primary Care Provider . Past History Medical & Surgical History: (1) Atrial fibrillation (2) Encephalopathy (3) Diabetes mellitus type II, uncontrolled (4) PAF (paroxysmal atrial fibrillation) (5) ZULEIKA on CPAP (6) Depression (7) HTN (hypertension) (8) Dyslipidemia (9) Previous back surgery (10) Hx of cholecystectomy (11) Stented coronary artery . "Provider Documentation" section prepared by Bradford Hauser. . VTE Core Measure Inpt VTE Proph given/why not?: Warfarin (Coumadin) <Electronically signed by Bradford Hauser M.D.> Signed: 09/13/16 0937 Additional Copies To Steven López M.D.
[2016-10-26] MEDS ORDERED: INSU100I23 SC (10:12)
[2016-10-26] MEDS ORDERED: CYM/30 PO (10:12)
[2016-11-29] MEDS ORDERED: GABA-113 PO (10:25)
[2016-11-29] MEDS ORDERED: NRN300 PEG (10:25)
== END 2016-09-13 12:54 | disposition home or self-care (01) ==
LOC: EDBD 18:06 → C.EDA 18:06 → C.MED 21:48 → ENRESERV 21:55
PROVIDERS: ADMIT Internal Medicine; ATTEND Internal Medicine
DX: G93.41 Metabolic encephalopathy (principal); I48.0 Paroxysmal atrial fibrillation; I25.10 Atherosclerotic heart disease of native coronary artery without angina pectoris; E78.5 Hyperlipidemia, unspecified; E11.9 Type 2 diabetes mellitus without complications; J44.9 Chronic obstructive pulmonary disease, unspecified; I10 Essential (primary) hypertension; G47.33 Obstructive sleep apnea (adult) (pediatric); F32.9 Major depressive disorder, single episode, unspecified; Z95.5 Presence of coronary angioplasty implant and graft; F17.210 Nicotine dependence, cigarettes, uncomplicated; Z79.82 Long term (current) use of aspirin; Z79.4 Long term (current) use of insulin; Z79.01 Long term (current) use of anticoagulants; Z79.899 Other long term (current) drug therapy; G89.29 Other chronic pain; M54.9 Dorsalgia, unspecified

== ENCOUNTER 2018-10-16 14:48 | Inpatient (IN) ==
--- OUTSIDE RECORDS SUMMARY | 2018-10-16 14:50 | External Medical Summary | Continuity of Care Document ---
:1955 Author Name Jeff Dunbar, Provider Address Unavailable Unavailable , Care Team Providers Name Role Phone [facility] Manjinder, Provider Unavailable [email or web address] Unavailable Unavailable Unavailable Unavailable Unavailable Problems DM (diabetes mellitus), type 2 (250.00) (E11.9) Neuritis (729.2) (M79.2) Hydronephrosis (591) (N13.30) Calculus of kidney (592.0) (N20.0) Dyslipidemia (272.4) (E78.5) H/O giardiasis (V12.09) (Z86.19) Headache (784.0) (R51) Anxiety (300.00) (F41.9) Chest pain (786.50) (R07.9) Dyspnea (786.09) (R06.00) Chest mass (786.6) (R22.2) Chronic reflux esophagitis (530.11) (K21.0) COPD (chronic obstructive pulmonary disease) (496) (J44.9) HTN (hypertension) (401.9) (I10) Sleep apnea (780.57) (G47.30) Allergies and Adverse Reactions Niacin TABS (Allergy) Medications Diovan 320 MG Oral Tablet; TAKE 1 TABLET DAILY. Start: 21-Nov-2014 Refills: 0 Diprolene 0.05 % LOTN; APPLY SPARINGLY TO AFFECTED AREA(S) O NCE DAILY Start: 21-Nov-2014 Refills: 0 Fish Oil 1200 MG Oral Capsule; TAKE DIRECTED. Start: 21-Nov-2014 Refills: 0 Aspirin EC 81 MG Oral Tablet Delayed Release; TAKE 1 TABLET DAILY. Start: 21-Nov-2014 Refills: 0 Amiodarone HCl - 400 MG Oral Tablet; 1/2 TAB DAILY. Start: 21-Nov-2014 Refills: 0 Chlorthalidone 25 MG Oral Tablet; TAKE 1/2 TABLET DAILY. Start: 21-Nov-2014 Refills: 0 Omeprazole 20 MG Oral Capsule Delayed Release; TAKE 1 CAPSUL E TWICE DAILY. Start: 21-Nov-2014 Quantity: 180 Refills: 3 Nitroglycerin 0.4 MG/SPRAY Translingual Solution; USE 1 SPRAY UNDER THE TONGUE NEEDED FOR CHEST PAIN. Start: 21-Nov-2014 Refills: 0 NovoLOG 100 UNIT/ML Subcutaneous Solutio n; 8 units with each meal and CF 1:25 over 150 Start: 21-Nov-2014 Refills: 0 Lantus SoloStar 100 UNIT/ML Subcutaneous Solution Pen-injector; Inject 50 units 2 times daily. Start: 21-Nov-2014 Refills: 0 Warfarin Sodium 7.5 MG Oral Tablet; Monday and Monday Start: 21-Nov-2014 Refills: 0 Warfarin Sodium 5 MG Oral Tablet; Monday through Monday Start: 21-Nov-2014 Refills: 0 Triamcinolone Acetonide 0.1 % External C ream; APPLY SPARINGLY AND MASSAGE IN TWICE DAILY. Start: 21-Nov-2014 Refills: 0 Tricor 48 MG Oral Tablet; TAKE 1 TABLET DAILY. Start: 21-Nov-2014 Refills: 0 raNITIdine HCl - 300 MG Oral Tablet; TAKE 1 TABLET DAILY AT BEDTIME. Start: 21-Nov-2014 Refills: 0 CeleXA 20 MG Oral Tablet; TAKE 1 TABLET DAILY DIRECTED. Start: 21-Nov-2014 Refills: 0 Xanax 0.5 MG Oral Tablet; TAKE 1 TABLET 3 TIMES DAILY NEE DED. Start: 21-Nov-2014 Refills: 0 Combivent Respimat 20-100 MCG/ACT Inhala tion Aerosol Solution; INHALE 1 PUFFS 4 times daily Start: 21-Nov-2014 Quantity: 3 4 GM Inhaler Refills: 3 Asmanex 60 Metered Doses 220 MCG/INH Inh alation Aerosol Powder Breath Activated; INHALE ONE PUFF BY MOUTH TWICE DAILY Start: 5 Refills: 4 metFORMIN HCl - 500 MG Oral Tablet Start : 21-Nov-2014 Refills: 0 Crestor 20 MG Oral Tablet Start: 2014 Refills: 0 Carvedilol 25 MG Oral Tablet Start: Refills: 0 Procedures History of Gallbladder Surgery Status: C ompleted History of Kidney Surgery Status: Comple alex History of Back Surgery Status: Complete d Immunizations Immunizations not documented Family History Unknown Family Member Family history of heart failure (V17.49) Status: Active Comments: Family History (Z82.49) Family history of asthma (V17.5) (Z82.5) Status: Active Comments: Family History Family history of Hay fever (477.9) (J30.1) Status: Active Comments: Family History Family history of hypertension (V17.49) Status: Active Comments: Family History (Z82.49) Family history of arthritis (V17.7) (Z82.61) Status: Active Comments: Family History Family history of diabetes mellitus (V18.0) Status: Active Comments: Family History (Z83.3) Family history of congestive heart failure Status: Active Comments: Family History (V17.49) (Z82.49) Family history of cerebrovascular accident Status: Active Comments: Family History (V17.1) (Z82.3) Father Family history of heart failure (V17.49) (Z82.49) Status: Ac tive Mother Family history of cerebrovascular accident (V17.1) (Z82.3) S tatus: Active Social History - Smoking Status Smoker. current status unknown Plan of Treatment Planned Observations Planned Goals not documented Results No Known Results Results not documented
[2018-10-16 15:48] LABS: Basophils # (auto) 0.05 K/uL (0-0.2); Basophils % (auto) 0.4 %; Eosinophils # (auto) 0.44 K/uL (0-0.5); Eosinophils % (auto) 3.9 %; Hematocrit (blood only) 42.5 % (42-52); Hemoglobin 14.3 g/dL (14.0-18.0); Immature Granulocytes # (auto) 0.04 K/uL (0.00-0.02); Immature Granulocytes % (auto) 0.4 %; Lymphocytes # (auto) 3.04 K/uL (1.2-3.4); Mean Corpuscular Hgb Conc 33.6 g/dL (32-36); Mean Corpuscular Volume 93.2 fL (80-100); Mean Platelet Volume 9.2 fL (7.4-10.4); Monocytes # (auto) 0.76 K/uL (0.11-0.59); Monocytes % (auto) 6.7 %; Neutrophils # (auto) 6.93 K/uL (1.4-6.5); Neutrophils % (auto) 61.6 %; Platelet Count 248 K/uL (130-400); RDW Coefficient of Variation 14.9 % (11.5-14.5); RDW Standard Deviation 50.4 fL (36.4-46.3); Red Blood Count 4.56 M/uL (4.7-6.1); White Blood Count 11.26 K/uL (4.8-10.8)
[2018-10-16 15:53] LABS: Alanine Aminotransferase 30 U/L (12-78); Albumin Level 3.6 gm/dl (3.4-5.0); Aspartate Aminotransferase 28 U/L (15-37); BUN Creatinine Ratio 12.7 (10-20); Blood Urea Nitrogen 13 mg/dl (7-18); Calcium 8.6 mg/dl (8.5-10.1); Carbon Dioxide 24 mmol/L (21-32); Chloride 105 mmol/L (98-107); Creatinine Clr Calc Pharmacy 110.5 ml/min; Est GFR (African American) 95.4; Est GFR (Non-African American) 82.3; Glucose 168 mg/dl (70-99); INR 3.6 (0.9-1.1); Magnesium 1.8 mg/dl (1.8-2.4); Partial Thromboplastin Ratio 1.5; Partial Thromboplastin Time 40.8 Seconds (21.0-31.0); Potassium 3.8 mmol/L (3.5-5.1); Prothrombin Time 33.7 Seconds (9.0-12.0); Sodium 138 mmol/L (136-145)
--- NOTE | 2018-10-16 15:54 | CT Scan Report ---
CT head/brain wo con CLINICAL HISTORY: Right arm weakness. Suspected stroke. COMPARISON STUDY: 09/09/2016 TECHNIQUE: Axial CT of the brain is performed from the vertex to the skull base. IV contrast was not administered for this examination. A dose lowering technique was utilized adhering to the principles of ALARA. CT DOSE: 884.08 mGy.cm FINDINGS: No intra or extra-axial mass lesions are visualized. There is no CT evidence of acute cortical infarc tion. There is no evidence of midline shift. There is no acute hemorrhage. No calvarial fractures ar e visualized. There are patchy white matter hypodensities likely on a small vessel basis. Again evident is a lacuna r infarct within the posterior limb of the left internal capsule. There is also a lacunar infarct wit hin the deep white matter near the right frontoparietal vertex. There is no evidence of pathologic ventricular dilatation. There is no evidence of acute sinusitis IMPRESSION: No acute intracranial findings Electronically signed by: Valerio Fitch M.D. 10/16/2018 3:53 PM
[2018-10-16] MEDS ORDERED: ASPIRIN CHEW 324 MG PO STA (16:01)
[2018-10-16 16:07] LABS: Alkaline Phosphatase 66 U/L (45-117); Bilirubin,Total 0.3 mg/dl (0.2-1); Globulin 3.7 gm/dl (2.5-4.0); Total Protein 7.3 gm/dl (6.4-8.2); Troponin I < 0.015 ng/ml (0-0.045)
[2018-10-16] MEDS ORDERED: LORazepam 1 MG/2 ML VIAL IV PRN (16:39)
--- NOTE | 2018-10-16 17:02 | History & Physical Report ---
Date of Service October 16, 2018 Assessment & Plan (1) Right sided weakness: (2) Facial droop: -Admit to telemetry -Patient presenting from home with reports of right arm and leg weakness, facial droop, instability; symptoms began yesterday -In the ED, head CT negative for acute findings -Noted history of paroxysmal atrial fibrillation, anticoagulated on Coumadin with INR 3.6 -Risk factors: Smoker, obesity, uncontrolled diabetes, hypertension -Carotid duplex from 05/2018: <50% stenosis right internal carotid artery, 50 to 69% stenosis of left internal carotid artery -Brain MRI (if patient is able to tolerate, reports claustrophobia -premed ordered) -CTA neck -Echo -Continue aspirin, statin, fenofibrate, fish oil -Neuro consult, input appreciated (3) Diastolic dysfunction: -Appears euvolemic, does not utilize routine diuretics (4) COPD (chronic obstructive pulmonary disease): -No signs of acute exacerbation -Does not use routine inhalers (5) HTN (hypertension): -BP mildly elevated, allowing for permissive hypertension in the setting of possible acute CVA -Continue carvedilol and losartan with holding parameters in place to allow for permissive hypertension (6) PAF (paroxysmal atrial fibrillation): -Currently in atrial fibrillation, heart rates intermittently elevated -Continue carvedilol for rate control -Anticoagulated on Coumadin, INR 3.6 -hold Coumadin tonight (7) CAD (coronary artery disease): -Appears stable, no reports of chest pain -Continue aspirin, statin, beta-augustin,fenofibrate, fish oil (8) Diabetes mellitus type II, uncontrolled: -HgbA1c 9.2 05/2018 -Hold oral agents and Victoza; utilize NovoLog and Lantus per protocol while hospitalized (9) GERD (gastroesophageal reflux disease): -Continue PPI and H2 augustin (10) Depression: -Continue duloxetine (11) DVT prophylaxis: -Anticoagulated on Coumadin, INR 3.6 History of Present Illness Chief Complaint: Right arm and right leg weakness, facial droop Primary Care Provider: Steven López MD 63-year-old male who presents to the ED with right arm and leg weakness and facial droop. Patient reports that when he woke up yesterday morning he noted his right arm was numb and weak. Patient reports he felt as though maybe he slept on it wrong. Symptoms persisted throughout the day. This morning, when he woke up he noted that the right arm numbness and weakness was worse and he also had similar symptoms in his right leg. He is noted being off balance the past couple of days. He went to his PCP for evaluation today who also noted a facial droop. Patient was sent to the ED for further evaluation. Patient denies chest pain or shortness of breath. No lightheadedness, dizziness, diaphoresis, syncopal events. No abdominal pain, nausea, vomiting, diarrhea. He denies any urinary symptoms. No fevers or chills. Patient has chronic back pain which is unchanged from baseline. In the ED, head CT is negative for acute findings. Labs show INR 3.6 (patient is anticoagulated on Coumadin for history of paroxysmal atrial fibrillation). Patient was given a full dose aspirin. Allergies Allergy/AdvReac Type Severity Reaction Status Date / Time niacin AdvReac Unknown sweats and Verified 02/07/17 10:49 joint pain Home Medications Home Medications Medication Instructions Recorded Confirmed Type fenofibrate nanocrystallized 48 mg PO DAILY #0 tab 02/25/13 10/16/18 History [Tricor] nitroglycerin [Nitrostat] 0.4 mg SUBLINGUAL USEASDIRECTD PRN 02/25/13 10/16/18 History #0 btl omeprazole 20 mg PO BID #0 cap 02/25/13 10/16/18 History ranitidine HCl [Zantac] 300 mg PO HS #0 tab 02/25/13 10/16/18 History carvedilol [Coreg] 25 mg PO BID #0 tab 11/19/13 10/16/18 History metformin 500 mg PO BID #0 11/07/15 10/16/18 History atorvastatin [Lipitor] 80 mg PO DAILY #0 tab 06/26/16 10/16/18 History digoxin 125 mcg PO DAILY #0 06/26/16 10/16/18 History insulin aspart U-100 [Novolog 32 unit SUBCUT TIDM #0 06/26/16 10/16/18 History U-100 Insulin aspart] magnesium oxide 400 mg PO DAILY #0 tab 06/26/16 10/16/18 History warfarin [Coumadin] 7.5 mg PO DAILY #60 09/09/16 10/16/18 History insulin glargine [Basaglar KwikPen 36 unit SUBCUT BID #0 10/26/16 10/16/18 History U-100 Insulin] aspirin 81 mg PO DAILY 10/16/18 10/16/18 History duloxetine 60 mg PO DAILY 10/16/18 10/16/18 History liraglutide [Victoza 3-Alphonso] 1.8 mg SUBCUT DAILY 10/16/18 10/16/18 History losartan 100 mg PO DAILY 10/16/18 10/16/18 History omega-3 fatty acids-fish oil 1 cap PO BID 10/16/18 10/16/18 History oxybutynin chloride 5 mg PO DAILY 10/16/18 10/16/18 History Past Med/Surg History Medical History Diastolic dysfunction (Chronic) Diabetes mellitus type II, uncontrolled (Chronic) CAD (coronary artery disease) (Chronic) s/p TREVER to RCA and LAD PAF (paroxysmal atrial fibrillation) (Chronic) ZULEIKA on CPAP (Chronic) Depression (Chronic) GERD (gastroesophageal reflux disease) (Chronic) HTN (hypertension) (Chronic) Dyslipidemia (Chronic) COPD (chronic obstructive pulmonary disease) (Chronic) Tobacco abuse (Chronic) Surgical History Previous back surgery (Resolved) Hx of cholecystectomy (Resolved) Family History Other Diabetes Heart disease Social History Preferred Language: Kosovan Communication Ability: Effective Malted Milk Mixer Required: No Beliefs That Will Affect Care: None Current Living Situation: Alone Other Information That Helps Us Care for You: No Feels Safe at Home: Yes Safety Concerns: Feels Safe At This Time Smoking Status: Current every day smoker Tobacco Type: cigarettes Cigarettes Per Day: 1/2 PPD Do You Dip or Chew Tobacco: No Tobacco Cessation Education Requested by Patient: Yes Hx Alcohol Use: No Hx Substance Use: No Review of Systems Review of Systems: ROS per HPI, all other systems reviewed and negative Physical Exam Constitutional: WD/WN, vitals as above + obese Eyes: PERRL, conjunctivae normal, anicteric sclerae ENMT: external ear and nose normal, oropharynx normal Respiratory: normal respiratory effort; no respiratory distress Auscultation: + diminished lung sounds Cardiovascular: Rate/Rhythm: regular rate and + irregularly irregular Vessels: normal peripheral pulses Extremities: no edema Gastrointestinal (Abdomen): normal bowel sounds, soft, nontender, no hepatosplenomegaly Musculoskeletal: Extremities: strength 5/5 throughout (Right arm and right leg weakness); no cyanosis and no clubbing Skin: no rashes, warm and dry Neurologic: + focal motor deficit (Right upper extremity strength 3/5, right lower extremity strength 3-4/5; left upper and left lower extremities strength 5/5) Speech / Cognition: normal speech Motor/Sensory: + pronator drift (Right upper extremity) Cranial Nerves: PERRL, normal accommodation, EOM intact bilaterally and tongue midline; + abnormal facial strength (Right facial droop noted) Coordination: + abnormal rlogkm-[id number] test (Difficulty performing test with right upper extrema) and + abnormal [id number]-[id number] test (Difficulty performing test with right lower extremity) Psychiatric: A+Ox3, euthymic affect Results & Data Vital Signs (Past 12 Hours) Vital Signs Temp Pulse Resp BP Pulse Ox 10/16/18 15:32 97 10/16/18 14:50 36.7 C 113 H 18 163/96 H 95 Laboratory Results Short CBC 10/16/18 Range/Units 15:16 WBC 11.26 H (4.8-10.8) K/uL Hgb 14.3 (14.0-18.0) g/dL Hct 42.5 (42-52) % Plt Count 248 (130-400) K/uL BMP 10/16/18 15:16 Sodium 138 Potassium 3.8 Chloride 105 Carbon Dioxide 24 BUN 13 Creatinine 0.98 Glucose 168 H Calcium 8.6 Cardiac Enzymes 10/16/18 Range/Units 15:16 Troponin I < 0.015 (0-0.045) ng/ml Liver Function 10/16/18 Range/Units 15:16 Total Bilirubin 0.3 (0.2-1) mg/dl AST 28 (15-37) U/L ALT 30 (12-78) U/L Alkaline Phosphatase 66 (45-117) U/L Albumin 3.6 (3.4-5.0) gm/dl Diagnostic Findings HEAD CT IMPRESSION: No acute intracranial findings Supervising Physician Co-Signing Physician Notes I have seen and examined the patient with nurse practitioner and agree with the assessment and plan as documented by nurse practitioner and would like to comment that Patient has right sided weakness and facial droop which are highly suspicious of stroke. Since symptoms began 1 day ago and patient on coumadin anticoagulation, the patient is not a candidate for thrombolytics. on exam patient has right sided weakness that is more pronounced on the right upper extremity than the right lower extremity. he has some dsymetria of the right upper extremity. still with facial droop and monitored on telemetry reddy. heart rhythm in atrial fibrillation. lungs are clear to auscultation Neck CTA shows evidence of carotid and vertebral atery stenosis 1. 50% stenosis in the proximal right internal carotid artery 2. Extensive calcific plaque at the level of the left carotid bulb. There is an estimated 80+ percent stenosis of the left internal carotid origin. 3. 50% stenosis of the proximal right vertebral artery, 3 cm distal to its origin will continue home dose atorvastatin 80 mg daily at this time. patient already got high dose aspirin on 10/16/18 - continue as home dose aspirin 81 mg daily. warfarin held today as INR is 3.6. 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
[2018-10-16] MEDS ORDERED: OPTIRAY 320 125ml IV PRN (17:53)
[2018-10-16] MEDS ORDERED: GLUCOSE 40% GEL 15 GM TUBE PO PRN (18:03)
[2018-10-16] MEDS ORDERED: ACETAMINOPHEN 325 MG TAB PO PRN (18:03)
[2018-10-16] MEDS ORDERED: CARBOHYDRATES FOR HYPOGLYCEMIA PO PRN (18:03)
[2018-10-16] MEDS ORDERED: PHARMACIST DISCHARGE MED REC CONSULT PRN (18:03)
[2018-10-16] MEDS ORDERED: GLUCOSE 10 TABS/TUBE PO PRN (18:03)
[2018-10-16] MEDS ORDERED: GLUCAGON FOR INJ 1 MG VIAL SQ PRN (18:03)
[2018-10-16] MEDS ORDERED: DEXTROSE 50% 50 ML SYRINGE IV PRN (18:03)
--- NOTE | 2018-10-16 18:12 | CT Scan Report ---
CT angio neck with con CLINICAL HISTORY: CVA, hx carotid stenosis COMPARISON STUDY: No previous studies for comparison. TECHNIQUE: CT angiography was performed from the aortic arch to the skull base. MIP imaging was perfo rmed. The patient was scanned in a dynamic helical fashion during intravenous administration of 118 c c of Optiray 320. A dose lowering technique was utilized adhering to the principles of ALARA. CT DOSE: 881.40 mGy.cm Technique: CT angiogram of the carotid and vertebral arteries was obtained using intravenous contrast and 3-D reconstruction. NASCET criteria was utilized. Findings: Visualized mediastinal lymph nodes are the upper limits of normal in size. There is calcific plaque at the origin of the right internal carotid artery, and there is a 50% steno sis of the proximal right internal carotid artery. There is no evidence of dissection There is calcific plaque at the level of the left carotid bulb. Extensive plaque makes measuring the luminal diameter difficult. There is an estimated greater than 80% stenosis of the left internal riggs tid artery. There is no evidence of dissection. There is a dominant right vertebral artery. There is a 50% stenosis of the proximal right vertebral a rtery, 3 cm distal to its origin. IMPRESSION: 1. 50% stenosis in the proximal right internal carotid artery 2. Extensive calcific plaque at the level of the left carotid bulb. There is an estimated 80+ percent stenosis of the left internal carotid origin. 3. 50% stenosis of the proximal right vertebral artery, 3 cm distal to its origin Electronically signed by: Valerio Fitch M.D. 10/16/2018 6:10 PM
--- NOTE | 2018-10-16 19:23 | Emergency Department Note ---
Entered by Janelle Weiner acting as a scribe for Doug Santoyo History of Present Illness General Chief complaint: Stroke/CVA Symptoms Stated complaint: REFERRED FOR STROKE-LIKE SX Time Seen by Provider: 10/16/18 15:07 Source: patient Limitations: no limitations History of Present Illness Provider complaint: Stroke Onset (ago): day(s) 1 Location: left and right Maximum Pain Intensity: 4 Associated symptoms: + other (+trouble holding things); no chest pain and no he adaches Treatments prior to arrival: other (+Coumadin) The patient is a 63 year old male who presents to the Emergency Room with complaints of stroke-like symptoms that began 1 day prior to arrival. The patient states that he woke up yesterday morning and states that his arm felt weak. The patient states that he could grab things but states that he could not hold on to them. The patient denies any headaches or chest pain. The patient states that he is on Coumadin but denies knowing his last INR level. Home Medications Home Medications Medication Instructions Recorded Confirmed Type fenofibrate nanocrystallized 48 mg PO DAILY #0 tab 02/25/13 10/16/18 History [Tricor] nitroglycerin [Nitrostat] 0.4 mg SUBLINGUAL USEASDIRECTD PRN 02/25/13 10/16/18 History #0 btl omeprazole 20 mg PO BID #0 cap 02/25/13 10/16/18 History ranitidine HCl [Zantac] 300 mg PO HS #0 tab 02/25/13 10/16/18 History carvedilol [Coreg] 25 mg PO BID #0 tab 11/19/13 10/16/18 History metformin 500 mg PO BID #0 11/07/15 10/16/18 History atorvastatin [Lipitor] 80 mg PO DAILY #0 tab 06/26/16 10/16/18 History digoxin 125 mcg PO DAILY #0 06/26/16 10/16/18 History insulin aspart U-100 [Novolog 32 unit SUBCUT TIDM #0 06/26/16 10/16/18 History U-100 Insulin aspart] magnesium oxide 400 mg PO DAILY #0 tab 06/26/16 10/16/18 History warfarin [Coumadin] 7.5 mg PO DAILY #60 09/09/16 10/16/18 History insulin glargine [Basaglar KwikPen 36 unit SUBCUT BID #0 10/26/16 10/16/18 History U-100 Insulin] aspirin 81 mg PO DAILY 10/16/18 10/16/18 History duloxetine 60 mg PO DAILY 10/16/18 10/16/18 History liraglutide [Victoza 3-Alphonso] 1.8 mg SUBCUT DAILY 10/16/18 10/16/18 History losartan 100 mg PO DAILY 10/16/18 10/16/18 History omega-3 fatty acids-fish oil 1 cap PO BID 10/16/18 10/16/18 History oxybutynin chloride 5 mg PO DAILY 10/16/18 10/16/18 History Allergies Allergy/AdvReac Type Severity Reaction Status Date / Time niacin AdvReac Unknown sweats and Verified 02/07/17 10:49 joint pain Past Med/Surg History Medical History Diastolic dysfunction (Chronic) Diabetes mellitus type II, uncontrolled (Chronic) CAD (coronary artery disease) (Chronic) s/p TREVER to RCA and LAD PAF (paroxysmal atrial fibrillation) (Chronic) ZULEIKA on CPAP (Chronic) Depression (Chronic) GERD (gastroesophageal reflux disease) (Chronic) HTN (hypertension) (Chronic) Dyslipidemia (Chronic) COPD (chronic obstructive pulmonary disease) (Chronic) Tobacco abuse (Chronic) Surgical History Previous back surgery (Resolved) Hx of cholecystectomy (Resolved) Family History Other Diabetes Heart disease Social History Preferred Language: Martiniquais Communication Ability: Effective Herbarium Worker Required: No Beliefs That Will Affect Care: None Current Living Situation: Alone Other Information That Helps Us Care for You: No Feels Safe at Home: Yes Safety Concerns: Feels Safe At This Time Smoking Status: Current every day smoker Tobacco Type: cigarettes Cigarettes P er Day: 1/2 PPD Do You Dip or Chew Tobacco: No Tobacco Cessation Education Requested by Patient: Yes Hx Alcohol Use: No Hx Substance Use: No Review of Systems See HPI for pertinent positives & negatives. and A total of 10 systems reviewed and were otherwise negative Physical Exam Vital Signs Vital Signs - 24 hr 10/16/18 14:50 10/16/18 15:16 10/16/18 15:18 Temperature 36.7 C Temperature Source Oral Sepsis Recent Fever Within 48 Hours No Sepsis New/Unexplained Change in Mental Status No Sepsis Action Taken by Nursing No Action Required Pulse Rate 113 H 106 H 100 H Respiratory Rate 18 21 16 Blood Pressure 163/96 H 171/108 H Blood Pressure Mean 118 129 Pulse Oximetry 95 Oxygen Delivery Method Room Air 10/16/18 15:32 10/16/18 16:00 10/16/18 16:16 Temperature Temperature Source Sepsis Recent Fever Within 48 Hours Sepsis New/Unexplained Change in Mental Status Sepsis Action Taken by Nursing Pulse Rate 98 H 92 H Respiratory Rate 29 H 16 Blood Pressure 142/80 H Blood Pressure Mean 100 Pulse Oximetry 97 Oxygen Delivery Method Room Air Physical Exam GENERAL: He is oriented to person, place, and time. He appears well-developed and well-nourished. HENT: Exam performed. - Head: Normocephalic and atraumatic. - Right Ear: External ear normal. No mastoid tenderness. - Left Ear: External ear normal. No mastoid tenderness. - Mouth/Throat: The oropharynx is clear and moist. No trismus in the jaw. No dental abscesses or uvula swelling. No oropharyngeal exudate or tonsillar abscesses. EYES: Conjunctivae and EOM are normal. Pupils are equal, round, and reactive to light. Right eye exhibits no discharge. Left eye exhibits no discharge. No scleral icterus. NECK: Normal range of motion. Neck supple. No JVD present. No spinous process tenderness present. No carotid bruit present. No rigidity. No tracheal deviation and normal range of motion present. No Brudzinski's sign and no Kernig's sign noted. CV: Tachycardic rate, irregular rhythm, normal heart sounds and intact distal pulses. There is no peripheral edema. Palpable radial pulses bue. PULM/CHEST: Effort normal and breath sounds normal. No respiratory distress. No stridor. He has no wheezes. He has no rales. - Chest Wall: He exhibits no tenderness. ABD: The abdomen is soft. Bowel sounds are normal. He has no distension. No mass is present. There is no tenderness. There is no rebound, no guarding, no Glaser's sign and no tenderness at McBurney's point. Rovsig negative MUSC/SKEL:There is no peripheral edema, tenderness or deformity. LYMPH: No cervical adenopathy. NEURO: NIH stroke scale of 4: Left-sided facial paralysis-1, Right arm motor-1, Ataxia-1, Dysarthria-1. SKIN: Skin is warm and dry. He is not diaphoretic. PSYCH: He has a normal mood and affect. His behavior is normal. Judgment and thought content normal. Course 1508: The patient was evaluated in room B12A, and a complete history and physical examination were performed. The patient was immediately evaluated upon arrival and stroke was very high on the differential list. There was no code stroke called at this time since patient is not a TPA candidate given that the patient's symptoms began yesterday and is on Coumadin. 1550: I checked on the patient and updated him on his results. The patient's vital signs are stable and the patient's CT shows no large intercranial bleed. The patient has a therapeutic INR of 3.6. The patient is not a TPA candidate given the onset of his symptoms and his INR level. The patient will be admitted to hospital services for stroke. The patient was given Aspirin in the ED. 1558: I discussed the patient's case with DVAID Lan who will admit the patient to Dr. [facility]. Consultations Consultation #1: DAVID Lanist admitting to Dr. Rodo [facility]. Time: 15:58 Administered Medications Ioversol (Optiray 320 125ml) 118 ml IV ONCE PRN PRN Reason: Interaction Checking Stop: 10/20/18 17:52 Last Admin: 10/16/18 17:53 Dose: 118 ml Documented by: [id number] Discontinued Medications Aspirin (Aspirin) 324 mg PO NOW STA Stop: 10/16/18 16:02 Last Admin: 10/16/18 16:39 Dose: 324 mg Documented by: [id number] Medical Decision Making Medical Records Attestation: I reviewed the patient's medical records. Home Medications Current Medication List: was personally reviewed by me Laboratory Data Attestation: I reviewed the patient's lab results. Result diagrams: 10/16/18 15:16 10/16/18 15:16 Lab Results 10/16/18 10/16/18 10/16/18 Range/Units 15:16 15:16 15:16 WBC 11.26 H (4.8-10.8) K/uL RBC 4.56 L (4.7-6.1) M/uL Hgb 14.3 (14.0-18.0) g/dL Hct 42.5 (42-52) % MCV 93.2 (80-100) fL MCH 31.4 (25-34) pg MCHC 33.6 (32-36) g/dL RDW Std Deviation 50.4 H (36.4-46.3) fL RDW Coeff of Aba 14.9 H (11.5-14.5) % Plt Count 248 (130-400) K/uL MPV 9.2 (7.4-10.4) fL Immature Gran % (Auto) 0.4 % Neut % (Auto) 61.6 % Lymph % (Auto) 27.0 % [place] % (Auto) 6.7 % Eos % (Auto) 3.9 % Baso % (Auto) 0.4 % Immature Gran # (Auto) 0.04 H (0.00-0.02) K/uL Neut # (Auto) 6.93 H (1.4-6.5) K/uL Lymph # (Auto) 3.04 (1.2-3.4) K/uL [place] # (Auto) 0.76 H (0.11-0.59) K/uL Eos # (Auto) 0.44 (0-0.5) K/uL Baso # (Auto) 0.05 (0-0.2) K/uL PT 33.7 H (9.0-12.0) Seconds INR 3.6 H (0.9-1.1) APTT 40.8 H (21.0-31.0) Seconds PTT Ratio 1.5 Sodium 138 (136-145) mmol/L Potassium 3.8 (3.5-5.1) mmol/L Chloride 105 (98-107) mmol/L Carbon Dioxide 24 (21-32) mmol/L Anion Gap 9.0 (3-11) BUN 13 (7-18) mg/dl Creatinine 0.98 (0.6-1.4) mg/dl Est Cr Clr Drug Dosing 110.5 ml/min Est GFR ( Amer) 95.4 Est GFR (Non-Af Amer) 82.3 BUN/Creatinine Ratio 12.7 (10-20) Glucose 168 H (70-99) mg/dl POC Glucose (70-99) Calcium 8.6 (8.5-10.1) mg/dl Magnesium 1.8 (1.8-2.4) mg/dl Total Bilirubin 0.3 (0.2-1) mg/dl AST 28 (15-37) U/L ALT 30 (12-78) U/L Alkaline Phosphatase 66 (45-117) U/L Troponin I < 0.015 (0-0.045) ng/ml Total Protein 7.3 (6.4-8.2) gm/dl Albumin 3.6 (3.4-5.0) gm/dl Globulin 3.7 (2.5-4.0) gm/dl Albumin/Globulin Ratio 1.0 (0.9-2) Specimen Hemolysis Blood Type Antibody Screen 10/16/18 10/16/18 Range/Units 15:16 15:31 WBC (4.8-10.8) K/uL RBC (4.7-6.1) M/uL Hgb (14.0-18.0) g/dL Hct (42-52) % MCV (80-100) fL MCH (25-34) pg MCHC (32-36) g/dL RDW Std Deviation (36.4-46.3) fL RDW Coeff of Aba (11.5-14.5) % Plt Count (130-400) K/uL MPV (7.4-10.4) fL Immature Gran % (Auto) % Neut % (Auto) % Lymph % (Auto) % [place] % (Auto) % Eos % (Auto) % Baso % (Auto) % Immature Gran # (Auto) (0.00-0.02) K/uL Neut # (Auto) (1.4-6.5) K/uL Lymph # (Auto) (1.2-3.4) K/uL [place] # (Auto) (0.11-0.59) K/uL Eos # (Auto) (0-0.5) K/uL Baso # (Auto) (0-0.2) K/uL PT (9.0-12.0) Seconds INR (0.9-1.1) APTT (21.0-31.0) Seconds PTT Ratio Sodium (136-145) mmol/L Potassium (3.5-5.1) mmol/L Chloride (98-107) mmol/L Carbon Dioxide (21-32) mmol/L Anion Gap (3-11) BUN (7-18) mg/dl Creatinine (0.6-1.4) mg/dl Est Cr Clr Drug Dosing ml/min Est GFR ( Amer) Est GFR (Non-Af Amer) BUN/Creatinine Ratio (10-20) Glucose (70-99) mg/dl POC Glucose 168 H (70-99) Calcium (8.5-10.1) mg/dl Magnesium (1.8-2.4) mg/dl Total Bilirubin (0.2-1) mg/dl AST (15-37) U/L ALT (12-78) U/L Alkaline Phosphatase (45-117) U/L Troponin I (0-0.045) ng/ml Total Protein (6.4-8.2) gm/dl Albumin (3.4-5.0) gm/dl Globulin (2.5-4.0) gm/dl Albumin/Globulin Ratio (0.9-2) Specimen Hemolysis Blood Type A Positive Antibody Screen NEGATIVE Imaging Data Radiologist's Impression: Radiology results as stated below per my review and the radiologist's interpretation: CT head/brain wo con CLINICAL HISTORY: Right arm weakness. Suspected stroke. COMPARISON STUDY: 09/09/2016 TECHNIQUE: Axial CT of the brain is performed from the vertex to the skull base. IV contrast was not administered for this examination. A dose lowering technique was utilized adhering to the principles of ALARA. CT DOSE: 884.08 mGy.cm FINDINGS: No intra or extra-axial mass lesions are visualized. There is no CT evidence of acute cortical infarction. There is no evidence of midline shift. There is no acute hemorrhage. No calvarial fractures are visualized. There are patchy white matter hypodensities likely on a small vessel basis. Again evident is a lacunar infarct within the posterior limb of the left internal capsule. There is also a lacunar infarct within the deep white matter near the right frontoparietal vertex. There is no evidence of pathologic ventricular dilatation. There is no evidence of acute sinusitis IMPRESSION: No acute intracranial findings Electronically signed by: Valerio Fitch M.D. 10/16/2018 3:[address] angio neck with con CLINICAL HISTORY: CVA, hx carotid stenosis COMPARISON STUDY: No previous studies for comparison. TECHNIQUE: CT angiography was performed from the aortic arch to the skull base. MIP imaging was performed. The patient was scanned in a dynamic helical fashion during intravenous administration of 118 cc of Optiray 320. A dose lowering technique was utilized adhering to the principles of ALARA. CT DOSE: 881.40 mGy.cm Technique: CT angiogram of the carotid and vertebral arteries was obtained using intravenous contrast and 3-D reconstruction. NASCET criteria was utilized. Findings: Visualized mediastinal lymph nodes are the upper limits of normal in size. There is calcific plaque at the origin of the right internal carotid artery, and there is a 50% stenosis of the proximal right internal carotid artery. There is no evidence of dissection There is calcific plaque at the level of the left carotid bulb. Extensive plaque makes measuring the luminal diameter difficult. There is an estimated greater than 80% stenosis of the left internal carotid artery. There is no evidence of dissection. There is a dominant right vertebral artery. There is a 50% stenosis of the proximal right vertebral artery, 3 cm distal to its origin. IMPRESSION: 1. 50% stenosis in the proximal right internal carotid artery 2. Extensive calcific plaque at the level of the left carotid bulb. There is an estimated 80+ percent stenosis of the left internal carotid origin. 3. 50% stenosis of the proximal right vertebral artery, 3 cm distal to its origin Electronically signed by: Valerio Fitch M.D. 10/16/2018 6:10 PM ECG Data Attestation: I personally reviewed and interpreted this ECG as follows: Indication: other (+stroke-like symptoms) Rate (beats per minute): 101 Rhythm: atrial fibrillation Findings: + other (+QRS and QTC intervals within normal limits) and + PVC; no ST depression and no ST elevation Blood Pressure Blood Pressure Findings: Elevated blood pressure Blood Pressure Disposition: further management by hospitalist SUSANNE Narrative 1508: The patient was evaluated in room B12A, and a complete history and physical examination were performed. The patient was immediately evaluated upon arrival and stroke was very high on the differential list. There was no code stroke called at this time since patient is not a TPA candidate given that the patient's symptoms began yesterday and is on Coumadin. 1550: I checked on the patient and updated him on his results. The patient's vital signs are stable and the patient's CT shows no large intercranial bleed. The patient has a therapeutic INR of 3.6. The patient is not a TPA candidate given the onset of his symptoms and his INR level. The patient will be admitted to hospital services for stroke. The patient was given Aspirin in the ED. 1558: I discussed the patient's case with DAVID Lan Hospitalist who will admit the patient to Dr. [facility]. Impression & Plan Stroke Discharge Plan Visit Data *Final* Discharge Date/Time: 10/16/18 17:26 Chief Complaint: Stroke/CVA Symptoms Stated Complaint: REFERRED FOR STROKE-LIKE SX ED Provider: Doug Santoyo Discharge Problem: Stroke Patient Disposition: Admitted As Inpatient Discharge Instructions Interventions: ED Discharge Assessment Last Done: 10/16/18 17:26 Discharge Problem: Stroke Qualifiers: CVA mechanism: unspecified Qualified Code(s): I63.9 - Cerebral infarction, unspecified The scribe's documentation has been prepared under my direction and personally reviewed by me in its entirety. I confirm that the note above accurately reflects all work, treatment, procedures, and medical decision making performed by me.
[2018-10-16] MEDS: CARVEDILOL 25 MG TAB PO SCH (19:41)
[2018-10-16] MEDS: OMEGA-3 (PURIFIED FISH OIL) 1 GM CAP PO SCH (19:41)
[2018-10-16] MEDS: PANTOprazole 40 MG TAB PO SCH (19:41)
[2018-10-16] MEDS: INSULIN GLARGINE SOLOSTAR 100 UNITS/ML 3 ML PEN SC SCH (19:41)
[2018-10-16] MEDS: INSULIN ASPART 100 UNITS/ML 3 ML PEN SC SCH (19:44)
[2018-10-17 05:58] LABS: Estimated Average Glucose 206 mg/dl
[2018-10-17 06:37] LABS: Basophils # (auto) 0.07 K/uL (0-0.2); Basophils % (auto) 0.8 %; Eosinophils # (auto) 0.56 K/uL (0-0.5); Eosinophils % (auto) 6.3 %; Hematocrit (blood only) 41.6 % (42-52); Hemoglobin 13.8 g/dL (14.0-18.0); Immature Granulocytes # (auto) 0.01 K/uL (0.00-0.02); Immature Granulocytes % (auto) 0.1 %; Lymphocytes # (auto) 2.56 K/uL (1.2-3.4); Lymphocytes % (auto) 28.6 %; Mean Corpuscular Hgb Conc 33.2 g/dL (32-36); Mean Corpuscular Volume 93.5 fL (80-100); Mean Platelet Volume 9.1 fL (7.4-10.4); Monocytes % (auto) 8.9 %; Neutrophils # (auto) 4.94 K/uL (1.4-6.5); Neutrophils % (auto) 55.3 %; Platelet Count 218 K/uL (130-400); RDW Coefficient of Variation 14.8 % (11.5-14.5); RDW Standard Deviation 50.1 fL (36.4-46.3); Red Blood Count 4.45 M/uL (4.7-6.1); White Blood Count 8.94 K/uL (4.8-10.8)
[2018-10-17 06:43] LABS: INR 2.4 (0.9-1.1)
[2018-10-17 07:14] LABS: BUN Creatinine Ratio 13.7 (10-20); Calcium 8.4 mg/dl (8.5-10.1); Creatinine Clr Calc Pharmacy 119.1 ml/min; Est GFR (African American) 105.7; Est GFR (Non-African American) 91.2; Potassium 3.8 mmol/L (3.5-5.1)
[2018-10-17] MEDS ORDERED: GADOBUTROL 65ML VIAL IV PRN (08:15)
--- NOTE | 2018-10-17 08:33 | Magnetic Resonance Report ---
Brain MRI WITH AND WITHOUT CONTRAST HISTORY: Right-sided numbness. stroke TECHNIQUE: Multiplanar multisequence MRI of the brain was performed both before and after the intrave nous administration of contrast. COMPARISON STUDY: Head CT 10/16/2018. FINDINGS: There is a 5 mm punctate focus of restricted diffusion involving the posterior limb of the left internal capsule. This is consistent with an acute lacunar infarct. The midline structures are i ntact. Old lacunar infarct within the right cerebellar hemisphere. The major vascular flow voids at t he skull base are well-maintained. The ventricles are normal in size. There is no mass, hematoma, or midline shift. The paranasal sinuses and mastoid air cells are clear. A few scattered punctate foci o f T2 hyperintensity seen within the periventricular white matter. This is nonspecific but favors mild microvascular ischemic change. No abnormal enhancement within the brain. IMPRESSION: A punctate acute lacunar infarct within the posterior limb of the left internal capsule. Electronically signed by: Hua Oreilly M.D. 10/17/2018 8:31 AM
[2018-10-17] MEDS: CARVEDILOL 25 MG TAB PO SCH ×2 (08:34→21:12)
[2018-10-17] MEDS: OMEGA-3 (PURIFIED FISH OIL) 1 GM CAP PO SCH ×2 (08:35→21:12)
[2018-10-17] MEDS: OXYBUTYNIN CHLORIDE XL 5 MG TABCR PO SCH (08:35)
[2018-10-17] MEDS: PANTOprazole 40 MG TAB PO SCH ×2 (08:35→21:16)
[2018-10-17] MEDS: ASPIRIN 81 MG ECTAB PO SCH (08:35)
[2018-10-17] MEDS: ATORVASTATIN 40 MG TAB PO SCH (08:36)
[2018-10-17] MEDS: FENOFIBRATE NANOCRYSTALLIZED 48 MG TABLET PO SCH (08:36)
[2018-10-17] MEDS: LOSARTAN POTASSIUM 50 MG TAB PO SCH (08:36)
[2018-10-17] MEDS: DULOXETINE HCL 60 MG CAP PO SCH (08:37)
[2018-10-17] MEDS: MAGNESIUM OXIDE 400 MG TAB PO SCH (08:37)
[2018-10-17] MEDS: INSULIN ASPART 100 UNITS/ML 3 ML PEN SC SCH ×4 (08:37→21:19)
[2018-10-17] MEDS: INSULIN GLARGINE SOLOSTAR 100 UNITS/ML 3 ML PEN SC SCH ×2 (08:38→21:17)
[2018-10-17] MEDS ORDERED: PERFLUTREN LIPID MICROSPHERE (DEFINITY) IV ONE (10:28)
--- NOTE | 2018-10-17 13:48 | Neurology Consultation ---
Date of Consultation October 17, 2018 Assessment & Plan (1) Stroke: 1. MRI brain- punctate acute lacunar infarct posterior limb of left internal capsule 2. CTA head neck- stenosis left ICA 80%- needs vascular consult 3. continue coumadin INR 2.0-3.0 goal 4. continue aspirin 81 mg daily 5. PT/OT speech for discharge needs 6. optimize DM, HTN, HLD LDL <70 7. life style changes needed for weight loss and DM control return to neurology 6-8 weeks Madelin Flores PAC schedule Supervising Physician Co-Signing Physician Notes I have seen and discussed above patient with Dr Hunter Brandt. Patient was seen and examined. No family at bedside. I agree with Madelin Flores PA-C as noted below. Mr. Angela is a 63 yo M with multiple stroke risk factors including HTN, HLD, poorly controlled DM, ZULEIKA on CPAP, and paroxysmal on Coumadin admitted for right sided weakness, facial droop, and slurred speech. Symptoms noted by patient on Monday when he woke and did no improve. Patient presented to the ED yesterday for evaluation. He did no receive TPA as he was outside the window. CTA head and neck shows high grade stenosis in the left carotid bifurcation. MRI brain shows acute left lacunar infarct in the left internal capsule or left MCA distribution. On examine he has a right facial droop and right upper extremity weakness greatest in the interosseous muscles. Right lower extremity is strong. Speech is clear. Comprehension is intact. A 63 year old male with acute left MCA territory stroke in the setting of symptomatic left carotid stenosis on ASA and Coumadin for secondary stroke prevention. - Recommend vascular surgery consult for CEA evaluation - Recommend to continue home ASA and coumadin - Continue high intensity statin - Recommend treating blood pressure with SBP<140, DBP<90 mm Hg - HA1c 8.8, Goal <7 - PT/OT History of Present Illness Reason for Consultation: stroke Requesting Physician: Rios Fernandez MD Attending Physician: Rios Fernandez MD History of Present Illness Armen is a 63 year old male who presents to the ED with right arm and leg weakness and facial droop. He woke up in the morning he noted his right arm was numb and weak. He felt as though maybe he slept on it wrong which persisted throughout the day. The next morning he woke up he noted that the right arm numbness and weakness was worse and he also had similar symptoms in his right leg and off balance the past couple of days. He went to his PCP for evaluation today who also noted a facial droop. He has chronic back pain which is unchanged from baseline. Labs show INR 3.6 (patient is anticoagulated on Coumadin for history of paroxysmal atrial fibrillation) He was also on aspirin 81 mg daily. denies CP, SOB, abdominal pain, N, V, vision changes, headache, +right arm weakness, numbness. Allergies Allergy/AdvReac Type Severity Reaction Status Date / Time niacin AdvReac Unknown sweats and Verified 02/07/17 10:49 joint pain Home Medications Home Medications Medication Instructions Recorded Confirmed Type fenofibrate nanocrystallized 48 mg PO DAILY #0 tab 02/25/13 10/16/18 History [Tricor] nitroglycerin [Nitrostat] 0.4 mg SUBLINGUAL USEASDIRECTD PRN 02/25/13 10/16/18 History #0 btl omeprazole 20 mg PO BID #0 cap 02/25/13 10/16/18 History ranitidine HCl [Zantac] 300 mg PO HS #0 tab 02/25/13 10/16/18 History carvedilol [Coreg] 25 mg PO BID #0 tab 11/19/13 10/16/18 History metformin 500 mg PO BID #0 11/07/15 10/16/18 History atorvastatin [Lipitor] 80 mg PO DAILY #0 tab 06/26/16 10/16/18 History digoxin 125 mcg PO DAILY #0 06/26/16 10/16/18 History insulin aspart U-100 [Novolog 32 unit SUBCUT TIDM #0 06/26/16 10/16/18 History U-100 Insulin aspart] magnesium oxide 400 mg PO DAILY #0 tab 06/26/16 10/16/18 History warfarin [Coumadin] 7.5 mg PO DAILY #60 09/09/16 10/16/18 History insulin glargine [Basaglar KwikPen 36 unit SUBCUT BID #0 10/26/16 10/16/18 History U-100 Insulin] aspirin 81 mg PO DAILY 10/16/18 10/16/18 History duloxetine 60 mg PO DAILY 10/16/18 10/16/18 History liraglutide [Victoza 3-Alphonso] 1.8 mg SUBCUT DAILY 10/16/18 10/16/18 History losartan 100 mg PO DAILY 10/16/18 10/16/18 History omega-3 fatty acids-fish oil 1 cap PO BID 10/16/18 10/16/18 History oxybutynin chloride 5 mg PO DAILY 10/16/18 10/16/18 History Patient History Medical History Diastolic dysfunction (Chronic) Diabetes mellitus type II, uncontrolled (Chronic) CAD (coronary artery disease) (Chronic) s/p TREVER to RCA and LAD PAF (paroxysmal atrial fibrillation) (Chronic) ZULEIKA on CPAP (Chronic) Depression (Chronic) GERD (gastroesophageal reflux disease) (Chronic) HTN (hypertension) (Chronic) Dyslipidemia (Chronic) COPD (chronic obstructive pulmonary disease) (Chronic) Tobacco abuse (Chronic) Surgical History Previous back surgery (Resolved) Hx of cholecystectomy (Resolved) Family History Other Diabetes Heart disease Social History Preferred Language: Tuvaluan Communication Ability: Effective Lead Maintenance Technician Required: No Beliefs That Will Affect Care: None Current Living Situation: Alone Other Information That Helps Us Care for You: No Feels Safe at Home: Yes Safety Concerns: Feels Safe At This Time Smoking Status: Current every day smoker Tobacco Type: cigarettes Cigarettes Per Day: 1/2 PPD Do You Dip or Chew Tobacco: No Tobacco Cessation Education Requested by Patient: Yes Hx Alcohol Use: No Hx Substance Use: No Physical Exam Physical Exam: Physical Exam: Constitutional: appearance over nourished, healthy Ears, Nose, Mouth and Throat: mucous membranes moist, no injection and skin normal, eyes normal Cardiovascular: irregular Respiratory: course breath sounds Musculoskeletal: no peripheral edema Skin: no stigmata of neurocutaneous disease noted and normal and intact Eyes: extraocular muscles intact (EOMI) and pupils equal, round and reactive to light (PERRL) NEUROLOGIC EXAMINATION: Mental status: Alert and interactive Oriented to full date and location Oriented to person Speech slight slurring aphasia, identifies button, pen, thumb, closes eyes stick out tongue, point to ceiling with left hand Cranial Nerves slight flattening nasolabial fold on right Reflexes: Deep tendon reflexes were symmetrical and graded 2/5. Sensory: decreased sensation to vibration to ankle, GT proprioception intact Coordination: dysmetric on right to nose finger left intact Gait/Stance: Posture normal sitting in bed Motor: slight on right pronator drift of out stretched arms with eyes closed. 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, bicep triceps intrinsics 3/5 Results & Data Vital Signs (Past 12 Hours) Vital Signs Temp Pulse Pulse Resp BP Pulse Ox 10/17/18 11:08 93 H 162/99 H 10/17/18 10:57 36.8 C 80 18 166/112 H 93 10/17/18 08:22 85 10/17/18 07:05 36.9 C 84 18 155/90 H 98 10/17/18 04:11 36.7 C 86 18 145/91 H 96 10/17/18 02:38 76 Laboratory Results Abnormal lab results 10/16/18 10/16/18 10/16/18 Range/Units 15:16 15:16 15:16 WBC 11.26 H (4.8-10.8) K/uL RBC 4.56 L (4.7-6.1) M/uL Hgb (14.0-18.0) g/dL Hct (42-52) % RDW Std Deviation 50.4 H (36.4-46.3) fL RDW Coeff of Aba 14.9 H (11.5-14.5) % Immature Gran # (Auto) 0.04 H (0.00-0.02) K/uL Neut # (Auto) 6.93 H (1.4-6.5) K/uL [place] # (Auto) 0.76 H (0.11-0.59) K/uL Eos # (Auto) (0-0.5) K/uL PT 33.7 H (9.0-12.0) Seconds INR 3.6 H (0.9-1.1) APTT 40.8 H (21.0-31.0) Seconds Glucose 168 H (70-99) mg/dl POC Glucose (70-99) Hemoglobin A1c (4.5-5.6) % Calcium (8.5-10.1) mg/dl Triglycerides (0-150) mg/dl 0710/16/18 10/16/18 Range/Units 15:16 15:31 18:20 WBC (4.8-10.8) K/uL RBC (4.7-6.1) M/uL Hgb (14.0-18.0) g/dL Hct (42-52) % RDW Std Deviation (36.4-46.3) fL RDW Coeff of Aba (11.5-14.5) % Immature Gran # (Auto) (0.00-0.02) K/uL Neut # (Auto) (1.4-6.5) K/uL [place] # (Auto) (0.11-0.59) K/uL Eos # (Auto) (0-0.5) K/uL PT (9.0-12.0) Seconds INR (0.9-1.1) APTT (21.0-31.0) Seconds Glucose (70-99) mg/dl POC Glucose 168 H 143 H (70-99) Hemoglobin A1c 8.8 H (4.5-5.6) % Calcium (8.5-10.1) mg/dl Triglycerides (0-150) mg/dl 10/17/18 10/17/18 10/17/18 Range/Units 06:18 06:18 06:18 WBC (4.8-10.8) K/uL RBC 4.45 L (4.7-6.1) M/uL Hgb 13.8 L (14.0-18.0) g/dL Hct 41.6 L (42-52) % RDW Std Deviation 50.1 H (36.4-46.3) fL RDW Coeff of Aba 14.8 H (11.5-14.5) % Immature Gran # (Auto) (0.00-0.02) K/uL Neut # (Auto) (1.4-6.5) K/uL [place] # (Auto) 0.80 H (0.11-0.59) K/uL Eos # (Auto) 0.56 H (0-0.5) K/uL PT 23.0 H (9.0-12.0) Seconds INR 2.4 H (0.9-1.1) APTT (21.0-31.0) Seconds Glucose 149 H (70-99) mg/dl POC Glucose (70-99) Hemoglobin A1c (4.5-5.6) % Calcium 8.4 L (8.5-10.1) mg/dl Triglycerides 241 H (0-150) mg/dl 10/17/18 10/17/18 Range/Units 07:30 11:31 WBC (4.8-10.8) K/uL RBC (4.7-6.1) M/uL Hgb (14.0-18.0) g/dL Hct (42-52) % RDW Std Deviation (36.4-46.3) fL RDW Coeff of Aba (11.5-14.5) % Immature Gran # (Auto) (0.00-0.02) K/uL Neut # (Auto) (1.4-6.5) K/uL [place] # (Auto) (0.11-0.59) K/uL Eos # (Auto) (0-0.5) K/uL PT (9.0-12.0) Seconds INR (0.9-1.1) APTT (21.0-31.0) Seconds Glucose (70-99) mg/dl POC Glucose 168 H 166 H (70-99) Hemoglobin A1c (4.5-5.6) % Calcium (8.5-10.1) mg/dl Triglycerides (0-150) mg/dl Diagnostic Findings MRI brain-A punctate acute lacunar infarct within the posterior limb of the left internal capsule. CTA neck - 50% stenosis in the proximal right internal carotid artery Extensive calcific plaque at the level of the left carotid bulb. There is an estimated 80+ percent stenosis of the left internal carotid origin. 50% stenosis of the proximal right vertebral artery, 3 cm distal to its origin CTA head-No acute intracranial findings (1) Stroke CVA mechanism: unspecified Qualified Code(s): I63.9 - Cerebral infarction, unspecified
[2018-10-17] MEDS: DIGOXIN 0.125 MG TAB PO SCH (15:49)
[2018-10-17] MEDS ORDERED: WARFARIN SOD 7.5 MG TAB PO SCH (16:00)
--- NOTE | 2018-10-17 16:15 | Hospitalist Progress Note ---
Date of Service October 17, 2018 Assessment & Plan (1) Right sided weakness: secondary to acute stroke (Cerebrovascular accident) prior to hospital presentation (area of stroke confirmed on Brain MRI on 10/17/18) Carotid stenosis bilateral, with left carotid stenosis greater than right carotid stenosis -Patient has right sided weakness and facial droop on presentation to the ED on 10/16/18 and symptoms may have started on 10/15/18 -the patient was not a candidate for thrombolytics on ED presentation on 10/16/18 as he was outside the window for TPA as he was anticoagulated on coumadin with INR 3.6. Patient received aspirin 324 mg in the ED -Neck CTA shows evidence of carotid and vertebral artery stenosis 1. 50% stenosis in the proximal right internal carotid artery 2. Extensive calcific plaque at the level of the left carotid bulb. There is an estimated 80+ percent stenosis of the left internal carotid origin. 3. 50% stenosis of the proximal right vertebral artery, 3 cm distal to its origin -Brain MRI on 10/17/18 confirms location of the stroke to A punctate acute lacunar infarct within the posterior limb of the left internal capsule -Neurology service Dr. Brandt recommends that vascular surgery service to evaluate the patient as the area of stroke is on same side as the left carotid stenosis -TTE performed on 10/17/18 and awaiting results -Continue aspirin as 81 mg daily, atorvastatin 80 mg daily, fenofibrate, fish oil -coumadin resumed on 10/17/18 as INR is 2.4 -increase blood pressure medication regimen added amlodipine 5 mg daily starting on 10/17/18 and continuing home dose carvedilol and losartan -physical and occupational therapy evaluations while in the hospital (2) Facial droop: -secondary to acute stroke prior to hospital presentation (A punctate acute lacunar infarct within the posterior limb of the left internal capsule on Brain MRI on 10/17/18) -patient has aspiration precautions -denies problems with swallowing -management as above (3) Diastolic dysfunction: -Appears euvolemic, does not utilize routine diuretics -echocardiogram completed on 10/17/18 and awaiting report (4) COPD (chronic obstructive pulmonary disease): -No signs of acute exacerbation -Does not use routine inhalers (5) HTN (hypertension): -increase blood pressure medication regimen added amlodipine 5 mg daily starting on 10/17/18 and continuing home dose carvedilol and losartan (6) PAF (paroxysmal atrial fibrillation): -Continue carvedilol for rate control -coumadin resumed on 10/17/18 as INR is 2.4 (7) CAD (coronary artery disease): -Appears stable, no reports of chest pain -Continue aspirin as 81 mg daily, atorvastatin 80 mg daily, fenofibrate, fish oil (8) Diabetes mellitus type II, uncontrolled: -HgbA1c 9.2 05/2018 -Hold oral agents and Victoza -resume metformin 500 mg BID -increase long acting insulin to 40 units BID -continue sliding scale insulin -diabetic diet Obesity with BMI 41.3 -physical and occupational therapy, encourage activity -heart healthy diet (9) GERD (gastroesophageal reflux disease): -Continue PPI and H2 augustin (10) Depression: -Continue duloxetine (11) DVT prophylaxis: -on Coumadin Subjective Patient denies problems with swallowing. no choking. continues to have right sided weakness. He was able to ambulate with cane with physical therapy. no chest pain. no palpitations. no shortness of breath. no lightheadedness. no dizziness. no headache Physical Exam Constitutional: + obese Eyes: PERRL, conjunctivae normal, anicteric sclerae EOM intact bilaterally ENMT: external ear and nose normal, oropharynx normal Neck: normal visual inspection Respiratory: normal respiratory effort, lungs clear to auscultation Cardiovascular: Rate/Rhythm: regular rate Gastrointestinal (Abdomen): normal bowel sounds, soft, nontender, no hepatosplenomegaly Musculoskeletal: Head/Neck/Chest: normocephalic and head atraumatic Neurologic: facial droop, right sided weakness with reduced motor strength and mobility of right upper extremity Psychiatric: A+Ox3, euthymic affect Results & Data Vital Signs (Past 12 Hours) Vital Signs Temp Pulse Pulse Resp BP Pulse Ox 10/17/18 15:49 92 H 10/17/18 15:23 36.5 C 92 H 19 162/99 H 93 10/17/18 11:08 93 H 162/99 H 10/17/18 10:57 36.8 C 80 18 166/112 H 93 10/17/18 08:22 85 10/17/18 07:05 36.9 C 84 18 155/90 H 98
[2018-10-17] MEDS: AMLODIPINE BESYLATE 5 MG TAB PO SCH (16:37)
[2018-10-17] MEDS: METFORMIN HCL 500 MG TAB PO SCH (17:16)
[2018-10-18 06:06] LABS: Basophils # (auto) 0.07 K/uL (0-0.2); Basophils % (auto) 0.9 %; Eosinophils # (auto) 0.43 K/uL (0-0.5); Eosinophils % (auto) 5.8 %; Hematocrit (blood only) 43.2 % (42-52); Hemoglobin 14.7 g/dL (14.0-18.0); Immature Granulocytes # (auto) 0.02 K/uL (0.00-0.02); Immature Granulocytes % (auto) 0.3 %; Lymphocytes # (auto) 2.59 K/uL (1.2-3.4); Lymphocytes % (auto) 34.8 %; Mean Corpuscular Volume 92.1 fL (80-100); Mean Platelet Volume 9.2 fL (7.4-10.4); Monocytes # (auto) 0.58 K/uL (0.11-0.59); Monocytes % (auto) 7.8 %; Neutrophils # (auto) 3.76 K/uL (1.4-6.5); Neutrophils % (auto) 50.4 %; Platelet Count 215 K/uL (130-400); RDW Coefficient of Variation 14.7 % (11.5-14.5); RDW Standard Deviation 49.3 fL (36.4-46.3); Red Blood Count 4.69 M/uL (4.7-6.1); White Blood Count 7.45 K/uL (4.8-10.8)
[2018-10-18 06:14] LABS: INR 1.7 (0.9-1.1); Prothrombin Time 16.7 Seconds (9.0-12.0)
[2018-10-18 06:52] LABS: BUN Creatinine Ratio 13.7 (10-20); Calcium 8.7 mg/dl (8.5-10.1); Creatinine Clr Calc Pharmacy 126.1 ml/min; Est GFR (African American) 108.2; Est GFR (Non-African American) 93.4; Potassium 3.9 mmol/L (3.5-5.1)
[2018-10-18] MEDS: METFORMIN HCL 500 MG TAB PO SCH ×2 (08:06→16:53)
[2018-10-18] MEDS: ASPIRIN 81 MG ECTAB PO SCH (08:06)
[2018-10-18] MEDS: OMEGA-3 (PURIFIED FISH OIL) 1 GM CAP PO SCH ×2 (08:06→21:21)
[2018-10-18] MEDS: MAGNESIUM OXIDE 400 MG TAB PO SCH (08:06)
[2018-10-18] MEDS: LOSARTAN POTASSIUM 50 MG TAB PO SCH (08:06)
[2018-10-18] MEDS: ATORVASTATIN 40 MG TAB PO SCH (08:06)
[2018-10-18] MEDS: CARVEDILOL 25 MG TAB PO SCH ×2 (08:06→21:20)
[2018-10-18] MEDS: AMLODIPINE BESYLATE 5 MG TAB PO SCH (08:06)
[2018-10-18] MEDS: FENOFIBRATE NANOCRYSTALLIZED 48 MG TABLET PO SCH (08:06)
[2018-10-18] MEDS: PANTOprazole 40 MG TAB PO SCH ×2 (08:07→22:41)
[2018-10-18] MEDS: DULOXETINE HCL 60 MG CAP PO SCH (08:07)
[2018-10-18] MEDS: OXYBUTYNIN CHLORIDE XL 5 MG TABCR PO SCH (08:07)
--- NOTE | 2018-10-18 08:28 | Consultation ---
Date of Consultation October 18, 2018 Assessment & Plan (1) Left carotid artery stenosis: This 63-year-old male was found to have a greater than 80% narrowing of his left internal carotid artery. He did suffer a mild stroke involving his left hemisphere. He has not totally recovered but is near normal.At this point being that his risk of stroke is increased within the next 2 to 3 weeks due to narrowing recommend a left carotid endarterectomy.We will like to give a few more days of recovery and plan on doing his surgery on Monday.>CONS I have discussed the risks options and benefits of the procedure with the patient. The patient understands the risks options and benefits and agrees to the procedure. At this point he could be discharged if okay with the medical service on aspirin. I would hold his Coumadin and place him on subcu Lovenox until his surgery. If you have any questions feel free to give me a call. Thank you very much for letting us participate in the care of this patient. History of Present Illness Reason for Consultation: Left internal carotid artery stenosis with right-sided stroke. Attending Physician: Rios Fernandez MD History of Present Illness This is a 63-year-old white male with a history of diabetes, COPD, and atrial fibrillation. He awoke the day of admission with right arm right leg weakness.The arm weakness was greater than the leg.He also had a right facial droop.He claims since that time it is been getting stronger.He believes his leg is near normal and his hand is almost there.He does claim that he still has a small facial droop.He denies any speech problems or any problems with aphasia.His work-up showed a greater than 80% narrowing of his left internal carotid artery. Allergies Allergy/AdvReac Type Severity Reaction Status Date / Time niacin AdvReac Unknown sweats and Verified 02/07/17 10:49 joint pain Home Medications Home Medications Medication Instructions Recorded Confirmed Type fenofibrate nanocrystallized 48 mg PO DAILY #0 tab 02/25/13 10/16/18 History [Tricor] nitroglycerin [Nitrostat] 0.4 mg SUBLINGUAL USEASDIRECTD PRN 02/25/13 10/16/18 History #0 btl omeprazole 20 mg PO BID #0 cap 02/25/13 10/16/18 History ranitidine HCl [Zantac] 300 mg PO HS #0 tab 12/02/13 07/23/19 History carvedilol [Coreg] 25 mg PO BID #0 tab 11/19/13 10/16/18 History metformin 500 mg PO BID #0 11/07/15 10/16/18 History atorvastatin [Lipitor] 80 mg PO DAILY #0 tab 06/26/16 10/16/18 History digoxin 125 mcg PO DAILY #0 06/26/16 10/16/18 History insulin aspart U-100 [Novolog 32 unit SUBCUT TIDM #0 06/26/16 10/16/18 History U-100 Insulin aspart] magnesium oxide 400 mg PO DAILY #0 tab 06/26/16 10/16/18 History warfarin [Coumadin] 7.5 mg PO DAILY #60 09/09/16 10/16/18 History insulin glargine [Basaglar KwikPen 36 unit SUBCUT BID #0 10/26/16 10/16/18 History U-100 Insulin] aspirin 81 mg PO DAILY 10/16/18 10/16/18 History duloxetine 60 mg PO DAILY 10/16/18 10/16/18 History liraglutide [Victoza 3-Alphonso] 1.8 mg SUBCUT DAILY 10/16/18 10/16/18 History losartan 100 mg PO DAILY 10/16/18 10/16/18 History omega-3 fatty acids-fish oil 1 cap PO BID 10/16/18 10/16/18 History oxybutynin chloride 5 mg PO DAILY 10/16/18 10/16/18 History Patient History Medical History Diastolic dysfunction (Chronic) Diabetes mellitus type II, uncontrolled (Chronic) CAD (coronary artery disease) (Chronic) s/p TREVER to RCA and LAD PAF (paroxysmal atrial fibrillation) (Chronic) ZULEIKA on CPAP (Chronic) Depression (Chronic) GERD (gastroesophageal reflux disease) (Chronic) HTN (hypertension) (Chronic) Dyslipidemia (Chronic) COPD (chronic obstructive pulmonary disease) (Chronic) Tobacco abuse (Chronic) Surgical History Previous back surgery (Resolved) Hx of cholecystectomy (Resolved) Family History Other Diabetes Heart disease Social History Preferred Language: Bruneian Communication Ability: Effective Online Marketing Specialist Required: No Beliefs That Will Affect Care: None Current Living Situation: Alone Other Information That Helps Us Care for You: No Feels Safe at Home: Yes Safety Concerns: Feels Safe At This Time Smoking Status: Current every day smoker Tobacco Type: cigarettes Cigarettes Per Day: 1/2 PPD Do You Dip or Chew Tobacco: No Tobacco Cessation Education Requested by Patient: Yes Hx Alcohol Use: No Hx Substance Use: No Review of Systems Review of Systems: All systems reviewed & are unremarkable except as noted in HPI & below Back pain due to previous back surgeries and left-sided lg weakness also from his previous back surgeries. Physical Exam Constitutional: WD/WN, vitals as above Neck: trachea midline Respiratory: normal respiratory effort, lungs clear to auscultation Cardiovascular: Rate/Rhythm: regular rhythm Vessels: + carotid bruit (Left) and femoral pulses present Extremities: no edema Gastrointestinal (Abdomen): Inspection/Auscultation: abdomen normal to inspection; abdomen not distended Percussion/Palpation: abdomen soft; abdomen nontender, no guarding and abdomen not rigid Musculoskeletal: Extremities: + abnormal strength (Slightly decreased on right, Arm slightly worse than leg.) Skin: no rashes, warm and dry Lower extremities changes consistent with venous insufficiency. Neurologic: CN's II-XI intact bilaterally and moves all extremities (Mild weakness in the right lower extremity. Right upper extremity also exh) Speech / Cognition: normal speech and no expressive aphasia Motor/Sensory: no sensory deficit Psychiatric: A+Ox3, euthymic affect Results & Data Vital Signs (Past 12 Hours) Vital Signs Temp Pulse Pulse Resp BP Pulse Ox 10/18/18 07:10 36.6 C 89 18 183/106 H 93 10/18/18 04:50 36.2 C L 87 18 176/91 H 98 10/18/18 00:00 91 H 10/17/18 23:15 36.6 C 89 19 137/92 94 10/17/18 22:05 83 18 96
[2018-10-18] MEDS: INSULIN GLARGINE SOLOSTAR 100 UNITS/ML 3 ML PEN SC SCH ×2 (08:32→21:24)
[2018-10-18] MEDS: INSULIN ASPART 100 UNITS/ML 3 ML PEN SC SCH ×4 (08:33→21:23)
[2018-10-18] MEDS ORDERED: ENOXAPARIN 150 MG/ML SYR SQ SCH ×2 (10:00→21:00)
[2018-10-18] MEDS ORDERED: AMLODIPINE BESYLATE 5 MG TAB PO ONE (10:22)
[2018-10-18] MEDS ORDERED: ENOXAPARIN INJ 40 MG/0.4 ML SYR SQ ONE (10:31)
[2018-10-18] MEDS ORDERED: ENOXAPARIN INJ 40 MG/0.4 ML SYR SQ SCH (11:00)
--- NOTE | 2018-10-18 11:08 | Hospitalist Progress Note ---
Date of Service October 18, 2018 Assessment & Plan (1) Right sided weakness: right sided weakness and facial droop secondary to acute stroke (Cerebrovascular accident) prior to hospital presentation (area of stroke confirmed on Brain MRI on 10/17/18 as A punctate acute lacunar infarct within the posterior limb of the left internal capsule), Carotid stenosis bilateral, with left carotid stenosis greater than right carotid stenosis -Patient has right sided weakness and facial droop on presentation to the ED on 10/16/18 and symptoms may have started on 10/15/18 -the patient was not a candidate for thrombolytics on ED presentation on 10/16/18 as he was outside the window for TPA as he was anticoagulated on coumadin with INR 3.6. Patient received aspirin 324 mg in the ED -Neck CTA shows evidence of carotid and vertebral artery stenosis 1. 50% stenosis in the proximal right internal carotid artery 2. Extensive calcific plaque at the level of the left carotid bulb. There is an estimated 80+ percent stenosis of the left internal carotid origin. 3. 50% stenosis of the proximal right vertebral artery, 3 cm distal to its origin -Brain MRI on 10/17/18 confirms location of the stroke to A punctate acute lacunar infarct within the posterior limb of the left internal capsule -TTE performed on 10/17/18 no finding for ASD reported -Continue aspirin as 81 mg daily, atorvastatin 80 mg daily, fenofibrate, fish oil -coumadin was given on 10/17/18 as INR is 2.4 but INR on 10/18/18 is 1.7 -increase blood pressure medication regimen added amlodipine 5 mg daily starting on 10/17/18 and continuing home dose carvedilol and losartan -increased blood pressure medication to amlodipine 10 m daily starting on 10/18/18 and continuing home dose carvedilol and losartan -continue physical and occupational therapy evaluations while in the hospital -Neurology service Dr. Brandt on 10/17/18 recommends that vascular surgery service to evaluate the patient as the area of stroke is on same side as the left carotid stenosis and on 10/18/18 Dr. Reilly planning for vascular surgery on Monday10/23/18 - Dr. Reilly recommends that aspirin be continued but coumadin should be held and replaced with on subcu Lovenox until his surgery -10/18/18: after discussing with patient about Lovenox dosing, have elected to start patient on Lovenox 40 mg daily on 10/18/[address] coumadin (2) Facial droop: right sided weakness and facial droop secondary to acute stroke (Cereb rovascular accident) prior to hospital presentation (area of stroke confirmed on Brain MRI on 10/17/18 as A punctate acute lacunar infarct within the posterior limb of the left internal capsule), -patient has aspiration precautions -denies problems with swallowing -management as above (3) Diastolic dysfunction: -Appears euvolemic, does not utilize routine diuretics (4) COPD (chronic obstructive pulmonary disease): -No signs of acute exacerbation -Does not use routine inhalers (5) HTN (hypertension): -increase blood pressure medication regimen added amlodipine 5 mg daily starting on 10/17/18 and continuing home dose carvedilol and losartan -increased blood pressure medication to amlodipine 10 m daily starting on 10/18/18 and continuing home dose carvedilol and losartan (6) PAF (paroxysmal atrial fibrillation): -Continue carvedilol for rate control -the patient was not a candidate for thrombolytics on ED presentation on 10/16/18 as he was outside the window for TPA as he was anticoagulated on coumadin with INR 3.6 and coumadin held -coumadin was given on 10/17/18 as INR is 2.4 but INR on 10/18/18 is 1.7 -on 10/18/18 Dr. Reilly planning for vascular surgery on Monday10/23/18 - Dr. Reilly recommends that aspirin be continued but coumadin should be held and replaced with on subcu Lovenox until his surgery -10/18/18: after discussing with patient about Lovenox dosing, have elected to start patient on Lovenox 40 mg daily on 10/18/[address] coumadin (7) CAD (coronary artery disease): -Appears stable, no reports of chest pain -Continue aspirin as 81 mg daily, atorvastatin 80 mg daily, fenofibrate, fish oil (8) Diabetes mellitus type II, uncontrolled: -HgbA1c 9.2 05/2018 -Hold oral agents and Victoza -given insulin in the hospital -resume metformin 500 mg BID and increase long acting insulin to 40 units BID starting on 10/17/18, continue -continue sliding scale insulin -diabetic diet Obesity with BMI 41.3 -physical and occupational therapy, encourage activity -heart healthy diet (9) GERD (gastroesophageal reflux disease): -Continue PPI and H2 augustin (10) Depression: -Continue duloxetine (11) DVT prophylaxis: -on Lovenox 40 mg daily Subjective Patient's blood pressure elevated this AM. Patient denies lightheadedness or dizziness. facial droop of right face still present. patient speaking well. right upper extremity appears stronger today but still less motor strength compared to left arm. right lower extremity strength seems close to left lower extremity strength Physical Exam Constitutional: + obese Eyes: PERRL, conjunctivae normal, anicteric sclerae EOM intact bilaterally ENMT: external ear and nose normal, oropharynx normal Neck: normal visual inspection Respiratory: normal respiratory effort, lungs clear to auscultation Cardiovascular: Rate/Rhythm: regular rate Gastrointestinal (Abdomen): normal bowel sounds, soft, nontender, no hepatosplenomegaly Musculoskeletal: Head/Neck/Chest: normocephalic and head atraumatic Neurologic: facial droop of right face still present. patient speaking well. right upper extremity appears stronger today but still less motor strength compared to left arm. right lower extremity strength seems close to left lower e xtremity strength Psychiatric: A+Ox3, euthymic affect Results & Data Vital Signs (Past 12 Hours) Vital Signs Temp Pulse Pulse Resp BP Pulse Ox 10/18/18 10:15 158/88 H 10/18/18 07:10 36.6 C 89 18 183/106 H 93 10/18/18 04:50 36.2 C L 87 18 176/91 H 98 10/18/18 00:00 91 H 10/17/18 23:15 36.6 C 89 19 137/92 94
--- NOTE | 2018-10-18 14:22 | Neurology Progress Note ---
Date of Service October 18, 2018 Assessment & Plan (1) Stroke: 1. MRI brain- punctate acute lacunar infarct posterior limb of left internal capsule 2. CTA head neck- stenosis left ICA 80%- surgery planned for 10/23 Dr Neal 3. coumadin stopped will need to initiate lovenox 1 mg/kg every 12 hours while off coumadin 4. continue aspirin 81 mg daily 5. PT/OT speech for discharge needs 6. optimize DM, HTN, HLD LDL <70 7. life style changes needed for weight loss and DM control return to neurology 6-8 weeks Madelin Flores PAC schedule Supervising Physician Co-Signing Physician Notes I have seen and discussed above patient with Dr Wolfgang Brandt. Patient was seen and examined. I agree with Madelin Flores PA-C as noted below. Patient reports improvement in strength today. Denies any new or worsening symptoms. Hoping to go home. On examine he has right interosseous weakness, mild slurred speech, right biceps weakness, and right facial droop. CEA planned for next Monday. Will transition to weight based Lovenox twice daily and hold coumadin as per recommendations for surgery. continue home ASA and high intensity statin. Discussed blood pressure goals with patient. He states he has a cuff at home. Goal SBP<140 mm HG, DBP<90 mm Hg. Will arrange follow up in Neuro clinic in 8- weeks. Charissa Ayers is a 63 year old male who presents to the ED with right arm and leg weakness and facial droop. He woke up in the morning he noted his right arm was numb and weak. He felt as though maybe he slept on it wrong which persisted throughout the day. The next morning he woke up he noted that the right arm numbness and weakness was worse and he also had similar symptoms in his right leg and off balance the past couple of days. He went to his PCP for evaluation today who also noted a facial droop. He has chronic back pain which is unchanged from baseline. Labs show INR 3.6 (patient is anticoagulated on Coumadin for history of paroxysmal atrial fibrillation) He was also on aspirin 81 mg daily. He was seen by vascular surgery this am. CEA is planned for Monday 10/23. He will stop his coumadin and bridge to surgery on lovenox sq. denies CP, SOB, abdominal pain, N, V, vision changes, headache, +right arm weakness, numbness. 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 Results & Data Vital Signs (Past 12 Hours) Vital Signs Temp Pulse Pulse Resp BP Pulse Ox 10/18/18 10:15 158/88 H 10/18/18 08:00 91 H 10/18/18 07:10 36.6 C 89 18 183/106 H 93 10/18/18 04:50 36.2 C L 87 18 176/91 H 98 Laboratory Results Abnormal lab results 10/17/18 10/17/18 10/18/18 Range/Units 16:16 20:37 05:52 RBC 4.69 L (4.7-6.1) M/uL RDW Std Deviation 49.3 H (36.4-46.3) fL RDW Coeff of Aba 14.7 H (11.5-14.5) % PT (9.0-12.0) Seconds INR (0.9-1.1) Glucose (70-99) mg/dl POC Glucose 172 H 187 H (70-99) 10/18/18 10/18/18 10/18/18 Range/Units 05:52 05:52 07:21 RBC (4.7-6.1) M/uL RDW Std Deviation (36.4-46.3) fL RDW Coeff of Aba (11.5-14.5) % PT 16.7 H (9.0-12.0) Seconds INR 1.7 H (0.9-1.1) Glucose 139 H (70-99) mg/dl POC Glucose 198 H (70-99) 10/18/18 Range/Units 11:38 RBC (4.7-6.1) M/uL RDW Std Deviation (36.4-46.3) fL RDW Coeff of Aba (11.5-14.5) % PT (9.0-12.0) Seconds INR (0.9-1.1) Glucose (70-99) mg/dl POC Glucose 170 H (70-99) Diagnostic Findings no new imaging (1) Stroke CVA mechanism: unspecified Qualified Code(s): I63.9 - Cerebral infarction, unspecified
[2018-10-18] MEDS: DIGOXIN 0.125 MG TAB PO SCH (17:28)
[2018-10-19 07:28] LABS: Basophils # (auto) 0.06 K/uL (0-0.2); Basophils % (auto) 0.8 %; Eosinophils # (auto) 0.39 K/uL (0-0.5); Eosinophils % (auto) 4.9 %; Hematocrit (blood only) 41.7 % (42-52); Hemoglobin 14.2 g/dL (14.0-18.0); Immature Granulocytes # (auto) 0.02 K/uL (0.00-0.02); Immature Granulocytes % (auto) 0.3 %; Lymphocytes # (auto) 2.65 K/uL (1.2-3.4); Lymphocytes % (auto) 33.4 %; Mean Corpuscular Hgb Conc 34.1 g/dL (32-36); Mean Corpuscular Volume 93.1 fL (80-100); Mean Platelet Volume 9.2 fL (7.4-10.4); Monocytes # (auto) 0.68 K/uL (0.11-0.59); Monocytes % (auto) 8.6 %; Neutrophils # (auto) 4.14 K/uL (1.4-6.5); Platelet Count 217 K/uL (130-400); RDW Coefficient of Variation 14.6 % (11.5-14.5); RDW Standard Deviation 49.2 fL (36.4-46.3); Red Blood Count 4.48 M/uL (4.7-6.1); White Blood Count 7.94 K/uL (4.8-10.8)
[2018-10-19 07:36] LABS: INR 1.5 (0.9-1.1); Prothrombin Time 14.9 Seconds (9.0-12.0)
[2018-10-19 08:04] LABS: BUN Creatinine Ratio 15.8 (10-20); Calcium 8.9 mg/dl (8.5-10.1); Creatinine Clr Calc Pharmacy 126.1 ml/min; Est GFR (African American) 108.2; Est GFR (Non-African American) 93.4; Potassium 4.1 mmol/L (3.5-5.1)
[2018-10-19] MEDS: MAGNESIUM OXIDE 400 MG TAB PO SCH (08:13)
[2018-10-19] MEDS: FENOFIBRATE NANOCRYSTALLIZED 48 MG TABLET PO SCH (08:13)
[2018-10-19] MEDS: OMEGA-3 (PURIFIED FISH OIL) 1 GM CAP PO SCH ×2 (08:13→21:22)
[2018-10-19] MEDS: ENOXAPARIN 150 MG/ML SYR SQ SCH ×2 (08:13→21:23)
[2018-10-19] MEDS: PANTOprazole 40 MG TAB PO SCH ×2 (08:14→21:22)
[2018-10-19] MEDS: METFORMIN HCL 500 MG TAB PO SCH ×2 (08:14→17:31)
[2018-10-19] MEDS: ASPIRIN 81 MG ECTAB PO SCH (08:14)
[2018-10-19] MEDS: AMLODIPINE BESYLATE 5 MG TAB PO SCH (08:14)
[2018-10-19] MEDS: INSULIN GLARGINE SOLOSTAR 100 UNITS/ML 3 ML PEN SC SCH ×2 (08:15→21:21)
[2018-10-19] MEDS: INSULIN ASPART 100 UNITS/ML 3 ML PEN SC SCH ×4 (08:15→21:18)
[2018-10-19] MEDS: CARVEDILOL 25 MG TAB PO SCH ×2 (09:21→21:22)
[2018-10-19] MEDS: DULOXETINE HCL 60 MG CAP PO SCH (09:21)
[2018-10-19] MEDS: OXYBUTYNIN CHLORIDE XL 5 MG TABCR PO SCH (09:21)
[2018-10-19] MEDS: LOSARTAN POTASSIUM 50 MG TAB PO SCH (09:21)
--- NOTE | 2018-10-19 11:32 | Hospitalist Progress Note ---
Date of Service October 19, 2018 Assessment & Plan (1) Right sided weakness: right sided weakness and facial droop secondary to acute stroke (Cerebrovascular accident) prior to hospital presentation (area of stroke confirmed on Brain MRI on 10/17/18 as A punctate acute lacunar infarct within the posterior limb of the left internal capsule), Carotid stenosis bilateral, with left carotid stenosis greater than right carotid stenosis -Patient has right sided weakness and facial droop on presentation to the ED on 10/16/18 and symptoms may have started on 10/15/18 -the patient was not a candidate for thrombolytics on ED presentation on 10/16/18 as he was outside the window for TPA as he was anticoagulated on coumadin with INR 3.6. Patient received aspirin 324 mg in the ED -Neck CTA shows evidence of carotid and vertebral artery stenosis 1. 50% stenosis in the proximal right internal carotid artery 2. Extensive calcific plaque at the level of the left carotid bulb. There is an estimated 80+ percent stenosis of the left internal carotid origin. 3. 50% stenosis of the proximal right vertebral artery, 3 cm distal to its origin -Brain MRI on 10/17/18 confirms location of the stroke to A punctate acute lacunar infarct within the posterior limb of the left internal capsule -TTE performed on 10/17/18 no finding for ASD reported -Continue aspirin as 81 mg daily, atorvastatin 80 mg daily, fenofibrate, fish oil -coumadin was given on 10/17/18 as INR is 2.4 but INR on 10/18/18 is 1.7 -increase blood pressure medication regimen added amlodipine 5 mg daily starting on 10/17/18 and continuing home dose carvedilol and losartan -increased blood pressure medication to amlodipine 10 m daily starting on 10/18/18 and continuing home dose carvedilol and losartan -continue physical and occupational therapy evaluations while in the hospital -Neurology service Dr. Brandt on 10/17/18 recommends that vascular surgery service to evaluate the patient as the area of stroke is on same side as the left carotid stenosis and -on 10/18/18 Dr. Reilly planning for vascular surgery on Monday10/23/18, Dr. Milka ashford recommends that aspirin be continued but coumadin should be held and replaced with on subcu Lovenox until his surgery. patient was started on Lovenox 1 mg/kg q12 hour dosing on 10/18/18 as per mone rology recommendations to replace coumadin for now -10/19/18: carvedilol increased from 25 mg BID to 37.5 mg BID in addition to losartan 100 mg daily and amlodipine 10 mg daily and digoxin for heart rate and blood pressure control (2) Facial droop: right sided weakness and facial droop secondary to acute stroke (Cerebrovascular accident) prior to hospital presentation (area of stroke confirmed on Brain MRI on 10/17/18 as A punctate acute lacunar infarct within the posterior limb of the left internal capsule), -patient has aspiration precautions -denies problems with swallowing -management as above (3) Diastolic dysfunction: -Appears euvolemic, does not utilize routine diuretics (4) COPD (chronic obstructive pulmonary disease): -No signs of acute exacerbation -Does not use routine inhalers (5) HTN (hypertension): -increase blood pressure medication regimen added amlodipine 5 mg daily starting on 10/17/18 and continuing home dose carvedilol and losartan -increased blood pressure medication to amlodipine 10 m daily starting on 10/18/18 and continuing home dose carvedilol and losartan -10/19/18: carvedilol increased from 25 mg BID to 37.5 mg BID in addition to losartan 100 mg daily and amlodipine 10 mg daily and digoxin for heart rate and blood pressure control (6) PAF (paroxysmal atrial fibrillation): -Continue carvedilol for rate control -the patient was not a candidate for thrombolytics on ED presentation on 10/16/18 as he was outside the window for TPA as he was anticoagulated on coumadin with INR 3.6 and coumadin held -coumadin was given on 10/17/18 as INR is 2.4 but INR on 10/18/18 is 1.7 -Neurology service Dr. Brandt on 10/17/18 recommends that vascular surgery service to evaluate the patient as the area of stroke is on same side as the left carotid stenosis and -on 10/18/18 Dr. Reilly planning for vascular surgery on Monday10/23/18, Dr. Reilly recommends that aspirin be continued but coumadin should be held and replaced with on subcu Lovenox until his surgery. patient was started on Lovenox 1 mg/kg q12 hour dosing on 10/18/18 as per neurology recommendations to replace coumadin for now -10/19/18: carvedilol increased from 25 mg BID to 37.5 mg BID in addition to losartan 100 mg daily and amlodipine 10 mg daily and digoxin for heart rate and blood pressure control (7) CAD (coronary artery disease): -Appears stable, no reports of chest pain -Continue aspirin as 81 mg daily, atorvastatin 80 mg daily, fenofibrate, fish oil (8) Diabetes mellitus type II, uncontrolled: -HgbA1c 9.2 05/2018 -Hold oral agents and Victoza -given insulin in the hospital -resume metformin 500 mg BID and increase long acting insulin to 40 units BID starting on 10/17/18, continue -continue sliding scale insulin -diabetic diet Obesity with BMI 41.3 -physical and occupational therapy, encourage activity -heart healthy diet (9) GERD (gastroesophageal reflux disease): -Continue PPI and H2 augustin (10) Depression: -Continue duloxetine (11) DVT prophylaxis: -on Lovenox 40 mg daily Disposition: will keep patient in hospital today to help with medical optimization of heart rate and blood pressure for planned vascular surgery of carotid artery stenosis on Monday10/23/18 Subjective Patient's blood pressure elevated today. continues to have atrial fibrillation and heart rates have been above 100 bpm at times. have discussed with patient about increasing carvedilol medication for heart rate and blood pressure control. patient denies palpitations. denies chest pain. no headache. no dizziness. right extremity strength appears to have continued improvements. facial droop continue to be present but patient speaking well Physical Exam Constitutional: + obese Eyes: PERRL, conjunctivae normal, anicteric sclerae EOM intact bilaterally ENMT: external ear and nose normal, oropharynx normal Neck: normal visual inspection Respiratory: normal respiratory effort, lungs clear to auscultation Cardiovascular: Rate/Rhythm: + irregularly irregular Gastrointestinal (Abdomen): normal bowel sounds, soft, nontender, no hepatosplenomegaly Musculoskeletal: Head/Neck/Chest: normocephalic and head atraumatic Neurologic: PERRL, EOMI, accommodation nl, no face palsy, no dysarthria mild right upper extremity weakness compared to the left arm, mild right facial droop Psychiatric: A+Ox3, euthymic affect Results & Data Vital Signs (Past 12 Hours) Vital Signs Temp Pulse Resp BP Pulse Ox 10/19/18 11:23 36.9 C 63 22 125/84 95 10/19/18 07:21 36.6 C 116 H 24 169/102 H 96 10/19/18 03:01 36.9 C 88 18 134/83 96 10/19/18 00:29 36.7 C 91 H 18 160/101 H 93
[2018-10-19] MEDS: ATORVASTATIN 40 MG TAB PO SCH (12:04)
[2018-10-19] MEDS: DIGOXIN 0.125 MG TAB PO SCH (17:31)
[2018-10-20] MEDS: PANTOprazole 40 MG TAB PO SCH (08:16)
[2018-10-20] MEDS: MAGNESIUM OXIDE 400 MG TAB PO SCH (08:16)
[2018-10-20] MEDS: ASPIRIN 81 MG ECTAB PO SCH (08:16)
[2018-10-20] MEDS: ATORVASTATIN 40 MG TAB PO SCH (08:16)
[2018-10-20] MEDS: OMEGA-3 (PURIFIED FISH OIL) 1 GM CAP PO SCH (08:16)
[2018-10-20] MEDS: LOSARTAN POTASSIUM 50 MG TAB PO SCH (08:16)
[2018-10-20] MEDS: INSULIN GLARGINE SOLOSTAR 100 UNITS/ML 3 ML PEN SC SCH (08:16)
[2018-10-20] MEDS: OXYBUTYNIN CHLORIDE XL 5 MG TABCR PO SCH (08:16)
[2018-10-20] MEDS: FENOFIBRATE NANOCRYSTALLIZED 48 MG TABLET PO SCH (08:16)
[2018-10-20] MEDS: METFORMIN HCL 500 MG TAB PO SCH (08:16)
[2018-10-20] MEDS: AMLODIPINE BESYLATE 5 MG TAB PO SCH (08:16)
[2018-10-20] MEDS: DULOXETINE HCL 60 MG CAP PO SCH (08:16)
[2018-10-20] MEDS: CARVEDILOL 25 MG TAB PO SCH (08:16)
[2018-10-20] MEDS: ENOXAPARIN 150 MG/ML SYR SQ SCH (08:17)
[2018-10-20] MEDS: INSULIN ASPART 100 UNITS/ML 3 ML PEN SC SCH ×2 (08:19→12:21)
[2018-10-20 09:54] LABS: INR 1.3 (0.9-1.1); Prothrombin Time 13.3 Seconds (9.0-12.0)
[2018-10-20] MEDS ORDERED: STROKE PATIENT DISCHARGE STA (10:58)
--- NOTE | 2018-10-20 11:01 | Hospitalist Progress Note ---
Date of Service October 20, 2018 Assessment & Plan (1) Right sided weakness: right sided weakness and facial droop secondary to acute stroke (Cerebrovascular accident) prior to hospital presentation (area of stroke confirmed on Brain MRI on 10/17/18 as A punctate acute lacunar infarct within the posterior limb of the left internal capsule), Carotid stenosis bilateral, with left carotid stenosis greater than right carotid stenosis -Patient has right sided weakness and facial droop on presentation to the ED on 10/16/18 and symptoms may have started on 10/15/18 -the patient was not a candidate for thrombolytics on ED presentation on 10/16/18 as he was outside the window for TPA as he was anticoagulated on coumadin with INR 3.6. Patient received aspirin 324 mg in the ED -Neck CTA shows evidence of carotid and vertebral artery stenosis 1. 50% stenosis in the proximal right internal carotid artery 2. Extensive calcific plaque at the level of the left carotid bulb. There is an estimated 80+ percent stenosis of the left internal carotid origin. 3. 50% stenosis of the proximal right vertebral artery, 3 cm distal to its origin -Brain MRI on 10/17/18 confirms location of the stroke to A punctate acute lacunar infarct within the posterior limb of the left internal capsule -TTE performed on 10/17/18 no finding for ASD reported -Continue aspirin as 81 mg daily, atorvastatin 80 mg daily, fenofibrate, fish oil -coumadin was given on 10/17/18 as INR is 2.4 but INR on 10/18/18 is 1.7 -increase blood pressure medication regimen added amlodipine 5 mg daily starting on 10/17/18 and continuing home dose carvedilol and losartan -increased blood pressure medication to amlodipine 10 m daily starting on 10/18/18 and continuing home dose carvedilol and losartan -continue physical and occupational therapy evaluations while in the hospital -Neurology service Dr. Brandt on 10/17/18 recommends that vascular surgery service to evaluate the patient as the area of stroke is on same side as the left carotid stenosis and -on 10/18/18 Dr. Reilly planning for vascular surgery on Monday10/23/18, Dr. Milka ashford recommends that aspirin be continued but coumadin should be held and replaced with on subcu Lovenox until his surgery. patient was started on Lovenox 1 mg/kg q12 hour dosing on 10/18/18 as per mone rologtim recommendations to replace coumadin for now -10/19/18: carvedilol increased from 25 mg BID to 37.5 mg BID in addition to losartan 100 mg daily and amlodipine 10 mg daily and digoxin for heart rate and blood pressure control -10/20/18 Patient will be discharged to come with new medications of amlodipine 10 mg daily; and carvedilol dosing as 37.5 mg every morning and 25 mg every night. continue losartan 100mg for blood pressure control Patient to stop coumadin at home. Patient is discharged on Lovenox subcutaneous injection as 135 mg every 12 hours Patient should take Basaglar insulin at home as 40 units BID. patient can continue other home dose diabetes medication new Discharge medications sent to [facility] [place] [address] Monday10/23/18 Patient to have have vascular procedure for carotid stenosis with Dr. Reilly advise patient call Dr. Reilly's vascular surgery office prior to the the Monday surgery to follow preooperative instructions. Patient likely should cut home dose insulin in half before the day of the surgery on Monday10/22/18. Patient likely should not take the night time dose of Lovenox on Monday10/22/18 other appointments 10/25/2018 12:45 PM Provider Emma Priest DO Department Family [facility] 10/29/2018 10:10 AM Provider [facility] 10/30/2018 9:20 AM Provider Hunter Brandt DO Department Neurology [facility] 11/13/2018 11:40 AM Provider Steven López MD Department Family [facility] (2) Facial droop: right sided weakness and facial droop secondary to acute stroke (Cerebrovascular accident) prior to hospital presentation (area of stroke confirmed on Brain MRI on 10/17/18 as A punctate acute lacunar infarct within the posterior limb of the left internal capsule), -patient has aspiration precautions -denies problems with swallowing -management as above (3) Diastolic dysfunction: -euvolemic (4) COPD (chronic obstructive pulmonary disease): -No signs of acute exacerbation (5) HTN (hypertension): -increase blood pressure medication regimen added amlodipine 5 mg daily starting on 10/17/18 and continuing home dose carvedilol and losartan -increased blood pressure medication to amlodipine 10 m daily starting on 10/18/18 and continuing home dose carvedilol and losartan -10/19/18: carvedilol increased from 25 mg BID to 37.5 mg BID in addition to losartan 100 mg daily and amlodipine 10 mg daily and digoxin for heart rate and blood pressure control -10/20/18 Patient will be discharged to come with new medications of amlodipine 10 mg daily; and carvedilol dosing as 37.5 mg every morning and 25 mg every night. continue losartan 100mg for blood pressure control. (6) PAF (paroxysmal atrial fibrillation): chronic atrial fibrillation -Continue carvedilol for rate control -the patient was not a candidate for thrombolytics on ED presentation on 10/16/18 as he was outside the window for TPA as he was anticoagulated on coumadin with INR 3.6 and coumadin held -coumadin was given on 10/17/18 as INR is 2.4 but INR on 10/18/18 is 1.7 -Neurology service Dr. Brandt on 10/17/18 recommends that vascular surgery service to evaluate the patient as the area of stroke is on same side as the left carotid stenosis and -on 10/18/18 Dr. Reilly planning for vascular surgery on Monday10/23/18, Dr. Reilly recommends that aspirin be continued but coumadin should be held and replaced with on subcu Lovenox until his surgery. patient was started on Lovenox 1 mg/kg q12 hour dosing on 10/18/18 as per neurology recommendations to replace coumadin for now -10/19/18: carvedilol increased from 25 mg BID to 37.5 mg BID in addition to losartan 100 mg daily and amlodipine 10 mg daily and digoxin for heart rate and blood pressure control -10/20/18 Patient will be discharged to come with new medications of amlodipine 10 mg daily; and carvedilol dosing as 37.5 mg every morning and 25 mg every night. continue losartan 100mg for blood pressure control. continue digoxin (7) CAD (coronary artery disease): -Appears stable, no reports of chest pain -Continue aspirin as 81 mg daily, atorvastatin 80 mg daily, fenofibrate, fish oil (8) Diabetes mellitus type II, uncontrolled: -HgbA1c 9.2 05/2018 -Hold oral agents and Victoza -given insulin in the hospital -resume metformin 500 mg BID and increase long acting insulin to 40 units BID starting on 10/17/18, continue -diabetic diet -Monday10/23/18 Patient to have have vascular procedure for carotid stenosis with Dr. Reilly advise patient call Dr. Reilly's vascular surgery office prior to the the Monday surgery to follow preooperative instructions. Patient likely should cut home dose insulin in half before the day of the surgery on Monday10/22/18. Patient likely should not take the night time dose of Lovenox on Monday10/22/18 Obesity with BMI 41.3 -physical and occupational therapy, encourage activity -low sodium and diabetic diet (9) GERD (gastroesophageal reflux disease): -Continue PPI and H2 augustin (10) Depression: -Continue duloxetine (11) DVT prophylaxis: -on Lovenox 40 mg daily Discharge diagnosis right sided weakness and facial droop secondary to acute stroke (Cerebrovascular accident) prior to hospital presentation (area of stroke confirmed on Brain MRI on 10/17/18 as A punctate acute lacunar infarct within the posterior limb of the left internal capsule), Hypertension, Type 2 diabetes mellitus with half-way current of insulin with complication of stroke, bilateral carotid stenosis with left carotid stenosis greater than right side, atrial fibrillation, anticoagulated by anticoagulation therapy Subjective Overnight patient have heart in the 40s with sleep but asymptomatic and generally normal heart rate. chronic atrial fibrillation. ambulatory. blood pressure better controlled. no palpitations. no chest pain. no lightheadedness. no dizziness. no vomiting. we adjusted carvedilol dosing. discussed at length about discharge plans and instructions Physical Exam Constitutional: WD/WN, vitals as above Eyes: PERRL, conjunctivae normal, anicteric sclerae EOM intact bilaterally ENMT: external ear and nose normal, oropharynx normal (mild right facial droop - this is improved) Neck: normal visual inspection Respiratory: normal respiratory effort, lungs clear to auscultation Cardiovascular: Rate/Rhythm: regular rate and + irregularly irregular Gastrointestinal (Abdomen): normal bowel sounds, soft, nontender, no hepatosplenomegaly Musculoskeletal: Head/Neck/Chest: normocephalic and head atraumatic Neurologic: CN's II-XI intact bilaterally (right side strength mildly diminished compared to right side) Results & Data Vital Signs (Past 12 Hours) Vital Signs Temp Pulse Pulse Resp BP Pulse Ox 10/20/18 10:59 92 H 129/74 10/20/18 08:00 76 10/20/18 07:01 36.5 C 98 H 18 159/99 H 97 10/20/18 03:41 36.4 C L 65 16 141/83 H 96 10/20/18 00:09 36.5 C 70 16 118/76 95
--- NOTE | 2018-10-20 11:13 | Discharge Summary ---
Date of Service October 20, 2018 Admission HPI Per Admitting Provider 63-year-old male who presents to the ED with right arm and leg weakness and facial droop. Patient reports that when he woke up yesterday morning he noted his right arm was numb and weak. Patient reports he felt as though maybe he slept on it wrong. Symptoms persisted throughout the day. This morning, when he woke up he noted that the right arm numbness and weakness was worse and he also had similar symptoms in his right leg. He is noted being off balance the past couple of days. He went to his PCP for evaluation today who also noted a facial droop. Patient was sent to the ED for further evaluation. Patient denies chest pain or shortness of breath. No lightheadedness, dizziness, diaphoresis, syncopal events. No abdominal pain, nausea, vomiting, diarrhea. He denies any urinary symptoms. No fevers or chills. Patient has chronic back pain which is unchanged from baseline. In the ED, head CT is negative for acute findings. Labs show INR 3.6 (patient is anticoagulated on Coumadin for history of paroxysmal atrial fibrillation). Patient was given a full dose aspirin. Admission Exam Per Admitting Provider Constitutional: WD/WN, vitals as above + obese Eyes: PERRL, conjunctivae normal, anicteric sclerae ENMT: external ear and nose normal, oropharynx normal Respiratory: normal respiratory effort; no respiratory distress Auscultation: + diminished lung sounds Cardiovascular: Rate/Rhythm: regular rate and + irregularly irregular Vessels: normal peripheral pulses Extremities: no edema Gastrointestinal (Abdomen): normal bowel sounds, soft, nontender, no hepatosplenomegaly Musculoskeletal: Extremities: strength 5/5 throughout (Right arm and right leg weakness); no cyanosis and no clubbing Skin: no rashes, warm and dry Neurologic: + focal motor deficit (Right upper extremity strength 3/5, right lower extremity strength 3-4/5; left upper and left lower extremities strength 5/5) Speech / Cognition: normal speech Motor/Sensory: + pronator drift (Right upper extremity) Cranial Nerves: PERRL, normal accommodation, EOM intact bilaterally and tongue midline; + abnormal facial strength (Right facial droop noted) Coordination: + abnormal drakok-cu-jyok test (Difficulty performing test with right upper extrema) and + abnormal pdau-se-mqci test (Difficulty performing test with right lower extremity) Psychiatric: A+Ox3, euthymic affect Principal Diagnosis right sided weakness and facial droop secondary to acute stroke (Cerebrovascular accident) prior to hospital presentation (area of stroke confirmed on Brain MRI on 10/17/18 as A punctate acute lacunar infarct within the posterior limb of the left internal capsule), Hypertension, Type 2 diabetes mellitus with penitentiary current of insulin with complication of stroke, bilateral carotid stenosis with left carotid stenosis greater than right side, atrial fibrillation, anticoagulated by anticoagulation therapy Discharge Exam Constitutional WD/WN, vitals as above + obese Eyes PERRL, conjunctivae normal, anicteric sclerae EOM intact bilaterally ENMT external ear and nose normal, oropharynx normal (mild right facial droop - this is improved) Neck normal visual inspection Respiratory normal respiratory effort, lungs clear to auscultation Cardiovascular Rate/Rhythm: regular rate and + irregularly irregular Gastrointestinal (Abdomen) normal bowel sounds, soft, nontender, no hepatosplenomegaly Musculoskeletal Head/Neck/Chest: normocephalic and head atraumatic Neurologic PERRL, EOMI, accommodation nl, no face palsy, no dysarthria CN's II-XI intact bilaterally (right side strength mildly diminished compared to right side) Psychiatric A+Ox3, euthymic affect Discharge Data Allergies Allergy/AdvReac Type Severity Reaction Status Date / Time niacin AdvReac Unknown sweats and Verified 02/07/17 10:49 joint pain Consultations 10/16/18 15:59 ED Decision to Admit Stat 10/16/18 18:03 Consult Case Management - Discharge Planning Routine Consult Neurology Routine 10/17/18 14:53 Consult Vascular Surgery Routine Procedures Performed Operation Date: 10/23/18 08:00 <No data on this case meets the specified criteria> Ordered Studies 10/16/18 15:10 CT head/brain wo con Stat 10/16/18 16:37 CT angio neck with con Routine 10/17/18 00:04 MR brain wo/w con Routine Hospital Course (1) Right sided weakness: right sided weakness and facial droop secondary to acute stroke (Cerebrovascular accident) prior to hospital presentation (area of stroke confirmed on Brain MRI on 10/17/18 as A punctate acute lacunar infarct within the posterior limb of the left internal capsule), Carotid stenosis bilateral, with left carotid stenosis greater than right carotid stenosis -Patient has right sided weakness and facial droop on presentation to the ED on 10/16/18 and symptoms may have started on 10/15/18 -the patient was not a candidate for thrombolytics on ED presentation on 10/16/18 as he was outside the window for TPA as he was anticoagulated on coumadin with INR 3.6. Patient received aspirin 324 mg in the ED -Neck CTA shows evidence of carotid and vertebral artery stenosis 1. 50% stenosis in the proximal right internal carotid artery 2. Extensive calcific plaque at the level of the left carotid bulb. There is an estimated 80+ percent stenosis of the left internal carotid origin. 3. 50% stenosis of the proximal right vertebral artery, 3 cm distal to its origin -Brain MRI on 10/17/18 confirms location of the stroke to A punctate acute lacunar infarct within the posterior limb of the left internal capsule -TTE performed on 10/17/18 no finding for ASD reported -Continue aspirin as 81 mg daily, atorvastatin 80 mg daily, fenofibrate, fish oil -coumadin was given on 10/17/18 as INR is 2.4 but INR on 10/18/18 is 1.7 -increase blood pressure medication regimen added amlodipine 5 mg daily starting on 10/17/18 and continuing home dose carvedilol and losartan -increased blood pressure medication to amlodipine 10 m daily starting on 10/18/18 and continuing home dose carvedilol and losartan -continue physical and occupational therapy evaluations while in the hospital -Neurology service Dr. Brandt on 10/17/18 recommends that vascular surgery service to evaluate the patient as the area of stroke is on same side as the left carotid stenosis and -on 10/18/18 Dr. Reilly planning for vascular surgery on Monday10/23/18, Dr. Reilly recommends that aspirin be continued but coumadin should be held and replaced with on subcu Lovenox until his surgery. patient was started on Lovenox 1 mg/kg q12 hour dosing on 10/18/18 as per neurology recommendations to replace coumadin for now -10/19/18: carvedilol increased from 25 mg BID to 37.5 mg BID in addition to losartan 100 mg daily and amlodipine 10 mg daily and digoxin for heart rate and blood pressure control -10/20/18 Patient will be discharged to come with new medications of amlodipine 10 mg daily; and carvedilol dosing as 37.5 mg every morning and 25 mg every night. continue losartan 100mg for blood pressure control Patient to stop coumadin at home. Patient is discharged on Lovenox subcutaneous injection as 135 mg every 12 hours Patient should take Basaglar insulin at home as 40 units BID. patient can continue other home dose diabetes medication new Discharge medications sent to [facility], [address] [place] [address] Erika [place], [place] [address] Monday10/23/18 Patient to have have vascular procedure for carotid stenosis with Dr. Reilly advise patient call Dr. Reilly's vascular surgery office prior to the the Monday surgery to follow preooperative instructions. Patient likely should cut home dose insulin in half before the day of the surgery on Monday10/22/18. Patient likely should not take the night time dose of Lovenox on Monday10/22/18 other appointments 10/25/2018 12:45 PM Provider Emma Priest DO Department [facility] 10/29/2018 10:10 AM Provider [facility], [facility] 10/30/2018 9:20 AM Provider Hunter Brandt DO Department Neurology [facility] 11/13/2018 11:40 AM Provider Steven López MD Department [facility] (2) Facial droop: right sided weakness and facial droop secondary to acute stroke (Cerebrovascular accident) prior to hospital presentation (area of stroke confirmed on Brain MRI on 10/17/18 as A punctate acute lacunar infarct within the posterior limb of the left internal capsule), -patient has aspiration precautions -denies problems with swallowing -management as above (3) Diastolic dysfunction: -euvolemic (4) COPD (chronic obstructive pulmonary disease): -No signs of acute exacerbation (5) HTN (hypertension): -increase blood pressure medication regimen added amlodipine 5 mg daily starting on 10/17/18 and continuing home dose carvedilol and losartan -increased blood pressure medication to amlodipine 10 m daily starting on 10/18/18 and continuing home dose carvedilol and losartan -10/19/18: carvedilol increased from 25 mg BID to 37.5 mg BID in addition to losartan 100 mg daily and amlodipine 10 mg daily and digoxin for heart rate and blood pressure control -10/20/18 Patient will be discharged to come with new medications of amlodipine 10 mg daily; and carvedilol dosing as 37.5 mg every morning and 25 mg every night. continue losartan 100mg for blood pressure control. (6) PAF (paroxysmal atrial fibrillation): chronic atrial fibrillation -Continue carvedilol for rate control -the patient was not a candidate for thrombolytics on ED presentation on 10/16/18 as he was outside the window for TPA as he was anticoagulated on coumadin with INR 3.6 and coumadin held -coumadin was given on 10/17/18 as INR is 2.4 but INR on 10/18/18 is 1.7 -Neurology service Dr. Brandt on 10/17/18 recommends that vascular surgery service to evaluate the patient as the area of stroke is on same side as the left carotid stenosis and -on 10/18/18 Dr. Reilly planning for vascular surgery on Monday10/23/18, Dr. Reilly recommends that aspirin be continued but coumadin should be held and replaced with on subcu Lovenox until his surgery. patient was started on Lovenox 1 mg/kg q12 hour dosing on 10/18/18 as per neurology recommendations to replace coumadin for now -10/19/18: carvedilol increased from 25 mg BID to 37.5 mg BID in addition to losartan 100 mg daily and amlodipine 10 mg daily and digoxin for heart rate and blood pressure control -10/20/18 Patient will be discharged to come with new medications of amlodipine 10 mg daily; and carvedilol dosing as 37.5 mg every morning and 25 mg every night. continue losartan 100mg for blood pressure control. continue digoxin (7) CAD (coronary artery disease): -Appears stable, no reports of chest pain -Continue aspirin as 81 mg daily, atorvastatin 80 mg daily, fenofibrate, fish oil (8) Diabetes mellitus type II, uncontrolled: -HgbA1c 9.2 05/2018 -Hold oral agents and Victoza -given insulin in the hospital -resume metformin 500 mg BID and increase long acting insulin to 40 units BID starting on 10/17/18, continue -diabetic diet -Monday10/23/18 Patient to have have vascular procedure for carotid stenosis with Dr. Reilly advise patient call Dr. Reilly's vascular surgery office prior to the the Monday surgery to follow preooperative instructions. Patient likely should cut home dose insulin in half before the day of the surgery on Monday10/22/18. Patient likely should not take the night time dose of Lovenox on Monday10/22/18 Obesity with BMI 41.3 -physical and occupational therapy, encourage activity -low sodium and diabetic diet (9) GERD (gastroesophageal reflux disease): -Continue PPI and H2 augustin (10) Depression: -Continue duloxetine (11) DVT prophylaxis: -on Lovenox 40 mg daily Discharge diagnosis right sided weakness and facial droop secondary to acute stroke (Cerebrovascular accident) prior to hospital presentation (area of stroke confirmed on Brain MRI on 10/17/18 as A punctate acute lacunar infarct within the posterior limb of the left internal capsule), Hypertension, 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 with complication of stroke, bilateral carotid stenosis with left carotid stenosis greater than right side, atrial fibrillation, anticoagulated by anticoagulation therapy Total Time Total Time Spent Total Time Spent (In Minutes): 40 minutes Total Time Includes: Examination of the Patient, Discharge Planning, Medication Reconciliation and Communication With Other Providers Discharge Plan Discharge Items Patient Disposition: Home - Home Health Services Reason For Visit: RIGHT SIDED WEAKNESS,FACIAL DROOP Discharge Diagnosis: right sided weakness and facial droop secondary to acute stroke (Cerebrovascular accident) prior to hospital presentation (area of stroke confirmed on Brain MRI on 10/17/18 as A punctate acute lacunar infarct within the posterior limb of the left internal capsule), Hypertension, Type 2 diabetes mellitus with penitentiary current of insulin with complication of stroke, bilateral carotid stenosis with left carotid stenosis greater than right side, atrial fibrillation, anticoagulated by anticoagulation therapy Condition: Good Discharge Goals: Improve disease control Activity: Resume your previous activity Non-emergency contact: Primary Care Provider and Specialist Call non-emergency contact if: you have any medication questions Follow-up/Referrals: Steven López MD [Primary Care Provider] - Diet: Carb Consistent or DM2, Heart Healthy and Low Sodium (2gm) Addtl Provider Instructions: Patient will be discharged to come with new medications of amlodipine 10 mg daily; and carvedilol dosing as 37.5 mg every morning and 25 mg every night. continue losartan 100mg for blood pressure control Patient to stop coumadin at home. Patient is discharged on Lovenox subcutaneous injection as 135 mg every 12 hours Patient should take Basaglar insulin at home as 40 units BID. patient can continue other home dose diabetes medication new Discharge medications sent to [facility] [place] [address] Monday10/23/18 Patient to have have vascular procedure for carotid stenosis with Dr. Reilly advise patient call Dr. Reilly's vascular surgery office prior to the the Monday surgery to follow preooperative instructions. Patient likely should cut home dose insulin in half before the day of the surgery on Monday10/22/18. Patient likely should not take the night time dose of Lovenox on Monday10/22/18 10/25/2018 12:45 PM Provider Emma Priest Department Family [facility] 10/29/2018 10:10 AM Provider [facility], [facility] 10/30/2018 9:20 AM Provider Hunter Brandt DO Department Neurology [facility] 11/13/2018 11:40 AM Provider Steven López MD Department Family [facility] Prescriptions: New amlodipine [Norvasc] 5 mg Tablet 10 mg PO QAM 30 Days Qty: 60 RF: 0 enoxaparin [Lovenox] 150 mg/mL Syringe 135 mg subcut Q12H 4 Days Qty: 7.2 RF: 0 carvedilol 25 mg Tablet 25 mg PO UD 30 Days Qty: 75 RF: 0 Continued ranitidine HCl [Zantac] 300 mg Tablet 300 mg PO HS Qty: 0 RF: 0 nitroglycerin [Nitrostat] 0.4 mg Tablet, Sublingual 0.4 mg sublingual USEASDIRECTD PRN (Reason: Chest Pain) Qty: 0 RF: 0 omeprazole 20 mg Capsule,Delayed Release(Dr/Ec) 20 mg PO BID Qty: 0 RF: 0 fenofibrate nanocrystallized [Tricor] 48 mg Tablet 48 mg PO DAILY Qty: 0 RF: 0 metformin 500 mg Tablet 500 mg PO BID Qty: 0 RF: 0 atorvastatin [Lipitor] 80 mg Tablet 80 mg PO DAILY Qty: 0 RF: 0 Novolog U-100 Insulin aspart 100 unit/mL Solution 32 unit SUBCUT TIDM Qty: 0 RF: 0 digoxin 125 mcg Tablet 125 mcg PO DAILY Qty: 0 RF: 0 magnesium oxide 400 mg magnesium Tablet 400 mg PO DAILY Qty: 0 RF: 0 aspirin 81 mg Tablet,Delayed Release (Dr/Ec) 81 mg PO DAILY RF: 0 oxybutynin chloride 5 mg tablet extended release 24hr 5 mg PO DAILY RF: 0 losartan 100 mg tablet 100 mg PO DAILY RF: 0 duloxetine 60 mg capsule,delayed release(DR/EC) 60 mg PO DAILY RF: 0 omega-3 fatty acids-fish oil 360-1,200 mg Capsule 1 cap PO BID RF: 0 Victoza 3-Alphonso 0.6 mg/0.1 mL (18 mg/3 mL) pen injector 1.8 mg subcut DAILY RF: 0 Changed Basaglar KwikPen U-100 Insulin 100 unit/mL (3 mL) Insulin Pen 40 unit SUBCUT BID Qty: 0 RF: 0 Discontinued carvedilol [Coreg] 25 mg Tablet 25 mg PO BID Qty: 0 RF: 0 warfarin [Coumadin] 7.5 mg Tablet 7.5 mg PO DAILY Qty: 60 RF: 0 Stand-Alone Forms: [facility] Discharge Orders: Discharge Order (Routine); Ordered 10/20/18 Ordered By: Rios Fernandez Admission Data Admit Date/Time: 10/16/18 16:55 Attending Provider: Rios Fernandez Admit Provider: Rios Fernandez Primary Care Provider: Steven López Other Providers: Rios Fernandez ; Hunter Brandt ; Hans Reilly Service: Telemetry
--- NOTE | 2018-10-20 14:59 | Pharmacy Report ---
Pharmacist Stroke Counseling - Date of Service October 20, 2018 - Scope: Pharmacy has been consulted to provide medication discharge counseling for this patient admitted with [ischemic stroke] [hemorrhagic stroke] [transient ischemic attack] as per the Pharmacist Discharge Counseling for Stroke Patients Jackie antony - Medications on Discharge: Home Medications Medication Instructions Recorded Confirmed fenofibrate nanocrystallized 48 mg PO DAILY #0 tab 02/25/13 10/16/18 [Tricor] nitroglycerin [Nitrostat] 0.4 mg SUBLINGUAL USEASDIRECTD PRN 02/25/13 10/16/18 #0 btl omeprazole 20 mg PO BID #0 cap 02/25/13 10/16/18 ranitidine HCl [Zantac] 300 mg PO HS #0 tab 02/25/13 10/16/18 metformin 500 mg PO BID #0 11/07/15 10/16/18 Novolog U-100 Insulin aspart 32 unit SUBCUT TIDM #0 06/26/16 10/16/18 atorvastatin [Lipitor] 80 mg PO DAILY #0 tab 06/26/16 10/16/18 digoxin 125 mcg PO DAILY #0 06/26/16 10/16/18 magnesium oxide 400 mg PO DAILY #0 tab 06/26/16 10/16/18 Victoza 3-Alphonso 1.8 mg SUBCUT DAILY 10/16/18 10/16/18 aspirin 81 mg PO DAILY 10/16/18 10/16/18 duloxetine 60 mg PO DAILY 10/16/18 10/16/18 losartan 100 mg PO DAILY 10/16/18 10/16/18 omega-3 fatty acids-fish oil 1 cap PO BID 10/16/18 10/16/18 oxybutynin chloride 5 mg PO DAILY 10/16/18 10/16/18 New Rx's Medication Instructions Recorded Basaglar KwikPen U-100 Insulin 40 unit SUBCUT BID #0 ml 10/20/18 amlodipine [Norvasc] 10 mg PO QAM 30 Days #60 tab 10/20/18 carvedilol 25 mg PO UD 30 Days #75 tab 10/20/18 enoxaparin [Lovenox] 135 mg SUBCUT Q12H 4 Days #7.2 ml 10/20/18 - Action: The above medications, specifically ones for stroke treatment/prophylaxis, have been reviewed in detail with the patient and/or patient reimbursement representative(s) prior to discharge. This includes indication, common adverse reactions, drug interactions, and medication administration. Medication counseling has been employed using the teach-back method to ensure understanding. - Outcome: The patient and/or patient reimbursement representative(s) have demonstrated understanding of the medications. Please note, they are aware that the pharmacist will call them within 72 hours post-discharge to confirm that the appropriate medications are being taken and answer any further medication related questions the patient might have at that time. Contact information Individual to be contacted: Self Relationship to patient (if applicable): Phone number: [phone] Best time to call: after 10am Additional comments: Patient is comfortable giving himself Lovenox injections and understands that he may need to transition back to warfarin following Lovenox therapy. He will f/u with Dr Reilly's office on Monday and then again on the day of his procedure. Thank you for allowing pharmacy to be involved in the care of this patient. Please call [phone] or [phone] with any additional questions
[2018-10-20] MEDS ORDERED: CARVEDILOL 25 MG TAB PO SCH (21:00)
[2018-10-21] MEDS ORDERED: CARVEDILOL 25 MG TAB PO SCH (09:00)
--- NOTE | 2018-10-22 12:21 | Coding Query ---
CODING QUERY FOR UNCONTROLLED DIABETES To promote full compliance with coding requirements relating to patient care, provider participation is requested in all cases of payroll auditor uncertainty. Please assist us with the question(s) below: Coding Question: The term uncontrolled Diabetes was used throughout the record. To be able to code this diagnosis properly, could you please clarify the diagnosis below: ( ) Uncontrolled Diabetes meaning hypoglycemia ( ) Uncontrolled Diabetes meaning hyperglycemia ( x ) Other (please specify) "uncontrolled" reflects furnace keeper diabetes control because HbA1c above 9, generally patient's glucose levels were controlled when in the hospital Principal Diagnosis: "that condition established after study, to be chiefly responsible for occasioning the admission of the patient to the hospital for care." Co-Existing Principal Diagnosis: "when two or more diagnoses equally meet the criteria for principal diagnosis as determined by the circumstances of admission, diagnostic work up, and/or therapy provided, and the Alphabetic Index, Tabular List, or another coding guideline does not provide sequencing direction, any one of the diagnoses may be sequenced first." "When the physician has documented what appears to be a current diagnosis in the body of the record, but has not included the diagnosis in the final diagnostic statement, the physician should be asked whether the diagnosis should be added." (Source Coding [facility] 2 QTR90. p3-4) ETHAN
--- NOTE | 2018-10-26 13:44 | Pharmacy Report ---
Pharmacist Post D/C Phone Note - Phone Note: Date of phone call: October 26, 2018. Individual with whom pharmacist spoke to: BEN Brianna KULKARNI The following questions were reviewed during the phone call with responses listed below each: Can you tell me the medications that you are currently taking as well as when and how you take each medication? -See Table Below When have you missed any doses of your medications? - None What side effects are you having from your medications, specifically, the new medications you were started on? - None What questions do you have about your medications? - None What problems are you having obtaining your medications? - None When is your next appointment with your primary care doctor? - 11/08/18 Dr Manzano Additional comments: - Pt works with pharmacist via an anticoagulation clinic. Patient is bridging warfain with enoxaparin. Home health nursing coming Monday to test INR and pharmacist will adjust warfarin/enoxaparin dosing at that time. Pt expressed his sincere gratitude for [facility] and has been very happy with his care/aftercare. As per the Pharmacist Discharge Counseling for Stroke Patients Protocol, this phone call has been completed within 72 hours of discharge. Thank you for allowing us to be involved in the care of this patient. - Home Medications: Home Medications Medication Instructions Recorded Confirmed fenofibrate nanocrystallized 48 mg PO QPM #0 tab 02/25/13 10/23/18 [Tricor] nitroglycerin [Nitrostat] 0.4 mg SUBLINGUAL USEASDIRECTD PRN 02/25/13 10/23/18 #0 btl omeprazole 20 mg PO BID #0 cap 02/25/13 10/22/18 ranitidine HCl [Zantac] 300 mg PO HS #0 tab 02/25/13 10/23/18 metformin 500 mg PO BID #0 11/07/15 10/22/18 Novolog U-100 Insulin aspart 32 unit SUBCUT TIDM #0 06/26/16 10/23/18 atorvastatin [Lipitor] 80 mg PO DAILY #0 tab 06/26/16 10/22/18 digoxin 125 mcg PO QPM #0 06/26/16 10/23/18 magnesium oxide 400 mg PO DAILY #0 tab 06/26/16 10/22/18 Victoza 3-Alphonso 1.8 mg SUBCUT UD 10/16/18 10/23/18 aspirin 81 mg PO DAILY 10/16/18 10/23/18 duloxetine 60 mg PO QAM 10/16/18 10/22/18 losartan 100 mg PO DAILY 10/16/18 10/22/18 omega-3 fatty acids-fish oil 1 cap PO BID 10/16/18 10/23/18 oxybutynin chloride 5 mg PO DAILY 10/16/18 10/22/18 warfarin 7.5 mg PO DAILY 10/24/18 10/24/18 New Rx's Medication Instructions Recorded Mari Trevino U-100 Insulin 40 unit SUBCUT BID #0 ml 10/20/18 amlodipine [Norvasc] 10 mg PO QAM 30 Days #60 tab 10/20/18 carvedilol 25 mg PO UD 30 Days #75 tab 10/20/18 enoxaparin [Lovenox] 135 mg SUBCUT Q12H #10 dose 10/24/18 oxycodone-acetaminophen 1 - 2 tab PO Q6 PRN #30 tab 10/24/18
== END 2018-10-20 13:20 | disposition home health service (06) | DRG 65 ==
LOC: ED 14:48 → SUATTDRO 16:55 → 2S 16:55

== ENCOUNTER 2018-10-23 05:20 | Inpatient (IN) ==
--- NOTE | 2018-10-22 09:36 | Anesthesiology Consultation ---
Date of Service October 22, 2018 Assessment & Plan Chart Review Chart Review: Acceptable Risk for Surgery and Patient NOT seen in Pre Admission Testing History Surgery Operation Date: 10/23/18 07:30 Proposed Procedures p Left Carotid Endarterectomy - Hans Reilly MD Height/Weight Height: 5 ft 11 in Weight: 137 kg Allergies Allergy/AdvReac Type Severity Reaction Status Date / Time niacin AdvReac Intermediate sweats and Verified 10/22/18 09:27 joint pain Medications Home Medications Medication Instructions Recorded Confirmed Last Taken fenofibrate nanocrystallized 48 mg PO QPM #0 tab 02/25/13 10/22/18 10/15/18 21:00 [Tricor] nitroglycerin [Nitrostat] 0.4 mg SUBLINGUAL USEASDIRECTD PRN 02/25/13 10/22/18 Unknown #0 btl omeprazole 20 mg PO BID #0 cap 02/25/13 10/22/18 10/16/18 08:00 ranitidine HCl [Zantac] 300 mg PO HS #0 tab 02/25/13 10/22/18 10/15/18 21:00 metformin 500 mg PO BID #0 11/07/15 10/22/18 10/16/18 08:00 Novolog U-100 Insulin aspart 32 unit SUBCUT TIDM #0 06/26/16 10/22/18 10/16/18 08:00 atorvastatin [Lipitor] 80 mg PO DAILY #0 tab 06/26/16 10/22/18 10/16/18 08:00 digoxin 125 mcg PO QPM #0 06/26/16 10/22/18 10/16/18 08:00 magnesium oxide 400 mg PO DAILY #0 tab 06/26/16 10/22/18 10/16/18 08:00 Victoza 3-Alphonso 1.8 mg SUBCUT UD 10/16/18 10/22/18 Unknown aspirin 81 mg PO DAILY 10/16/18 10/22/18 Unknown duloxetine 60 mg PO QAM 10/16/18 10/22/18 Unknown losartan 100 mg PO DAILY 10/16/18 10/22/18 Unknown omega-3 fatty acids-fish oil 1 cap PO BID 10/16/18 10/22/18 Unknown oxybutynin chloride 5 mg PO DAILY 10/16/18 10/22/18 Unknown Basaglar KwikPen U-100 Insulin 40 unit SUBCUT BID #0 ml 10/20/18 10/22/18 10/16/18 08:00 amlodipine [Norvasc] 10 mg PO QAM 30 Days #60 tab 10/20/18 10/22/18 Unknown carvedilol 25 mg PO UD 30 Days #75 tab 10/20/18 10/22/18 Unknown enoxaparin [Lovenox] 135 mg SUBCUT Q12H 4 Days #7.2 ml 10/20/18 10/22/18 Unknown Past Medical History Medical History Left carotid artery stenosis 80+ % stenosis Stroke To [facility] 10/16/18 with facial droop and R sided weakness. Brain MRI = punctate acute lacunar infarct within the posterior limb of the left internal capsule. Outside tPA window. Diabetes mellitus type II, uncontrolled (Chronic) A1C 8.8% 10/16/18 CAD (coronary artery disease) (Chronic) s/p TREVER to RCA and LAD PAF (paroxysmal atrial fibrillation) (Chronic) Rate control with BB. On Warfarin. Replaced with subQ Lovenox until surgery at recommendation of surgeon. ZULEIKA on CPAP (Chronic) Depression (Chronic) GERD (gastroesophageal reflux disease) (Chronic) HTN (hypertension) (Chronic) Dyslipidemia (Chronic) Tobacco abuse (Chronic) Anxiety Degenerative disc disease Morbid obesity Osteoarthritis Peripheral neuropathy LOWER LEFT LEG Past Family History Family History Other Heart disease Past Surgical History Surgical History Hx of cholecystectomy (Resolved) Biceps tendon rupture LEFT SIDE REPAIRED H/O thumb surgery RT TENDON REPAIRED History of colonoscopy History of heart artery stent 2 STENTS PLACED OVER 10 YEARS AGO ([facility]) History of lumbar surgery TOTAL OF 4 History of nephrectomy, left ? DETAILS "WAS NOT WORKING CORRECTLY AND CAUSED PAIN" History of open reduction and internal fixation (ORIF) procedure RT WRIST History of tonsillectomy History of tooth extraction Social History Smoking Status: Current every day smoker tobacco type: cigarettes Smoking cigarettes per day: 1/2 PPD Hx Alcohol Use: No Hx Substance Use: No Testing Laboratory Results 10/19/18 WBC: 7.94 H/H: 14.2/41.7 PLATELETS: 217 SODIUM: 139 POTASSIUM: 4.1 CHLORIDE: 106 CO2: 28 BUN: 14 CREATININE: 0.85 GLUCOSE: 140 10/20/18 PT: 13.3 PTT: 40.8 INR: 1.3 Electrocardiogram Date: 10/18/18 Findings: + AFIB @ (87) Nonspecific ST and T wave abnormality. Echocardiogram Date: 10/17/18 EF: 55-60% Study was technically difficult. Compared to prior study there is no sign ificant change. The rhythm is atrial fibrillation with controlled ventricular response. There is mild concentric LVH. Left atrium is moderately dilated. Aortic valve sclerosis mild, without significant aortic valvular stenosis. Other Testing Brain MRI 10/17/18 FINDINGS: There is a 5 mm punctate focus of restricted diffusion involving the posterior limb of the left internal capsule. This is consistent with an acute lacunar infarct. The midline structures are intact. Old lacunar infarct within the right cerebellar hemisphere. The major vascular flow voids at the skull base are well-maintained. The ventricles are normal in size. There is no mass, hematoma, or midline shift. The paranasal sinuses and mastoid air cells are gianna r. A few scattered punctate foci of T2 hyperintensity seen within the periventricular white matter. This is nonspecific but favors mild microvascular ischemic change. No abnormal enhancement within the brain. IMPRESSION: A punctate acute lacunar infarct within the posterior limb of the left internal capsule. Neck CTA 10/16/18 1. 50% stenosis in the proximal right internal carotid artery 2. Extensive calcific plaque at the level of the left carotid bulb. There is an estimated 80+ percent stenosis of the left internal carotid origin. 3. 50% stenosis of the proximal right vertebral artery, 3 cm distal to its origin
[2018-10-23] MEDS ORDERED: CEFAZOLIN 3000MG 65 ML IV SCH (06:00)
[2018-10-23] MEDS ORDERED: CEFAZOLIN 1000MG 1,000 MG/7.5 ML SYR IV SCH (06:00)
[2018-10-23] MEDS ORDERED: LR 15ML/HR IV SCH (06:00)
[2018-10-23] MEDS ORDERED: LACTATED RINGER'S 1,000 ML IV SCH (06:00)
--- NOTE | 2018-10-23 06:13 | History & Physical Report ---
Date of Service October 23, 2018 History of Present Illness Primary Care Provider: Steven López MD October 18, 2018 Assessment & Plan (1) Left carotid artery stenosis: This 63-year-old male was found to have a greater than 80% narrowing of his left internal carotid artery. He did suffer a mild stroke involving his left hemisphere. He has not totally recovered but is near normal.At this point being that his risk of stroke is increased within the next 2 to 3 weeks due to narrowing recommend a left carotid endarterectomy.We will like to give a few more days of recovery and plan on doing his surgery on Monday.>CONS I have discussed the risks options and benefits of the procedure with the patient. The patient understands the risks options and benefits and agrees to the procedure. At this point he could be discharged if okay with the medical service on aspirin. I would hold his Coumadin and place him on subcu Lovenox until his surgery. If you have any questions feel free to give me a call. Thank you very much for letting us participate in the care of this patient. History of Present Illness Reason for Consultation: Left internal carotid artery stenosis with right-sided stroke. Attending Physician: Rios Fernandez MD History of Present Illness This is a 63-year-old white male with a history of diabetes, COPD, and atrial fibrillation. He awoke the day of admission with right arm right leg weakness.The arm weakness was greater than the leg.He also had a right facial droop.He claims since that time it is been getting stronger.He believes his leg is near normal and his hand is almost there.He does claim that he still has a small facial droop.He denies any speech problems or any problems with aphasia.His work-up showed a greater than 80% narrowing of his left internal carotid artery. Allergies Allergy/AdvReac Type Severity Reaction Status Date / Time niacin AdvReac Unknown sweats and Verified 02/07/17 10:49 joint pain Home Medications Home Medications Medication Instructions Recorded Confirmed Type fenofibrate nanocrystallized 48 mg PO DAILY #0 tab 02/25/13 10/16/18 History [Tricor] nitroglycerin [Nitrostat] 0.4 mg SUBLINGUAL USEASDIRECTD PRN 02/25/13 10/16/18 History #0 btl omeprazole 20 mg PO BID #0 cap 02/25/13 10/16/18 History ranitidine HCl [Zantac] 300 mg PO HS #0 tab 02/25/13 10/16/18 History carvedilol [Coreg] 25 mg PO BID #0 tab 11/19/13 10/16/18 History metformin 500 mg PO BID #0 11/07/15 10/16/18 History atorvastatin [Lipitor] 80 mg PO DAILY #0 tab 06/26/16 10/16/18 History digoxin 125 mcg PO DAILY #0 06/26/16 10/16/18 History insulin aspart U-100 [Novolog 32 unit SUBCUT TIDM #0 06/26/16 10/16/18 History U-100 Insulin aspart] magnesium oxide 400 mg PO DAILY #0 tab 06/26/16 10/16/18 History warfarin [Coumadin] 7.5 mg PO DAILY #60 09/09/16 10/16/18 History insulin glargine [Basaglar KwikPen 36 unit SUBCUT BID #0 10/26/16 10/16/18 History U-100 Insulin] aspirin 81 mg PO DAILY 10/16/18 10/16/18 History duloxetine 60 mg PO DAILY 10/16/18 10/16/18 History liraglutide [Victoza 3-Alphonso] 1.8 mg SUBCUT DAILY 10/16/18 10/16/18 History losartan 100 mg PO DAILY 10/16/18 10/16/18 History omega-3 fatty acids-fish oil 1 cap PO BID 10/16/18 10/16/18 History oxybutynin chloride 5 mg PO DAILY 10/16/18 10/16/18 History Patient History Medical History Diastolic dysfunction (Chronic) Diabetes mellitus type II, uncontrolled (Chronic) CAD (coronary artery disease) (Chronic) s/p TREVER to RCA and LAD PAF (paroxysmal atrial fibrillation) (Chronic) ZULEIKA on CPAP (Chronic) Depression (Chronic) GERD (gastroesophageal reflux disease) (Chronic) HTN (hypertension) (Chronic) Dyslipidemia (Chronic) COPD (chronic obstructive pulmonary disease) (Chronic) Tobacco abuse (Chronic) Surgical History Previous back surgery (Resolved) Hx of cholecystectomy (Resolved) Family History Other Diabetes Heart disease Social History Preferred Language: Vietnamese Communication Ability: Effective Scientist Immunology Required: No Beliefs That Will Affect Care: None Current Living Situation: Alone Other Information That Helps Us Care for You: No Feels Safe at Home: Yes Safety Concerns: Feels Safe At This Time Smoking Status: Current every day smoker Tobacco Type: cigarettes Cigarettes Per Day: 1/2 PPD Do You Dip or Chew Tobacco: No Tobacco Cessation Education Requested by Patient: Yes Hx Alcohol Use: No Hx Substance Use: No Review of Systems Review of Systems: All systems reviewed & are unremarkable except as noted in HPI & below Back pain due to previous back surgeries and left-sided lg weakness also from his previous back surgeries. Physical Exam Constitutional: WD/WN, vitals as above Neck: trachea midline Respiratory: normal respiratory effort, lungs clear to auscultation Cardiovascular: Rate/Rhythm: regular rhythm Vessels: + carotid bruit (Left) and femoral pulses present Extremities: no edema Gastrointestinal (Abdomen): Inspection/Auscultation: abdomen normal to inspection; abdomen not distended Percussion/Palpation: abdomen soft; abdomen nontender, no guarding and abdomen not rigid Musculoskeletal: Extremities: + abnormal strength (Slightly decreased on right, Arm slightly worse than leg.) Skin: no rashes, warm and dry Lower extremities changes consistent with venous insufficiency. Neurologic: CN's II-XI intact bilaterally and moves all extremities (Mild weakness in the right lower extremity. Right upper extremity also exh) Speech / Cognition: normal speech and no expressive aphasia Motor/Sensory: no sensory deficit Psychiatric: A+Ox3, euthymic affect Results & Data Vital Signs (Past 12 Hours) Vital Signs Temp Pulse Pulse Resp BP Pulse Ox 10/18/18 07:10 36.6 C 89 18 183/106 H 93 10/18/18 04:50 36.2 C L 87 18 176/91 H 98 10/18/18 00:00 91 H 10/17/18 23:15 36.6 C 89 19 137/92 94 10/17/18 22:05 83 18 96 Signed By: <Electronically signed by Hans Reilly MD> 10/18/18 0838 Created: 10/18/18 0824 The status of this report is Signed. Draft = Not yet reviewed or approved by Medical Physician. Signed = Reviewed and approved by Medical Physician. Allergies Allergy/AdvReac Type Severity Reaction Status Date / Time niacin AdvReac Intermediate sweats and Verified 10/23/18 06:09 joint pain Home Medications Home Medications Medication Instructions Recorded Confirmed Type fenofibrate nanocrystallized 48 mg PO QPM #0 tab 02/25/13 10/22/18 History [Tricor] nitroglycerin [Nitrostat] 0.4 mg SUBLINGUAL USEASDIRECTD PRN 02/25/13 10/22/18 History #0 btl omeprazole 20 mg PO BID #0 cap 02/25/13 10/22/18 History ranitidine HCl [Zantac] 300 mg PO HS #0 tab 02/25/13 10/22/18 History metformin 500 mg PO BID #0 11/07/15 10/22/18 History Novolog U-100 Insulin aspart 32 unit SUBCUT TIDM #0 06/26/16 10/22/18 History atorvastatin [Lipitor] 80 mg PO DAILY #0 tab 06/26/16 10/22/18 History digoxin 125 mcg PO QPM #0 06/26/16 10/22/18 History magnesium oxide 400 mg PO DAILY #0 tab 06/26/16 10/22/18 History Victoza 3-Alphonso 1.8 mg SUBCUT UD 10/16/18 10/22/18 History aspirin 81 mg PO DAILY 10/16/18 10/22/18 History duloxetine 60 mg PO QAM 10/16/18 10/22/18 History losartan 100 mg PO DAILY 10/16/18 10/22/18 History omega-3 fatty acids-fish oil 1 cap PO BID 10/16/18 10/22/18 History oxybutynin chloride 5 mg PO DAILY 10/16/18 10/22/18 History Basaglar KwikPen U-100 Insulin 40 unit SUBCUT BID #0 ml 10/20/18 10/22/18 Rx amlodipine [Norvasc] 10 mg PO QAM 30 Days #60 tab 10/20/18 10/22/18 Rx carvedilol 25 mg PO UD 30 Days #75 tab 10/20/18 10/22/18 Rx enoxaparin [Lovenox] 135 mg SUBCUT Q12H 4 Days #7.2 ml 10/20/18 10/22/18 Rx Past Med/Surg History Medical History Left carotid artery stenosis 80+ % stenosis Stroke To [facility] 10/16/18 with facial droop and R sided weakness. Brain MRI = punctate acute lacunar infarct within the posterior limb of the left internal capsule. Outside tPA window. Diabetes mellitus type II, uncontrolled (Chronic) A1C 8.8% 10/16/18 CAD (coronary artery disease) (Chronic) s/p TREVER to RCA and LAD PAF (paroxysmal atrial fibrillation) (Chronic) Rate control with BB. On Warfarin. Replaced with subQ Lovenox until surgery at recommendation of surgeon. ZULEIKA on CPAP (Chronic) Depression (Chronic) GERD (gastroesophageal reflux disease) (Chronic) HTN (hypertension) (Chronic) Dyslipidemia (Chronic) Tobacco abuse (Chronic) Anxiety Degenerative disc disease Morbid obesity Osteoarthritis Peripheral neuropathy LOWER LEFT LEG Surgical History Hx of cholecystectomy (Resolved) Biceps tendon rupture LEFT SIDE REPAIRED H/O thumb surgery RT TENDON REPAIRED History of colonoscopy History of heart artery stent 2 STENTS PLACED OVER 10 YEARS AGO ([facility]) History of lumbar surgery TOTAL OF 4 History of nephrectomy, left ? DETAILS "WAS NOT WORKING CORRECTLY AND CAUSED PAIN" History of open reduction and internal fixation (ORIF) procedure RT WRIST History of tonsillectomy History of tooth extraction Family History Other Heart disease Social History Preferred Language: Vietnamese Communication Ability: Effective Scientist Immunology Required: No Beliefs That Will Affect Care: None Current Living Situation: Alone Other Information That Helps Us Care for You: No Feels Safe at Home: Yes Safety Concerns: Feels Safe At This Time Smoking Status: Current every day smoker Tobacco Type: cigarettes Cigarettes Per Day: 10 CIG DAILY Do You Dip or Chew Tobacco: No Second Hand Exposure: No Tobacco Cessation Education Requested by Patient: No Hx Alcohol Use: Yes Hx Substance Use: No
[2018-10-23] MEDS ORDERED: PROPOFOL IV EMULSION 10 MG/ML 20 ML VIAL IV ONE (06:50)
[2018-10-23] MEDS ORDERED: ONDANSETRON INJ 2 MG/ML 2 ML VIAL ONE (06:50)
[2018-10-23] MEDS ORDERED: LIDOCAINE HCL 2% 2 ML VIAL/AMP(20MG/ML) INFIL ONE (06:50)
[2018-10-23] MEDS ORDERED: fentaNYL citrate 100 MCG/2 ML VIAL ONE (06:51)
[2018-10-23] MEDS ORDERED: HEPARIN (PORCINE) 1000 UNIT/ML 10 ML (CATH LAB USE ONLY) ONE (06:54)
[2018-10-23] MEDS ORDERED: LIDOCAINE HCL 1% 20 ML VIAL ONE (06:54)
[2018-10-23] MEDS ORDERED: BUPIVACAINE/EPINEPHRINE 0.5% MPF 1:200,000 30 ML VIAL ONE (06:54)
[2018-10-23] MEDS ORDERED: GELATIN SPONGE SZ 100 ONE (06:55)
[2018-10-23] MEDS ORDERED: THROMBIN FOR SOLN 20000 UNIT KIT ONE (06:55)
[2018-10-23] MEDS ORDERED: CEFAZOLIN 250 MG/ML 1 GM VIAL ONE (06:55)
--- NOTE | 2018-10-23 07:00 | XRay Report ---
XR chest 2V routine HISTORY: 63 years-old Male PREOPERATIVE EXAM preoperative exam. No acute chest complaints COMPARISON: Chest radiograph 09/09/2016 TECHNIQUE: PA and lateral views of the chest FINDINGS: Cardiomediastinal and hilar silhouettes are within normal limits. There is no pneumothorax, pleural e ffusion, focal airspace consolidation or overt pulmonary edema. Lungs are mildly hyperinflated with d iaphragmatic flattening. Mild degenerative changes of the shoulders and spine. Fusion hardware of the lumbar spine is partially imaged. IMPRESSION: No acute process. The above report was generated using voice recognition software. It may contain grammatical, syntax o r spelling errors. Electronically signed by: Milton Greenwood M.D. 10/23/2018 6:59 AM
[2018-10-23] MEDS ORDERED: NITROGLYCERIN 5 MG/ML 10 ML VIAL ONE (07:04)
[2018-10-23] MEDS ORDERED: MIDAZOLAM HCL 1 MG/ML 2ML VIAL ONE (07:06)
--- NOTE | 2018-10-23 07:12 | History & Physical Bridge Note ---
Date of Service October 23, 2018 History & Physical Bridge Note I have examined the patient, reviewed the History & Physical and in the interval since the performance of the History & Physical I have noted the following changes of clinical significance: no changes noted
--- NOTE | 2018-10-23 10:26 | Post Operative Brief Note ---
Immediate Post Op Note v1 Date of Surgery October 23, 2018 Pre & Post Diagnosis Operation Date: 10/23/18 07:30 Pre-Op Diagnosis: LEFT INTERNAL CAROTID ARTERY STENOSIS W/STROKE Post-Op Diagnosis: LEFT INTERNAL CAROTID ARTERY STENOSIS W/STROKE Procedure Operation Date: 10/23/18 07:30 Actual Procedures p Left Carotid Endarterectomy(Left) - Hans Reilly MD Surgeon Hans Reilly MD Lawn Care Professional Jena Clemens MD Estimated Blood Loss 125 Findings Consistent with Post-Op Diagnosis Anesthesia Type General Complications none Disposition Accompanied Patient To Recovery: No Disposition: Recovery Room
--- NOTE | 2018-10-23 10:40 | Operative Report ---
Post Operative Report Pre & Post Diagnosis Operation Date: 10/23/18 07:30 Pre-Op Diagnosis: LEFT INTERNAL CAROTID ARTERY STENOSIS W/STROKE Post-Op Diagnosis: LEFT INTERNAL CAROTID ARTERY STENOSIS W/STROKE Procedure Operation Date: 10/23/18 07:30 Actual Procedures p Left Carotid Endarterectomy(Left) - Hans Reilly MD Surgeon Dr. Hans Reilly Debone Supervisor Jena Clemens MD Estimated Blood Loss 125 Findings Consistent with Post-Op Diagnosis Fluids 1200 ml Specimens None Drains None Anesthesia Type General Complications none Disposition Accompanied Patient To Recovery: No Disposition: Surgical ICU Indications Patient is a 63-year-old male who presented to the hospital last week with right-sided weakness that resolved within 48 hours. Neurologic work-up included a MRI of the head and a CT angiogram of the neck which revealed that he had a severe 90% stenosis of his left carotid artery. I have discussed the risks options and benefits of the procedure with the patient. The patient understands the risks options and benefits and agrees to the procedure. Description of Procedure The patient was taken to the operating room and placed in supine position. After general anesthesia was accomplished the left-side of the neck was prepped and draped in a sterile manner. The patient was identified and a timeout was performed. A longitudinal neck incision was then made coursing along the medial border of the sternocleidomastoid muscle. The incision was taken down through the platysmal layer. The facial vein was identified, ligated, and divided. The common carotid artery was then seen. It was dissected free down to the omohyoid muscle. The dissection was carried u pward until the external carotid artery and superior thyroid artery was seen. The superior thyroid artery was slung with a 2-0 silk suture. The external carotid was slung with a red rubber vessel loop. Next the dissection was carried up along the internal carotid artery. This was carried upward to beyond the area of narrowing. The hypoglossal nerve was seen and preserved. The patient was heparinized. After adequate heparinization was accomplished, the internal, external, and common carotid arteries were clamped. A longitudinal arteriotomy was started on the common carotid artery and extended upward along the internal carotid artery to a point beyond the area of narrowing. There was calcified plaque of the internal carotid artery origin causing approximately 85-90% narrowing. A internal carotid shunt was then placed in the internal, followed by the common carotid artery and held in place with Valentin clamps. There was good back bleeding seen from the internal carotid artery. The endarterectomy was then started in the appropriate plane on the common carotid artery. This was carried upward and the external carotid was everted and endarterectomized. The endarterectomy was then carried up along the internal carotid artery till a nice feathering breakoff point was accomplished beyond the end of the plaque. The endarterectomy was then carried down further on the common carotid artery. At end of the arteriotomy, the plaque was then transected. Under loop magnification, all loose debris and flaps were removed. There is no distal flap seen at the end of the endarterectomy site. The arteriotomy then closed using an Accuseal patch and a running CV 6 Warwick-Darrel suture. This was done in the usual vascular fashion. Prior to completing the closure, the doppler shunt was removed and the internal and common carotid arteries were reclamped. Backbleeding and forward bleeding was allowed to occur. The flow surface was irrigated with heparinized saline. The final few sutures were then placed and securely tied. Clamps were then removed off the external and common carotid arteries. The clamp was then removed the internal carotid artery. Good distal flow was seen. Adequate hemostasis was seen of the patch. The wound was inspected and adequate hemostasis was obtained. The wound was irrigated with antibiotic solution. It was then closed with a running 3-0 Vicryl suture for the platysmal layer and a 4-0 subcuticular Vicryl suture for the skin edges. Dermabond was used for dressing. The patient left the operating room in satisfactory condition and tolerated the procedure well. Dr. Hans Reilly was scrubbed for the entirety of the case. I attest to the content of the Intraoperative Record and any orders documented therein. Any exceptions are noted below.
--- NOTE | 2018-10-23 11:02 | Procedure Note ---
Procedure Note Date of Service October 23, 2018 Radial arterial line placed in ASU 2 at 0740 in preparation for left CEA with Dr. Reilly. Left wrist prepped with chlorhexidine and draped with sterile towels. Site infiltrated with 1 cc of 1% lidocaine. 20 G angiocath placed under sterile technique utilizing sterile gloves, surgical hats and masks. Catheter threaded using seldinger technique with return of pulsatile, bright red blood. Site covered with occlusive dressing and taped in place. Waveform consistent with correct arterial placement. After placement, fingers of procedural hand had normal perfusion. Patient tolerated procedure well without complications. Coding
[2018-10-23] MEDS ORDERED: ONDANSETRON INJ 2 MG/ML 2 ML VIAL IV PRN ×2 (11:03→12:00)
[2018-10-23] MEDS ORDERED: ePHEDrine sulfate 50 MG/ML AMP IV PRN (11:03)
[2018-10-23] MEDS ORDERED: ALBUT/IPRATROP 3MG/0.5MG NEB 3 ML VIAL INH PRN (11:03)
[2018-10-23] MEDS ORDERED: ATROPINE SULFATE 0.1 MG/ML 10ML SYR IV PRN (11:03)
[2018-10-23] MEDS ORDERED: LABETALOL HCL IV 5 MG/ML 20ML IV PRN (11:03)
[2018-10-23] MEDS ORDERED: fentaNYL citrate 100 MCG/2 ML VIAL IV PRN (11:03)
--- NOTE | 2018-10-23 11:18 | Anesthesiology Progress Note ---
Date of Service October 23, 2018 Anesthesia Post Procedure Vital Signs Vital Signs: Temp Pulse Pulse Resp BP Pulse Ox 10/23/18 11:10 90 16 150/91 H 95 10/23/18 11:00 86 18 142/96 H 96 10/23/18 10:51 36.3 C L 101 H 16 134/88 96 10/23/18 07:37 95 H 18 95 10/23/18 06:18 36.6 C 94 H 20 142/91 H 91 Pain Intensity Back: Pain Intensity: 4 Transfer of Care Handoff Completed per policy Notes Mental Status: alert / awake / arousable and participated in evaluation Patient Amnestic to Procedure: Yes Nausea / Vomiting: adequately controlled Pain: adequately controlled Airway Patency, RR, SpO2: stable & adequate BP & HR: stable & adequate Hydration State: stable & adequate Anesthetic Complications: no major complications apparent and Pt Satisfied with anesthetic care
[2018-10-23] MEDS ORDERED: NITROGLYCERIN/D5W 100MCG/ML 250 ML IV SCH ×2 (12:00→14:30)
[2018-10-23] MEDS ORDERED: OXYCODONE/ACETAMINOPHEN 5mg/325mg TAB PO PRN (12:00)
[2018-10-23] MEDS ORDERED: ENOXAPARIN 150 MG/ML SYR SQ SCH (12:00)
[2018-10-23] MEDS ORDERED: NITROGLYCERIN SL 0.4 MG/TAB TAB SL PRN (12:00)
[2018-10-23] MEDS: MoRPHine SULFATE 4 MG/ML 1 ML CARP\\VIAL IV PRN ×4 (12:24→22:45)
--- NOTE | 2018-10-23 12:25 | Critical Care Consultation ---
Date of Consultation October 23, 2018 Assessment & Plan (1) Left carotid artery stenosis: Armen Angela is s/p left carotid endarterectomy for left carotid stenosis in setting of recent CVA to left hemisphere to help prevent reoccurrence. Neuro: - Morphine 1-4mg IV q2H for severe pain - Percocet 5mg/325mg q4 PRN - continue with home Cymbalta 60mg in AM for depression Cardiac/Vascular PMHx: CAD, Afib, HTN, HLD - hold home anti-HTNs until AM, except starting Coreg 25mg qHS tonight. Pulm: CPAP qHS and naps ordered for ZULEIKA, respiratory called to find if settings available from recent hospitalization. * ipap 10 * epap10 End tidal CO2 ordered to monitor ventilation Appreciate maintaining O2 sats in 90-96% range GI: Zofran 4mg for nausea PRN Protonix 40mg PO BID Ranitidine 300mg PO qHS Renal/Lytes continue with home Mag Ox 400mg in AM : continue with home Oxybutynin 5mg in AM Endo DM2 - pharm glycemic management Heme: CBC in AM s/p surgery ID: Had ancef surgical protocol, no current signs of infection. Lines: eliecer left radial 18g left peripheral DVT ppx: Code full Therapeutic Lovenox to start tomorrow AM 135mg sq q12h (2) PAF (paroxysmal atrial fibrillation): (3) ZULEIKA on CPAP: (4) Dyslipidemia: (5) GERD (gastroesophageal reflux disease): (6) HTN (hypertension): (7) CAD (coronary artery disease): (8) Diabetes mellitus type II, uncontrolled: (9) Tobacco abuse: Supervising Physician Co-Signing Physician Notes Dr. Haddad was resident physician during care of patient. I separately evaluated patient for moe portions of the history and the exam. I was present during the critical portion of medical decision making, and I discussed the case with the resident. I generally agree with the findings and plan. I discussed with Dr. Reilly the starting of his anticoagulation which can be started tomorrow morning: Lovenox, patient is okay to have wear his CPAP machine, the incision site is low near the collarbone and should not be affected by the straps of the CPAP. History of Present Illness Reason for Consultation: Post-op clinical management Requesting Physician: Hans Reilly MD Attending Physician: Hans Reilly MD History of Present Illness Mr. Armen Angela is a 63 y/o male with past medical hx of DM2 uncontrolled, CAD, parox afib, ZULEIKA on CPAP, HTN, HLD, GERD, current smoker with recent history of mild CVA involving left hemisphere with 80% narrowing of his left internal carotid presents for post-op management s/p left carotid endarterectomy. Spouse is present with patient at bedside. Spouse states patient did not bring home CPAP with him but notes he does wear CPAP at home. Only current patient complaints of soreness related to surgical site. Allergies Allergy/AdvReac Type Severity Reaction Status Date / Time niacin AdvReac Intermediate sweats and Verified 10/23/18 06:09 joint pain Home Medications Home Medications Medication Instructions Recorded Confirmed Type fenofibrate nanocrystallized 48 mg PO QPM #0 tab 02/25/13 10/23/18 History [Tricor] nitroglycerin [Nitrostat] 0.4 mg SUBLINGUAL USEASDIRECTD PRN 02/25/13 10/23/18 History #0 btl omeprazole 20 mg PO BID #0 cap 02/25/13 10/22/18 History ranitidine HCl [Zantac] 300 mg PO HS #0 tab 02/25/13 10/23/18 History metformin 500 mg PO BID #0 11/07/15 10/22/18 History Novolog U-100 Insulin aspart 32 unit SUBCUT TIDM #0 06/26/16 10/23/18 History atorvastatin [Lipitor] 80 mg PO DAILY #0 tab 06/26/16 10/22/18 History digoxin 125 mcg PO QPM #0 06/26/16 10/23/18 History magnesium oxide 400 mg PO DAILY #0 tab 06/26/16 10/22/18 History Victoza 3-Alphonso 1.8 mg SUBCUT UD 10/16/18 10/23/18 History aspirin 81 mg PO DAILY 10/16/18 10/23/18 History duloxetine 60 mg PO QAM 10/16/18 10/22/18 History losartan 100 mg PO DAILY 10/16/18 10/22/18 History omega-3 fatty acids-fish oil 1 cap PO BID 10/16/18 10/23/18 History oxybutynin chloride 5 mg PO DAILY 10/16/18 10/22/18 History Mari Trevino U-100 Insulin 40 unit SUBCUT BID #0 ml 10/20/18 10/23/18 Rx amlodipine [Norvasc] 10 mg PO QAM 30 Days #60 tab 10/20/18 10/22/18 Rx carvedilol 25 mg PO UD 30 Days #75 tab 10/20/18 10/22/18 Rx enoxaparin [Lovenox] 135 mg SUBCUT Q12H #10 dose 10/24/18 Rx oxycodone-acetaminophen 1 - 2 tab PO Q6 PRN #30 tab 10/24/18 Rx warfarin 7.5 mg PO DAILY 10/24/18 10/24/18 History Patient History Medical History Left carotid artery stenosis 80+ % stenosis Stroke To [facility] 10/16/18 with facial droop and R sided weakness. Brain MRI = punctate acute lacunar infarct within the posterior limb of the left internal capsule. Outside tPA window. Diabetes mellitus type II, uncontrolled (Chronic) A1C 8.8% 10/16/18 CAD (coronary artery disease) (Chronic) s/p TREVER to RCA and LAD PAF (paroxysmal atrial fibrillation) (Chronic) Rate control with BB. On Warfarin. Replaced with subQ Lovenox until surgery at recommendation of surgeon. ZULEIKA on CPAP (Chronic) Depression (Chronic) GERD (gastroesophageal reflux disease) (Chronic) HTN (hypertension) (Chronic) Dyslipidemia (Chronic) Tobacco abuse (Chronic) Anxiety Degenerative disc disease Morbid obesity Osteoarthritis Peripheral neuropathy LOWER LEFT LEG Surgical History Hx of cholecystectomy (Resolved) Biceps tendon rupture LEFT SIDE REPAIRED H/O thumb surgery RT TENDON REPAIRED History of colonoscopy History of heart artery stent 2 STENTS PLACED OVER 10 YEARS AGO ([facility]) History of lumbar surgery TOTAL OF 4 History of nephrectomy, left ? DETAILS "WAS NOT WORKING CORRECTLY AND CAUSED PAIN" History of open reduction and internal fixation (ORIF) procedure RT WRIST History of tonsillectomy History of tooth extraction Family History Other Heart disease Social History Preferred Language: Yoruba Communication Ability: Effective Pre Parole Counseling Aide Required: No Beliefs That Will Affect Care: None Current Living Situation: Alone Other Information That Helps Us Care for You: No Feels Safe at Home: Yes Safety Concerns: Feels Safe At This Time Smoking Status: Current every day smoker Tobacco Type: cigarettes Cigarettes Per Day: 10 CIG DAILY Do You Dip or Chew Tobacco: No Second Hand Exposure: No Tobacco Cessation Education Requested by Patient: No Hx Alcohol Use: Yes Hx Substance Use: No Review of Systems Review of Systems: All systems reviewed & are unremarkable except as noted in HPI & below Ear, Nose, Mouth, Throat: Sore throat and pain with swallowing Cardiovascular: Additional Comments: Denies chest pain denies shortness of breath Physical Exam Constitutional: + obese, cooperative and comfortable Eyes: + anicteric sclerae and EOM intact bilaterally ENMT: Mouth: no oropharynx abnormality and no trismus Throat: no posterior oropharynx abnormality Neck: trachea midline sutures intact to left lateral anterior neck Respiratory: no respiratory distress and does not use accessory muscles Cardiovascular: Rate/Rhythm: regular rate and + irregularly irregular Musculoskeletal: Head/Neck/Chest: normocephalic and head atraumatic Skin: no rashes, warm and dry Neurologic: moves all extremities and awake Psychiatric: Orientation: alert and oriented x 3 Results & Data Vital Signs (Past 12 Hours) Vital Signs Temp Pulse Pulse Resp BP Pulse Ox 10/23/18 11:20 36.5 C 96 H 16 126/94 95 10/23/18 11:10 90 16 150/91 H 95 10/23/18 11:00 86 18 142/96 H 96 10/23/18 10:51 36.3 C L 101 H 16 134/88 96 10/23/18 07:37 95 H 18 95 10/23/18 06:18 36.6 C 94 H 20 142/91 H 91 PG Care Time/CCT Total # of Minutes Spent Total Time Spent with Patient: Total time spent is greater than 50% in coordination of care (as documented) at patient's floor/unit and/or counseling patient:
[2018-10-23] MEDS: SODIUM CHLORIDE 0.9% 1000ML 1,000 ML IV SCH ×2 (12:38→20:13)
[2018-10-23] MEDS ORDERED: CEFAZOLIN 3000MG 72.5 ML IV ONE (13:00)
[2018-10-23] MEDS ORDERED: PHARMACY GLYCEMIC MGMT CONSULT PRN (13:02)
[2018-10-23] MEDS ORDERED: INSULIN GLARGINE SOLOSTAR 100 UNITS/ML 3 ML PEN SQ ONE ×2 (13:04→21:00)
--- NOTE | 2018-10-23 15:11 | Pharmacy Report ---
Glycemic Control Consultation - Date of Service October 23, 2018 - Scope Scope: Glycemic Pharmacist consulted by Dr Reilly on 10/23 for glycemic control and to write orders per [facility] inpatient glycemic control protocol - Objective Weight: 135.6 kg Accuchecks BSG (last 24hrs): 10/23/18 10/23/18 10/23/18 05:47 10:52 11:40 POC Glucose 151 H 147 H 167 H HbA1c: 8.8% 10/16 - Recent Pertinent Medications Outpatient Anti-diabetic Regimen: * Basaglar 40 units BID, Novolog 32 TIDM, Metformin 500 mg; victoza; metformin 500 mg BID * A1c = 8.8 % 10/16/18 Risk Factors for Insulin Resistance: * Steroids: * Infection: * Pressors: * IVF: * Recent Surgery: POD #0 * Diet: T2DM * Mechanical Ventilation: - Assessment & Plan Assessment & Plan: ASSESSMENT: * Mr. Angela is post left carotid endarterectomy for left carotid stenosis with recent left hemisphere CVA * BSGs 147-167 are present, held morning lantus- will give dose now and scale for bedtime- 20% reduction - 7% reduction as uncertain of intake, Type 2 diet ordered. * Patient has bolus heavier outpatient regimen, A1c 8.8% * Started novolog parameters with weight based stress of 2 correction factor and carb ratio of 5 (between 2 and 3), Parameters for based on outpatient insulin use stress of 1 suggest 09/07 PLAN FOR INPATIENT GLYCEMIC CONTROL: * Holding outpatient oral diabetes medications * Basal insulin * Lantus 35 units SQ x 1 * Lantus 30 units BSG <120 * 35 units BSG 120-180 * 40 units BSG >180 * Bolus insulin * NovoLog per scale ACHS or Q6hrs while NPO * Goal Range: Low 120 mg/dL - High 160 mg/dL * Correction Factor: 15 mg/dL/unit * Nutritional / Prandial insulin per carb ratio of 1 unit per 5 grams CHO consumed * Please note that the plan above was derived based on current level of insulin resistance and hospital stress. These recommendations are appropriate for inpatient admission only. Plan of care upon discharge will need to be reassessed to avoid potential outpatient hypo/hyperglycemia. Thank you.
[2018-10-23] MEDS: INSULIN ASPART 100 UNITS/ML 3 ML PEN SC SCH ×2 (16:23→20:56)
[2018-10-23] MEDS: OXYCODONE/ACETAMINOPHEN 5mg/325mg TAB PO PRN (18:13)
[2018-10-23] MEDS: PANTOprazole 40 MG TAB PO SCH (20:54)
[2018-10-23] MEDS: OMEGA-3 (PURIFIED FISH OIL) 1 GM CAP PO SCH (20:56)
[2018-10-23] MEDS ORDERED: FENOFIBRATE NANOCRYSTALLIZED 48 MG TABLET PO SCH (21:00)
[2018-10-23] MEDS ORDERED: CARVEDILOL 25 MG TAB PO SCH (21:00)
[2018-10-23] MEDS ORDERED: DIGOXIN 0.125 MG TAB PO SCH (21:00)
[2018-10-24] MEDS: INSULIN ASPART 100 UNITS/ML 3 ML PEN SC SCH ×4 (00:12→11:45)
[2018-10-24] MEDS: OXYCODONE/ACETAMINOPHEN 5mg/325mg TAB PO PRN ×2 (01:31→06:01)
[2018-10-24 05:27] LABS: Basophils # (auto) 0.04 K/uL (0-0.2); Basophils % (auto) 0.4 %; Eosinophils # (auto) 0.32 K/uL (0-0.5); Eosinophils % (auto) 3.3 %; Hematocrit (blood only) 36.3 % (42-52); Immature Granulocytes # (auto) 0.02 K/uL (0.00-0.02); Immature Granulocytes % (auto) 0.2 %; Lymphocytes # (auto) 2.33 K/uL (1.2-3.4); Lymphocytes % (auto) 24.2 %; Mean Corpuscular Hgb Conc 33.1 g/dL (32-36); Mean Corpuscular Volume 93.6 fL (80-100); Mean Platelet Volume 9.2 fL (7.4-10.4); Monocytes # (auto) 0.69 K/uL (0.11-0.59); Monocytes % (auto) 7.2 %; Neutrophils # (auto) 6.21 K/uL (1.4-6.5); Neutrophils % (auto) 64.7 %; Platelet Count 227 K/uL (130-400); RDW Coefficient of Variation 15.1 % (11.5-14.5); RDW Standard Deviation 51.1 fL (36.4-46.3); Red Blood Count 3.88 M/uL (4.7-6.1); White Blood Count 9.61 K/uL (4.8-10.8)
[2018-10-24 05:49] LABS: BUN Creatinine Ratio 13.5 (10-20); Creatinine Clr Calc Pharmacy 156.1 ml/min; Est GFR (African American) 117.9; Est GFR (Non-African American) 101.7; Potassium 3.7 mmol/L (3.5-5.1)
[2018-10-24] MEDS: PANTOprazole 40 MG TAB PO SCH (08:23)
[2018-10-24] MEDS: OMEGA-3 (PURIFIED FISH OIL) 1 GM CAP PO SCH (08:23)
--- NOTE | 2018-10-24 08:25 | Surgery Progress Note ---
Date of Service October 24, 2018 Assessment & Plan (1) Status post carotid endarterectomy: Pt doing well post op. D/C home today. Will follow up in office in 2 weeks. (2) Left carotid artery stenosis: see above Present on Admission?: Yes Subjective 63 yo m with noted LICAS and L hemispheric CVA last week, now POD #1 after L CEA, seen in f/u today. Pt admits fatigue and some mild neck discomfort, controlled with medications. Denies CHUN, worsening RUE weakness, vision changes, chest pain, SOB, N/V, other concerns. Review of Systems Review of Systems: All systems reviewed & are unremarkable except as noted in HPI & below Physical Exam Constitutional: WD/WN, vitals as above + morbidly obese; no acute distress Neck: trachea midline L neck incision C/D/I with sutures and dermabond. + local soft edema and mild ecchymosis and tenderness. 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) Neurologic: + focal motor deficit (Mild r facial droop and RUE weakness) deficits unchanged from preop subjectively and objectively Psychiatric: A+Ox3, euthymic affect Results & Data Vital Signs (Past 12 Hours) Vital Signs Temp Pulse Resp BP Pulse Ox 10/24/18 06:00 113 H 22 93 10/24/18 05:00 91 H 14 93 10/24/18 04:00 36.7 C 103 H 19 146/88 H 94 10/24/18 03:00 87 14 91 10/24/18 02:00 84 11 L 90 10/24/18 01:25 84 16 94 10/24/18 01:00 101 H 17 92 10/24/18 00:00 36.5 C 83 12 95 10/23/18 23:00 87 18 92 10/23/18 22:57 88 18 89 L 10/23/18 22:00 103 H 6 L 92 10/23/18 21:00 124 H 24 91 10/23/18 20:53 103 H
[2018-10-24] MEDS ORDERED: LOSARTAN POTASSIUM 50 MG TAB PO SCH (09:00)
[2018-10-24] MEDS ORDERED: INSULIN GLARGINE SOLOSTAR 100 UNITS/ML 3 ML PEN SQ SCH (09:00)
[2018-10-24] MEDS ORDERED: CARVEDILOL 25 MG TAB PO SCH (09:00)
[2018-10-24] MEDS ORDERED: ENOXAPARIN 150 MG/ML SYR SQ SCH (09:00)
[2018-10-24] MEDS ORDERED: ASPIRIN 81 MG ECTAB PO SCH (09:00)
[2018-10-24] MEDS ORDERED: ENOXAPARIN INJ 120 MG/0.8 ML SYR SQ SCH (09:00)
[2018-10-24] MEDS ORDERED: OXYBUTYNIN CHLORIDE XL 5 MG TABCR PO SCH (09:00)
[2018-10-24] MEDS ORDERED: AMLODIPINE BESYLATE 5 MG TAB PO SCH (09:00)
[2018-10-24] MEDS ORDERED: DULOXETINE HCL 60 MG CAP PO SCH (09:00)
[2018-10-24] MEDS ORDERED: ATORVASTATIN 40 MG TAB PO SCH (09:00)
[2018-10-24] MEDS ORDERED: MAGNESIUM OXIDE 400 MG TAB PO SCH (09:00)
[2018-10-24] MEDS ORDERED: ICU PROTOCOL FOR HYPERGLYCEMIA SCH (09:00)
--- NOTE | 2018-10-24 09:36 | Critical Care Progress Note ---
Date of Service October 24, 2018 Assessment & Plan (1) Left carotid artery stenosis: Armen Angela is s/p left carotid endarterectomy for left carotid stenosis in setting of recent CVA to left hemisphere to help prevent reoccurrence. Okay for discharge home today. Neuro: - Morphine 1-4mg IV q2H for severe pain - Percocet 5mg/325mg q4 PRN - continue with home Cymbalta 60mg in AM for depression Cardiac/Vascular PMHx: CAD, Afib, HTN, HLD - hold home anti-HTNs until AM, except starting Coreg 25mg qHS tonight. Pulm: CPAP qHS and naps ordered for ZULEIKA, respiratory called to find if settings available from recent hospitalization. * ipap 10 * epap10 End tidal CO2 ordered to monitor ventilation Appreciate maintaining O2 sats in 90-96% range GI: Zofran 4mg for nausea PRN Protonix 40mg PO BID Ranitidine 300mg PO qHS Renal/Lytes continue with home Mag Ox 400mg in AM : continue with home Oxybutynin 5mg in AM Endo DM2 - pharm glycemic management Heme: CBC in AM s/p surgery ID: Had ancef surgical protocol, no current signs of infection. Lines: eliecer left radial 18g left peripheral DVT ppx: Code full Therapeutic Lovenox to start tomorrow AM 135mg sq q12h (2) PAF (paroxysmal atrial fibrillation): (3) ZULEIKA on CPAP: (4) Dyslipidemia: (5) GERD (gastroesophageal reflux disease): (6) HTN (hypertension): (7) CAD (coronary artery disease): (8) Diabetes mellitus type II, uncontrolled: (9) Tobacco abuse: Supervising Physician Co-Signing Physician Notes Dr. Haddad was resident physician during care of patient. Patient was transferred out of ICU prior to my evaluation. Subjective Mr. Angela did wear his CPA overnight. He has no acute complaints. He is ready for DC. Physical Exam Constitutional: + obese, cooperative and comfortable Eyes: + anicteric sclerae and EOM intact bilaterally ENMT: Mouth: no oropharynx abnormality and no trismus Throat: no posterior oropharynx abnormality Neck: trachea midline Respiratory: no respiratory distress and does not use accessory muscles Cardiovascular: Rate/Rhythm: regular rate and + irregularly irregular Musculoskeletal: Head/Neck/Chest: normocephalic and head atraumatic Skin: no rashes, warm and dry Neurologic: moves all extremities and awake Psychiatric: Orientation: alert and oriented x 3 Results & Data Vital Signs (Past 12 Hours) Vital Signs Temp Pulse Resp BP Pulse Ox 10/24/18 08:00 36.6 C 110 H 20 91 10/24/18 07:00 108 H 14 90 10/24/18 06:00 113 H 22 93 10/24/18 05:00 91 H 14 93 10/24/18 04:00 36.7 C 103 H 19 146/88 H 94 10/24/18 03:00 87 14 91 10/24/18 02:00 84 11 L 90 10/24/18 01:25 84 16 94 10/24/18 01:00 101 H 17 92 10/24/18 00:00 36.5 C 83 12 95 10/23/18 23:00 87 18 92 10/23/18 22:57 88 18 89 L 10/23/18 22:00 103 H 6 L 92 PG Care Time/CCT Total # of Minutes Spent Total Time Spent with Patient: Total time spent is greater than 50% in coordination of care (as documented) at patient's floor/unit and/or counseling patient:
--- NOTE | 2018-10-26 13:55 | Discharge Summary ---
Date of Service October 26, 2018 Admission HPI Per Admitting Provider History of Present Illness This is a 63-year-old white male with a history of diabetes, COPD, and atrial fibrillation. He awoke the day of admission with right arm right leg weakness.The arm weakness was greater than the leg.He also had a right facial droop.He claims since that time it is been getting stronger.He believes his leg is near normal and his hand is almost there.He does claim that he still has a small facial droop.He denies any speech problems or any problems with aphasia.His work-up showed a greater than 80% narrowing of his left internal carotid artery. Created: 10/18/18 0824 The status of this report is Signed. Draft = Not yet reviewed or approved by Medical Physician. Signed = Reviewed and approved by Medical Physician. Admission Exam Per Admitting Provider Physical Exam Constitutional: WD/WN, vitals as above Neck: trachea midline Respiratory: normal respiratory effort, lungs clear to auscultation Cardiovascular: Rate/Rhythm: regular rhythm Vessels: + carotid bruit (Left) and femoral pulses present Extremities: no edema Gastrointestinal (Abdomen): Inspection/Auscultation: abdomen normal to inspection; abdomen not distended Percussion/Palpation: abdomen soft; abdomen nontender, no guarding and abdomen not rigid Musculoskeletal: Extremities: + abnormal strength (Slightly decreased on right, Arm slightly worse than leg.) Skin: no rashes, warm and dry Lower extremities changes consistent with venous insufficiency. Neurologic: CN's II-XI intact bilaterally and moves all extremities (Mild weakness in the right lower extremity. Right upper extremity also exh) Speech / Cognition: normal speech and no expressive aphasia Motor/Sensory: no sensory deficit Psychiatric: A+Ox3, euthymic affect Principal Diagnosis 1. s/p L CEA 2. 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 D/C home today. Will follow up in office in 2 weeks. (2) Left carotid artery stenosis: see above Total Time Total Time Spent Total Time Spent (In Minutes): 20 minutes Total Time Includes: Examination of the Patient, Discharge Planning and Medication Reconciliation Discharge Plan Discharge Items Patient Disposition: Home - Self-Care Reason For Visit: LEFT INTERNAL CAROTID ARTERY STENOSIS W/STROKE Discharge Diagnosis: 1. s/p L Carotid Endarterectomy (CEA) 2. LICAS with CVA Condition: Good Discharge Goals: Therapeutic intervention Activity: Per 'Additional Instructions' section Lifting Comment: No more than 10 lbs for 1 week Bathing: No limitations Sexual Activity: When tolerated Exercise/Sports: Gradually increase as tolerated Driving/Machine Use Comment: no driving x 1 week Non-emergency contact: Primary Care Provider and Surgeon Call non-emergency contact if: you have any medication questions, your pain is not controlled, your temperature is above 101, your wound has increased redness, your wound has increased drainage and your wound pain has increased Follow-up/Referrals: Ruth Ann Harvey PA-C [Physician Apprise Counselor] - (follow up appt with Dr Reilly or Ruth Ann Harvey PA-C, in 2 weeks) Steven López MD [Primary Care Provider] - Diet: Carb Consistent or DM2 and Heart Healthy Addtl Provider Instructions: SPECIAL CARE INSTRUCTIONS: Medications: * Continue to take Aspirin as directed. Incision Care: * You may shower, but do not rub incision. You may let the warm soapy water run over it. Be sure to dry the incision well after bathing. * Do not shave directly over the incision until it is healed. * DO NOT IMMERSE THE INCISION IN A TUB/POOL/etc. UNTIL HEALED. Restrictions: * Do not drive for at least one week or if you are still taking any narcotic pain medication. * Do not lift anything heavier than a gallon of milk for one week after going home. Possible Complications: * Numbness - It is normal to have some numbness around the incision. Numbness can extend beyond the incision to areas of the neck, ear and face. The numbness is due to bruising of nerves during the surgery and will gradually improve over a period of months. * Hoarseness/Difficulty Speaking and Swallowing - The bruising of nerves in the neck can also cause a hoarse voice, difficulty speaking or swallowing. This may improve over time, HOWEVER, if it continues for more than a few days please contact our office ([phone]). * Excessive Swelling - There will be some swelling immediately after surgery which usually resolves within one week. If you notice that the swelling is getting worse, notify your surgeon ([phone]). * Drainage/Bleeding - If there is any drainage or bleeding, it should be a very small amount (less than a teaspoon per day). If you have excessive bleeding or drainage from the incision, call your surgeon ([phone]) right away. ACTIVATION OF EMERGENCY MEDICAL SYSTEM: Call 911, immediately, if you experience any of the following: Warning Signs and Symptoms of Stroke: * Sudden numbness or weakness of the face, arm or leg, especially on one side of the body * Sudden confusion, trouble speaking or understanding * Sudden trouble seeing in one or both eyes * Sudden trouble walking, dizziness, loss of balance or coordination * Sudden severe headache with no cause Do not delay calling 911 if you experience any warning signs or symptoms of a stroke. Delay in seeking medical attention may affect what treatments can be given to you. Risk Factors for Stroke: You can reduce your chances of stroke by working with your medical provider to adopt a healthy lifestyle. Some specific ways to lower your chance of stroke are: * If you are a smoker, now is the time to stop smoking cigarettes * If you are diabetic, improve the control of your blood sugars * Avoid excessive amounts of alcohol * Control high blood pressure * Lose weight if you are overweight * Be sure to lead an active lifestyle * Eat a healthy diet low in salt, cholesterol and fat You should know about other risk factors for stroke that you are unable to control. These include: * Age 55 years or older * Male gender * Certain racial groups: , or / * Family History of Stroke, Mini stroke or Heart Attack * Sickle Cell Disease You will be receiving a call from the Vascular Surgery Nurse after you are discharged. FOLLOW UP VISIT: It is important for you to keep your follow up appointments with your medical provider. Keep any scheduled doctor appointments. Prescriptions: New oxycodone-acetaminophen 5-325 mg tablet 1 - 2 tab PO Q6 PRN (Reason: Pain) Qty: 30 RF: 0 enoxaparin [Lovenox] 150 mg/mL Syringe 135 mg subcut Q12H Qty: 10 RF: 0 Continued ranitidine HCl [Zantac] 300 mg Tablet 300 mg PO HS Qty: 0 RF: 0 nitroglycerin [Nitrostat] 0.4 mg Tablet, Sublingual 0.4 mg sublingual USEASDIRECTD PRN (Reason: Chest Pain) Qty: 0 RF: 0 omeprazole 20 mg Capsule,Delayed Release(Dr/Ec) 20 mg PO BID Qty: 0 RF: 0 fenofibrate nanocrystallized [Tricor] 48 mg Tablet 48 mg PO QPM Qty: 0 RF: 0 metformin 500 mg Tablet 500 mg PO BID Qty: 0 RF: 0 atorvastatin [Lipitor] 80 mg Tablet 80 mg PO DAILY Qty: 0 RF: 0 Novolog U-100 Insulin aspart 100 unit/mL Solution 32 unit SUBCUT TIDM Qty: 0 RF: 0 digoxin 125 mcg Tablet 125 mcg PO QPM Qty: 0 RF: 0 magnesium oxide 400 mg magnesium Tablet 400 mg PO DAILY Qty: 0 RF: 0 aspirin 81 mg Tablet,Delayed Release (Dr/Ec) 81 mg PO DAILY RF: 0 oxybutynin chloride 5 mg tablet extended release 24hr 5 mg PO DAILY RF: 0 losartan 100 mg tablet 100 mg PO DAILY RF: 0 duloxetine 60 mg capsule,delayed release(DR/EC) 60 mg PO QAM RF: 0 omega-3 fatty acids-fish oil 360-1,200 mg Capsule 1 cap PO BID RF: 0 Victoza 3-Alphonso 0.6 mg/0.1 mL (18 mg/3 mL) pen injector 1.8 mg subcut UD RF: 0 amlodipine [Norvasc] 5 mg Tablet 10 mg PO QAM 30 Days Qty: 60 RF: 0 Basaglar KwikPen U-100 Insulin 100 unit/mL (3 mL) Insulin Pen 40 unit SUBCUT BID Qty: 0 RF: 0 carvedilol 25 mg Tablet 25 mg PO UD 30 Days Qty: 75 RF: 0 warfarin 7.5 mg Tablet 7.5 mg PO DAILY RF: 0 Stand-Alone Forms: [facility] Discharge Orders: Discharge Order (Routine); Ordered 10/24/18 Ordered By: Ruth Ann Harvey Admission Data Admit Date/Time: 10/23/18 07:10 Attending Provider: Hans Reilly Admit Provider: Hans Reilly Primary Care Provider: Steven López Other Providers: Tucker Braswell Service: Intensive Care Unit Other Interventions: Discharge Summary Assessment (RN) Last Done: 10/24/18 10:08 DC Date/Time DO NOT enter until pt leaves facility: 10/24/18 12:22
== END 2018-10-24 12:22 | disposition home or self-care (01) | DRG 38 ==
LOC: ASU 05:20 → 1E 07:10 → EDSTATUS 08:00

== ENCOUNTER 2020-04-06 07:33 | Inpatient (IN) ==
[2020-04-06 08:03] LABS: Basophils # (auto) 0.08 K/uL (0-0.2); Basophils % (auto) 0.6 %; Eosinophils # (auto) 0.69 K/uL (0-0.5); Eosinophils % (auto) 5.4 %; Hematocrit (blood only) 33.7 % (42-52); Immature Granulocytes # (auto) 0.04 K/uL (0.00-0.02); Immature Granulocytes % (auto) 0.3 %; Lymphocytes # (auto) 2.93 K/uL (1.2-3.4); Lymphocytes % (auto) 23.1 %; Mean Corpuscular Hgb Conc 32.6 g/dL (32-36); Mean Platelet Volume 8.7 fL (7.4-10.4); Monocytes # (auto) 0.83 K/uL (0.11-0.59); Monocytes % (auto) 6.5 %; Neutrophils # (auto) 8.12 K/uL (1.4-6.5); Neutrophils % (auto) 64.1 %; Platelet Count 339 K/uL (130-400); RDW Coefficient of Variation 14.9 % (11.5-14.5); RDW Standard Deviation 53.1 fL (36.4-46.3); Red Blood Count 3.44 M/uL (4.7-6.1); White Blood Count 12.69 K/uL (4.8-10.8)
--- NOTE | 2020-04-06 08:04 | Emergency Department Note ---
History of Present Illness General Chief Complaint: Cardiac Assessment Stated Complaint: CHEST PAIN,SOB,SENT BY DR. MILLIGAN Time Seen by Provider: 04/06/20 07:40 Source: patient Mode of arrival: ambulatory Limitations: no limitations History of Present Illness Provider Complaint: chest pain Maximum Pain Intensity: 6 This is a 65-year-old male who presents to the ED with a chief complaint of A. fib. The patient states that he was told by Dr. Milligan to come to the hospital today to be admitted for ablation. The patient has chronic A. fib. He has been having exertional chest pains as well as shortness of breath for the past couple of months. He has had also had increased swelling in his legs. The patient denies any symptoms at the moment. He denies any fevers or recent illness. No nausea or vomiting. No diarrhea. Home Medications Medication Instructions Recorded Confirmed Type fenofibrate nanocrystallized 48 mg PO QPM #0 tab 02/25/13 04/06/20 History [Tricor] nitroglycerin [Nitrostat] 0.4 mg SUBLINGUAL USEASDIRECTD PRN 02/25/13 04/06/20 History #0 btl omeprazole 20 mg PO BID #0 cap 02/25/13 04/06/20 History metformin 1,000 mg PO BID #0 11/07/15 04/06/20 History atorvastatin [Lipitor] 80 mg PO DAILY #0 tab 06/26/16 04/06/20 History digoxin 125 mcg PO QPM #0 06/26/16 04/06/20 History insulin aspart U-100 [Novolog 32 unit SUBCUT TIDM #0 06/26/16 04/06/20 History U-100 Insulin aspart] magnesium oxide 400 mg PO DAILY #0 tab 06/26/16 04/06/20 History aspirin 81 mg PO DAILY 10/16/18 04/06/20 History duloxetine 60 mg PO QAM 10/16/18 04/06/20 History losartan 100 mg PO DAILY 10/16/18 04/06/20 History omega-3 fatty acids-fish oil 1 cap PO BID 10/16/18 04/06/20 History oxybutynin chloride 5 mg PO DAILY 10/16/18 04/06/20 History warfarin 7.5 mg PO DAILY 10/24/18 04/06/20 History Basaglar KwikPen U-100 Insulin 44 unit SUBCUT BID 03/23/20 04/06/20 History amlodipine [Norvasc] 10 mg PO DAILY 03/23/20 04/06/20 History carvedilol 25 mg PO BID 03/23/20 04/06/20 History cyanocobalamin (vitamin B-12) 1,000 mcg PO DAILY 03/23/20 04/06/20 History [Vitamin B-12] famotidine 40 mg PO HS 03/23/20 04/06/20 History semaglutide [Ozempic] 1 mg SUBCUT WE 03/23/20 04/06/20 History spironolactone 12.5 mg PO DAILY 04/06/20 04/06/20 History Allergies Allergy/AdvReac Type Severity Reaction Status Date / Time niacin AdvReac Intermediate sweats and Verified 03/23/20 21:31 joint pain Past Med/Surg History Medical History (Updated 04/06/20 @ 08:43 by Robibe Prater DO) Anxiety CAD (coronary artery disease) s/p TREVER to RCA and LAD Degenerative disc disease Depression Diabetes mellitus type II, uncontrolled A1C 8.8% 10/16/18 Dyslipidemia GERD (gastroesophageal reflux disease) HTN (hypertension) Left carotid artery stenosis 80+ % stenosis Morbid obesity ZULEIKA on CPAP Osteoarthritis PAF (paroxysmal atrial fibrillation) Rate control with BB. On Warfarin. Replaced with subQ Lovenox until surgery at recommendation of surgeon. Peripheral neuropathy LOWER LEFT LEG Stroke To [facility] 10/16/18 with facial droop and R sided weakness. Brain MRI = punctate acute lacunar infarct within the posterior limb of the left internal capsule. Outside tPA window. Tobacco abuse Surgical History Biceps tendon rupture LEFT SIDE REPAIRED H/O thumb surgery RT TENDON REPAIRED History of colonoscopy History of heart artery stent 2 STENTS PLACED OVER 10 YEARS AGO ([facility]) History of lumbar surgery TOTAL OF 4 History of nephrectomy, left ? DETAILS "WAS NOT WORKING CORRECTLY AND CAUSED PAIN" History of open reduction and internal fixation (ORIF) procedure RT WRIST History of tonsillectomy History of tooth extraction Hx of cholecystectomy Family History Other Heart disease Social History Smoking Status: Current every day smoker Tobacco Type: Cigarettes Cigarettes Per Day: 10 CIG DAILY; Second Hand Exposure: No; Hx Alcohol Use: Yes Hx Substance Use: No Preferred Language: French Communication Ability: Effective Intraoperative Neuro Tech Required: No Beliefs That Will Affect Care: None Current Living Situation: Alone Feels Safe at Home: Yes Assistive Devices: Glasses Review of Systems A total of 10 systems reviewed and were otherwise negative Physical Exam Vital Signs Vital Signs - 24 hr 04/06/20 07:39 04/06/20 07:43 Temperature 37.1 C Temperature Source Oral Pulse Rate 100 H Respiratory Rate 20 Respiratory Effort / Characteristics Non-Labored Spontaneous Respiratory Depth Normal Respiratory Pattern Regular Blood Pressure 139/79 Blood Pressure Mean 99 Pulse Oximetry 98 94 Oxygen Delivery Method Room Air Room Air Sepsis Recent Fever Within 48 Hours No Sepsis New/Unexplained Change in Mental Status N/A Sepsis Action Taken by Nursing No Action Required CONSTITUTIONAL/VITAL SIGNS: Reviewed / noted above. GENERAL: Non-toxic in appearance. INTEGUMENTARY: Warm, dry, and [place]. HEAD: Normocephalic. EYES: without scleral icterus or trauma. ENT/OROPHARYNX: clear and moist. LYMPHADENOPATHY/NECK: Is supple without lymphadenopathy or meningismus. RESPIRATORY: Lungs clear and equal. CARDIOVASCULAR: Regular rate and rhythm. GI/ABDOMEN: Soft and nontender. No organomegaly or pulsatile mass. No rebound or guarding. Normal bowel sounds. EXTREMITIES: Warm and well perfused. Peripheral edema. BACK: No CVA tenderness. NEUROLOGICAL: Intact without focal deficits. PSYCHIATRIC: normal affect. MUSCULOSKELETAL: Normally developed with good muscle tone. TRIAGE NURSING DOCUMENTATION REVIEWED. Medical Decision Making Differential Diagnosis The differential that was considered includes acute myocardial infarction, acute coronary syndrome, myocarditis, pericarditis, pericardial effusions /tamponade, esophageal perforation, thoracic aortic dissection, pulmonary embolism, pneumonia, pneumothorax, pancreatitis, shingles, acute cholecystitis, perforated abdominal viscus. Medical Records Attestation: I reviewed the patient's medical records. Home Medications Current Medication List: was personally reviewed by me Laboratory Data Attestation: I reviewed the patient's lab results. Result diagrams: 04/06/20 07:40 04/06/20 07:40 Labs: Lab Results 04/06/20 04/06/20 04/06/20 Range/Units 07:40 07:40 07:40 WBC 12.69 H (4.8-10.8) K/uL RBC 3.44 L (4.7-6.1) M/uL Hgb 11.0 L (14.0-18.0) g/dL Hct 33.7 L (42-52) % MCV 98.0 (80-100) fL MCH 32.0 (25-34) pg MCHC 32.6 (32-36) g/dL RDW Std Deviation 53.1 H (36.4-46.3) fL RDW Coeff of Aba 14.9 H (11.5-14.5) % Plt Count 339 (130-400) K/uL MPV 8.7 (7.4-10.4) fL Immature Gran % (Auto) 0.3 % Neut % (Auto) 64.1 % Lymph % (Auto) 23.1 % [place] % (Auto) 6.5 % Eos % (Auto) 5.4 % Baso % (Auto) 0.6 % Neut # (Auto) 8.12 H (1.4-6.5) K/uL Lymph # (Auto) 2.93 (1.2-3.4) K/uL Am[place] # (Auto) 0.83 H (0.11-0.59) K/uL Eos # (Auto) 0.69 H (0-0.5) K/uL Baso # (Auto) 0.08 (0-0.2) K/uL Immature Gran # (Auto) 0.04 H (0.00-0.02) K/uL PT 53.3 H (9.0-12.0) Seconds INR 5.5 H (0.9-1.1) APTT 63.8 H* (21.0-31.0) Seconds PTT Ratio 2.3 Sodium 139 (136-145) mmol/L Potassium 4.1 (3.5-5.1) mmol/L Chloride 104 (98-107) mmol/L Carbon Dioxide 26 (21-32) mmol/L Anion Gap 9.0 (3-11) BUN 23 H (7-18) mg/dl Creatinine 1.70 H (0.6-1.4) mg/dl Est Cr Clr Drug Dosing 60.7 ml/min Est GFR ( Amer) 48.3 Est GFR (Non-Af Amer) 41.7 BUN/Creatinine Ratio 13.4 (10-20) Glucose 168 H (70-99) mg/dl Calcium 9.1 (8.5-10.1) mg/dl Total Bilirubin 0.4 (0.2-1) mg/dl AST 23 (15-37) U/L ALT 25 (12-78) U/L Alkaline Phosphatase 63 (45-117) U/L Troponin I 0.418 H* (0-0.045) ng/ml Total Protein 7.7 (6.4-8.2) gm/dl Albumin 3.6 (3.4-5.0) gm/dl Globulin 4.1 H (2.5-4.0) gm/dl Albumin/Globulin Ratio 0.9 (0.9-2) Lipase 142 (73-393) U/L COVID-19 Eval Order 04/06/20 Range/Units 08:28 WBC (4.8-10.8) K/uL RBC (4.7-6.1) M/uL Hgb (14.0-18.0) g/dL Hct (42-52) % MCV (80-100) fL MCH (25-34) pg MCHC (32-36) g/dL RDW Std Deviation (36.4-46.3) fL RDW Coeff of Aba (11.5-14.5) % Plt Count (130-400) K/uL MPV (7.4-10.4) fL Immature Gran % (Auto) % Neut % (Auto) % Lymph % (Auto) % [place] % (Auto) % Eos % (Auto) % Baso % (Auto) % Neut # (Auto) (1.4-6.5) K/uL Lymph # (Auto) (1.2-3.4) K/uL [place] # (Auto) (0.11-0.59) K/uL Eos # (Auto) (0-0.5) K/uL Baso # (Auto) (0-0.2) K/uL Immature Gran # (Auto) (0.00-0.02) K/uL PT (9.0-12.0) Seconds INR (0.9-1.1) APTT (21.0-31.0) Seconds PTT Ratio Sodium (136-145) mmol/L Potassium (3.5-5.1) mmol/L Chloride (98-107) mmol/L Carbon Dioxide (21-32) mmol/L Anion Gap (3-11) BUN (7-18) mg/dl Creatinine (0.6-1.4) mg/dl Est Cr Clr Drug Dosing ml/min Est GFR ( Amer) Est GFR (Non-Af Amer) BUN/Creatinine Ratio (10-20) Glucose (70-99) mg/dl Calcium (8.5-10.1) mg/dl Total Bilirubin (0.2-1) mg/dl AST (15-37) U/L ALT (12-78) U/L Alkaline Phosphatase (45-117) U/L Troponin I (0-0.045) ng/ml Total Protein (6.4-8.2) gm/dl Albumin (3.4-5.0) gm/dl Globulin (2.5-4.0) gm/dl Albumin/Globulin Ratio (0.9-2) Lipase (73-393) U/L COVID-19 Eval Order Covid19 [facility] Imaging Data Chest x-ray: Radiologist's impression: XR chest 1V portable CLINICAL HISTORY: Atypical chest pain. COMPARISON STUDY: Chest radiograph March 23, 2020. FINDINGS: There is no pneumothorax or pleural the effusion. Enlargement of the cardiac silhouette is unchanged. No consolidation. There is no evidence for pulmonary edema. Mild interstitial prominence is unchanged. IMPRESSION: No acute cardiopulmonary findings. No significant change in appearance of the chest. ECG Data Attestation: I personally reviewed and interpreted this ECG as follows: Indication: chest pain Rate (beats per minute): 98 Rhythm: atrial fibrillation Findings: + T-wave inversion (Lateral); no PVC and no ST elevation Change: no significant change (March 23, 2020) MDM Narrative This is a 65-year-old male who presents to the ED with a chief complaint of A. fib as well as exertional chest pain and shortness of breath over the past cou ple of months as detailed above. He is here for ablation. His exam was benign. He is currently in no distress or having any symptoms. His EKG shows chronic A. fib without significant change from an EKG dated March 23. Chest x-ray did not show acute process. The patient CBC was unremarkable chemistry. Shows a slightly elevated creatinine. This is above the patient's baseline. His glucose was elevated. His troponin was also elevated. He is chronically on Eliquis. The patient was told the results. He will be seen by the hospitalist for further inpatient evaluation and care. He is currently asymptomatic. Impression & Plan Chest pain, exertional, A-fib, Elevated troponin, Acute kidney injury Discharge Plan Visit Data Chief Complaint: Cardiac Assessment Stated Complaint: CHEST PAIN,SOB,SENT BY DR. MILLIGAN ED Provider: Robbie Prater Discharge Problem: Chest pain, exertional, A-fib, Elevated troponin, Acute kidney injury Patient Disposition: Being Evaluated by Hospitalist Forms Stand Alone Forms: [facility] [facility] Prescriptions Prescriptions: No Action nitroglycerin [Nitrostat] 0.4 mg Tablet, Sublingual 0.4 mg sublingual USEASDIRECTD PRN (Reason: Chest Pain) Qty: 0 RF: 0 omeprazole 20 mg Capsule,Delayed Release(Dr/Ec) 20 mg PO BID Qty: 0 RF: 0 fenofibrate nanocrystallized [Tricor] 48 mg Tablet 48 mg PO QPM Qty: 0 RF: 0 metformin 500 mg Tablet 1,000 mg PO BID Qty: 0 RF: 0 atorvastatin [Lipitor] 80 mg Tablet 80 mg PO DAILY Qty: 0 RF: 0 insulin aspart U-100 [Novolog U-100 Insulin aspart] 100 unit/mL Solution 32 unit SUBCUT TIDM Qty: 0 RF: 0 digoxin 125 mcg Tablet 125 mcg PO QPM Qty: 0 RF: 0 magnesium oxide 400 mg magnesium Tablet 400 mg PO DAILY Qty: 0 RF: 0 aspirin 81 mg Tablet,Delayed Release (Dr/Ec) 81 mg PO DAILY RF: 0 oxybutynin chloride 5 mg tablet extended release 24hr 5 mg PO DAILY RF: 0 losartan 100 mg tablet 100 mg PO DAILY RF: 0 duloxetine 60 mg capsule,delayed release(DR/EC) 60 mg PO QAM RF: 0 omega-3 fatty acids-fish oil 360-1,200 mg Capsule 1 cap PO BID RF: 0 carvedilol 25 mg tablet 25 mg PO BID RF: 0 famotidine 40 mg tablet 40 mg PO HS RF: 0 cyanocobalamin (vitamin B-12) [Vitamin B-12] 1,000 mcg Tablet 1,000 mcg PO DAILY RF: 0 amlodipine [Norvasc] 5 mg tablet 10 mg PO DAILY RF: 0 Ozempic 1 mg/dose (2 mg/1.5 mL) pen injector 1 mg SUBCUT WE RF: 0 Basaglar KwikPen U-100 Insulin 100 unit/mL (3 mL) insulin pen 44 unit SUBCUT BID RF: 0 warfarin 7.5 mg Tablet 7.5 mg PO DAILY RF: 0 spironolactone 25 mg tablet 12.5 mg PO DAILY RF: 0 Referrals Referrals: Steven López MD [Primary Care Provider] - Discharge Problem: A-fib Qualifiers: Atrial fibrillation type: persistent (not longstanding) Qualified Code(s): I 48.19 - Other persistent atrial fibrillation
[2020-04-06 08:17] LABS: Albumin Level 3.6 gm/dl (3.4-5.0); BUN Creatinine Ratio 13.4 (10-20); Calcium 9.1 mg/dl (8.5-10.1); Creatinine Clr Calc Pharmacy 60.7 ml/min; Est GFR (African American) 48.3; Est GFR (Non-African American) 41.7; Potassium 4.1 mmol/L (3.5-5.1)
--- NOTE | 2020-04-06 08:17 | XRay Report ---
XR chest 1V portable CLINICAL HISTORY: Atypical chest pain. COMPARISON STUDY: Chest radiograph March 23, 2020. FINDINGS: There is no pneumothorax or pleural the effusion. Enlargement of the cardiac silhouette is unchanged. No consolidation. There is no evidence for pulmonary edema. Mild interstitial prominence i s unchanged. IMPRESSION: No acute cardiopulmonary findings. No significant change in appearance of the chest. ACT 112: Negative or not required by law. Electronically signed by: Vadim Conde M.D. 04/06/2020 8:16 AM
[2020-04-06 08:23] LABS: INR 5.5 (0.9-1.1); Partial Thromboplastin Ratio 2.3; Prothrombin Time 53.3 Seconds (9.0-12.0)
[2020-04-06 08:29] LABS: Albumin Globulin Ratio 0.9 (0.9-2); Bilirubin,Total 0.4 mg/dl (0.2-1); Globulin 4.1 gm/dl (2.5-4.0); Total Protein 7.7 gm/dl (6.4-8.2); Troponin I 0.418 ng/ml (0-0.045)
[2020-04-06 08:34] LABS: Partial Thromboplastin Time 63.8 Seconds (21.0-31.0)
--- NOTE | 2020-04-06 09:02 | History & Physical Report ---
Date of Service April 06, 2020 Assessment & Plan (1) Chest pain: (2) Atrial fibrillation: This is a 65-year-old male who has significant past medical history of CAD with history of stent to RCA and LAD, chronic HFpEF, cor pulmonale, ZULEIKA on CPAP, chronic atrial fibrillation anticoagulated on warfarin, T2DM, HTN, HLD, history of CVA, history of a flutter status post ablation who presents to ED at the referral of cardiology for sotalol initiation. Admit to PCU consult cardiology - Dr. Milligan aware hx of PAF, now afib with RVR daily ekg - monitor qtc NPO until seen by cardiology hold warfarin in setting of supratherapeutic INR Plan to initiate sotalol - will defer to cardiology Pt is on coreg and did take his morning dose - will await cardiology eval to determine if need to continue given sotalol (3) Supratherapeutic INR: INR 5.5 no s/sx of bleeding hold warfarin, no indication for Vit K at this time unless cardiology requests in setting of procedure daily INR (4) Acute kidney injury: baseline cr 0.8-1.0 bun/cr 23 and 1.70 hold torsemide, losartan hold metformin as well monitor renal function and avoid nephrotoxic agents (5) CAD (coronary artery disease): hx of PCI to RCA and LAD asa, warfarin, statin, coreg and losartan as outpt tx as above in setting of elevated INR warfarin supratherapeutic (6) Chronic heart failure with preserved ejection fraction (HFpEF): last echo 03/30/20 EF 55-59%, grade 3 diastolic dysfunction, pulmonary htn, 45mmhg on Torsemide, aldactone, coreg and losartan Recent exacerbation felt 2/2 to ZULEIKA untreated due to malfunction of cpap appears euvolemic to me today hold torsemide and losartan in setting of LISSETH - defer diuretics to cardiology daily weights, strict I and O heart healthy, low sodium diet cardiology on board recent change in diuretics to torsemide with addition of aldactone, has noticed increased urinary outpt (7) Diabetes mellitus type II, uncontrolled: A1C 7.0 on 03/05 lantus/novolog per protocol hold metformin (8) ZULEIKA on CPAP: CPAP at HS recently saw outpt sleep medicine and has been without CPAP, needs to get re fitted 12-18 cwp with 3L of O2 at HS (9) HTN (hypertension): BP elevated in ED, he did take a.m. meds on amlodipine, coreg, torsemide, aldactone, losartan as outpt hold losartan and torsemide in setting of LISSETH monitor renal function daily, avoid nephrotoxic agents (10) Dyslipidemia: continue statin (11) Stroke: hx CVA continue ASA, Statin warfarin on hold in setting of elevatd INR (12) Tobacco abuse: 1/2ppd/40 years encourage cessation Disposition: admit to PCU Follow up: PCP Dr. López upon discharge along with cardiology follow up Pt was seen and examined in collaboration with Dr. Ahmadi, please see addendum History of Present Illness Chief Complaint: Referred by cardiology for sotalol initiation. Primary Care Provider: Steven López MD This is a 65-year-old male who has significant past medical history of CAD with history of stent to RCA and LAD, chronic HFpEF, cor pulmonale, ZULEIKA on CPAP, chronic atrial fibrillation anticoagulated on warfarin, T2DM, HTN, HLD, history of CVA, history of a flutter status post ablation who presents to ED at the referral of cardiology for sotalol initiation. Patient was seen and evaluated by cardiology on 04/03/2020 secondary to persistent chest pain and lower extremity swelling. In setting of chronic atrial fibrillation patient was referred for admission for likely cardioversion and sotalol initiation. Over the last several weeks patient complains of substernal chest discomfort with minimal activity including ADLs. Chest pain is substernal with radiation to bilateral neck. Symptoms last approximately 1 to 2 minutes but resolved with rest. Also associated with shortness of breath and recent increase in lower extremity edema. He also complains of orthopnea and PND but also associates this to not having a functioning CPAP. He has been followed closely with cardiology and recently had adjustments made to diuretics with transition to torsemide in addition of Aldactone. He has noticed decrease in lower extremity swelling. Currently he denies any fever, chills, sweats, lightheadedness, dizziness, syncope, palpitations, chest pain, shortness breath at rest, hemoptysis, nausea, vomiting, abdominal pain, change in bowel or urinary habits. His last chest pain episode was this morning with minimal activity, but does not occur at rest. Episodes are not associated with diaphoresis or nausea, but does get short of breath. He denies any recent URI symptoms or known COVID-19 exposures. Denies loss of taste or smell. He has been compliant with medications and took all a.m. meds today. Despite above he is staying active taking care of his dogs and working at his [employer]. Allergies Allergy/AdvReac Type Severity Reaction Status Date / Time niacin AdvReac Intermediate sweats and Verified 03/23/20 21:31 joint pain Home Medications Medication Instructions Recorded Confirmed Type fenofibrate nanocrystallized 48 mg PO QPM #0 tab 02/25/13 04/06/20 History [Tricor] nitroglycerin [Nitrostat] 0.4 mg SUBLINGUAL USEASDIRECTD PRN 02/25/13 04/06/20 History #0 btl omeprazole 20 mg PO BID #0 cap 02/25/13 04/06/20 History metformin 1,000 mg PO BID #0 11/07/15 04/06/20 History atorvastatin [Lipitor] 80 mg PO DAILY #0 tab 06/26/16 04/06/20 History digoxin 125 mcg PO QPM #0 06/26/16 04/06/20 History insulin aspart U-100 [Novolog 32 unit SUBCUT TIDM #0 06/26/16 04/06/20 History U-100 Insulin aspart] magnesium oxide 400 mg PO DAILY #0 tab 06/26/16 04/06/20 History aspirin 81 mg PO DAILY 10/16/18 04/06/20 History duloxetine 60 mg PO QAM 10/16/18 04/06/20 History losartan 100 mg PO DAILY 10/16/18 04/06/20 History omega-3 fatty acids-fish oil 1 cap PO HS 10/16/18 04/06/20 History oxybutynin chloride 5 mg PO DAILY 10/16/18 04/06/20 History warfarin 7.5 mg PO SUTUWETHSA 10/24/18 04/06/20 History Basaglar KwikPen U-100 Insulin 44 unit SUBCUT BID 03/23/20 04/06/20 History amlodipine [Norvasc] 10 mg PO DAILY 03/23/20 04/06/20 History carvedilol 25 mg PO BID 03/23/20 04/06/20 History cyanocobalamin (vitamin B-12) 1,000 mcg PO DAILY 03/23/20 04/06/20 History [Vitamin B-12] famotidine 40 mg PO HS 03/23/20 04/06/20 History semaglutide [Ozempic] 1 mg SUBCUT JAEGER 03/23/20 04/06/20 History spironolactone 12.5 mg PO DAILY 04/06/20 04/06/20 History torsemide 20 mg PO BID 04/06/20 04/06/20 History warfarin 5 mg PO MOFR 04/06/20 04/06/20 History Past Med/Surg History Medical History (Updated 04/07/20 @ 00:05 by Juan Jansen) Anxiety CAD (coronary artery disease) s/p TREVER to RCA and LAD Degenerative disc disease Depression Diabetes mellitus type II, uncontrolled A1C 8.8% 10/16/18 Dyslipidemia GERD (gastroesophageal reflux disease) HTN (hypertension) Left carotid artery stenosis 80+ % stenosis Morbid obesity ZULEIKA on CPAP Osteoarthritis PAF (paroxysmal atrial fibrillation) Peripheral neuropathy LOWER LEFT LEG Stroke To [facility] ED 10/16/18 with facial droop and R sided weakness. Brain MRI = punctate acute lacunar infarct within the posterior limb of the left internal capsule. Outside tPA window. Tobacco abuse Surgical History Biceps tendon rupture LEFT SIDE REPAIRED H/O thumb surgery RT TENDON REPAIRED History of colonoscopy History of heart artery stent 2 STENTS PLACED OVER 10 YEARS AGO ([facility]) History of lumbar surgery TOTAL OF 4 History of nephrectomy, left ? DETAILS "WAS NOT WORKING CORRECTLY AND CAUSED PAIN" History of open reduction and internal fixation (ORIF) procedure RT WRIST History of tonsillectomy History of tooth extraction Hx of cholecystectomy Family History Other Heart disease Social History (Updated 04/06/20 @ 10:12 by Eulalia Morales PA-C) Smoking Status: Current every day smoker Tobacco Type: Cigarettes packs per day: 0.5; Years Smoked: 40; Cigarettes Per Day: 10; Second Hand Exposure: No; Hx Alcohol Use: Yes Alcohol type: beer Alcohol Intake Frequency: Monthly or Less Hx Substance Use: No Preferred Language: Yi Communication Ability: Effective Buffing [employer] 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 Required: No Beliefs That Will Affect Care: None marital status: Single Current Living Situation: Alone current occupational status: retired 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, 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 [employer] Other Information That Helps Us Care for You: No Feels Safe at Home: Yes Safety Concerns: Feels Safe At This Time Assistive Devices: None Review of Systems Review of Systems: All systems reviewed & are unremarkable except as noted in HPI & below Physical Exam Physical Exam: Constitutional: WD/WN, obese, male, sitting up at bedside vitals as above, NAD, sitting up in bed, pleasant, conversing easily Head: Normocephalic, Atraumatic Eyes: PERRL, conjunctivae normal, anicteric sclerae ENMT: external ear and nose normal, oropharynx normal Neck: trachea midline, no thyromegaly normal visual inspection Respiratory: normal respiratory effort, lungs clear to auscultation, no wheeze, rales, mild inspiratory rhonchi. Normal insp/exp effort, no accessory muscle use Cardiovascular: Irregular rate, irregular rhythm, no murmur, venous stasis changes bilaterally, no edema Vessels: no JVD or carotid bruit Chest: normal inspection of chest Abdomen: normal bowel sounds, soft, nontender, no hepatosplenomegaly Musculoskeletal: no cyanosis or clubbing, extremities motor strength 5/5 Skin: Scaly plaques and patches noted on dorsal aspect of upper extremities, anterior and posterior thorax, warm and dry normal turgor Neurologic: PERRL, EOMI, accommodation nl, no face palsy, no dysarthria CN's II-XI intact bilaterally and moves all extremities Psychiatric: A+Ox3, euthymic affect Lymphatic: no cervical or axillary lymphadenopathy : deferred Results & Data Results & Data ([facility]) Vital Signs (Past 12 Hours) Vital Signs Temp Pulse Resp BP Pulse Ox 04/06/20 07:43 94 04/06/20 07:39 37.1 C 100 H 20 139/79 98 Laboratory Results Short CBC 04/06/20 04/06/20 04/06/20 Range/Units 07:40 07:40 07:40 WBC 12.69 H (4.8-10.8) K/uL Hgb 11.0 L (14.0-18.0) g/dL Hct 33.7 L (42-52) % Plt Count 339 (130-400) K/uL INR 5.5 H (0.9-1.1) Creatinine 1.70 H (0.6-1.4) mg/dl Est GFR (Non-Af Amer) 41.7 Troponin I 0.418 H* (0-0.045) ng/ml BMP 04/06/20 07:40 Sodium 139 Potassium 4.1 Chloride 104 Carbon Dioxide 26 BUN 23 H Creatinine 1.70 H Glucose 168 H Calcium 9.1 Cardiac Enzymes 04/06/20 Range/Units 07:40 Troponin I 0.418 H* (0-0.045) ng/ml Liver Function 04/06/20 Range/Units 07:40 Total Bilirubin 0.4 (0.2-1) mg/dl AST 23 (15-37) U/L ALT 25 (12-78) U/L Alkaline Phosphatase 63 (45-117) U/L Albumin 3.6 (3.4-5.0) gm/dl Diagnostic Findings CXR:IMPRESSION: No acute cardiopulmonary findings. No significant change in appearance of the chest. Medications Administered ECG Rate (beats per minute): 98 Rhythm: atrial fibrillation Comparison ECG Date: from (03/23/20) Additional Comments: Borderline criteria for inferior infarct now present ST depressions in leads V4-V6 with t wave inversions v5/v6, similar to previous COVID-19 Results Results COVID-19 Lab Results: RBC 3.45 M/uL (4.7-6.1) L 04/07/20 WBC 7.90 K/uL (4.8-10.8) 04/07/20 Hgb 11.0 g/dL (14.0-18.0) L 04/07/20 Hct 33.7 % (42-52) L 04/07/20 Plt Count 324 K/uL (130-400) 04/07/20 Neutrophils (%) (Auto) 64.1 % 04/06/20 Lymphocytes (%) (Auto) 23.1 % 04/06/20 Monocytes # (Auto) 0.83 K/uL (0.11-0.59) H 04/06/20 Eosinophils # (Auto) 0.69 K/uL (0-0.5) H 04/06/20 Immature Granulocyte % (Auto) 0.3 % 04/06/20 Neutrophils # (Auto) 8.12 K/uL (1.4-6.5) H 04/06/20 Lymphocytes # (Auto) 2.93 K/uL (1.2-3.4) 04/06/20 Monocytes # (Auto) 0.83 K/uL (0.11-0.59) H 04/06/20 Eosinophils # (Auto) 0.69 K/uL (0-0.5) H 04/06/20 Basophils # (Auto) 0.08 K/uL (0-0.2) 04/06/20 Immature Granulocyte # (Auto) 0.04 K/uL (0.00-0.02) H 04/06/20 Na 139 mmol/L (136-145) 04/07/20 K 3.7 mmol/L (3.5-5.1) 04/07/20 Cl 107 mmol/L (98-107) 04/07/20 CO2 25 mmol/L (21-32) 04/07/20 Anion Gap 7.0 (3-11) 04/07/20 BUN 20 mg/dl (7-18) H 04/07/20 Creatinine 1.49 mg/dl (0.6-1.4) H 04/07/20 BUN/Creatinine Ratio 13.3 (10-20) 04/07/20 Glucose Level 181 mg/dl (70-99) H 04/07/20 Ca 8.9 mg/dl (8.5-10.1) 04/07/20 Total Bilirubin 0.4 mg/dl (0.2-1) 04/06/20 AST/SGOT 23 U/L (15-37) 04/06/20 ALT/SGPT 25 U/L (12-78) 04/06/20 Alkaline Phosphatase 63 U/L (45-117) 04/06/20 Total Protein 7.7 gm/dl (6.4-8.2) 04/06/20 Albumin 3.6 gm/dl (3.4-5.0) 04/06/20 Globulin 4.1 gm/dl (2.5-4.0) H 04/06/20 Albumin/Globulin Ratio 0.9 (0.9-2) 04/06/20 Troponin I 0.396 ng/ml (0-0.045) H* 04/06/20 PTT 63.8 Seconds (21.0-31.0) H* 04/06/20 INR 3.5 (0.9-1.1) H 04/07/20 Triglycerides Level 270 mg/dl (0-150) H 04/07/20 SARS-CoV-2, RNA, NAAT NEGATIVE (NEGATIVE) 04/06/20 Chest X-Ray 04/06/20 Code Status & VTE Plan Code Status Full Code VTE Prophylaxis Plan VTE Prophylaxis will be ordered: No Reason for no VTE drug order: Contraindicated Reason for no VTE mechanical prophylaxis: Treatment not indicated Supervising Physician Co-Signing Physician Notes Pt seen and examined by me, care coordinated with Eulalia Morales PA-C. Pls refer to her note above for further detail. This is a 65 y/o male w/ CAD s/p stent to RCA and LAD, chronic HFpEF, cor pulmonale, ZULEIKA on CPAP, chronic atrial fibrillation anticoagulated on warfarin, T2DM, HTN, HLD, history of CVA, history of atrial flutter s/p ablation who presents to ED at the referral of cardiology for sotalol initiation. Patient was seen and evaluated by cardiology on 04/03/2020 secondary to persistent chest pain and lower extremity swelling. In setting of chronic atrial fibrillation patient was referred for admission for likely cardioversion and sotalol initiation. Over the last several weeks patient complains of substernal chest discomfort with minimal activity including ADLs. Chest pain is substernal with radiation to bilateral neck. Currently pt is resting, laying in bed and comfortable. He is alert and oriented and answering questions appropriately. He is breathing w/o difficulty on RA. Overall clear to auscultation b/l, w/o any wheezing or rhonchi. heart sounds irregular, no murmur noted. Abdomen is soft, obese, + bowel sounds, nontender. Moves extremities, no significant LE edema at this time. Reports that at rest he usually feels ok, he gets chest pain radiating to his neck w/ movement/ slight exertion. Cardiology consulted, plan for sotalol initiation. INR supratherapeutic, holding warfarin at this time. CPAP. Close monitoring on tele. Anabel Ahmadi MD (1) CAD (coronary artery disease) Associated angina: with unspecified angina Coronary Disease-Associated Artery/Lesion type: unspecified vessel or lesion type [place] vs. transplanted heart: [place] heart Qualified Code(s): I25.119 - Atherosclerotic heart disease of [place] coronary artery with unspecified angina pectoris (2) Atrial fibrillation Atrial fibrillation type: longstanding persistent Qualified Code(s): I48.11 - Longstanding persistent atrial fibrillation (3) Chest pain Chest pain type: other chest pain Qualified Code(s): R07.89 - Other chest pain (4) Stroke CVA mechanism: unspecified Qualified Code(s): I63.9 - Cerebral infarction, unspecified
--- NOTE | 2020-04-06 09:56 | Electrocardiogram Report ---
Test Reason : Blood Pressure : / mmHG Vent. Rate : 098 BPM Atrial Rate : 111 BPM P-R Int : 000 ms QRS Dur : 084 ms QT Int : 338 ms P-R-T Axes : 000 012 188 degrees QTc Int : 431 ms Atrial fibrillation Possible Inferior infarct , age undetermined Cannot rule out Anterior infarct (cited on or before 06-APR-2020) Abnormal ECG When compared with ECG of 23-MAR-2020 18:29, Borderline criteria for Inferior infarct are now Present Confirmed by Celestine Garza ([id number]) on 04/06/2020 9:56:17 AM Referred By: REFERRED SELF Confirmed By:Celestine Garza
[2020-04-06] MEDS ORDERED: DEXTROSE 50% 50 ML SYRINGE IV PRN (10:29)
[2020-04-06] MEDS ORDERED: MAGNESIUM HYDROXIDE SUSP 30 ML UDC PO PRN (10:29)
[2020-04-06] MEDS ORDERED: GLUCOSE 10 TABS/TUBE PO PRN (10:29)
[2020-04-06] MEDS ORDERED: POLYETHYLENE (MIRALAX) 17 GM PACK PO PRN (10:29)
[2020-04-06] MEDS ORDERED: CARBOHYDRATES FOR HYPOGLYCEMIA PO PRN (10:29)
[2020-04-06] MEDS ORDERED: GLUCAGON FOR INJ 1 MG VIAL SQ PRN (10:29)
[2020-04-06] MEDS ORDERED: ONDANSETRON INJ 2 MG/ML 2 ML VIAL IV PRN (10:29)
[2020-04-06] MEDS ORDERED: NITROGLYCERIN SL 0.4 MG/TAB TAB SL PRN (10:29)
[2020-04-06] MEDS ORDERED: ACETAMINOPHEN 325 MG TAB PO PRN (10:29)
[2020-04-06] MEDS ORDERED: GLUCOSE 40% GEL 15 GM TUBE PO PRN (10:29)
[2020-04-06] MEDS ORDERED: ALUMINUM/MAGNESIUM SUSP 30 ML UDC PO PRN (10:29)
[2020-04-06] MEDS: SOTALOL HCL 80 MG TAB PO SCH ×2 (11:11→20:18)
[2020-04-06] MEDS: INSULIN ASPART 100 UNITS/ML 3 ML PEN SC SCH ×3 (11:48→21:02)
--- NOTE | 2020-04-06 11:55 | Cardiology Consultation ---
Date of Consultation April 06, 2020 History of Present Illness Reason for Consultation: Atrial fibrillation with rapid ventricular response Requesting Physician: Eulalia Araiza PA-C Attending Physician: Quinn Ahmadi MD History of Present Illness Dear Steven, It was my pleasure to see Mr. Angela in re-evaluation today April 03, 2020. As you know he is a very pleasant 65-year-old gentleman who has been following closely with us here in the cardiology department for his history of atrial fibrillation with rapid ventricular response, coronary artery disease and cor pulmonale. I saw him earlier this week and he was significantly volume overloaded. At that time we change his diuretics to torsemide twice daily. He was also seen very quickly by our Sleep Medicine colleagues and is currently waiting to hear back from his insurance company to cover his replacement CPAP. Since increasing the diuretics he really has not noticed much in the change. He still has lower extremity edema and significant dyspnea with minimal exertion. Luckily, he denies chest pain. He has been taking his medications as directed and otherwise feeling well. He is still working at the [employer] and taking care of his dogs at home. PAST MEDICAL HISTORY: 1.Coronary artery disease, status post PCI (percutaneous coronary intervention) with drug-eluting stents to the RCA and LAD. 2.Cor-pulmonale. 3.Grade 3 diastolic dysfunction. 4.Paroxysmal atrial fibrillation, status post ablation at [facility], failed. 5.Carotid occlusive disease without obstruction. 6.Elevated BMI. 7.Obstructive sleep apnea. 8.COPD. 9.Tobacco abuse. 10.Hypertension. 11.Hyperlipidemia. 12.GERD. Review of Systems: Pertinent positives as per HPI, comprehensive 10 system review otherwise negative. Allergies as of 04/03/2020 - Reviewed 04/03/2020 -- Niacin -- Muscle pain -- noted 02/04/2010 Current Outpatient Medications: Spironolactone 25 MG Oral Tablet (ALDACTONE), Take 1/2 tablet by mouth daily, Disp: 30 Tab, Rfl: 5 Torsemide 20 MG Oral Tablet (DEMADEX), Take tablet by mouth twice a day, Disp: 60 Tab, Rfl: 3 Losartan Potassium 100 MG Oral Tablet (COZAAR), TAKE ONE TABLET BY MOUTH EVERY DAY, Disp: 90 Tab, Rfl: 1 Omeprazole 20 MG Oral Capsule Delayed Release (PriLOSEC), TAKE ONE CAPSULE BY MOUTH TWICE DAILY, Disp: 180 Cap, Rfl: 1 Warfarin Sodium 5 MG Oral Tablet (COUMADIN), Take 5 mg (1 tablet) every Monday and Monday; Take 7.5 mg (1.5 tablets) all other days or as directed by anticoagulation clinic, Disp: 120 Tab, Rfl: 3 metFORMIN HCl 500 MG Oral Tablet (GLUCOPHAGE), TAKE TWO TABLETS BY MOUTH TWICE DAILY WITH food, Disp: 360 Tab, Rfl: 3 Digoxin 125 MCG Oral Tablet (LANOXIN), Take 1 Tab by mouth daily., Disp: 90 Tab, Rfl: 3 Cyanocobalamin 1000 MCG Oral Tablet (CYANOCOBALAMIN), Take 1 Tab by mouth daily., Disp: 90 Tab, Rfl: 3 NovoLOG FlexPen 100 UNIT/ML Subcutaneous Solution Pen-injector (insulin aspart), INJECT 28 UNITS WITH EACH MEAL PLUS CORRECTION FACTOR1:25 OVER 150; up to 120 units daily, Disp: 105 mL, Rfl: 3 amLODIPine Besylate 5 MG Oral Tablet (NORVASC), TAKE TWO TABLETS BY MOUTH EVERY MORNING, Disp: 180 Tab, Rfl: 1 Carvedilol 25 MG Oral Tablet (COREG), TAKE ONE TABLET BY MOUTH TWICE DAILY, Disp: 180 Tab, Rfl: 1 DULoxetine HCl 60 MG Oral Capsule Delayed Release Particles (CYMBALTA), TAKE ONE CAPSULE BY MOUTH EVERY DAY DO not cut, CRUSH, OR chew, Disp: 90 Cap, Rfl: 0 Fenofibrate 48 MG Oral Tablet (TRICOR), TAKE ONE TABLET BY MOUTH EVERY DAY, Disp: 90 Tab, Rfl: 0 Basaglar KwikPen 100 UNIT/ML Subcutaneous Solution Pen-injector (insulin glargine), INJECT 44 UNITS TWO TIMES ADAY, Disp: 30 Each, Rfl: 3 atorvaSTATin (LIPITOR) 80 MG Tablet, Take 1 Tab by mouth daily., Disp: 90 Tab, Rfl: 3 famotidine (PEPCID) 40 MG Tablet, TAKE ONE TABLET BY MOUTH AT BEDTIME, Disp: 90 Tab, Rfl: 1 Magnesium Oxide 400 (241.3 mg) Tablet, TAKE ONE TABLET BY MOUTH EVERY DAY, Disp: 90 Tab, Rfl: 3 Semaglutide, 1 MG/DOSE, (OZEMPIC, 1 MG/DOSE,) 2 MG/1.5ML SOPN, Inject 1 mg under the skin once a week., Disp: 6 Each, Rfl: 3 oxybutynin XL (DITROPAN XL) 5 MG TB24, TAKE ONE TABLET BY MOUTH EVERY DAY, DO not cut, CRUSH, OR chew, Disp: 30 Tab, Rfl: 11 Triamcinolone Acetonide 0.5 % cream, Apply topically to affected area 2 times a day. To affected area., Disp: 60 g, Rfl: 5 Insulin Pen Needle (BD PEN NEEDLE MINI U/F) 31G X 5 MM, Use 6 times daily as directed, Disp: 600 Each, Rfl: 3 nitroglycerin (NITROSTAT) 0.4 MG SUBL, Place 1 Tab under the tongue as needed for Pain, Chest. May repeat 3 times. If chest pain continues, call 911., Disp: 25 Tab, Rfl: 11 ASPIRIN 81 MG PO TABS, one tablet by mouth daily, Disp: , Rfl: OMEGA-3 FISH OIL 1200 MG PO CAPS, one capsule by mouth twice daily, Disp: , Rfl: ONETOUCH ULTRA BLUE STRP, USE DIRECTED 4 TO 6 TIMES DAILY, Disp: 200 Strip, Rfl: 5 ONETOUCH ULTRASOFT LANCETS MISC, check Fs 4-6 times daily, Disp: 6 Box, Rfl: 5 ONE TOUCH ULTRA SYSTEM KIT KIT, as directed, Disp: 1, Rfl: 0 PHYSICAL EXAM: Vital Signs: BP 142/84 | Pulse 108 | Temp 36.4 C (97.5 F) (Tympanic) | Resp 16 | Wt (!) 138.7 kg (305 lb 12.8 oz) | BMI 43.26 kg/m | BSA 2.63 m General: Awake, alert and oriented x 3. No acute distress. HEENT: Normocephalic, atraumatic. Pupils equal, round and reactive to light and accommodation. Extraocular muscles are intact. Anicteric sclera. Moist mucous membranes. Neck: No JVD. No bruit. Cardiovascular: Irregularly irregular, unable to appreciate murmur, rub or gallop. Pulmonary: Clear to auscultation bilaterally. No rales, rhonchi, or wheezing. Abdomen: Bowel sounds x 4, soft. No rebound, guarding or tenderness. No organomegaly. Extremities: No clubbing, cyanosis or edema. +2 pedal pulses bilaterally. Skin: Warm and dry. IMPRESSION: 1. Atrial fibrillation with rapid ventricular response 2. Acute on chronic diastolic heart failure secondary to above 3. Coronary artery disease 4. Grade 3 diastolic dysfunction 5. Carotid occlusive disease without obstruction 6. Hypertension, uncontrolled RECOMMENDATIONS: It was my pleasure to see Mr. Angela in re-evaluation today. Unfortunately, he is not significantly diuresed despite increasing the diuretics and his heart rates remain elevated. At this point I believe most prudent course of action would be to attempt to achieve sinus rhythm. Therapeutic options were discussed with him and he was in agreement with admission to [facility] for sotalol loading and DC cardioversion. Unfortunately, due to the pandemic we are no longer able to directly admit to telemetry, so, he will arrive at the emergency department Monday morning and then be admitted. He will be started on sotalol 80 mg twice daily. Daily EKGs will be obtained to follow for any QT prolongation and continuous telemetry for 72 hours. In the meantime, we will give him a shot of IV Lasix today and increase his torsemide to 20 mg twice daily until he is admitted. I will also start him on spironolactone 12.5 mg p.o. daily and will follow his electrolytes on admission. I will plan on seeing him back here in a month. I greatly appreciate the input from our Sleep Medicine team and hopefully his insurance will cover the CPAP which I also believe will significantly improve his symptoms and lifestyle. The patient left the office in good spirits after verbalizing that all of their questions were answered to satisfaction. Prior to their next visit, they were invited to call me with any questions or concerns. Thank you very much for allowing me to participate in the care of your patient. Bhaskar Milligan Jr, DO, FACC, [facility] Cardiovascular Medicine [facility] Allergies Allergy/AdvReac Type Severity Reaction Status Date / Time niacin AdvReac Intermediate sweats and Verified 03/23/20 21:31 joint pain Home Medications Medication Instructions Recorded Confirmed Type fenofibrate nanocrystallized 48 mg PO QPM #0 tab 02/25/13 04/06/20 History [Tricor] nitroglycerin [Nitrostat] 0.4 mg SUBLINGUAL USEASDIRECTD PRN 02/25/13 04/06/20 History #0 btl omeprazole 20 mg PO BID #0 cap 02/25/13 04/06/20 History metformin 1,000 mg PO BID #0 11/07/15 04/06/20 History atorvastatin [Lipitor] 80 mg PO DAILY #0 tab 06/26/16 04/06/20 History digoxin 125 mcg PO QPM #0 06/26/16 04/06/20 History insulin aspart U-100 [Novolog 32 unit SUBCUT TIDM #0 06/26/16 04/06/20 History U-100 Insulin aspart] magnesium oxide 400 mg PO DAILY #0 tab 06/26/16 04/06/20 History aspirin 81 mg PO DAILY 10/16/18 04/06/20 History duloxetine 60 mg PO QAM 10/16/18 04/06/20 History losartan 100 mg PO DAILY 10/16/18 04/06/20 History omega-3 fatty acids-fish oil 1 cap PO HS 10/16/18 04/06/20 History oxybutynin chloride 5 mg PO DAILY 10/16/18 04/06/20 History warfarin 7.5 mg PO SUTUWETHSA 10/24/18 04/06/20 History Basaglar KristineikPen U-100 Insulin 44 unit SUBCUT BID 03/23/20 04/06/20 History amlodipine [Norvasc] 10 mg PO DAILY 03/23/20 04/06/20 History carvedilol 25 mg PO BID 03/23/20 04/06/20 History cyanocobalamin (vitamin B-12) 1,000 mcg PO DAILY 03/23/20 04/06/20 History [Vitamin B-12] famotidine 40 mg PO HS 03/23/20 04/06/20 History semaglutide [Ozempic] 1 mg SUBCUT JAEGER 03/23/20 04/06/20 History spironolactone 12.5 mg PO DAILY 04/06/20 04/06/20 History torsemide 20 mg PO BID 04/06/20 04/06/20 History warfarin 5 mg PO MOFR 04/06/20 04/06/20 History Patient History Medical History (Updated 04/06/20 @ 10:09 by Eulalia Morales PA-C) Anxiety CAD (coronary artery disease) s/p TREVER to RCA and LAD Degenerative disc disease Depression Diabetes mellitus type II, uncontrolled A1C 8.8% 10/16/18 Dyslipidemia GERD (gastroesophageal reflux disease) HTN (hypertension) Left carotid artery stenosis 80+ % stenosis Morbid obesity ZULEIKA on CPAP Osteoarthritis PAF (paroxysmal atrial fibrillation) Peripheral neuropathy LOWER LEFT LEG Stroke To [facility] 10/16/18 with facial droop and R sided weakness. Brain MRI = punctate acute lacunar infarct within the posterior limb of the left internal capsule. Outside tPA window. Tobacco abuse Surgical History Biceps tendon rupture LEFT SIDE REPAIRED H/O thumb surgery RT TENDON REPAIRED History of colonoscopy History of heart artery stent 2 STENTS PLACED OVER 10 YEARS AGO ([facility]) History of lumbar surgery TOTAL OF 4 History of nephrectomy, left ? DETAILS "WAS NOT WORKING CORRECTLY AND CAUSED PAIN" History of open reduction and internal fixation (ORIF) procedure RT WRIST History of tonsillectomy History of tooth extraction Hx of cholecystectomy Family History Other Heart disease Social History (Updated 04/06/20 @ 10:12 by Eulalia Morales PA-C) Smoking Status: Current every day smoker Tobacco Type: Cigarettes packs per day: 0.5; Years Smoked: 40; Cigarettes Per Day: 10; Second Hand Exposure: No; Hx Alcohol Use: Yes Alcohol type: beer Alcohol Intake Frequency: Monthly or Less Hx Substance Use: No Preferred Language: Yi Communication Ability: Effective Crate Tier Required: No Beliefs That Will Affect Care: None marital status: Single Current Living Situation: Alone current occupational status: retired 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, 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 [employer] Other Information That Helps Us Care for You: No Feels Safe at Home: Yes Safety Concerns: Feels Safe At This Time Assistive Devices: None Results & Data ([facility]) Vital Signs (Past 12 Hours) Vital Signs Temp Pulse Pulse Resp BP BP Pulse Ox 04/06/20 10:56 04/06/20 10:53 100 H 04/06/20 10:43 37 C 93 H 18 144/82 H 96 04/06/20 10:41 37 C 93 H 18 144/82 H 96 04/06/20 09:34 90 18 148/103 H 94 04/06/20 07:43 94 04/06/20 07:39 37.1 C 100 H 20 139/79 98 Pulse Ox 04/06/20 10:56 96 04/06/20 10:53 04/06/20 10:43 96 04/06/20 10:41 04/06/20 09:34 04/06/20 07:43 04/06/20 07:39
[2020-04-06] MEDS: SODIUM CHLORIDE 0.9% 1000ML 1,000 ML IV SCH (12:35)
--- NOTE | 2020-04-06 13:21 | Electrocardiogram Report ---
Test Reason : Blood Pressure : / mmHG Vent. Rate : 090 BPM Atrial Rate : 129 BPM P-R Int : 000 ms QRS Dur : 082 ms QT Int : 362 ms P-R-T Axes : 000 018 206 degrees QTc Int : 442 ms Atrial fibrillation Cannot rule out Inferior infarct (cited on or before 06-APR-2020) Abnormal ECG When compared with ECG of 06-APR-2020 07:41, No significant change was found Confirmed by Celestine Garza ([id number]) on 04/06/2020 1:21:34 PM Referred By: REFERRED SELF Confirmed By:Celestine Garza
[2020-04-06] MEDS: SPIRONOLACTONE 12.5 MG TAB PO SCH (14:50)
[2020-04-06] MEDS: FENOFIBRATE NANOCRYSTALLIZED 48 MG TABLET PO SCH (20:18)
[2020-04-06] MEDS: FAMOTIDINE 40 MG TABLET PO SCH (20:18)
[2020-04-06] MEDS: OMEGA-3 (PURIFIED FISH OIL) 1 GM CAP PO SCH (20:18)
[2020-04-06] MEDS: PANTOprazole 40 MG TAB PO SCH (20:18)
[2020-04-06] MEDS ORDERED: DIGOXIN 0.125 MG TAB PO SCH (21:00)
[2020-04-06] MEDS: INSULIN GLARGINE SOLOSTAR 100 UNITS/ML 3 ML PEN SC SCH (21:01)
[2020-04-07] MEDS: SODIUM CHLORIDE 0.9% 1000ML 1,000 ML IV SCH ×2 (01:02→11:44)
[2020-04-07 06:47] LABS: Hematocrit (blood only) 33.7 % (42-52); Mean Corpuscular Hemoglobin 31.9 pg (25-34); Mean Corpuscular Hgb Conc 32.6 g/dL (32-36); Mean Corpuscular Volume 97.7 fL (80-100); Mean Platelet Volume 8.8 fL (7.4-10.4); Platelet Count 324 K/uL (130-400); RDW Coefficient of Variation 14.9 % (11.5-14.5); Red Blood Count 3.45 M/uL (4.7-6.1)
[2020-04-07 06:53] LABS: INR 3.5 (0.9-1.1); Prothrombin Time 34.2 Seconds (9.0-12.0)
[2020-04-07 07:36] LABS: BUN Creatinine Ratio 13.3 (10-20); Calcium 8.9 mg/dl (8.5-10.1); Creatinine Clr Calc Pharmacy 70.3 ml/min; Est GFR (African American) 56.7; Est GFR (Non-African American) 48.9; Magnesium 1.9 mg/dl (1.8-2.4); Potassium 3.7 mmol/L (3.5-5.1)
[2020-04-07] MEDS: ASPIRIN 81 MG ECTAB PO SCH (08:12)
[2020-04-07] MEDS: amLODIPine BESYLATE 5 MG TAB PO SCH (08:12)
[2020-04-07] MEDS: MAGNESIUM OXIDE 400 MG TAB PO SCH (08:12)
[2020-04-07] MEDS: CYANOCOBALAMIN 500 MCG TABLET (VITAMIN B-12) PO SCH (08:12)
[2020-04-07] MEDS: PANTOprazole 40 MG TAB PO SCH ×2 (08:12→20:08)
[2020-04-07] MEDS: ATORVASTATIN 40 MG TAB PO SCH (08:12)
[2020-04-07] MEDS: DULoxetine HCL 60 MG CAP PO SCH (08:12)
[2020-04-07] MEDS: SOTALOL HCL 80 MG TAB PO SCH ×2 (08:13→20:08)
[2020-04-07] MEDS: OXYBUTYNIN CHLORIDE XL 5 MG TABCR PO SCH (08:13)
[2020-04-07] MEDS: INSULIN ASPART 100 UNITS/ML 3 ML PEN SC SCH ×4 (08:14→20:38)
[2020-04-07] MEDS: INSULIN GLARGINE SOLOSTAR 100 UNITS/ML 3 ML PEN SC SCH ×2 (08:14→20:37)
--- NOTE | 2020-04-07 08:54 | Hospitalist Progress Note ---
Date of Service April 07, 2020 Assessment & Plan (1) Chest pain: (2) Atrial fibrillation: This is a 65-year-old male who has significant past medical history of CAD with history of stent to RCA and LAD, chronic HFpEF, cor pulmonale, ZULEIKA on CPAP, chronic atrial fibrillation anticoagulated on warfarin, T2DM, HTN, HLD, history of CVA, history of a flutter status post ablation who presents to ED at the referral of cardiology for sotalol initiation. Cardiology consulted hx of PAF, now afib with RVR daily ekg - monitor qtc Sotalol initiated NPO after midnight hold warfarin in setting of supratherapeutic INR (3) Supratherapeutic INR: INR 5.5 on admission, now down to 3.5 no s/sx of bleeding hold warfarin daily INR (4) Acute kidney injury: baseline cr 0.8-1.0 bun/cr 23 and 1.70 hold torsemide, losartan hold metformin as well monitor renal function and avoid nephrotoxic agents (5) CAD (coronary artery disease): hx of PCI to RCA and LAD asa, warfarin, statin, coreg and losartan as outpt tx as above in setting of elevated INR warfarin supratherapeutic (6) Chronic heart failure with preserved ejection fraction (HFpEF): last echo 03/30/20 EF 55-59%, grade 3 diastolic dysfunction, pulmonary htn, 45mmhg on Torsemide, aldactone, coreg and losartan Recent exacerbation felt 2/2 to ZULEIKA untreated due to malfunction of cpap hold torsemide and losartan in setting of LISSETH - defer diuretics to cardiology daily weights, strict I and O heart healthy, low sodium diet cardiology on board recent change in diuretics to torsemide with addition of aldactone, has noticed increased urinary outpt (7) Diabetes mellitus type II, uncontrolled: A1C 7.0 on 03/05 lantus/novolog per protocol hold metformin (8) ZULEIKA on CPAP: CPAP at HS recently saw outpt sleep medicine and has been without CPAP, needs to get re fitted 12-18 cwp with 3L of O2 at HS (9) HTN (hypertension): BP elevated on amlodipine, coreg, torsemide, aldactone, losartan as outpt hold losartan and torsemide in setting of LISSETH metoprolol prn for hr and bp control monitor renal function daily, avoid nephrotoxic agents (10) Dyslipidemia: continue statin (11) Stroke: hx CVA continue ASA, Statin warfarin on hold in setting of elevatd INR (12) Tobacco abuse: 1/2ppd/40 years encourage cessation Disposition: admit to PCU Follow up: PCP Dr. López upon discharge along with cardiology follow up Admission and Anticipated Discharge Date Admission Date: April 06, 2020 Subjective Pt seen in a follow up of Afib. No acute events overnight, pt feels much better after using CPAP. Currently sitting up in bed, in NAD. Denies any chest pain or shortness of breath. Reports frequent urination and asking about the need for IVF. Started on sotalol, plan for poss. cardioversion tmrw. Review of Systems Review of Systems: All systems reviewed & are unremarkable except as noted in HPI & below Constitutional: no fever and no chills Respiratory: no cough and no dyspnea Cardiovascular: no chest pain and no palpitations Gastrointestinal: no abdominal pain, no nausea and no vomiting Physical Exam Physical Exam: Constitutional: WD/WN, obese, male, sitting up at bedside vitals as above, NAD, sitting up in bed, pleasant, conversing easily Head: Normocephalic, Atraumatic Eyes: PERRL, EOMI, conjunctivae normal, anicteric sclerae ENMT: external ear and nose normal, oropharynx normal Neck: trachea midline, no thyromegaly normal visual inspection Respiratory: normal respiratory effort, Normal insp/exp effort, no accessory muscle use. Mild b/l crackles, no wheezing. Cardiovascular: Irregular rate, irregular rhythm, no murmur, venous stasis changes bilaterally, no edema Vessels: no JVD or carotid bruit Chest: normal inspection of chest Abdomen: normal bowel sounds, soft, nontender Musculoskeletal: no cyanosis or clubbing, extremities motor strength 5/5 Skin: warm and dry Neurologic: PERRL, EOMI, no face palsy, no dysarthria CN's II-XI intact bilaterally and moves all extremities Psychiatric: A+Ox3, euthymic affect Results & Data Results & Data ([facility]) Vital Signs (Past 12 Hours) Vital Signs Temp Pulse Pulse Resp BP Pulse Ox 04/07/20 07:52 36.5 C 93 H 18 139/82 96 04/07/20 03:07 91 H 18 96 04/07/20 02:55 36.4 C L 90 20 148/84 H 97 04/06/20 23:16 36.6 C 92 H 20 149/88 H 97 04/06/20 21:25 90 18 95 Laboratory Results 04/07/20 04/07/20 04/07/20 Range/Units 07:22 06:12 06:12 WBC 7.90 (4.8-10.8) K/uL RBC 3.45 L (4.7-6.1) M/uL Hgb 11.0 L (14.0-18.0) g/dL Hct 33.7 L (42-52) % MCV 97.7 (80-100) fL MCH 31.9 (25-34) pg MCHC 32.6 (32-36) g/dL RDW Std Deviation 53.0 H (36.4-46.3) fL RDW Coeff of Aba 14.9 H (11.5-14.5) % Plt Count 324 (130-400) K/uL MPV 8.8 (7.4-10.4) fL PT 34.2 H (9.0-12.0) Seconds INR 3.5 H (0.9-1.1) Sodium (136-145) mmol/L Potassium (3.5-5.1) mmol/L Chloride (98-107) mmol/L Carbon Dioxide (21-32) mmol/L Anion Gap (3-11) BUN (7-18) mg/dl Creatinine (0.6-1.4) mg/dl Est Cr Clr Drug Dosing ml/min Est GFR ( Amer) Est GFR (Non-Af Amer) BUN/Creatinine Ratio (10-20) Glucose (70-99) mg/dl POC Glucose 193 H (70-99) mg/dl Calcium (8.5-10.1) mg/dl Magnesium (1.8-2.4) mg/dl Troponin I (0-0.045) ng/ml Triglycerides (0-150) mg/dl Cholesterol (0-200) mg/dl LDL Cholesterol, Calc mg/dl VLDL Cholesterol, Calc mg/dl HDL Cholesterol mg/dl Cholesterol/HDL Ratio SARS-CoV-2, RNA, NAAT (NEGATIVE) 04/07/20 04/06/20 04/06/20 Range/Units 06:12 20:23 18:36 WBC (4.8-10.8) K/uL RBC (4.7-6.1) M/uL Hgb (14.0-18.0) g/dL Hct (42-52) % MCV (80-100) fL MCH (25-34) pg MCHC (32-36) g/dL RDW Std Deviation (36.4-46.3) fL RDW Coeff of Aba (11.5-14.5) % Plt Count (130-400) K/uL MPV (7.4-10.4) fL PT (9.0-12.0) Seconds INR (0.9-1.1) Sodium 139 (136-145) mmol/L Potassium 3.7 (3.5-5.1) mmol/L Chloride 107 (98-107) mmol/L Carbon Dioxide 25 (21-32) mmol/L Anion Gap 7.0 (3-11) BUN 20 H (7-18) mg/dl Creatinine 1.49 H (0.6-1.4) mg/dl Est Cr Clr Drug Dosing 70.3 ml/min Est GFR ( Amer) 56.7 Est GFR (Non-Af Amer) 48.9 BUN/Creatinine Ratio 13.3 (10-20) Glucose 181 H (70-99) mg/dl POC Glucose 188 H (70-99) mg/dl Calcium 8.9 (8.5-10.1) mg/dl Magnesium 1.9 (1.8-2.4) mg/dl Troponin I 0.396 H* (0-0.045) ng/ml Triglycerides 270 H (0-150) mg/dl Cholesterol 146 (0-200) mg/dl LDL Cholesterol, Calc 55 mg/dl VLDL Cholesterol, Calc 54 mg/dl HDL Cholesterol 37 mg/dl Cholesterol/HDL Ratio 4 SARS-CoV-2, RNA, NAAT (NEGATIVE) 04/06/20 04/06/20 04/06/20 Range/Units 16:07 12:28 11:13 WBC (4.8-10.8) K/uL RBC (4.7-6.1) M/uL Hgb (14.0-18.0) g/dL Hct (42-52) % MCV (80-100) fL MCH (25-34) pg MCHC (32-36) g/dL RDW Std Deviation (36.4-46.3) fL RDW Coeff of Aba (11.5-14.5) % Plt Count (130-400) K/uL MPV (7.4-10.4) fL PT (9.0-12.0) Seconds INR (0.9-1.1) Sodium (136-145) mmol/L Potassium (3.5-5.1) mmol/L Chloride (98-107) mmol/L Carbon Dioxide (21-32) mmol/L Anion Gap (3-11) BUN (7-18) mg/dl Creatinine (0.6-1.4) mg/dl Est Cr Clr Drug Dosing ml/min Est GFR ( Amer) Est GFR (Non-Af Amer) BUN/Creatinine Ratio (10-20) Glucose (70-99) mg/dl POC Glucose 117 H 94 (70-99) mg/dl Calcium (8.5-10.1) mg/dl Magnesium (1.8-2.4) mg/dl Troponin I 0.379 H* (0-0.045) ng/ml Triglycerides (0-150) mg/dl Cholesterol (0-200) mg/dl LDL Cholesterol, Calc mg/dl VLDL Cholesterol, Calc mg/dl HDL Cholesterol mg/dl Cholesterol/HDL Ratio SARS-CoV-2, RNA, NAAT (NEGATIVE) 04/06/20 Range/Units 08:28 WBC (4.8-10.8) K/uL RBC (4.7-6.1) M/uL Hgb (14.0-18.0) g/dL Hct (42-52) % MCV (80-100) fL MCH (25-34) pg MCHC (32-36) g/dL RDW Std Deviation (36.4-46.3) fL RDW Coeff of Aba (11.5-14.5) % Plt Count (130-400) K/uL MPV (7.4-10.4) fL PT (9.0-12.0) Seconds INR (0.9-1.1) Sodium (136-145) mmol/L Potassium (3.5-5.1) mmol/L Chloride (98-107) mmol/L Carbon Dioxide (21-32) mmol/L Anion Gap (3-11) BUN (7-18) mg/dl Creatinine (0.6-1.4) mg/dl Est Cr Clr Drug Dosing ml/min Est GFR ( Amer) Est GFR (Non-Af Amer) BUN/Creatinine Ratio (10-20) Glucose (70-99) mg/dl POC Glucose (70-99) mg/dl Calcium (8.5-10.1) mg/dl Magnesium (1.8-2.4) mg/dl Troponin I (0-0.045) ng/ml Triglycerides (0-150) mg/dl Cholesterol (0-200) mg/dl LDL Cholesterol, Calc mg/dl VLDL Cholesterol, Calc mg/dl HDL Cholesterol mg/dl Cholesterol/HDL Ratio SARS-CoV-2, RNA, NAAT NEGATIVE (NEGATIVE) Medications Administered Current Inpatient Medications Acetaminophen (Acetaminophen 325 Mg Tab) 650 mg PO Q4H PRN PRN Reason: Pain or Fever Stop: 05/06/20 10:28 Al Hydrox/Mg Hydrox/Simethicone (Aluminum/Magnesium Susp 30 Ml Udc) 15 ml PO Q4H PRN PRN Reason: Dyspepsia Stop: 05/06/20 10:28 Amlodipine Besylate (Amlodipine Besylate 5 Mg Tab) 10 mg PO DAILY [facility] Stop: 05/07/20 08:59 Last Admin: 04/07/20 08:12 Dose: 10 mg Documented by: Aspirin (Aspirin 81 Mg Ectab) 81 mg PO DAILY [facility] Stop: 05/07/20 08:59 Last Admin: 04/07/20 08:12 Dose: 81 mg Documented by: Atorvastatin Calcium (Atorvastatin 40 Mg Tab) 80 mg PO DAILY [facility] Stop: 05/07/20 08:59 Last Admin: 04/07/20 08:12 Dose: 80 mg Documented by: Cyanocobalamin (Cyanocobalamin 500 Mcg Tablet (Vitamin B-12)) 1,000 mcg PO DAILY [facility] Stop: 05/07/20 08:59 Last Admin: 04/07/20 08:12 Dose: 1,000 mcg Documented by: Dextrose (Dextrose 50% 50 Ml Syringe) 25 - 50 ml IV UD PRN; Protocol PRN Reason: Hypoglycemia Protocol Stop: 05/06/20 10:28 Duloxetine HCl (Duloxetine Hcl 60 Mg Cap) 60 mg PO QAM [facility] Stop: 05/07/20 08:59 Last Admin: 04/07/20 08:12 Dose: 60 mg Documented by: Famotidine (Famotidine 40 Mg Tablet) 40 mg PO HS [facility] Stop: 05/06/20 20:59 Last Admin: 04/06/20 20:18 Dose: 40 mg Documented by: Fenofibrate (Fenofibrate Nanocrystallized 48 Mg Tablet) 48 mg PO QPM [facility] Stop: 05/06/20 20:59 Last Admin: 04/06/20 20:18 Dose: 48 mg Documented by: Fish Oil ([place]-3 (Purified Fish Oil) 1 Gm Cap) 1 gm PO HS [facility] Stop: 05/06/20 20:59 Last Admin: 04/06/20 20:18 Dose: 1 gm Documented by: Glucagon (Glucagon For Inj 1 Mg Vial) 1 mg SQ UD PRN; Protocol PRN Reason: Hypoglycemia Protocol Stop: 05/06/20 10:28 Glucose (Glucose 10 Tabs/Tube) 4 - 8 tabs PO UD PRN; Protocol PRN Reason: Hypoglycemia Protocol Stop: 05/06/20 10:28 Glucose (Glucose 40% Gel 15 Gm Tube) 15 - 30 gm PO UD PRN; Protocol PRN Reason: Hypoglycemia Protocol Stop: 05/06/20 10:28 Sodium Chloride (Nss 1000ml) 1,000 mls @ 80 mls/hr IV .[id number] [facility] Stop: 05/06/20 11:59 Last Admin: 04/07/20 01:02 Dose: 80 mls/hr Documented by: Insulin Aspart (Insulin Aspart 100 Units/Ml 3 Ml Pen) 0 units SC ACHS [facility] Stop: 05/06/20 11:29 Last Admin: 04/07/20 08:14 Dose: 2 units Documented by: Insulin Glargine (Insulin Glargine Solostar 100 Units/Ml 3 Ml Pen) 0 - 35 units SC BID [facility]; Protocol Stop: 05/06/20 20:59 Last Admin: 04/07/20 08:14 Dose: 35 units Documented by: Magnesium Hydroxide (Magnesium Hydroxide Susp 30 Ml Udc) 30 ml PO Q12H PRN PRN Reason: Constipation Stop: 05/06/20 10:28 Magnesium Oxide (Magnesium Oxide 400 Mg Tab) 400 mg PO DAILY [facility] Stop: 05/07/20 08:59 Last Admin: 04/07/20 08:12 Dose: 400 mg Documented by: Miscellaneous (Carbohydrates For Hypoglycemia ) 15 - 30 gm PO UD PRN PRN Reason: Hypoglycemia Protocol Stop: 05/06/20 10:28 Nitroglycerin (Nitroglycerin Sl 0.4 Mg/Tab Tab) 0.4 mg SL UD PRN PRN Reason: Chest Pain Stop: 05/06/20 10:28 Ondansetron HCl (Ondansetron Inj 2 Mg/Ml 2 Ml Vial) 4 mg IV Q6H PRN PRN Reason: Nausea Stop: 05/06/20 10:28 Oxybutynin Chloride (Oxybutynin Chloride Xl 5 Mg Tabcr) 5 mg PO DAILY [facility] Stop: 05/07/20 08:59 Last Admin: 04/07/20 08:13 Dose: 5 mg Documented by: Pantoprazole Sodium (Pantoprazole 40 Mg Tab) 40 mg PO BID [facility] Stop: 05/06/20 20:59 Last Admin: 04/07/20 08:12 Dose: 40 mg Documented by: Polyethylene Glycol (Polyethylene (Miralax) 17 Gm Pack) 17 gm PO DAILY PRN PRN Reason: Constipation Stop: 05/06/20 10:28 Sotalol HCl (Sotalol Hcl 80 Mg Tab) 80 mg PO BID [facility] Stop: 05/06/20 10:59 Last Admin: 04/07/20 08:13 Dose: 80 mg Documented by: Spironolactone (Spironolactone 12.5 Mg Tab) 12.5 mg PO DAILY [facility] Stop: 05/07/20 08:59 Last Admin: 04/06/20 14:50 Dose: 12.5 mg Documented by: (1) CAD (coronary artery disease) Associated angina: with unspecified angina Coronary Disease-Associated Artery/Lesion type: unspecified vessel or lesion type [place] vs. transplanted heart: [place] heart Qualified Code(s): I25.119 - Atherosclerotic heart disease of [place] coronary artery with unspecified angina pectoris (2) Atrial fibrillation Atrial fibrillation type: longstanding persistent Qualified Code(s): I48.11 - Longstanding persistent atrial fibrillation (3) Chest pain Chest pain type: other chest pain Qualified Code(s): R07.89 - Other chest pain (4) Stroke CVA mechanism: unspecified Qualified Code(s): I63.9 - Cerebral infarction, unspecified
--- NOTE | 2020-04-07 14:01 | Electrocardiogram Report ---
Test Reason : Blood Pressure : / mmHG Vent. Rate : 075 BPM Atrial Rate : 085 BPM P-R Int : 000 ms QRS Dur : 092 ms QT Int : 364 ms P-R-T Axes : 000 016 208 degrees QTc Int : 406 ms Atrial fibrillation Chronic Nonspecific ST and T wave abnormality Anterolateral leads Abnormal ECG When compared with ECG of 06-APR-2020 22:49, No significant change Confirmed by Harvey Lau ([id number]) on 04/07/2020 2:01:17 PM Referred By: REFERRED SELF Confirmed By:Harvey Lau
--- NOTE | 2020-04-07 15:05 | Electrocardiogram Report ---
Test Reason : Blood Pressure : / mmHG Vent. Rate : 087 BPM Atrial Rate : 086 BPM P-R Int : 000 ms QRS Dur : 084 ms QT Int : 372 ms P-R-T Axes : 000 019 182 degrees QTc Int : 447 ms Atrial fibrillation Chronic diffuse ST-T abnormality, most pronounced anterolateral leads Abnormal ECG When compared with ECG of 06-APR-2020 11:07, No significant change was found Confirmed by Harvey Lau ([id number]) on 04/07/2020 3:05:34 PM Referred By: REFERRED SELF Confirmed By:Harvey Lau
--- NOTE | 2020-04-07 15:50 | Cardiology Progress Note ---
Date of Service April 07, 2020 Assessment & Plan (1) Atrial fibrillation with rapid ventricular response: (2) Chronic heart failure with preserved ejection fraction (HFpEF): (3) Acute kidney injury: (4) Status post carotid endarterectomy: (5) COPD (chronic obstructive pulmonary disease): (6) Left carotid artery stenosis: (7) Stroke: (8) CAD (coronary artery disease): (9) HTN (hypertension): (10) ZULEIKA (obstructive sleep apnea): Patient has remained in atrial fibrillation with variable rates. QTC stable at 406 ms. No significant ventricular ectopy on monitor. [place] terrific after having CPAP placed overnight. My hope would be that he would convert on his own with reinstituting CPAP and sotalol loading. Should he not convert on his own we will proceed with DC cardioversion in the a.m. INR therapeutic at 3.5. N.p.o. after midnight. Continue nocturnal CPAP. Continue all other outpatient medications. May give a dose of metoprolol tartrate this evening if necessary for blood pressure and heart rate control Admission and Anticipated Discharge Date Admission Date: April 06, 2020 Subjective Patient seen and examined, chart reviewed. States that he felt great last night with CPAP, his machine has been broken it and insurance is currently fighting to pay for renewal. Can still feel occasional palpitations but nothing significant. Denies chest pain, shortness of breath, lightheadedness or dizziness. Telemetry reviewed: Atrial fibrillation with variable rates Review of Systems Review of Systems: All systems reviewed & are unremarkable except as noted in HPI & below Physical Exam Physical Exam: General: Awake, alert and oriented x 3. No acute distress. HEENT: Normocephalic, atraumatic. Pupils equal, round and reactive to light and accommodation. Extraocular muscles are intact. Anicteric sclera. Moist mucous membranes. Neck: No JVD. No bruit. Cardiovascular: irregularly irregular, unable to appreciate murmur, rub or gallop. Pulmonary: Clear to auscultation bilaterally. No rales, rhonchi, or wheezing. Abdomen: Bowel sounds x 4, soft. No rebound, guarding or tenderness. No organomegaly. Extremities: No clubbing, cyanosis or edema. +2 pedal pulses bilaterally. Skin: Warm and dry. Results & Data ([facility]) Vital Signs (Past 12 Hours) Vital Signs Temp Pulse Resp BP Pulse Ox 01/12/21 15:14 36.5 C 99 H 19 150/96 H 91 04/07/20 11:55 36.5 C 83 18 142/69 H 95 04/07/20 07:52 36.5 C 93 H 18 139/82 96 (1) Stroke CVA mechanism: unspecified Qualified Code(s): I63.9 - Cerebral infarction, unspecified (2) CAD (coronary artery disease) Associated angina: with unspecified angina Coronary Disease-Associated Artery/Lesion type: unspecified vessel or lesion type [place] vs. transplanted heart: [place] heart Qualified Code(s): I25.119 - Atherosclerotic heart disease of [place] coronary artery with unspecified angina pectoris
[2020-04-07] MEDS: FENOFIBRATE NANOCRYSTALLIZED 48 MG TABLET PO SCH (20:08)
[2020-04-07] MEDS: OMEGA-3 (PURIFIED FISH OIL) 1 GM CAP PO SCH (20:08)
[2020-04-07] MEDS: FAMOTIDINE 40 MG TABLET PO SCH (20:09)
[2020-04-08] MEDS ORDERED: METOPROLOL TARTRATE 1 MG/ML VIAL IV PRN (00:23)
[2020-04-08 06:35] LABS: Hematocrit (blood only) 31.3 % (42-52); Hemoglobin 10.2 g/dL (14.0-18.0); Mean Corpuscular Hemoglobin 31.6 pg (25-34); Mean Corpuscular Hgb Conc 32.6 g/dL (32-36); Mean Corpuscular Volume 96.9 fL (80-100); Mean Platelet Volume 8.6 fL (7.4-10.4); Platelet Count 281 K/uL (130-400); RDW Coefficient of Variation 14.5 % (11.5-14.5); Red Blood Count 3.23 M/uL (4.7-6.1); White Blood Count 8.38 K/uL (4.8-10.8)
[2020-04-08 07:01] LABS: BUN Creatinine Ratio 13.1 (10-20); Calcium 8.8 mg/dl (8.5-10.1); Creatinine Clr Calc Pharmacy 76.1 ml/min; Est GFR (African American) 62.7; Est GFR (Non-African American) 54.1; Magnesium 1.8 mg/dl (1.8-2.4); Potassium 3.7 mmol/L (3.5-5.1)
[2020-04-08] MEDS ORDERED: MIDAZOLAM HCL 5 MG/ML 1 ML VIAL ONE (08:25)
[2020-04-08] MEDS ORDERED: fentaNYL citrate 100 MCG/2 ML VIAL ONE (08:25)
--- NOTE | 2020-04-08 08:35 | Pre Anesthesia Assessment ---
Date of Service April 08, 2020 Pre Sedation Assessment Vital Signs Temp Pulse Pulse Resp BP Pulse Ox 04/08/20 08:27 81 17 154/105 H 95 04/08/20 07:30 36.8 C 82 18 142/69 H 98 04/08/20 03:03 36.8 C 95 H 20 148/81 H 96 04/08/20 02:30 73 14 89 L 04/07/20 23:03 36.6 C 92 H 20 169/83 H 93 04/07/20 23:00 78 18 91 04/07/20 18:44 36.8 C 102 H 19 171/98 H 96 04/07/20 15:14 36.5 C 99 H 19 150/96 H 91 04/07/20 11:55 36.5 C 83 18 142/69 H 95 Pre-Sedation Airway Assessment Smoking Status: Current every day smoker Hx Sleep Apnea: Yes Short, Thick Neck: No Thyromental Distance: > or= 3.5 Finger Breadths Oral Cavity: + Dentures Mallampati Class: III ASA: ASA3 NPO Status Date of Last Intake of Fluids: 04/07/20 Date of Last Intake of Solid Food: 04/07/20 Notes The planned sedation has been discussed with the patient. Informed Consent was obtained. I have identified the patient, determined the appropriateness of sedation and have assessed the patient immediately prior to the procedure. All medicine(s) and interventions are by my order.
--- NOTE | 2020-04-08 09:32 | Post Anesthesia Assessment ---
Date of Service April 08, 2020 Post Sedation Assessment Vital Signs Temp Pulse Pulse Resp BP BP Pulse Ox 04/08/20 15:16 36.7 C 82 20 150/94 H 96 04/08/20 09:57 36.6 C 98 H 175/109 H 93 04/08/20 09:35 92 H 16 154/104 H 92 04/08/20 09:20 99 H 16 168/101 H 93 04/08/20 09:19 95 H 16 135/89 95 04/08/20 09:15 89 15 152/90 H 94 04/08/20 09:10 95 H 15 149/108 H 93 04/08/20 09:05 92 H 17 157/93 H 97 04/08/20 08:27 81 17 154/105 H 95 04/08/20 07:30 36.8 C 82 18 142/69 H 98 04/08/20 03:03 36.8 C 95 H 20 148/81 H 96 04/08/20 02:30 73 14 89 L 04/07/20 23:03 36.6 C 92 H 20 169/83 H 93 04/07/20 23:00 78 18 91 04/07/20 18:44 36.8 C 102 H 19 171/98 H 96 Recovery Score Activity: Moves 4 extremities Respiration: Deep Breath/Cough Circulation: +/-20% PreAnes Value Consciousness: Fully Awake Oxygen Saturation: O2 needed for >90% Post Anesthesia Score: 9 Discharge Sedation Level of Care: Fast Track Phase II Post Sedation Plan On clinical assessment, the patient appears to have tolerated the sedation without complications. Patient is recovering as anticipated. Patient will continue to be monitored by nursing and may be discharged when sedation discharge criteria are met per below protocol. Upon Completions of procedure up to 15 minutes continue every 5 minute vital signs and the P.A.R. score; then discharge to a Phase I or Fast Track to Phase II per the following guidelines: * Discharge Patient to appropriate Phase II area if PAR is 8 or greater or return to pre- procedure baseline. The post - procedure orders will be as directed. * If PAR score is less than 8 or not return to pre-procedure baseline then patient will follow Phase I monitoring till PAR is reached for Phase II. The Phase I may be done in procedure room or may call to secure a Phase I area. * If naloxone or flumazenil are used for reversal, hold in Phase I for continu ed monitoring from when last reversal dose was given for a minimum of 60 minutes or longer pending the nurse and/or physician discretion of patient condition before discharge to Phase II. Please call the Sedation Physician to re-evaluate and complete post-note for discharge to Phase II area. Do NOT discharge from procedure sedation or Phase 1 until post- sedation evaluation note is complete by procedure /sedation MD Sedation Discharge Instructions to be given to the patient at discharge to home.
--- NOTE | 2020-04-08 09:32 | Cardioversion ---
Date of Service April 08, 2020 Electrical Cardioversion Rpt Electrical Cardioversion Report Informed consent obtained. Patient prepped. Adequate moderate sedation achieved with a total of Versed 5 mg and fentanyl 125 mcg. Synchronized DC cardioversion was attempted x3 at 360 J of energy Unsuccessful. Patient tolerated procedure well. We will recovered per protocol and return to telemetry. We will continue sotalol loading and reassess in the a.m. Start time: 0900 Stop time: 918
[2020-04-08] MEDS: PANTOprazole 40 MG TAB PO SCH ×2 (09:51→20:18)
[2020-04-08] MEDS: SOTALOL HCL 80 MG TAB PO SCH ×2 (09:52→20:18)
[2020-04-08] MEDS: MAGNESIUM OXIDE 400 MG TAB PO SCH (09:52)
[2020-04-08] MEDS: ATORVASTATIN 40 MG TAB PO SCH (09:53)
[2020-04-08] MEDS: DULoxetine HCL 60 MG CAP PO SCH (09:53)
[2020-04-08] MEDS: CYANOCOBALAMIN 500 MCG TABLET (VITAMIN B-12) PO SCH (09:53)
[2020-04-08] MEDS: ASPIRIN 81 MG ECTAB PO SCH (09:53)
[2020-04-08] MEDS: SPIRONOLACTONE 12.5 MG TAB PO SCH (09:53)
[2020-04-08] MEDS: amLODIPine BESYLATE 5 MG TAB PO SCH (09:54)
[2020-04-08] MEDS: OXYBUTYNIN CHLORIDE XL 5 MG TABCR PO SCH (09:54)
[2020-04-08] MEDS: INSULIN ASPART 100 UNITS/ML 3 ML PEN SC SCH ×4 (11:26→21:29)
[2020-04-08] MEDS: INSULIN GLARGINE SOLOSTAR 100 UNITS/ML 3 ML PEN SC SCH ×2 (11:28→21:28)
--- NOTE | 2020-04-08 12:56 | Cardiology Progress Note ---
Date of Service April 08, 2020 Assessment & Plan (1) Atrial fibrillation with rapid ventricular response: (2) Chronic heart failure with preserved ejection fraction (HFpEF): (3) Acute kidney injury: (4) Status post carotid endarterectomy: (5) COPD (chronic obstructive pulmonary disease): (6) Left carotid artery stenosis: (7) Stroke: (8) CAD (coronary artery disease): (9) HTN (hypertension): (10) ZULEIKA (obstructive sleep apnea): Unfortunately, DC cardioversion x3 was unsuccessful. We will continue with sotalol load overnight. My suspicion is that with resumption of nocturnal CPAP therapy and addition of sotalol he will likely cardiovert on his own. Consideration will be given to repeating DC cardioversion in the a.m. as well. Tolerating sotalol load well. Continue warfarin with goal INR of 2-3 Admission and Anticipated Discharge Date Admission Date: April 06, 2020 Subjective Patient seen and examined, chart reviewed. Once again, states that he felt great overnight sleeping with CPAP. Still with occasional palpitations but denies any other complaints of chest pain, shortness of breath, lightheadedness or dizziness. Telemetry reviewed: Atrial fibrillation rate controlled without any significant ventricular ectopy EKG: Atrial fibrillation with a QTC of 486 ms Review of Systems Review of Systems: All systems reviewed & are unremarkable except as noted in HPI & below Physical Exam Physical Exam: General: Awake, alert and oriented x 3. No acute distress. HEENT: Normocephalic, atraumatic. Pupils equal, round and reactive to light and accommodation. Extraocular muscles are intact. Anicteric sclera. Moist mucous membranes. Neck: No JVD. No bruit. Cardiovascular: irregularly irregular, unable to appreciate murmur, rub or gallop. Pulmonary: Clear to auscultation bilaterally. No rales, rhonchi, or wheezing. Abdomen: Bowel sounds x 4, soft. No rebound, guarding or tenderness. No organomegaly. Extremities: No clubbing, cyanosis or edema. +2 pedal pulses bilaterally. Skin: Warm and dry. Results & Data ([facility]) Vital Signs (Past 12 Hours) Vital Signs Temp Pulse Pulse Resp BP BP Pulse Ox 04/08/20 09:57 36.6 C 98 H 175/109 H 93 04/08/20 09:35 92 H 16 154/104 H 92 04/08/20 09:20 99 H 16 168/101 H 93 04/08/20 09:19 95 H 16 135/89 95 04/08/20 09:15 89 15 152/90 H 94 04/08/20 09:10 95 H 15 149/108 H 93 04/08/20 09:05 92 H 17 157/93 H 97 04/08/20 08:27 81 17 154/105 H 95 04/08/20 07:30 36.8 C 82 18 142/69 H 98 04/08/20 03:03 36.8 C 95 H 20 148/81 H 96 04/08/20 02:30 73 14 89 L (1) CAD (coronary artery disease) Associated angina: with unspecified angina Coronary Disease-Associated Artery/Lesion type: unspecified vessel or lesion type [place] vs. transplanted heart: [place] heart Qualified Code(s): I25.119 - Atherosclerotic heart disease of [place] coronary artery with unspecified angina pectoris (2) Stroke CVA mechanism: unspecified Qualified Code(s): I63.9 - Cerebral infarction, unspecified
--- NOTE | 2020-04-08 18:58 | Hospitalist Progress Note ---
Date of Service April 08, 2020 Assessment & Plan (1) Atrial fibrillation with rapid ventricular response: Today patient was seen post cardioversion. However he ate went unsuccessful 3 times. Patient remained in atrial fibrillation. Plan is to continue the sotalol at this point. Recommended compliance with CPAP. Will reassess tomorrow morning as per cardiology to see if possible another cardioversion attempt is possible. Continue with [employer] Coumadin. (2) Acute kidney injury: baseline cr 0.8-1.0 bun/cr 23 and 1.70 Creatinine at 1.37 today. Continue holding torsemide and losartan along with Metformin for now. (3) CAD (coronary artery disease): hx of PCI to RCA and LAD Continue [employer] aspirin 81 mg daily, Lipitor 80 mg daily. Hold [employer] Coreg and losartan. Current on sotalol 80 mg twice daily. (4) Chronic heart failure with preserved ejection fraction (HFpEF): last echo 03/30/20 EF 55-59%, grade 3 diastolic dysfunction, pulmonary htn, 45mmhg on Torsemide, aldactone, coreg and losartan Recent exacerbation felt 2/2 to ZULEIKA untreated due to malfunction of cpap Started torsemide tonight, continue to hold losartan. Continue with Aldactone. Started heart healthy diet. (5) Diabetes mellitus type II, uncontrolled: A1C 7.0 on 03/05 lantus/novolog per protocol hold [employer] metformin (6) ZULEIKA on CPAP: CPAP at HS Patient has not using the CPAP for the last 3 months. Report is not working properly and needs to get a new one. Refer to sleep medicine as an outpatient and will discuss with care management. 12-18 cwp with 3L of O2 at HS (7) HTN (hypertension): Blood pressure in the 150s to 160s this morning. Continue amlodipine 10 mg daily. Started torsemide tonight, continue to hold losartan. Continue with sotalol 80 mg twice daily. (8) Dyslipidemia: continue statin (9) Stroke: hx CVA continue ASA, Statin INR today at 1.3, 5 mg ordered. (10) Tobacco abuse: 1/2ppd/40 years encourage cessation Follow up: PCP Dr. López upon discharge along with cardiology follow up (11) ZULEIKA (obstructive sleep apnea): (12) A-fib: (13) Chest pain, exertional: Admission and Anticipated Discharge Date Admission Date: April 06, 2020 Subjective Patient was seen when he arrived in the floor after unsuccessful cardioversion attempt. He reported that he is doing okay. He denies any chest pain, shortness of breath or any palpitations. He denies any dizziness. He denies any abdominal pain, diarrhea or dysuria. Denies any cough. Is requesting for diet. Reports he has not been using his CPAP for the past 3 months due to ongoing issues with the insurance company. Currently his rate is controlled. Review of Systems Review of Systems: All systems reviewed & are unremarkable except as noted in HPI & below Physical Exam Physical Exam: General: A&Ox3 HENT: NCAT, MMM, EOMI Eyes: PERRLA Neck: Supple, normal range of motion CVS: Normal rate with a regular rhythm Resp: b/l good breath sounds Abdomen: Soft, distended nontender Extremities: Absence of any edema Neuro: face symmetric, strength grossly equal, no focal deficit Skin: warm and dry, no rashes/lesions/errythema MSK: normal ROM, no joint swelling/erythema Results & Data Results & Data ([facility]) Vital Signs (Past 12 Hours) Vital Signs Temp Pulse Pulse Resp BP BP Pulse Ox 04/08/20 15:16 36.7 C 82 20 150/94 H 96 04/08/20 09:57 36.6 C 98 H 175/109 H 93 04/08/20 09:35 92 H 16 154/104 H 92 04/08/20 09:20 99 H 16 168/101 H 93 04/08/20 09:19 95 H 16 135/89 95 04/08/20 09:15 89 15 152/90 H 94 04/08/20 09:10 95 H 15 149/108 H 93 04/08/20 09:05 92 H 17 157/93 H 97 04/08/20 08:27 81 17 154/105 H 95 04/08/20 07:30 36.8 C 82 18 142/69 H 98 (1) CAD (coronary artery disease) Associated angina: with unspecified angina Coronary Disease-Associated Artery/Lesion type: unspecified vessel or lesion type [place] vs. transplanted heart: [place] heart Qualified Code(s): I25.119 - Atherosclerotic heart disease of [place] coronary artery with unspecified angina pectoris (2) A-fib Atrial fibrillation type: persistent (not longstanding) Qualified Code(s): I48.19 - Other persistent atrial fibrillation (3) Stroke CVA mechanism: unspecified Qualified Code(s): I63.9 - Cerebral infarction, unspecified
[2020-04-08 19:38] LABS: INR 1.6 (0.9-1.1); Prothrombin Time 16.4 Seconds (9.0-12.0)
[2020-04-08] MEDS: OMEGA-3 (PURIFIED FISH OIL) 1 GM CAP PO SCH (20:18)
[2020-04-08] MEDS: FENOFIBRATE NANOCRYSTALLIZED 48 MG TABLET PO SCH (20:18)
[2020-04-08] MEDS: FAMOTIDINE 40 MG TABLET PO SCH (20:18)
[2020-04-08] MEDS: TORSEMIDE 20 MG TAB PO SCH (21:27)
[2020-04-08] MEDS ORDERED: WARFARIN SOD 5 MG TAB PO ONE (21:30)
[2020-04-09 07:32] LABS: Basophils # (auto) 0.07 K/uL (0-0.2); Basophils % (auto) 0.8 %; Eosinophils # (auto) 0.38 K/uL (0-0.5); Eosinophils % (auto) 4.1 %; Hematocrit (blood only) 31.9 % (42-52); Hemoglobin 10.5 g/dL (14.0-18.0); Immature Granulocytes # (auto) 0.02 K/uL (0.00-0.02); Immature Granulocytes % (auto) 0.2 %; Lymphocytes # (auto) 2.01 K/uL (1.2-3.4); Lymphocytes % (auto) 21.9 %; Mean Corpuscular Hemoglobin 31.7 pg (25-34); Mean Corpuscular Hgb Conc 32.9 g/dL (32-36); Mean Corpuscular Volume 96.4 fL (80-100); Mean Platelet Volume 8.8 fL (7.4-10.4); Monocytes # (auto) 0.78 K/uL (0.11-0.59); Monocytes % (auto) 8.5 %; Neutrophils # (auto) 5.93 K/uL (1.4-6.5); Neutrophils % (auto) 64.5 %; Platelet Count 326 K/uL (130-400); RDW Coefficient of Variation 14.4 % (11.5-14.5); RDW Standard Deviation 51.3 fL (36.4-46.3); Red Blood Count 3.31 M/uL (4.7-6.1); White Blood Count 9.19 K/uL (4.8-10.8)
[2020-04-09] MEDS: PANTOprazole 40 MG TAB PO SCH (07:36)
[2020-04-09] MEDS: TORSEMIDE 20 MG TAB PO SCH (07:36)
[2020-04-09] MEDS: SOTALOL HCL 80 MG TAB PO SCH (07:36)
[2020-04-09] MEDS: SPIRONOLACTONE 12.5 MG TAB PO SCH (07:37)
[2020-04-09] MEDS: CYANOCOBALAMIN 500 MCG TABLET (VITAMIN B-12) PO SCH (07:37)
[2020-04-09] MEDS: OXYBUTYNIN CHLORIDE XL 5 MG TABCR PO SCH (07:37)
[2020-04-09] MEDS: ATORVASTATIN 40 MG TAB PO SCH (07:37)
[2020-04-09] MEDS: amLODIPine BESYLATE 5 MG TAB PO SCH (07:38)
[2020-04-09] MEDS: ASPIRIN 81 MG ECTAB PO SCH (07:38)
[2020-04-09] MEDS: MAGNESIUM OXIDE 400 MG TAB PO SCH (07:38)
[2020-04-09] MEDS: DULoxetine HCL 60 MG CAP PO SCH (07:38)
[2020-04-09 07:42] LABS: INR 1.5 (0.9-1.1); Prothrombin Time 15.1 Seconds (9.0-12.0)
[2020-04-09] MEDS: INSULIN GLARGINE SOLOSTAR 100 UNITS/ML 3 ML PEN SC SCH (07:44)
[2020-04-09] MEDS: INSULIN ASPART 100 UNITS/ML 3 ML PEN SC SCH ×2 (07:45→11:47)
[2020-04-09 08:00] LABS: BUN Creatinine Ratio 12.6 (10-20); Calcium 9.5 mg/dl (8.5-10.1); Creatinine Clr Calc Pharmacy 73.5 ml/min; Est GFR (African American) 59.6; Est GFR (Non-African American) 51.4; Magnesium 1.8 mg/dl (1.8-2.4); Phosphorus 3.5 mg/dl (2.5-4.9); Potassium 3.6 mmol/L (3.5-5.1)
--- NOTE | 2020-04-09 13:17 | Cardiology Progress Note ---
Date of Service April 09, 2020 Assessment & Plan (1) Atrial fibrillation with rapid ventricular response: (2) Chronic heart failure with preserved ejection fraction (HFpEF): (3) Acute kidney injury: (4) Status post carotid endarterectomy: (5) COPD (chronic obstructive pulmonary disease): (6) Left carotid artery stenosis: (7) Stroke: (8) CAD (coronary artery disease): (9) HTN (hypertension): (10) ZULEIKA (obstructive sleep apnea): Unfortunately, DC cardioversion x3 was unsuccessful. My suspicion is that with resumption of nocturnal CPAP therapy and addition of sotalol he will likely cardiovert on his own. Consideration will be given to repeating DC cardioversion in the a.m. as well. Tolerating sotalol load well. Continue warfarin with goal INR of 2-3 Okay to discharge to home. Follow-up with sleep medicine as directed. Follow-up with cardiology in 2 to 4 weeks. Admission and Anticipated Discharge Date Admission Date: April 06, 2020 Subjective Patient seen and examined, chart reviewed. Once again, states that he felt great overnight sleeping with CPAP. Still with occasional palpitations but denies any other complaints of chest pain, shortness of breath, lightheadedness or dizziness. Telemetry reviewed: Atrial fibrillation rate controlled without any significant ventricular ectopy EKG: Atrial fibrillation with a QTC of 487 ms Physical Exam Physical Exam: General: Awake, alert and oriented x 3. No acute distress. HEENT: Normocephalic, atraumatic. Pupils equal, round and reactive to light and accommodation. Extraocular muscles are intact. Anicteric sclera. Moist mucous membranes. Neck: No JVD. No bruit. Cardiovascular: irregularly irregular, unable to appreciate murmur, rub or gallop. Pulmonary: Clear to auscultation bilaterally. No rales, rhonchi, or wheezing. Abdomen: Bowel sounds x 4, soft. No rebound, guarding or tenderness. No organomegaly. Extremities: No clubbing, cyanosis or edema. +2 pedal pulses bilaterally. Skin: Warm and dry. ENMT: Mallampati Class: III Results & Data ([facility]) Vital Signs (Past 12 Hours) Vital Signs Temp Pulse Pulse Pulse Resp BP BP 04/09/20 12:52 36.7 C 93 H 99 H 20 154/104 H 144/88 H 04/09/20 11:47 36.7 C 99 H 20 144/88 H 04/09/20 09:00 76 04/09/20 07:34 37 C 97 H 16 148/90 H 04/09/20 04:00 36.5 C 91 H 20 160/84 H 04/09/20 02:10 80 18 Pulse Ox 04/09/20 12:52 95 04/09/20 11:47 95 04/09/20 09:00 04/09/20 07:34 96 04/09/20 04:00 93 04/09/20 02:10 96 (1) CAD (coronary artery disease) Associated angina: with unspecified angina Coronary Disease-Associated Artery/Lesion type: unspecified vessel or lesion type [place] vs. transplanted heart: [place] heart Qualified Code(s): I25.119 - Atherosclerotic heart disease of [place] coronary artery with unspecified angina pectoris (2) Stroke CVA mechanism: unspecified Qualified Code(s): I63.9 - Cerebral infarction, unspecified
--- NOTE | 2020-04-09 17:16 | Discharge Summary ---
Date of Service April 09, 2020 Admission HPI Per Admitting Provider This is a 65-year-old male who has significant past medical history of CAD with history of stent to RCA and LAD, chronic HFpEF, cor pulmonale, ZULEIKA on CPAP, chronic atrial fibrillation anticoagulated on warfarin, T2DM, HTN, HLD, history of CVA, history of a flutter status post ablation who presents to ED at the referral of cardiology for sotalol initiation. Patient was seen and evaluated by cardiology on 04/03/2020 secondary to persistent chest pain and lower extremity swelling. In setting of chronic atrial fibrillation patient was referred for admission for likely cardioversion and sotalol initiation. Over the last several weeks patient complains of substernal chest discomfort with minimal activity including ADLs. Chest pain is substernal with radiation to bilateral neck. Symptoms last approximately 1 to 2 minutes but resolved with rest. Also associated with shortness of breath and recent increase in lower extremity edema. He also complains of orthopnea and PND but also associates this to not having a functioning CPAP. He has been followed closely with cardiology and recently had adjustments made to diuretics with transition to torsemide in addition of Aldactone. He has noticed decrease in lower extremity swelling. Currently he denies any fever, chills, sweats, lightheadedness, dizziness, syncope, palpitations, chest pain, shortness breath at rest, hemoptysis, nausea, vomiting, abdominal pain, change in bowel or urinary habits. His last chest pain episode was this morning with minimal activity, but does not occur at rest. Episodes are not associated with diaphoresis or nausea, but does get short of breath. He denies any recent URI symptoms or known COVID-19 exposures. Denies loss of taste or smell. He has been compliant with medications and took all a.m. meds today. 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 Admission Exam Per Admitting Provider Physical Exam: Constitutional: WD/WN, obese, male, sitting up at bedside vitals as above, NAD, sitting up in bed, pleasant, conversing easily Head: Normocephalic, Atraumatic Eyes: PERRL, conjunctivae normal, anicteric sclerae ENMT: external ear and nose normal, oropharynx normal Neck: trachea midline, no thyromegaly normal visual inspection Respiratory: normal respiratory effort, lungs clear to auscultation, no wheeze, rales, mild inspiratory rhonchi. Normal insp/exp effort, no accessory muscle use Cardiovascular: Irregular rate, irregular rhythm, no murmur, venous stasis changes bilaterally, no edema Vessels: no JVD or carotid bruit Chest: normal inspection of chest Abdomen: normal bowel sounds, soft, nontender, no hepatosplenomegaly Musculoskeletal: no cyanosis or clubbing, extremities motor strength 5/5 Skin: Scaly plaques and patches noted on dorsal aspect of upper extremities, anterior and posterior thorax, warm and dry normal turgor Neurologic: PERRL, EOMI, accommodation nl, no face palsy, no dysarthria CN's II-XI intact bilaterally and moves all extremities Psychiatric: A+Ox3, euthymic affect Lymphatic: no cervical or axillary lymphadenopathy : deferred Principal Diagnosis Atrial fibrillation Discharge Exam General: A&Ox3 HENT: NCAT, MMM, EOMI Eyes: PERRLA Neck: Supple, normal range of motion CVS: Normal rate with a regular rhythm Resp: b/l good breath sounds Abdomen: Soft, distended nontender Extremities: Absence of any edema Neuro: face symmetric, strength grossly equal, no focal deficit Skin: warm and dry, no rashes/lesions/errythema MSK: normal ROM, no joint swelling/erythema Discharge Data Allergies Allergy/AdvReac Type Severity Reaction Status Date / Time niacin AdvReac Intermediate sweats and Verified 03/23/20 21:31 joint pain Consultations 04/06/20 08:42 ED Decision to Admit Stat 04/06/20 08:52 Consult Cardiology Routine Procedures Performed Operation Date: 04/08/20 08:00 Actual Procedures p Cardioversion - Bhaskar Milligan DO Hospital Course (1) Atrial fibrillation with rapid ventricular response: Patient presented with atrial fibrillation with RVR. He was started on sotalol. Cardioversion was attempted by cardiology however it was unsuccessful 3 times. Patient was tolerating sotalol. The day of discharge patient was doing okay. His rate was controlled. Cardiology recommended to discharge patient on sotalol and losartan. Discontinue beta-augustin and digoxin. Patient did not have any complaints at the time of discharge. He was hemodynamically stable. (2) Acute kidney injury: baseline cr 0.8-1.0 bun/cr 23 and 1.70 Protein was 1.43 at the time of discharge. Will recommend for the PCP to obtain BMP to monitor renal function. (3) CAD (coronary artery disease): hx of PCI to RCA and LAD Continue [employer] aspirin 81 mg daily, Lipitor 80 mg daily. Coreg and oxygen was continued at discharge. Current on sotalol 80 mg twice daily. (4) Chronic heart failure with preserved ejection fraction (HFpEF): last echo 03/30/20 EF 55-59%, grade 3 diastolic dysfunction, pulmonary htn, 45mmhg on Torsemide, aldactone, coreg and losartan Recent exacerbation felt 2/2 to ZULEIKA untreated due to malfunction of cpap Continue torsemide. Continue with Aldactone. Started heart healthy diet. (5) Diabetes mellitus type II, uncontrolled: A1C 7.0 on 03/05 lantus/novolog per protocol hold [employer] metformin (6) ZULEIKA on CPAP: CPAP at HS Patient has not using the CPAP for the last 3 months. Report it is not working properly and needs to get a new one. Refer to sleep medicine as an outpatient and will discuss with care management. 12-18 cwp with 3L of O2 at HS (7) HTN (hypertension): Continue amlodipine 10 mg daily. Started torsemide and losartan. Continue with sotalol 80 mg twice daily. (8) Dyslipidemia: continue statin (9) Stroke: hx CVA continue ASA, Statin Current Coumadin at discharge. INR goal of 2-3. (10) Tobacco abuse: 1/2ppd/40 years encourage cessation Follow up: PCP Dr. López upon discharge along with cardiology follow up (11) ZULEIKA (obstructive sleep apnea): Total Time Total Time Spent Total Time Spent (In Minutes): 35 Discharge Plan Discharge Items Patient Disposition: Home - Self-Care Reason For Visit: AFIB, SOTALOL INITIATION Discharge Diagnosis: Atrial fibrillation Activity: Resume your previous activity Non-emergency contact: Primary Care Provider Call non-emergency contact if: you have any medication questions, your symptoms worsen and your pain is not controlled Follow-up/Referrals: Steven López MD [Primary Care Provider] - 04/13/20 9:40 am (Date & Time 04/13/2020 9:40 AM Provider Steven López MD [facility] ) Diet: Heart Healthy Addtl Attending Provider Instructions: Follow-up with your family care doctor within the next 3 days. Start taking sotalol 80 mg twice daily. Stop taking carvedilol and digoxin. You will need to follow-up with cardiology as an outpatient. Appointment has been requested. Recommend start using CPAP at home. Pending Studies at Discharge: No Stand-Alone Forms: My [facility] Gingr, Smoking Cessation Medications and DC Order Prescriptions: New sotalol 80 mg tablet 80 mg PO BID Qty: 60 RF: 0 Continued nitroglycerin [Nitrostat] 0.4 mg Tablet, Sublingual 0.4 mg sublingual USEASDIRECTD PRN (Reason: Chest Pain) Qty: 0 RF: 0 omeprazole 20 mg Capsule,Delayed Release(Dr/Ec) 20 mg PO BID Qty: 0 RF: 0 fenofibrate nanocrystallized [Tricor] 48 mg Tablet 48 mg PO QPM Qty: 0 RF: 0 metformin 500 mg Tablet 1,000 mg PO BID Qty: 0 RF: 0 atorvastatin [Lipitor] 80 mg Tablet 80 mg PO DAILY Qty: 0 RF: 0 insulin aspart U-100 [Novolog U-100 Insulin aspart] 100 unit/mL Solution 32 unit SUBCUT TIDM Qty: 0 RF: 0 magnesium oxide 400 mg magnesium Tablet 400 mg PO DAILY Qty: 0 RF: 0 aspirin 81 mg Tablet,Delayed Release (Dr/Ec) 81 mg PO DAILY RF: 0 oxybutynin chloride 5 mg tablet extended release 24hr 5 mg PO DAILY RF: 0 losartan 100 mg tablet 100 mg PO DAILY RF: 0 duloxetine 60 mg capsule,delayed release(DR/EC) 60 mg PO QAM RF: 0 omega-3 fatty acids-fish oil 360-1,200 mg Capsule 1 cap PO HS RF: 0 famotidine 40 mg tablet 40 mg PO HS RF: 0 cyanocobalamin (vitamin B-12) [Vitamin B-12] 1,000 mcg Tablet 1,000 mcg PO DAILY RF: 0 amlodipine [Norvasc] 5 mg tablet 10 mg PO DAILY RF: 0 Ozempic 1 mg/dose (2 mg/1.5 mL) pen injector 1 mg SUBCUT JAEGER RF: 0 Basaglar KwikPen U-100 Insulin 100 unit/mL (3 mL) insulin pen 44 unit SUBCUT BID RF: 0 warfarin 7.5 mg Tablet 7.5 mg PO SUTUWETHSA RF: 0 spironolactone 25 mg tablet 12.5 mg PO DAILY RF: 0 torsemide 20 mg Tablet 20 mg PO BID RF: 0 warfarin 5 mg Tablet 5 mg PO MOFR RF: 0 Discontinued digoxin 125 mcg Tablet 125 mcg PO QPM Qty: 0 RF: 0 carvedilol 25 mg tablet 25 mg PO BID RF: 0 Discharge Orders: Discharge Order (Routine); Ordered 04/09/20 Ordered By: Filippo Barahona Admission Data Admit Date/Time: 04/06/20 08:52 Attending Provider: Filippo Barahona Admit Provider: Quinn Ahmadi Primary Care Provider: Steven López Other Providers: Bhaskar Milligan Andrea F. Other Interventions: Discharge Summary Assessment (RN) Last Done: 04/09/20 12:52
--- NOTE | 2020-04-10 13:10 | Electrocardiogram Report ---
Test Reason : Blood Pressure : / mmHG Vent. Rate : 088 BPM Atrial Rate : 133 BPM P-R Int : 000 ms QRS Dur : 082 ms QT Int : 402 ms P-R-T Axes : 000 030 213 degrees QTc Int : 486 ms Atrial fibrillation Septal infarct , age undetermined Abnormal ECG When compared with ECG of 07-APR-2020 09:21, QT has lengthened Confirmed by Celestine Garza ([id number]) on 04/10/2020 1:09:45 PM Referred By: REFERRED SELF Confirmed By:Celestine Garza
--- NOTE | 2020-04-10 13:25 | Electrocardiogram Report ---
Test Reason : Blood Pressure : / mmHG Vent. Rate : 083 BPM Atrial Rate : 093 BPM P-R Int : 000 ms QRS Dur : 080 ms QT Int : 372 ms P-R-T Axes : 000 017 212 degrees QTc Int : 437 ms Atrial fibrillation Septal infarct (cited on or before 08-APR-2020) Cannot rule out Inferior infarct , age undetermined Abnormal ECG When compared with ECG of 08-APR-2020 06:41, (unconfirmed) No significant change was found Confirmed by Celestine Garza ([id number]) on 04/10/2020 1:25:03 PM Referred By: REFERRED SELF Confirmed By:Celestine Garza
--- NOTE | 2020-04-10 22:08 | Electrocardiogram Report ---
Test Reason : Blood Pressure : / mmHG Vent. Rate : 098 BPM Atrial Rate : 102 BPM P-R Int : 000 ms QRS Dur : 096 ms QT Int : 382 ms P-R-T Axes : 000 067 268 degrees QTc Int : 487 ms Atrial fibrillation Prolonged QT Abnormal ECG When compared with ECG of 08-APR-2020 09:32, (unconfirmed) Criteria for Septal infarct are no longer Present Minimal criteria for Inferior infarct are no longer Present Inverted T waves have replaced nonspecific T wave abnormality in Inferior leads QT has lengthened Confirmed by Celestine Garza ([id number]) on 04/10/2020 10:08:09 PM Referred By: REFERRED SELF Confirmed By:Celestine Garza
== END 2020-04-09 13:36 | disposition home or self-care (01) | DRG 280 ==
LOC: ED 07:33 → SUATTDRO 08:52 → 2S 08:52